=== PATIENT | female | born 1980 | race Caucasian/White ===

== ENCOUNTER 2016-08-12 13:27 | Emergency (ER) | payer OTHER ==
[~2016-08-12] VITALS: Ht 172.7 cm; Wt 72.7 kg
[~2016-08-12 13:27] MED LIST: ALBU18HF INH; PRE20 PO; ZIT250 PO
[2016-08-12 13:35] VITALS: BP 126/84; PULSE 113; RESP 12; O2SAT 99
--- NOTE | 2016-08-12 14:28 | ED.REPORT ---
HPI-General Illness Date of Service Aug 12, 2016 ED Provider: Dr. Collazo Pt is a 36 year old female with a hx of IV heroin use and migraines presenting to the ED complaining of a headache onset 3 days ago. Associated symptoms include chills, sweats, malaise. Denies muscle aching, numbness, weakness, cough , sore throat, rash. She reports that her last heroin usage was 1 hour before arrival today. She reports that this headache feels the same as her previous migraines. Nursing Notes Stated Complaint: HEADACHE Chief Complaint: General Complaint Nursing Notes Reviewed: Yes Allergies: Coded Allergies: aloe vera (Verified Allergy, Unknown, 09/04/15) coconut oil (Verified Allergy, Unknown, 09/04/15) pregabalin (Verified Allergy, Unknown, hallucinations, 09/04/15) venlafaxine (Verified Allergy, Unknown, seratonin reax, 09/04/15) Scheduled Azithromycin (Zithromax) 250 Mg Tablet 250 MG PO DAILY Prednisone (PredniSONE) 20 Mg Tablet 40 MG PO DAILY Scheduled PRN Albuterol Sulfate (Ventolin HFA Inhaler) 200 Puff/18 Gm Inhaler 1 PUFF INH Q4 PRN PRN For Wheezing okay to sub for pro-air as covered by insurance General Time Seen by MD: 14:28 Chief Complaint Headache Hx Obtained From: Patient Arrived By: Walk-in Sudden in Onset?: No Onset Occurred: 3 days ago Symptom Duration: Since onset Severity: Current: Severe Severity: Maximum: Severe Recent Healthcare: No recent doctor visit, No recent hospitalization Similar Sx Previous: Yes Past Medical History Past Medical History H/o ulcers h/o left breast infection Migraines Reports: Asthma, GERD Reports: IV Drug use Past Surgical History Tubal ligation Smoking History Current Every Day Smoker Social History Previously homeless, now has home Alcohol Use: Denies alcohol use Drug Use: IV drugs Other Social History: Local resident Occupation lives with boyfriend, no work or school Ambulatory Status Independent Review of Systems Full Review of Systems Constitutional: Reports: Chills, Fever, Malaise Ears / Nose / Throat: Denies: Sore throat Respiratory: Denies: Non-productive cough GI: Denies: Nausea, Vomiting Musculoskeletal: Denies: Joint pain Skin: Reports Diaphoresis, Denies Rash Neurologic: Denies: Numbness, Weakness Physical Exam Vital Signs Vital Signs Date Time Temp Pulse Resp B/P Pulse Ox O2 Delivery O2 Flow Rate FiO2 08/12/16 17:11 38 102 16 117/70 97 Room Air 08/12/16 13:35 36.6 113 12 126/84 99 Room Air Initial VS: Reviewed, Vital signs abnormal ENT: Mucous membranes moist, Conjunctiva normal, No scleral icterus Neck: Supple, Non-tender, Full range of motion Respiratory: Breath sounds normal, Clear to auscultation, No respiratory distress Abdomen / GI: Soft, Non-tender, No guarding, No rebound, No distention Neurologic: Alert, Oriented, Nonfocal Psychiatric: Mood/affect normal, Behavior normal, Normal thought content General/Constitutional: Awake, Alert, No acute distress Head / Eyes: Atraumatic, No photophobia Cardiovascular: Regular rhythm, Heart sounds NL Heart Rate / Rhythm: Positive: Tachycardia Skin: Warm Multiple excoriations to the face and arms. Interpretation & Diagnostics Lab Results Interpretation Result Diagram: 08/12/16 1510 08/12/16 1510 Test 08/12/16 15:10 08/12/16 15:44 White Blood Count 11.8th/mm3 (3.8-10.1) Red Blood Count 3.94mil/mm3 (3.90-5.20) Hemoglobin 11.0g/dL (12.0-15.6) Hematocrit 33.8% (35.0-46.0) Mean Corpuscular Volume 85.8fL (81-100) Mean Corpuscular Hemoglobin 27.9pg (27.0-35.0) Mean Corpuscular Hemoglobin Concent 32.5% (32.0-37.0) Red Cell Distribution Width 14.6% (12.3-15.4) Platelet Count 273bil/L (150-400) Neutrophils (%) (Auto) 84.1% (40-74) Lymphocytes (%) (Auto) 9.4% (14-46) Monocytes (%) (Auto) 5.9% (4-12) Eosinophils (%) (Auto) 0.2% (0-5) Basophils (%) (Auto) 0.1% (0-3) Sodium Level 131mEq/L (134-144) Potassium Level 3.5mEq/L (3.5-5.2) Chloride Level 95mEq/L (97-108) Carbon Dioxide Level 22mmol/L (18-29) Blood Urea Nitrogen 11mg/dL (6-20) Creatinine 0.57mg/dL (0.57-1.00) Estimat Glomerular Filtration Rate 174mL/min (>59) Glucose Level 120mg/dL (60-99) Calcium Level 8.1mg/dL (8.5-10.1) Lipase 15U/L (13-60) Hold Negro Top Tube Received (Received) Urine Color Yellow (YELLOW) Urine Appearance Hazy (CLEAR,HAZY) Urine pH 5.5 (5.0-8.0) Urine Specific [place] 1.005 (1.003-1.035) Urine Protein Negativemg/dL (NEG,TRACE) Urine Glucose (UA) Negativemg/dL (NEGATIVE) Urine Ketones Negativemg/dL (NEGATIVE) Urine Occult Blood Large (NEGATIVE) Urine Nitrite Positive (NEGATIVE) Urine Bilirubin Negative (NEGATIVE) Urine Urobilinogen Normalmg/dL (NORMAL) Urine Leukocyte Esterase Negative (NEGATIVE) Urine RBC 0-2/hpf (0-2) Urine WBC 0-5/hpf (0-5) Urine Epithelial Cells Moderate/hpf (NONE-MOD) Urine Crystals None seen (NONE SEEN) Urine Bacteria Many/hpf (NONE-FEW) Urine Hyaline Casts None/lpf (NONE) Urine Granular Casts None seen (NONE SEEN) Urine Waxy Casts None seen (NONE SEEN) Urine Red Blood Cell Casts None seen (NONE SEEN) Urine White Blood Cell Casts None seen (NONE SEEN) Urine Mucus None seen (None Seen) Urine Trichomonas None seen (NONE SEEN) Urine Yeast None (NONE SEEN) Urinalysis Comment None Urine Culture Reflexed Indicated Hold Urine Received (Received) Re-Eval/Medical Decision Med Decision/Clinical Course The patient presents with predominantly to her malaise and headache. Her exam is pretty unremarkable other than tachycardia. Given she is an IV drug user she could be at risk for bacteremia and so cultures were drawn. The patient did end up developing a fever. She does not have any symptoms or signs concerning for endocarditis. There are no hemorrhages and no murmur. A partial a similar differential diagnoses considered were meningitis, subarachnoid hemorrhage, and viral syndrome. The patient was discharged home and told to call for culture results. Time of Eval: 16:51 Patient Status: Condition improved Re-Evaluation/Progress Note: Discussed plan for discharge. Pt understands and agrees. Counseled Regarding: Diagnosis, Lab results, Need for follow-up, When/why to return to ED Discharge & Departure Primary Impression: Malaise Additional Impressions: Headache Headache type: unspecified Headache chronicity pattern: unspecified pattern Intractability: not intractable Qualified Code: R51 - Headache Fever Fever type: unspecified Qualified Code: R50.9 - Fever, unspecified Disposition: Home Discharge Condition All VS Reviewed: Yes Condition: Improved Additional Instructions: Go home and rest. Drink plenty of fluids. Return to the ER with any new or worsening symptoms. Referrals: NOPCP (PCP) [facility] [place] Attestation Portions of this note were transcribed by Cynthia Velásquez. I, Dr. Collazo personally performed the history, physical exam and medical decision-making; I reviewed and confirmed the accuracy of the information in the transcribed note. Signed by : Paramjit Ruiz, 08/12/2016 and [id number]. copies to: [facility] Osiris Collazo MD Aug 12, 2016 14:28 CYNTHIA VELÁSQUEZ Aug 12, 2016 14:37
[2016-08-12] MEDS ORDERED: 0.9% Sodium Chloride 1,000 ML IV ONE (14:40)
[2016-08-12] MEDS ORDERED: ProchlorPERazine 5 mg/mL 2 mL Inj IVPUSH ONE (14:40)
[2016-08-12] MEDS ORDERED: 0.9% Sodium Chloride 50 ML ONE (14:51)
[2016-08-12 15:24] LABS: BASOPHILS % (AUTO) 0.1 % (0-3); EOSINOPHILS % (AUTO) 0.2 % (0-5); MONOCYTES % (AUTO) 5.9 % (4-12); Mean Corpuscular Hemoglobin 27.9 pg (27.0-35.0); Mean Corpuscular Volume 85.8 fL (81-100); NEUTROPHILS % (AUTO) 84.1 % (40-74); Platelet Count 273 bil/L (150-400)
[2016-08-12 16:45] LABS: APPEARANCE,URINE HAZY (CLEAR,HAZY); COLOR,URINE YELLOW (YELLOW); OCCULT BLOOD,URINE LARGE (NEGATIVE); PH,URINE 5.5 (5.0-8.0); UROBILINOGEN,URINE NORMAL (NORMAL)
[2016-08-12 17:11] VITALS: BP 117/70; PULSE 102; RESP 16; O2SAT 97
== END 2016-08-12 17:59 | disposition home or self-care (01) ==
LOC: SED 13:27
DX: R53.81 Other malaise (principal); R51 Headache; R50.9 Fever, unspecified; J45.909 Unspecified asthma, uncomplicated; K21.9 Gastro-esophageal reflux disease without esophagitis; F17.200 Nicotine dependence, unspecified, uncomplicated; Z88.8 Allergy status to other drugs, medicaments and biological substances
CPT/HCPCS: 36415; 80048; 81000; 83690; 85025; 87040; 87077; 87086; 87088; 87186; 96361; 96374; 96375; 99285; J0780; J1200; J7030

== ENCOUNTER 2016-08-17 13:46 | Emergency (ER) | payer OTHER ==
[~2016-08-17] VITALS: Ht 172.7 cm; Wt 90.3 kg
[2016-08-17 14:04] VITALS: BP 128/74; PULSE 109; RESP 16; O2SAT 96
[2016-08-17] MEDS ORDERED: cefTRIAXone Inj 2,000 MG in Dextrose 5% Minibag Plus 50 ML IV ONE (15:35)
[2016-08-17] MEDS ORDERED: Vancomycin Dose per Pharmacist XX ONE (15:35)
[2016-08-17] MEDS ORDERED: Promethazine Inj 25 MG in Dextrose 5%-Pha MIX 50 ML IV ONE (15:55)
[2016-08-17] MEDS ORDERED: Vancomycin Inj 2,000 MG in 0.9% Sodium Chloride 500 ML IV ONE (16:00)
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
[2016-08-17 16:14] LABS: INR 0.99 ratio
== END 2016-08-17 16:43 | disposition home or self-care (01) ==
LOC: SED 13:46
DX: B95.62 Methicillin resistant Staphylococcus aureus infection as the cause of diseases classified elsewhere (principal); B96.20 Unspecified Escherichia coli [E. coli] as the cause of diseases classified elsewhere; R51 Headache; M25.562 Pain in left knee; R01.1 Cardiac murmur, unspecified; I33.0 Acute and subacute infective endocarditis; F17.200 Nicotine dependence, unspecified, uncomplicated; F11.10 Opioid abuse, uncomplicated; F15.10 Other stimulant abuse, uncomplicated; J45.909 Unspecified asthma, uncomplicated; K21.9 Gastro-esophageal reflux disease without esophagitis; Z79.51 Long term (current) use of inhaled steroids; Z59.0 Homelessness; Z88.0 Allergy status to penicillin; Z88.8 Allergy status to other drugs, medicaments and biological substances

== ENCOUNTER 2016-08-18 00:12 | Inpatient (IN) | payer OTHER ==
[2016-08-18] VITALS (9 sets, daily range): BP systolic 107–121; BP diastolic 55–77; PULSE 69–106; RESP 18–26; O2SAT 92–100
[~2016-08-18] VITALS: Ht 172.7 cm; Wt 91.8 kg
[2016-08-18] MEDS ORDERED: 0.9% Sodium Chloride 1,000 ML IV ONE ×2 (02:01→03:30)
--- NOTE | 2016-08-18 02:01 | ED.REPORT ---
HPI-General Illness Date of Service Aug 18, 2016 ED Provider: Jj Smith MD A 36 year old female with a history of breast abscess, tubal ligation, MRSA, ulcers, migraines, and ongoing IV heroin use presents to the ED complaining of a headache. The pt has been experiencing a headache for five days, which is worsened by fluctuations in blood pressure. She is also complaining of left knee pain and swelling. She had blood cultures drawn in four out of four positive for methicillin-resistant staph aureus. The pt was seen yesterday for these symptoms and admission advised, but she eloped. Her headache worsened after this point and she developed a fever, prompting the pt to return. The pt denies cough or vomiting. She has been treating her pain with Aleve until recently, but denies Tylenol or aspirin use. No neck stiffness. Left knee is tender and swollen. She is unable bear weight on that. Nursing Notes Stated Complaint: HEADACHE Chief Complaint: Headache Nursing Notes Reviewed: Yes Allergies: Coded Allergies: Penicillins (Verified Allergy, Unknown, hives, thrush, 08/18/16) aloe vera (Verified Allergy, Unknown, 08/17/16) coconut oil (Verified Allergy, Unknown, 08/17/16) pregabalin (Verified Allergy, Unknown, hallucinations, 08/17/16) venlafaxine (Verified Allergy, Unknown, seratonin reax, 08/17/16) Scheduled Azithromycin (Zithromax) 250 Mg Tablet 250 MG PO DAILY Prednisone (PredniSONE) 20 Mg Tablet 40 MG PO DAILY Scheduled PRN Albuterol Sulfate (Ventolin HFA Inhaler) 200 Puff/18 Gm Inhaler 1 PUFF INH Q4 PRN PRN For Wheezing okay to sub for pro-air as covered by insurance General Time Seen by MD: 02:01 Chief Complaint Headache Hx Obtained From: Patient Arrived By: Walk-in Sudden in Onset?: No Onset Occurred: 5 days ago Symptom Duration: Since onset Recent Healthcare: No recent hospitalization, Recent doctor visit Similar Sx Previous: No Past Medical History Past Medical History H/o ulcers h/o left breast infection Migraines ho MRSA heart murmur Reports: Asthma, GERD Reports: Heroin use, IV Drug use Past Surgical History Tubal ligation Smoking History Current Every Day Smoker Social History Homeless Alcohol Use: Denies alcohol use Drug Use: IV drugs Other Social History: Local resident Occupation lives with boyfriend, no work or school Ambulatory Status Independent Review of Systems Full Review of Systems Constitutional: Reports: Fever Respiratory: Denies: Non-productive cough GI: Denies: Vomiting Musculoskeletal: Reports: Extremity pain, Extremity swelling Neurologic: Reports: Headache Complete sys rev & neg: except as marked. Physical Exam Vital Signs Vital Signs Date Time Temp Pulse Resp B/P Pulse Ox O2 Delivery O2 Flow Rate FiO2 08/18/16 00:26 38.8 106 18 121/71 100 Room Air Initial VS: Reviewed General/Constitutional: Awake, Alert, No acute distress Head / Eyes: Atraumatic, Normocephalic, PERRL, EOMI ENT: Atraumatic, Airway patent, Mucous membranes moist Neck: Atraumatic, Supple, Full range of motion Respiratory / Chest: Atraumatic, Breath sounds NL, Breath sounds = bilat, No respiratory distress Cardiovascular: Heart rate NL, Regular rhythm 3/6 holosystolic murmur Abdomen: Atraumatic, Soft, Non-tender Back: Atraumatic, Full range of motion Upper Extremities Upper Extremity / MS: Atraumatic, Full range of motion Lower Extremity / Pelvis / MS: No deformity left knee swollen and tender with obvious effusion Skin: Color NL, Warm, Dry multiple scabs and excoriations on face Neurologic: Oriented X3, Speech NL, No motor deficits, No sensory deficits Psychiatric: Affect NL, Mood NL Interpretation & Diagnostics Lab Results Interpretation Result Diagram: 08/18/16 0255 08/18/16 0255 Test 08/18/16 02:55 White Blood Count 13.9th/mm3 (3.8-10.1) Red Blood Count 3.59mil/mm3 (3.90-5.20) Hemoglobin 10.0g/dL (12.0-15.6) Hematocrit 30.2% (35.0-46.0) Mean Corpuscular Volume 84.1fL (81-100) Mean Corpuscular Hemoglobin 27.9pg (27.0-35.0) Mean Corpuscular Hemoglobin Concent 33.1% (32.0-37.0) Red Cell Distribution Width 14.3% (12.3-15.4) Platelet Count 376bil/L (150-400) Neutrophils (%) (Auto) 71.4% (40-74) Lymphocytes (%) (Auto) 21.3% (14-46) Monocytes (%) (Auto) 5.6% (4-12) Eosinophils (%) (Auto) 0.9% (0-5) Basophils (%) (Auto) 0.1% (0-3) Erythrocyte Sedimentation Rate 76mm/hr (0-32) Prothrombin Time 11.0sec (8.1-12.5) Prothromb Time International Ratio 1.03ratio Activated Partial Thromboplast Time 28.9sec (22.8-33.0) Sodium Level 129mEq/L (134-144) Potassium Level 3.6mEq/L (3.5-5.2) Chloride Level 92mEq/L (97-108) Carbon Dioxide Level 23mmol/L (18-29) Blood Urea Nitrogen 11mg/dL (6-20) Creatinine 0.64mg/dL (0.57-1.00) Estimat Glomerular Filtration Rate 152mL/min (>59) Glucose Level 152mg/dL (60-99) Lactic Acid Level 1.9mmol/L (0.4-2.0) Calcium Level 8.5mg/dL (8.5-10.1) Phosphorus Level 2.0mg/dL (2.5-4.9) Magnesium Level 1.8mg/dL (1.6-2.6) Total Bilirubin 0.3mg/dL (0.0-1.2) Aspartate Amino Transf (AST/SGOT) 27U/L (0-50) Alanine Aminotransferase (ALT/SGPT) 38U/L (0-32) Alkaline Phosphatase 95U/L (25-150) Troponin T 0.010ug/L (0.0-0.011) Pro-B-Type Natriuretic Peptide 8.10pg/mL (0-130) Total Protein 7.4g/dL (6.4-8.4) Albumin 3.2g/dL (3.4-5.0) Lipase 16U/L (13-60) Procalcitonin 0.09ng/mL (0.00-0.08) ECG Interpretation ECG Interpretation: sinus tachycardia with a rate of [address] T wave changes lateral leads Time: 04:32 Interpreted by: ED physician X-Ray Chest Interpretation Chest Xray Interpretation: no acute findings Interpretation / Wet Read by: Wet read ED physician X-Ray Interpretation Xray Interpretation: no acute findings X-Ray Ordered: Knee left Interpretation / Wet Read by: Wet read ED physician CT Head Interpretation CONCLUSION: Normal. Interpretation / Wet Read by: Interpret - Radiologist Procedures Arthrocentesis aspirated 21 mL of turbid fluid Time: 05:08 Aspiration Performed by: ED physician, ED resident Consent / Setup / Site Prep: Informed consent provided, Consent from patient, Time-out performed, Hand hygiene observed, Stand sterile technique, Standard surgical scrub, Sterile drapes applied Skin Preparation Agent: Hibiclens - Chlorhexidine Joint Aspirated: Knee left Aspiration Needle: Other (21g) Amount Aspirated: 8 ml Post-Procedure / Complications: Antibiotic oint applied, Dressing placed, No complications, Condition improved, Tolerated procedure well, Patient stable Re-Eval/Medical Decision Med Decision/Clinical Course 36-year-old with IV drug abuse, and four out of four blood cultures positive for methicillin-resistant staph aureus in the past week, presents with fever, headache, and a knee effusion. Knee was tapped and appears moderately purulent. Neck is supple. Doubt meningitis. CT of the cranium with and without contrast does not reveal evidence of abscess. Chest x-ray does not have any focal infiltrates. Synovial fluid has only 25,000 white cells, below criteria for acutely septic knee. Cultures pending. Begun with vancomycin and clindamycin for her septicemia. Admitted now to the medicine service. Consultation to infectious disease. Source of Hx: Old records Time of Eval: 02:01 Re-Evaluation/Progress Note: Pt informed of the need for admission during the initial interview. The plan for discharge is discussed. The pt understands and agrees with the plan. All questions are addressed at this time. Time of Eval: 05:02 Patient Status: Condition improved Re-Evaluation/Progress Note: Pt rechecked, who is resting. She is informed of her radiology results. Arthrocentesis is performed without complication. Consultation : Referral / Consult Name: Isis Mckeon DO Consulted With: Hospitalist Call Returned at: 04:38 Diazo Technician: Agrees with eval, Agrees with plan, Accepts admit Note: Spoke with Dr. Mckeon, hospitalist, regarding pt's case. Dr. Mckeon agrees with the evaluation and agrees to admit the pt. Counseled Regarding: Diagnosis, Lab results, Need for admission Discharge & Departure Primary Impression: Bacteremia Additional Impressions: Endocarditis, subacute Headache Disposition: ADMITTED TO HOSPITAL Discharge Condition All VS Reviewed: Yes Condition: Stable Referrals: NOPCP (PCP) Scribe Attestation Portions of this note were transcribed by Lelia Ly. I, Dr. Smith personally performed the history, physical exam and medical decision-making; I reviewed and confirmed the accuracy of the information in the transcribed note. Signed by: Paramjit Serra, 08/18/2016 and 0529. Jj Smith MD Aug 18, 2016 02:01 LELIA LY Aug 18, 2016 02:45
[2016-08-18 03:07] LABS: BASOPHILS % (AUTO) 0.1 % (0-3); EOSINOPHILS % (AUTO) 0.9 % (0-5); MONOCYTES % (AUTO) 5.6 % (4-12); Mean Corpuscular Hemoglobin 27.9 pg (27.0-35.0); Mean Corpuscular Volume 84.1 fL (81-100); NEUTROPHILS % (AUTO) 71.4 % (40-74); Platelet Count 376 bil/L (150-400)
[2016-08-18 03:24] LABS: ERYTHROCYTE SEDIMENTATION RATE 76 mm/hr (0-32)
[2016-08-18 03:25] LABS: INR 1.03 ratio
[2016-08-18] MEDS ORDERED: Haloperidol 5 mg/mL Inj IVPUSH ONE (03:30)
[2016-08-18 03:40] LABS: TROPONIN T 0.01 ug/L (0.0-0.011)
[2016-08-18 03:51] LABS: Magnesium 1.8 mg/dL (1.6-2.6)
[2016-08-18] MEDS ORDERED: Alum-Mag Hydrox-Simeth 30 mL Suspension PO PRN (04:45)
[2016-08-18] MEDS ORDERED: Polyethylene Glycol (PEG) 17 Gm Powder PO PRN (04:45)
[2016-08-18] MEDS ORDERED: Clindamycin Inj 900 MG in IV Premix 1 EACH IV ONE (05:35)
[2016-08-18] MEDS ORDERED: Vancomycin Inj 1,750 MG in 0.9% Sodium Chloride 500 ML IV ONE (05:45)
--- NOTE | 2016-08-18 06:05 | PCM.HPMED ---
Subjective Date of Service Aug 18, 2016 Primary Provider: Admitting Physician: Isis Mckeon DO Primary Care Physician: Nikki Attending Physician: Isis Mckeon DO Chief Complaint: Head Ache Bacteremia Knee pain History of Present Illness: 36-year-old woman with history of breast sepsis, MRSA, ulcers, migraines, and current IV heroin use, was found to have MRSA bacteremia after ER visits earlier this week. Today she states her reason for returning is the continued headaches which she has had for 5 days. She describes it as frontal, no preferred laterality, coming and going, each times a comes on its worse in the previous time in the last longer. She does denies any changes in vision. She describes it as constant, non-throbbing. No prodrome, no lights, spots, or curtains. She denies any weakness in her arms hands feet or legs. However she does say she has knee pain which has been present for 2 days. The knee has been swelling and increasing in pain she describes it as "locked" she has not injured the knee only says that she occasionally squats on her knees outside as she is homeless. She endorses fever, chills, but denies any cough, vomiting, nausea or diarrhea. Claims to have a history of asthma and as such occasionally feels short of breath but not currently. No abdominal pain, She has tried treating her pain with Aleve but says that it does not help. She denies any Tylenol or aspirin use. She claims to have left knee emergency department 1-2 days ago when she was told she needed to be admitted because she "needed support and was not ready for it" she additionally mentions that she use the time and between her elopement to now to use more heroin. Vital signs in the emergency department show temperature of 38.8, heart rate of 106, respirations 18, blood pressure 121/71, satting 100% on room air White blood cells 13.9, hemoglobin 10.0, platelets 379. ESR 76. Sodium 129, chloride 92, glucose 153, phosphorus 2.0 ALT mildly elevated at 38. Troponin was negative, pro BNP is negative, pro calcitonin 0.09. Lactic acid 1.9. Head CT- preliminary report showed no acute intracranial process. Chest x-ray read by emergency room physician showed no significant change from previous signs of pneumonia, abscess. X-ray of her knee showed no acute findings. EKG sinus tachycardia, heart rate 100, minor nonspecific ST and T-wave changes in the lateral leads, axis is normal. Patient states she last used IV heroin before she returned to the emergency department, she said she has withdrawn in the past and has had difficulty doing so while hospitalized. She has tried Suboxone and says that it does not work. Review of Systems: Comprehensive ROS performed, negative unless stated in history of present illness Allergies Coded Allergies: Penicillins (Verified Allergy, Unknown, hives, thrush, 08/18/16) aloe vera (Verified Allergy, Unknown, 08/17/16) coconut oil (Verified Allergy, Unknown, 08/17/16) pregabalin (Verified Allergy, Unknown, hallucinations, 08/17/16) venlafaxine (Verified Allergy, Unknown, seratonin reax, 08/17/16) Home Medications Scheduled Azithromycin (Zithromax) 250 Mg Tablet 250 MG PO DAILY Prednisone (PredniSONE) 20 Mg Tablet 40 MG PO DAILY Scheduled PRN Albuterol Sulfate (Ventolin HFA Inhaler) 200 Puff/18 Gm Inhaler 1 PUFF INH Q4 PRN PRN For Wheezing okay to sub for pro-air as covered by insurance PMH H/o ulcers h/o left breast infection Migraines ho MRSA heart murmur Reports: Asthma, GERD Reports: Heroin use, IV Drug use Surgical History Tubal Ligation Family History Mother and grandmother - Uterine and cervical cancer, [place] and CVAs. PGF - [place] Social History Occupation: Homeless Hx Alcohol Use: No Hx Substance Use: Yes (heroin daily) Hx Tobacco Use: Yes Smoking Status: Current Every Day Smoker Living Arrangement: Homeless Exam Vital Signs Vital Sign - Last Date Time Temp Pulse Resp B/P Pulse Ox O2 Delivery O2 Flow Rate FiO2 08/18/16 00:26 38.8 106 18 121/71 100 Room Air Intake and Output 08/17/16 08/17/16 08/18/16 Cumulative From/Thru 14:59 22:59 06:59 08/18/16 00:26 - 08/18/16 03:56 Intake Total 1000 ml 1000 ml Balance 1000 ml 1000 ml Intake IV Total 1000 ml 1000 ml Exam General: Laying in bed, no apparent distress. Disheveled, poor hygiene, obvious lesions to face and extremities foul smell feels the room HEENT: Normocephalic, hair is matted, multiple lesions of varying size and states of healing on her face. Extraocular muscles intact, pupils round and reactive to light, mucous membranes moist, oropharynx is without erythema or edema. Cardiovascular: Regular rate and rhythm, 2/6 systolic murmur heard best at tricuspid post. Pulses 2/4 equal upper and lower extremities Pulmonary: Clear to auscultation bilaterally, no W/R/R. Abdominal: Soft to palpation, bowel sounds present 4, no hepatosplenomegaly. Negative rebound. Extremities: There is no edema to lower extremities, there are multiple pin- sized lesions on upper and lower extremities. No splinter hemorrhages, Oslters nodes, or janeway lesions appreciated. Neuro: Neurologically grossly intact, strength is equal bilaterally upper and lower extremities. MSK: Left knee swollen compared to right, tender, obvious effusion. Strength 5 out of 5 upper and lower extremities. Exam limited with left lower extremity due to pain in knee. Lab and Diagnostics Result Diagram: 08/18/16 0255 08/18/16 0255 Microbiology 09/05 previous blood cultures positive for MRSA. X-Rays, CTs and MRIs mentioned in history of present illness. Official read is not yet available. Head CT Chest x-ray Knee x-ray 12-lead ECG Please see history of present illness Assessment & Plan 36-year-old woman currently IV drug abuser, presents with 5 days of headache, new onset knee pain and swelling, positive blood cultures 2 for MRSA. #1 acute sepsis, present on admission, treatment initiated Blood cells 13.9, vital signs: Temperature 38.8 Celsius, heart rate 106, maintaining blood pressure notified source has blood, right knee, and urinary tract. ESR 76, lactic acid 1.9, pro calcitonin 0.09 Repeat blood cultures with elevated fever CBC every morning Trend pro calcitonin every 24 hours Recheck lactic acid if change in status #2 Acute MRSA Bacteremia, present on admission, treatment initiated 2 out of 2 bottles from 08/12/16 positive for MRSA, sensitive to clindamycin and vancomycin. Attributed to IV drug use. Antibiotics to treat include vancomycin dosed by pharmacy, Clindamycin was given in the emergency department, however given the positive MRSA culture and no other organisms do not feel coverage of anaerobes is necessary. #3 Acute Urinary tract infection, present on admission, treatment initiated Urine culture from 08/12/2016 grew Escherichia coli, Multiple resistance, susceptible to ceftriaxone Start ceftriaxone 2 mg IV every 24 hours #4 Heart murmur, chronicity unknown, present on admission, evaluation ongoing Was heard on previous ER visits, previously evaluated in September 2015 without any valvular abnormalities apparent. She has since continued to use IV drug use. Echocardiogram. Cardiology consult with abnormality on echocardiogram. #5 Acute left knee Septic joint, present on admission, evaluation ongoing Joint aspirate has been collected waiting culture and sensitivity. IV antibiotics to be started for above-mentioned reasons, #6 Chronic IV drug abuse, present on admission, active Last use before returning to the emergency department, reports heroin Serum drug panel Cows protocol Patient said Suboxone did not work for her in the past, maybe candidate for clonidine. High risk for elopement, leaving AGAINST MEDICAL ADVICE, recommend against PICC line placement. #7 Elevated blood glucose Blood sugar in the emergency department was 152, review of previous admission shows it to be elevated greater than 113. Hemoglobin A1c #8 Acute Electrolyte dyscrasia, present on admission, evaluation and treatment ongoing. Most likely due infection Sodium 129, chloride 92. Treat with IV saline We will continue to monitor on BMP/CMP #9 Chronic Anemia, present on admission, stable, evaluation ongoing Review of airplane engineer from previous visits show her to be chronically anemic, previous visit she has been microcytic, currently normocytic. Iron deficiency versus anemia of chronic disease Iron panel #10 Persistent tobacco use Discussed benefits of quitting smoking, risks of continuing to smoke, and how smoking cessation could better improve health in the future #11 High risk for leaving AGAINST MEDICAL ADVICE Left emergency department previously without notifying. Previous admission did not leave AMA. VTE Prophylaxis with subcutaneous heparin GI prophylaxis: Not indicated Pain management: Avoid opioid analgesics secondary to COWs protocol. Pain Evaluation: Adequate Pain Control GI Prophylaxis: Not indicated VTE Prophylaxis: Sub-Q Heparin (Unfractionated) Resuscitation Status: CPR: Attempt Resuscitation Attending Statement The patient was seen and examined together with house staff on 08/18/2016 and I agree with the history, exam and plan as outlined in the note above. Percy Moreira DO Aug 18, 2016 05:36 Isis Mckeon DO Aug 18, 2016 07:05
[2016-08-18 06:27] LABS: APPEARANCE,URINE SLIGHTLY CLOUDY (CLEAR,HAZY); COLOR,URINE YELLOW (YELLOW); OCCULT BLOOD,URINE SMALL (NEGATIVE)
[2016-08-18 07:18] LABS: BFWBC 25400 /mm3; MONOCYTES,BODY FLUID 20 %; OTHER CELLS,BODY FLUID 0
--- NOTE | 2016-08-18 07:24 | NUR ---
Arrival to Rm 3004 Pt arrived alert and oriented x3, conversing in full sentences, and able to make needs known. On arrival this Rn noted Pt ot be covered from head to toe in scabbed open scratch/track ha. Pt was accompanied by a friend who immediately requested food and drink for him self. Upon arrival pt had to use BR and insisted on wearing her large jacket into the BR. Pt spent 15-20 minutes in BR and after returning to bed all Pts belongings (including jacket) were locked in closet with Pts consent. Pt was briefed on policies and expectations. Pt was told to never touch her IV and to call for staff assistance if she though there was any thing wrong with her IV. Pt agreed. pt was told to not take any medications or recreational drugs while in the hospital. Pt agreed. Pt was placed on telemetry and IV antibiotics were started. Reported handed off to on coming RN who was introduced to Pt by my self. At that time Pts visitor was in the BR and after exiting with his back pack on said he was leaving and rushed out of room.
[2016-08-18] MEDS ORDERED: cloNIDine 0.1 mg Tablet PO PRN (08:20)
[2016-08-18 08:29] LABS: Unsaturated Iron Binding 297.1 ug/dL
[2016-08-18] MEDS ORDERED: Buprenorphine 2 mg SL Tablet SL SCH (08:30)
[2016-08-18] MEDS ORDERED: Vancomycin Dose per Pharmacist XX SCH (08:30)
--- NOTE | 2016-08-18 10:08 | DRSVH ---
PROCEDURE: X-RAY LEFT KNEE, THREE VIEWS ([id number]) INDICATIONS: pain, swelling, ivda TECHNIQUE: 3 views of the knee were acquired. COMPARISON: None. FINDINGS: Bones: No fractures or dislocations. No suspicious bony lesions. Soft tissues: Moderate joint effusion. No suspicious soft tissue calcifications. Soft tissue foreig n body. IMPRESSION: Although no bony erosions are identified, plain film radiography is relatively insensitive in the acu te phases of osteomyelitis and may not demonstrate radiographic changes for 15 days. If acute osteom yelitis is of clinical concern, nuclear medicine regional bone scan or MRI is recommended. Joint effusion. 2 cm soft tissue foreign body within the upper lower leg medially at the level of the proximal tibia shaft. Dictated by: Daniel Peace [facility] Interpreted: Saadia Burton MD on 08/18/2016 at 10:07 Transcribed by: HANNAH on 08/18/2016 at 10:08 Approved by: Saadia Burton MD, PhD on 08/18/2016 at 16:57
--- NOTE | 2016-08-18 10:09 | DRSVH ---
PROCEDURE: X-RAY CHEST, TWO VIEWS ([id number]) INDICATIONS: subacute bacterial endocarditis TECHNIQUE: 2 views of the chest were acquired. COMPARISON: None. FINDINGS: Surgical changes and devices: None. Lungs and pleura: No pleural effusions or pneumothorax. Lungs are clear. Mediastinum: Mediastinal contours are normal. Heart size is normal. Bones and chest wall: No suspicious bony abnormalities. Soft tissues appear unremarkable. Residual contrast media is noted within the renal collecting system. IMPRESSION: No acute cardiopulmonary disease. Dictated by: Daniel Peace [facility] Interpreted: Saadia Burton MD on 08/18/2016 at 10:09 Transcribed by: HANNAH on 08/18/2016 at 10:09 Approved by: Saadia Burton MD, PhD on 08/18/2016 at 16:57
--- NOTE | 2016-08-18 10:45 | DRSVH ---
PROCEDURE: CT BRAIN WITH AND WITHOUT CONTRAST ([id number]) INDICATIONS: ivda, fever, headache TECHNIQUE: 4.5 mm thick angled axial sections acquired from the foramen magnum to the vertex before and after th e administration of intravenous contrast, with coronal reformats. COMPARISON: [facility], CT, CT BRAIN WO CON, 09/04/2015, 21:16. FINDINGS: Image quality: Excellent. CSF Spaces: Basal cisterns are patent. No extra-axial fluid collections. Ventricles are normal in size and shape. Brain: No midline shift. No intracranial bleeds or masses. No abnormal intracranial enhancement. Galvan-white interface appears normal. Skull and face: Calvarium and visualized facial bones appear intact, without suspicious lesions. Sinuses: Visualized sinuses and mastoids are clear. IMPRESSION: 1. No acute intracranial process. Dictated by: Victoria Galvan M.D. on 08/18/2016 at 10:43 Approved by: Victoria Galvan M.D. on 08/18/2016 at 10:44
--- NOTE | 2016-08-18 11:14 | PCM.CONPHA ---
Subjective Date of Service: Aug 18, 2016 Vancomycin dosing Reason for Pharmacy Consult: Vancomycin Dosing Assessment/Plan Assessment/Plan Patient is a 36 y.o. female receiving vancomycin for MRSA bacteremia. Concurrent abx include: ceftriaxone. WBC count is 13.9 and the patient is febrile. Patient is 91.8 kg, 68 inches tall with a SCr of 0.64 mg/dL-- estimated CrCl of >120 mL/min. Based on patient parameters vancomycin will be loaded with 1750mg and dosed at 1250mg q8h with a target trough of 15-20 mcg/mL. Trough will be drawn prior to the 4th dose on 08/19 @ 0700. Pharmacy will follow daily and adjust as appropriate. Thank you for the consult in the care of this patient. RWJanak Kennedy PharmD Aug 18, 2016 11:13
[2016-08-18] MEDS: cefTRIAXone Inj 2,000 MG in Dextrose 5% Minibag Plus 50 ML IV SCH (11:50)
--- NOTE | 2016-08-18 14:29 | NUR ---
Social Work: Screening Data: Pt is a 48 y/o female admitted for MRSA, bacteremia SBE. Pt's PCP is not listed. Pt's insurance is [employer]. EMR reviewed. Readmit score not listed. Pt is an IV heroin user. BOOM OPERATOR will meet with pt regarding chemical dependency and if she is agreeable to information or meeting with the CDP from [place]. BOOM OPERATOR will continue to follow. Assessment: IV heroin drug use, independent at baseline. Plan: BOOM OPERATOR will follow up with pt regarding CD. BOOM OPERATOR will continue to follow. STEPH Mcdaniel
[2016-08-18] MEDS: 0.9% Sodium Chloride 1,000 ML IV SCH ×2 (15:29→17:45)
[2016-08-18] MEDS: Vancomycin Inj 1,250 MG in 0.9% Sodium Chloride 250 ML IV SCH (15:56)
--- NOTE | 2016-08-18 18:03 | NUR ---
Behavior Pt stated that she uses up to a gram a day of heroin and did notD displayed any s/s of withdrawal during shift. No pain medications given by this RN during shift and pt has been on the floor since 0600. Pt appeared very tired and slept almost 6 hours. Pt also tired to hide a tourniquet from a laboratory equipment installer when he tried to draw blood.
--- NOTE | 2016-08-18 18:19 | PCM.PNMED ---
Subjective Date of Service Aug 18, 2016 Subjective Eduar Regan 36-year-old woman currently IV drug abuser, presents with 5 days of headache, new onset knee pain and swelling, positive blood cultures 2 for MRSA. Hospital day #1 Today: The patient complains of abdominal pain and fevers. Exam Vital Signs Vital Sign - Last Date Time Temp Pulse Resp B/P Pulse Ox O2 Delivery O2 Flow Rate FiO2 08/18/16 15:16 36.8 69 19 121/76 92 Room Air Intake and Output 08/17/16 08/17/16 08/18/16 Cumulative From/Thru 15:00 23:00 07:00 08/18/16 00:26 - 08/18/16 06:15 Intake Total 1000 ml 1000 ml Output Total 400 ml 400 ml Balance 600 ml 600 ml Intake Oral 0 ml 0 ml IV Total 1000 ml 1000 ml Output Urine Total 400 ml 400 ml # Bowel Movements 1 1 Exam General: Laying in bed, no apparent distress. Disheveled, poor hygiene, obvious lesions to face and extremities foul smell feels the room HEENT: Normocephalic, hair is matted, multiple lesions of varying size and states of healing on her face. Extraocular muscles intact, pupils round and reactive to light, mucous membranes moist, oropharynx is without erythema or edema. Cardiovascular: Regular rate and rhythm, 2/6 systolic murmur heard best at tricuspid post. Pulses 2/4 equal upper and lower extremities Pulmonary: Clear to auscultation bilaterally, no W/R/R. Abdominal: Soft to palpation, bowel sounds present 4, no hepatosplenomegaly. Negative rebound. Extremities: There is no edema to lower extremities, there are multiple pin- sized lesions on upper and lower extremities. No splinter hemorrhages, Oslters nodes, or janeway lesions appreciated. Neuro: Neurologically grossly intact, strength is equal bilaterally upper and lower extremities. MSK: Left knee swollen compared to right, tender, obvious effusion. Strength 5 out of 5 upper and lower extremities. Exam limited with left lower extremity due to pain in knee. IVs and Medications Medications Reviewed: Medications were reviewed in detail Lab and Diagnostics Result Diagram: 08/18/16 0255 08/18/16 0255 Microbiology 4/4 previous blood cultures positive for MRSA. X-Rays, CTs and MRIs X-RAY LEFT KNEE, THREE VIEWS IMPRESSION: Although no bony erosions are identified, plain film radiography is relatively insensitive in the acute phases of osteomyelitis and may not demonstrate radiographic changes for 15 days. If acute osteomyelitis is of clinical concern , nuclear medicine regional bone scan or MRI is recommended. Joint effusion. 2 cm soft tissue foreign body within the upper lower leg medially at the level of the proximal tibia shaft. Dictated by: Daniel OVALLES Interpreted: Saadia Burton MD on 08/18/2016 at 10:07 CT BRAIN WITH AND WITHOUT CONTRAST IMPRESSION: 1. No acute intracranial process. Dictated by: Victoria Galvan M.D. on 08/18/2016 at 10:43 X-RAY CHEST, TWO VIEWS IMPRESSION: No acute cardiopulmonary disease. Dictated by: Daniel OVALLES Interpreted: Saadia Burton MD on 08/18/2016 at 10:09 12-lead ECG Please see history of present illness Assessment & Plan Reviewed admission note, agree with assessment and plan: Eduar Regan 36-year-old woman currently IV drug abuser, presents with 5 days of headache, new onset knee pain and swelling, positive blood cultures 2 for MRSA. Hospital day #1 1. Sepsis, acute, present on admission -Blood cells 13.9, vital signs: Temperature 38.8 Celsius, heart rate 106, maintaining blood pressure notified source has blood, right knee, and urinary tract. -ESR 76, lactic acid 1.9, pro calcitonin 0.09 -Repeat blood cultures x 3 -Trend pro calcitonin every 24 hours -Antibiotics as below 2. MRSA Bacteremia, subacute, present on admission -2 out of 2 bottles from 08/12/16 positive for MRSA, sensitive to clindamycin and vancomycin. Secondary to IVDU. -Continue vancomycin dosed by pharmacy -Clindamycin was given in the emergency department, however given the positive MRSA culture and no other organisms do not feel coverage of anaerobes is necessary. -Infectious disease consultation placed, however Dr. Moore is out of town until Sunday. -Likely the patient has endocarditis as she has a notable murmur on exam 3. Urinary tract infection, acute, present on admission, treatment initiated -Urine culture from 08/12/2016 grew Escherichia coli, susceptible to ceftriaxone -Continue ceftriaxone 2 mg IV every 24 hours 4. Heart murmur, chronicity unknown, present on admission, evaluation ongoing -Was heard on previous ER visits, previously evaluated in September 2015 without any valvular abnormalities apparent, but likely represents endocarditis -Echocardiogram pending 5. Left knee septic joint, acute, present on admission, evaluation ongoing -Joint aspirate has been collected waiting culture and sensitivity. High amount of PMNs present in the aspirate. -IV antibiotics as above 6. Chronic IV drug abuse, present on admission, active -Last use before returning to the emergency department. The patient states she uses twice daily and up to 1 gm of heroin daily. -Methadone for withdrawal symptoms as patient stated Suboxone has not worked in the past. -High risk for elopement, leaving AGAINST MEDICAL ADVICE, recommend against PICC line placement. 7. Hyperglycemia, chronicity unknown, present on admission -Blood sugar in the emergency department was 152, review of previous admission shows it to be elevated greater than 113. -Hemoglobin A1c 8. Electrolyte dyscrasia, acute, present on admission, evaluation and treatment ongoing. -Most likely due infection -Sodium 129, chloride 92. Treat with IV saline -We will continue to monitor on BMP/CMP 9. Chronic normocytic normochromic anemia, present on admission, stable, evaluation ongoing -Iron deficiency versus anemia of chronic disease -Iron panel 10. Persistent tobacco use Discussed benefits of quitting smoking, risks of continuing to smoke, and how smoking cessation could better improve health in the future 11. High risk for leaving AGAINST MEDICAL ADVICE -Left emergency department previously without notifying anyone -Previous admission did not leave AMA. VTE Prophylaxis with subcutaneous heparin GI prophylaxis: Not indicated Pain management: Methadone Dispo: Anticipate patient will be here for an extended amount of time as she undergoes treatment for MRSA bacteremia. GI Prophylaxis: Not indicated VTE Prophylaxis: Sub-Q Heparin (Unfractionated) VTE Mechanical Devices: Intermittant Pneumatic CD Resuscitation Status: CPR: Attempt Resuscitation Attending Statement The patient was seen and examined together with Dr. Osorio on 08/18 and I agree with the history, exam and plan as outlined in the note above Aurelia Osorio DO Aug 18, 2016 18:19 Jose Rowe MD Aug 18, 2016 23:32
[2016-08-18] MEDS: Vancomycin Dose per Pharmacist XX SCH (19:41)
[2016-08-19] VITALS (7 sets, daily range): BP systolic 102–124; BP diastolic 60–76; PULSE 67–96; RESP 18–25; O2SAT 97–100
[2016-08-19] MEDS: Vancomycin Inj 1,250 MG in 0.9% Sodium Chloride 250 ML IV SCH ×2 (00:36→10:05)
[2016-08-19] MEDS: cloNIDine 0.1 mg Tablet PO PRN ×3 (01:23→14:25)
[2016-08-19] MEDS: 0.9% Sodium Chloride 1,000 ML IV SCH ×2 (05:47→13:45)
[2016-08-19] MEDS: cefTRIAXone Inj 2,000 MG in Dextrose 5% Minibag Plus 50 ML IV SCH (05:48)
--- NOTE | 2016-08-19 06:21 | NUR ---
Pain/withdrawal c/o 10/10 generalized pain on initial assessment. Prn methadone and APAP administered. Initially effective as patient noted to be sleeping but later states pain still 10/10. MD notified with orders for kpad which patient states is helpful but still reports pain 10/10. MD notified again with new orders for one time dose of Toradol. Dose administered and patient reports pain significantly improved. Noted to be sleeping most of shift between complaints of pain. Reports feelings of Heroin withdrawal throughout shift. Prn Methadone and Clonidine administered. Initially reports no relieve of symptoms but after second dose of medications administered patient states she feels more relaxed.
[2016-08-19] MEDS ORDERED: Vancomycin Serum Trough XX ONE (07:00)
[2016-08-19] MEDS: Vancomycin Dose per Pharmacist XX SCH (07:14)
[2016-08-19 08:13] LABS: BASOPHILS % (AUTO) 0.5 % (0-3); EOSINOPHILS % (AUTO) 1.3 % (0-5); MONOCYTES % (AUTO) 7.7 % (4-12); Mean Corpuscular Hemoglobin 27.8 pg (27.0-35.0); Mean Corpuscular Volume 87.9 fL (81-100); NEUTROPHILS % (AUTO) 64.6 % (40-74); Platelet Count 297 bil/L (150-400)
--- NOTE | 2016-08-19 12:48 | PCM.PNMED ---
Subjective Date of Service Aug 19, 2016 Subjective Eduar Regan 36-year-old woman currently IV drug abuser, presents with 5 days of headache, new onset knee pain and swelling, positive blood cultures 2 for MRSA. Hospital day #2 Overnight: Patient complained of 10/10 and she was given a K pad for her left knee and a Ketorolac injection. The Ketorolac provided her relief. Today: She continues to have a headache, abdominal pain, and left knee pain. She does not have fever or chills. Exam Vital Signs Vital Sign - Last Date Time Temp Pulse Resp B/P Pulse Ox O2 Delivery O2 Flow Rate FiO2 08/19/16 10:23 70 08/19/16 09:45 36.4 18 102/60 98 Room Air Intake and Output 08/18/16 08/18/16 08/19/16 Cumulative From/Thru 15:00 23:00 07:00 08/18/16 00:26 - 08/19/16 05:00 Intake Total 2312 ml 1916 ml 5228 ml Output Total 2700 ml 3100 ml 6200 ml Balance -388 ml -1184 ml -972 ml Intake Oral 728 ml 1916 ml 2644 ml IV Total 1584 ml 2584 ml Output Urine Total 2700 ml 3100 ml 6200 ml # Bowel Movements 1 2 Exam General: Laying in bed, no apparent distress. Disheveled, poor hygiene, obvious lesions to face and extremities foul smell fills the room HEENT: Normocephalic, hair is matted, multiple lesions of varying size and states of healing on her face. Extraocular muscles intact, pupils round and reactive to light, mucous membranes moist Cardiovascular: Regular rate and rhythm, 2/6 systolic murmur heard best at tricuspid post. Pulmonary: Clear to auscultation bilaterally, no W/R/R. Abdominal: Soft to palpation, bowel sounds present 4, no hepatosplenomegaly. Negative rebound. Extremities: There is no edema to lower extremities, there are multiple pin- sized lesions on upper and lower extremities. No splinter hemorrhages, Ostlers nodes, or Janeway lesions appreciated. Neuro: Neurologically grossly intact, strength is equal bilaterally upper and lower extremities. MSK: Left knee mildly swollen compared to right, tender, obvious effusion. Strength 5 out of 5 upper and lower extremities. IVs and Medications Medications Reviewed: Medications were reviewed in detail Lab and Diagnostics Result Diagram: 08/19/16 0755 08/19/16 0755 Microbiology 09/05 previous blood cultures positive for MRSA. X-Rays, CTs and MRIs X-RAY LEFT KNEE, THREE VIEWS IMPRESSION: Although no bony erosions are identified, plain film radiography is relatively insensitive in the acute phases of osteomyelitis and may not demonstrate radiographic changes for 15 days. If acute osteomyelitis is of clinical concern , nuclear medicine regional bone scan or MRI is recommended. Joint effusion. 2 cm soft tissue foreign body within the upper lower leg medially at the level of the proximal tibia shaft. Dictated by: Daniel OVALLES Interpreted: Saadia Burton MD on 08/18/2016 at 10:07 CT BRAIN WITH AND WITHOUT CONTRAST IMPRESSION: 1. No acute intracranial process. Dictated by: Victoria Galvan M.D. on 08/18/2016 at 10:43 X-RAY CHEST, TWO VIEWS IMPRESSION: No acute cardiopulmonary disease. Dictated by: Daniel OVALLES Interpreted: Saadia Burton MD on 08/18/2016 at 10:09 Assessment & Plan Shereen Witt is a 36-year-old woman currently IV drug abuser, presents with 5 days of headache, new onset knee pain and swelling, positive blood cultures 2 for MRSA. Hospital day #2 1. Sepsis, acute, present on admission -Blood cells 13.9, vital signs: Temperature 38.8 Celsius, heart rate 106, maintaining blood pressure, sources are blood, left knee, and urinary tract. -ESR 76, lactic acid 1.9, pro calcitonin 0.09 initially -Repeated blood cultures x 3, preliminary growth shows Staph. aureus with sensitivities pending -Trend pro calcitonin every 24 hours -Antibiotics as below 2. MRSA Bacteremia, subacute, present on admission -2 out of 2 bottles from 08/12/16 positive for MRSA, sensitive to clindamycin and vancomycin. Secondary to IVDU. -Continue vancomycin dosed by pharmacy -Clindamycin was given in the emergency department, however given the positive MRSA culture and no other organisms do not feel coverage of anaerobes is necessary. -Infectious disease consultation placed, however Dr. Moore is out of town until Sunday. -Likely the patient has endocarditis as she has a notable murmur on exam 3. Urinary tract infection, acute, present on admission, treatment initiated -Urine culture from 08/12/2016 grew Escherichia coli, susceptible to ceftriaxone -Continue ceftriaxone 2 mg IV every 24 hours 4. Heart murmur, chronicity unknown, present on admission, evaluation ongoing -Was heard on previous ER visits, previously evaluated in September 2015 without any valvular abnormalities apparent, but likely represents endocarditis -Echocardiogram pending. TTE today, and based on results of the TTE, if she needs HERMES, then NPO after midnight. 5. Left knee septic joint, acute, present on admission, evaluation ongoing -Joint aspirate has been collected waiting culture and sensitivity. High amount of PMNs present in the aspirate. -IV antibiotics as above -Ketorolac IM every 8 hours as needed for pain 6. Chronic IV drug abuse, present on admission, active -Last use before returning to the emergency department. The patient states she uses twice daily and up to 1 gm of heroin daily. -Methadone for withdrawal symptoms as patient stated Suboxone has not worked in the past. -High risk for elopement, leaving AGAINST MEDICAL ADVICE, recommend against PICC line placement. 7. Hyperglycemia, pre-diabetic, chronicity unknown, present on admission -Blood sugar in the emergency department was 152, review of previous admission shows it to be elevated greater than 113. -Hemoglobin A1c 5.8%, pre-diabetic -Consider nutrition consultation. 8. Electrolyte dyscrasia, acute, present on admission, improving. -Most likely due to infection -Sodium 129, chloride 92, initially. Treated with IV saline -Calcium 6.5 today. As there is an interaction with IV calcium and IV ceftriaxone, will replenished with PO calcium supplements -We will continue to monitor on BMP/CMP 9. Chronic normocytic normochromic anemia consistent with iron deficiency anemia , present on admission, stable, evaluation ongoing -Iron deficiency versus anemia of chronic disease -Iron panel consistent with iron deficiency anemia, low iron and low iron % saturation -Consider adding a multi-vitamin with iron once patient's abdominal pain has improved 10. Persistent tobacco use Discussed benefits of quitting smoking, risks of continuing to smoke, and how smoking cessation could better improve health in the future 11. High risk for leaving AGAINST MEDICAL ADVICE -Left emergency department previously without notifying anyone -Previous admission did not leave AMA. VTE Prophylaxis with subcutaneous heparin GI prophylaxis: Not indicated Pain management: Methadone Dispo: Anticipate patient will be here for an extended amount of time as she undergoes treatment for MRSA bacteremia and possible endocarditis. GI Prophylaxis: Not indicated VTE Prophylaxis: Sub-Q Heparin (Unfractionated) VTE Mechanical Devices: Intermittant Pneumatic CD Resuscitation Status: CPR: Attempt Resuscitation Time spent 25 minutes Attending Statement I have seen and evaluated patient at bedside in addition to directly supervising care provided by resident physician. I agree with above documentation. Ericka Shaikh DO Aug 19, 2016 12:48 Kristian Solorzano DO Aug 20, 2016 07:20
--- NOTE | 2016-08-19 14:19 | DRSVH ---
[facility] [address] [place] [address] Echocardiogram Report Name: LISA SOSA RStudy Date: 08/19/2016 Height: 68 in Hospital Exam Location: [facility] Weight: 202 lb Gender: Female BSA: 2.1 m2 : 1980 Age: 36 yrs BP: 105/76 m mHg Reason For Study: ENDOCARDITIS Performed By: Nils Monson Referring Physician: JOSE MARTINEZ Interpretation Summary The left ventricle is mildly dilated. The ejection fraction is estimated to be 60-65%. There has been no significant change in LV EF since the previous study. The right ventricle is normal in size and function. There is trace tricuspid regurgitation. The right ventricular systolic pressure is estimated at 37 mmHg assuming a right atrial pressure of 15 mm Hg. The IVC is dilated (diameter is greater than 2.1 cm) and it collapses less than 50% with a sniff. This suggests a high right atrial pressure of 15 mm Hg (New). No obvious valvular vegetation seen. If clinical suspicion for endocarditis is high, consider HERMES. Procedure: A two-dimensional transthoracic echocardiogram with color flow and Doppler was performed in limited views only. The study quality was technically good. Comparison is made with the echocardiogram of 09/05/15. The patient was in normal sinus rhythm during the exam. Left Ventricle: The left ventricle is mildly dilated. There is normal left ventricular wall thickness. There is no thrombus. A false chord is noted (normal variant). The ejection fraction is estimated to be 60-65%. There has been no significant change since the previous study. There are no focal wall motion abnormalities. Spectral Doppler of the mitral valve shows a normal E/A wave ratio. The E/E'is normal. Right Ventricle: The right ventricle is normal in size and function. Atria: There is mild biatrial enlargement. Both atria have mildly increased in size since the prior echo exam. The interatrial septum is intact with no evidence for an atrial septal defect. Mitral Valve: The mitral valve is normal. Redundant elongated chordae are noted. There is trace mitral regurgitation. Aortic Valve: The aortic valve is normal in structure and function. There is trace aortic regurgitation. Tricuspid Valve: The tricuspid valve is normal. The right ventricular systolic pressure is estimated at 37 mmHg assuming a right atrial pressure of 15 mm Hg. There is trace tricuspid regurgitation. Pulmonic Valve: The pulmonic valve leaflets are thin and pliable; valve motion is normal. There is trace pulmonic regurgitation. Great Vessels: The aortic root is normal size. The ascending aorta is at the upper limits of normal in size. The pulmonary artery is normal size. The IVC is dilated (diameter is greater than 2.1 cm) and it collapses less than 50% with a sniff. This suggests a high right atrial pressure of 15 mm Hg. Pericardium/ Pleura There is no pericardial effusion. There is no pleural effusion. MMode/2D Measurements & Calculations LVIDd: 5.4 cm RA long axis LVOT diam: 2.2 cm LVIDs: 4.0 cm LA A2 area: 21.4 cm Ao root diam FS: 26.8 % LA A4 area: 21.5 cm RA area IVSd: 0.73 cm LA length (vol) asc Aorta Diam LVPWd: 0.67 cm : 19.8 cm LA vol: 73.7 ml RA vol Ao Arch Diam (Prox LA vol index : 68.0 ml Trans): 2.8 cm RA : 33.1 mm2 IVC diam: 2.9 cm LV luz. diameter/BSA LV sys. diameter/BSA RVD1 (basal) RVD2 (mid): 3.3 cm (cm/m^2): 2.7 (cm/m^2): 1.9 TAPSE: 2.1 cm Doppler Measurements & Calculations Ao V2 max MV E max jean MV E/A: 1.7 TR max jean : 145.0 cm/sec : 107.7 cm/sec : 236.0 cm/sec Ao max P.4 mmHgMV A max jean TR max P.3 mmHg Ao mean PG : 61.8 cm/sec LVOT Max Jean : 118.0 cm/sec JING(I,D): 2.7 cm sev ratio: 0.73 MV dec time Ao V2 mean LV V1 max PG JING indexed to BSA : 0.14 sec : 108.0 cm/sec (cm^2/m^2): 1.3 Ao V2 VTI: 34.8 cm LV V1 VTI JING(V,D): 3.0 cm2 : 25.2 cm Reading Physician:SEBASTIAN
--- NOTE | 2016-08-19 17:26 | NUR ---
Activity Pt up to shower using SBA-1PA and shower seat. Scabs dried and covered with bandaids. Otherwise using BSC independently and making needs known using call light.
[2016-08-19] MEDS: Vancomycin Inj 1,500 MG in 0.9% Sodium Chloride 500 ML IV SCH (18:08)
[2016-08-20] VITALS (8 sets, daily range): BP systolic 101–119; BP diastolic 65–75; PULSE 61–88; RESP 18–20; O2SAT 96–99
[2016-08-20] MEDS: 0.9% Sodium Chloride 1,000 ML IV SCH ×3 (00:23→16:55)
[2016-08-20] MEDS: Vancomycin Inj 1,500 MG in 0.9% Sodium Chloride 500 ML IV SCH ×2 (02:02→13:08)
--- NOTE | 2016-08-20 05:31 | NUR ---
Pain Pt stating pain 10/10 to left knee at beginning of shift, medicated pt with methadone and IV toradol. K-pad in place. Pt reporting decrease in pain level after medication admin. Pt then awoke and c/o Left knee pain 10/10, charge nurse medicated pt with PO tylenol and methadone. Pt resting in bed with eyes closed upon reassessment. Call light within reach, frequent rounding. Pt NPO after midnight.
[2016-08-20 05:38] LABS: BASOPHILS % (AUTO) 0.2 % (0-3); EOSINOPHILS % (AUTO) 1.5 % (0-5); Mean Corpuscular Volume 88.1 fL (81-100); NEUTROPHILS % (AUTO) 70.3 % (40-74); Platelet Count 363 bil/L (150-400)
[2016-08-20] MEDS: cefTRIAXone Inj 2,000 MG in Dextrose 5% Minibag Plus 50 ML IV SCH (06:21)
[2016-08-20] MEDS: Vancomycin Dose per Pharmacist XX SCH (08:30)
[2016-08-20] MEDS: cloNIDine 0.1 mg Tablet PO PRN ×2 (09:25→16:55)
--- NOTE | 2016-08-20 11:19 | PCM.PNMED ---
Subjective Date of Service Aug 20, 2016 Subjective Shereen Witt is a 36-year-old woman currently IV drug abuser, presents with 5 days of headache, new onset knee pain and swelling, positive blood cultures 2 for MRSA. Hospital day #3 Overnight: Patient compl Exam Vital Signs Vital Sign - Last Date Time Temp Pulse Resp B/P Pulse Ox O2 Delivery O2 Flow Rate FiO2 08/20/16 10:24 36.8 61 18 101/65 97 Room Air Intake and Output 08/19/16 08/19/16 08/20/16 Cumulative From/Thru 15:00 23:00 07:00 08/18/16 00:26 - 08/20/16 06:38 Intake Total 1526 ml 2349 ml 1927 ml 74427 ml Output Total 1975 ml 8175 ml Balance 1526 ml 374 ml 1927 ml 2855 ml Intake Oral 1872 ml 4516 ml IV Total 1526 ml 477 ml 1927 ml 6514 ml Output Urine Total 1975 ml 8175 ml # Bowel Movements 1 3 Exam General: Laying in bed, no apparent distress. Disheveled, poor hygiene, obvious lesions to face and extremities foul smell fills the room HEENT: Normocephalic, hair is matted, multiple lesions of varying size and states of healing on her face. Extraocular muscles intact, pupils round and reactive to light, mucous membranes moist Cardiovascular: Regular rate and rhythm, 2/6 systolic murmur heard best at tricuspid post. Pulmonary: Clear to auscultation bilaterally, no W/R/R. Abdominal: Soft to palpation, bowel sounds present 4, no hepatosplenomegaly. Negative rebound. Extremities: There is no edema to lower extremities, there are multiple pin- sized lesions on upper and lower extremities. No splinter hemorrhages, Ostlers nodes, or Janeway lesions appreciated. Neuro: Neurologically grossly intact, strength is equal bilaterally upper and lower extremities. MSK: Left knee mildly swollen compared to right, tender, obvious effusion. Strength 5 out of 5 upper and lower extremities. IVs and Medications Medications Reviewed: Medications were reviewed in detail Lab and Diagnostics Result Diagram: 08/20/16 0450 08/20/16 0450 Microbiology Multiple blood cultures positive for MRSA including ones drawn yesterday. X-Rays, CTs and MRIs X-RAY LEFT KNEE, THREE VIEWS IMPRESSION: Although no bony erosions are identified, plain film radiography is relatively insensitive in the acute phases of osteomyelitis and may not demonstrate radiographic changes for 15 days. If acute osteomyelitis is of clinical concern , nuclear medicine regional bone scan or MRI is recommended. Joint effusion. 2 cm soft tissue foreign body within the upper lower leg medially at the level of the proximal tibia shaft. Dictated by: Daniel OVALLES Interpreted: Saadia Burton MD on 08/18/2016 at 10:07 CT BRAIN WITH AND WITHOUT CONTRAST IMPRESSION: 1. No acute intracranial process. Dictated by: Victoria Galvan M.D. on 08/18/2016 at 10:43 X-RAY CHEST, TWO VIEWS IMPRESSION: No acute cardiopulmonary disease. Dictated by: Daniel OVALLES Interpreted: Saadia Burton MD on 08/18/2016 at 10:09 Cardiac Echo Impressions Interpretation Summary The left ventricle is mildly dilated. The ejection fraction is estimated to be 60-65%. There has been no significant change in LV EF since the previous study. The right ventricle is normal in size and function.There is trace tricuspid regurgitation. The right ventricular systolic pressure is estimated at 37 mmHg assuming a right atrial pressure of 15 mm Hg. The IVC is dilated (diameter is greater than 2.1 cm) and it collapses less than 50% with a sniff. This suggests a high right atrial pressure of 15 mm Hg (New). No obvious valvular vegetation seen. If clinical suspicion for endocarditis is high, consider HERMES. Assessment & Plan Shereen iWtt is a 36-year-old woman currently IV drug abuser, presents with 5 days of headache, new onset knee pain and swelling, positive blood cultures 2 for MRSA. Hospital day #3 1. Sepsis, acute, present on admission -Blood cells 13.9, vital signs: Temperature 38.8 Celsius, heart rate 106, maintaining blood pressure, sources are blood, left knee, and urinary tract. -ESR 76, lactic acid 1.9, pro calcitonin 0.09 initially -Repeated blood cultures x 3, preliminary growth shows Staph. aureus with sensitivities pending -Trend pro calcitonin every 24 hours -Antibiotics as below 2. MRSA Bacteremia, subacute, present on admission -2 out of 2 bottles from 08/12/16 positive for MRSA, sensitive to clindamycin and vancomycin. Secondary to IVDU. -Continue vancomycin dosed by pharmacy -Clindamycin was given in the emergency department, however given the positive MRSA culture and no other organisms do not feel coverage of anaerobes is necessary. -Infectious disease consultation placed, however Dr. Moore is out of town until Sunday. -Likely the patient has endocarditis as she has a notable murmur on exam however TTE is negative for vegetation. Will consult cardiology for a HERMES. 3. Urinary tract infection, acute, present on admission, treatment initiated -Urine culture from 08/12/2016 grew Escherichia coli, susceptible to ceftriaxone -Continue ceftriaxone 2 mg IV every 24 hours 4. Heart murmur, chronicity unknown, present on admission, evaluation ongoing -Was heard on previous ER visits, previously evaluated in September 2015 without any valvular abnormalities apparent, but likely represents endocarditis -Echocardiogram negative for vegetations. 5. Left knee septic joint, acute, present on admission, evaluation ongoing -Joint aspirate has been collected. High amount of PMNs present in the aspirate. Cultures pending. No bacteria on gram stain. -IV antibiotics as above -Ketorolac IM every 8 hours as needed for pain -Patient continues to have pain and notes that it is harder for her stand on the left leg now. Will order a follow up Xray of the knee. 6. Chronic IV drug abuse, present on admission, active -Last use before returning to the emergency department. The patient states she uses twice daily and up to 1 gm of heroin daily. -Methadone and clonodine for withdrawal symptoms as patient stated Suboxone has not worked in the past. -High risk for elopement, leaving AGAINST MEDICAL ADVICE, recommend against PICC line placement. 7. Hyperglycemia, pre-diabetic, chronicity unknown, present on admission -Blood sugar in the emergency department was 152, review of previous admission shows it to be elevated greater than 113. -Hemoglobin A1c 5.8%, pre-diabetic -Consider nutrition consultation once patient improves. 8. Electrolyte dyscrasia, acute, present on admission, improving. -Most likely due to infection -Sodium 129, chloride 92, initially. Treated with IV saline -Calcium 6.5 today. As there is an interaction with IV calcium and IV ceftriaxone, will replenished with PO calcium supplements -We will continue to monitor on BMP/CMP 9. Chronic normocytic normochromic anemia consistent with iron deficiency anemia , present on admission, stable, evaluation ongoing -Iron deficiency versus anemia of chronic disease -Iron panel consistent with iron deficiency anemia, low iron and low iron % saturation -Consider adding a multi-vitamin with iron once patient's abdominal pain has improved 10. Persistent tobacco use -Discussed benefits of quitting smoking, risks of continuing to smoke, and how smoking cessation could better improve health in the future 11. High risk for leaving AGAINST MEDICAL ADVICE -Left emergency department previously without notifying anyone -Previous admission did not leave AMA. VTE Prophylaxis with subcutaneous heparin GI prophylaxis: Not indicated Pain management: Methadone Dispo: Anticipate patient will be here for an extended amount of time as she undergoes treatment for MRSA bacteremia and possible endocarditis. GI Prophylaxis: Not indicated VTE Prophylaxis: Sub-Q Heparin (Unfractionated) VTE Mechanical Devices: Intermittant Pneumatic CD Resuscitation Status: CPR: Attempt Resuscitation Time spent 30 minutes Attending Statement I have seen and evaluated patient at bedside in addition to directly supervising care provided by resident physician. I agree with above documentation. Aurelia Osorio DO Aug 20, 2016 11:19 Kristian Solorzano DO Aug 20, 2016 13:27
--- NOTE | 2016-08-20 13:34 | DRSVH ---
PROCEDURE: X-RAY LEFT KNEE, THREE VIEWS ([id number]) INDICATIONS: septic arthritis TECHNIQUE: 3 views of the knee were acquired. COMPARISON: [facility], CR, XR KNEE 3VW LT, 08/18/2016, 2:48. FINDINGS: Bones: No fractures or dislocations. No suspicious bony lesions. Soft tissues: Small joint effusion. No suspicious soft tissue calcifications. IMPRESSION: Small joint effusion. Dictated by: Abimael Tejada M.D. on 08/20/2016 at 13:31 Approved by: Abimael Tejada M.D. on 08/20/2016 at 13:31
--- NOTE | 2016-08-20 14:54 | NUR ---
Activity and saline flushes Pt using BSC independently. Slept most of shift but awakens easily. Found partially used saline flush in bedding this AM, fluid inside clear. This RN not leaving any sharps or syringes in room. Has not had any visitors since last night.
--- NOTE | 2016-08-20 15:07 | NUR ---
Social Work: Brief Note Data: FOUNDATION ASSISTANT met with pt regarding CD use. Pt reports that she wants to stop using IV heroin and that she is interested in [facility]. Pt agreeable to meet with [facility] regarding CD use and treatment options. FOUNDATION ASSISTANT referred pt to CDP from [facility], JALEN in front of pt's chart. FOUNDATION ASSISTANT will continue to follow. Assessment: Pt who is independent at baseline, homeless, IV heroin use. Plan: Pt will meet with CDP from [facility] regarding CD use and treatment options. FOUNDATION ASSISTANT will continue to follow. STEPH Mcdaniel
--- NOTE | 2016-08-20 15:59 | PCM.PHAPRO ---
Progress Vancomycin dosing VANCOMYCIN DOSING PER PHARMACY Nursing had extended vancomycin infusion past scheduled time to not overload IV access with excess volume due to recent dose increase (1500mg/500ml) . We will change volume from 500ml to 250ml (6mg/ml conc) for a 2 hr infusion and reschedule trough for 08/21@1230. Unclear how many of the 1500mg/500ml doses were infused at extended rate but will continue to monitor. Jose Garner, PharmD Jose Garner Aug 20, 2016 15:59
[2016-08-20] MEDS ORDERED: Vancomycin Serum Trough XX ONE (17:30)
[2016-08-20] MEDS: VANCOMYCIN IV SCH (21:25)
[2016-08-20] MEDS: SODIUM CHLORIDE 0.9% IV SCH (21:25)
[2016-08-21] VITALS (8 sets, daily range): BP systolic 99–115; BP diastolic 63–74; PULSE 62–87; RESP 18–20; O2SAT 93–100
[2016-08-21] MEDS: cloNIDine 0.1 mg Tablet PO PRN ×3 (00:13→18:43)
--- NOTE | 2016-08-21 03:41 | NUR ---
pain/behavior Pt requesting Toradol almost q8hrs for left knee pain. Pt reported relief; able to get up to BSC with less left knee pain. K pad on. Pt compliant with care; able to make need known. NPO since midnight for HERMES; pt compliant
[2016-08-21] MEDS: Ondansetron 2 mg/mL 2 mL Inj IVPUSH PRN ×2 (04:36→18:46)
[2016-08-21] MEDS: SODIUM CHLORIDE 0.9% IV SCH ×2 (04:43→13:28)
[2016-08-21] MEDS: VANCOMYCIN IV SCH ×2 (04:43→13:28)
[2016-08-21] MEDS: 0.9% Sodium Chloride 1,000 ML IV SCH ×2 (05:45→19:44)
[2016-08-21] MEDS: cefTRIAXone Inj 2,000 MG in Dextrose 5% Minibag Plus 50 ML IV SCH (07:21)
[2016-08-21 07:34] LABS: BASOPHILS % (AUTO) 0.2 % (0-3); EOSINOPHILS % (AUTO) 1.1 % (0-5); Mean Corpuscular Hemoglobin 27.9 pg (27.0-35.0); Mean Corpuscular Volume 87.3 fL (81-100); Platelet Count 423 bil/L (150-400)
[2016-08-21] MEDS: Vancomycin Dose per Pharmacist XX SCH (08:30)
--- NOTE | 2016-08-21 09:30 | NUR ---
Off unit Patient to [facility] for HERMES. Addendum: 08/21/16 at 1403 by CHASE CRUZ RN 10:50 Patient back to unit-HERMES canceled per Dr Garcia. Addendum: 08/21/16 at 1952 by CHASE CRUZ RN Patient laying with eyes closed most of day. Reporting she is having headache pain. Ice applied to neck. Pain medications administered. Only minimally effective.
[2016-08-21] MEDS ORDERED: 0.9% Sodium Chloride 500 ML ONE (09:31)
[2016-08-21] MEDS ORDERED: Lactated Ringer's 1,000 ML IV ONE (09:58)
--- NOTE | 2016-08-21 10:40 | NUR ---
HERMES cancelled per Dr Garcia - Dr Aldrich contacting hospitalist to discuss plan of care. Addendum: 08/21/16 at 1117 by GEREMIAS WALTON RN Pt taken up to her room via wheelchair - pt understands the procedure is cancelled and the hospitalists will talk to her regarding plan of care. Pt remains NPO.
[2016-08-21] MEDS ORDERED: Vancomycin Serum Trough XX ONE (12:30)
[2016-08-21 14:28] LABS: APPEARANCE,URINE HAZY (CLEAR,HAZY); COLOR,URINE STRAW (YELLOW); OCCULT BLOOD,URINE NEGATIVE (NEGATIVE); UROBILINOGEN,URINE NORMAL (NORMAL)
--- NOTE | 2016-08-21 14:50 | PCM.CHPMED ---
Subjective Date of Service: Aug 21, 2016 Provider requesting consult: Alis Rebolledo DO Primary Physician: Admitting Physician: Isis Mckeon DO Primary Care Physician: Maria Ecp Attending Physician: Isis Mckeon DO Chief Complaint: Chief Complaint: REASON FOR GI CONSULT: Evaluation for gastric ulcerations prior to HERMES study History of Present Illness: GASTROENTEROLOGY CONSULTATION NOTE Miss Witt is a pleasant 36 year old woman with history of IV heroin use, with most recent use day of admission, that presented to [facility] with complaints of persistent headache and left knee pain. She was seen throughout the week prior to current admission for similar symptoms, and blood cultures later yielded MRSA bacteremia. She is currently admitted for evaluation and treatment of MRSA bacteremia, and GI has been consulted to evaluate for presence of PUD prior to HERMES. She states that she has a history of acid reflux, and states history of upper endoscopy, which revealed possible PUD. Admits to previous fever and chills, that are now subsiding. Denies any current nausea, vomiting, hematemesis, hematochezia, melena, dysphagia. Denies any family history of inflammatory bowel disease, Celiac disease, or colon cancer. Recent developments in her history include MRSA bacteremia likely secondary to history of IVDU, and HERMES is necessary to evaluate for endocarditis, as that will play a pivotal role in course of treatment. Most recent heroin use day of admission, and use is reported as daily, with history of methamphetamine use in the past. With her reported history of gastric ulcerations, endoscopy is recommended for evaluation of PUD prior to completion of HERMES. Review of Systems: Complete ROS obtained; pertinent positives and negatives as noted in HPI PMH Past Medical History H/o ulcers h/o left breast infection Migraines h/o MRSA heart murmur Reports: Asthma, GERD Reports: Heroin use, IV Drug use Surgical History Tubal ligation Home Medications From admission: Azithromycin (Zithromax) 250 Mg Tablet 250 MG PO DAILY Prednisone (PredniSONE) 20 Mg Tablet 40 MG PO DAILY Scheduled PRN Albuterol Sulfate (Ventolin HFA Inhaler) 200 Puff/18 Gm Inhaler 1 PUFF INH Q4 PRN PRN For Wheezing okay to sub for pro-air as covered by insurance Allergies: Coded Allergies: Penicillins (Verified Allergy, Unknown, hives, thrush, 08/18/16) aloe vera (Verified Allergy, Unknown, 08/17/16) coconut oil (Verified Allergy, Unknown, 08/17/16) pregabalin (Verified Allergy, Unknown, hallucinations, 08/17/16) venlafaxine (Verified Allergy, Unknown, seratonin reax, 08/17/16) Family History Family History Mother and grandmother - Uterine and cervical cancer, [place] and CVAs. PGF - [place] Denies personal or family history of inflammatory bowel disease, celiac, colon cancer Social History Occupation: Homeless Hx Alcohol Use: NoHx Substance Use: Yes (heroin daily, Meth occasionally)Hx Tobacco Use: Yes Smoking Status: Current Every Day Smoker Living Arrangement: Homeless Exam Vital Signs Vital Sign - Last Date Time Temp Pulse Resp B/P Pulse Ox O2 Delivery O2 Flow Rate FiO2 08/21/16 13:39 36.9 62 20 115/72 93 Room Air Intake and Output 08/20/16 08/20/16 08/21/16 Cumulative From/Thru 15:00 23:00 07:00 08/18/16 00:26 - 08/21/16 06:05 Intake Total 1022 ml 1953 ml 660 ml 45176 ml Output Total 1450 ml 3800 ml 96441 ml Balance -428 ml -1847 ml 660 ml 1240 ml Intake Oral 1022 ml 1086 ml 6624 ml IV Total 867 ml 660 ml 8041 ml Output Urine Total 1450 ml 3800 ml 72152 ml # Bowel Movements 0 0 3 General: Alert, Oriented X3, Cooperative, No Acute Distress Eyes: Scleral Anicteric Nose: Mucous Membr Moist/Blanco Mouth: Mucous Membr Moist/Blanco Chest & Lungs: Auscultation (clear bilaterally), No adventitious breath sounds Abdomen: Non-tender, Non-distended, Soft Extremities: Warm, No Edema Skin: Significant Lesions (multiple sites of scabbing/excoriations; no obvious areas active bleeding) Neurological: Grossly Neurologically Intact, Normal Speech (without slur) Lab and Diagnostics Result Diagram: 08/21/1671908/21/16719 Assessment & Plan Assessment GASTROENTEROLOGY CONSULTATION NOTE Miss Witt is a pleasant 36 year old woman with history of IV heroin use x 3 years- last use 3 days ago, with most recent use day of admission, that presented to [facility] with complaints of persistent headache and left knee pain. She was seen throughout the week prior to current admission for similar symptoms , and blood cultures later yielded MRSA bacteremia. She is currently admitted for evaluation and treatment of MRSA bacteremia, and GI has been consulted to evaluate for presence of PUD prior to HERMES. Assessments - History of PUD Plan - EGD MAC 08/22 at 3 pm - NPO midnight Thank you for this consult, we will happily follow along at this time. Plan for upper EGD 08/22. Total time: 45 minutes Problems: Pain Evaluation: Adequate Pain Control GI Prophylaxis: Not indicated VTE Prophylaxis: Sub-Q Heparin (Unfractionated) VTE Mechanical Devices: Intermittant Pneumatic CD Resuscitation Status: CPR: Attempt Resuscitation Kayla Pena DO Aug 21, 2016 14:50 Andrea Euceda MD Aug 21, 2016 15:47
--- NOTE | 2016-08-21 15:23 | PCM.PNMED ---
Subjective Date of Service Aug 21, 2016 Subjective Shereen Witt is a 36-year-old woman currently IV drug abuser, presents with 5 days of headache, new onset knee pain and swelling, positive blood cultures 2 for MRSA. Hospital day #4 Yesterday: Patient met with social work and afternoon, she reports that she wants to stop using IV heroine and that she is interested in methadone clinic. mend worker referred patient to [place]. Overnight: Patient continues to complain of knee pain. Nothing by mouth after midnight for transesophageal echocardiogram This morning: Patient is tired, she is continuing to have knee pain and a headache. She took a stool softener and is having some abdominal cramping but does not feel tender to the touch. She is engaging in her care and curious about the time of her transesophageal echo. Exam Vital Signs Vital Sign - Last Date Time Temp Pulse Resp B/P Pulse Ox O2 Delivery O2 Flow Rate FiO2 08/21/16 04:35 36.9 79 20 113/71 98 Room Air Intake and Output 08/20/16 08/20/16 08/21/16 Cumulative From/Thru 15:00 23:00 07:00 08/18/16 00:26 - 08/21/16 06:05 Intake Total 1022 ml 1953 ml 660 ml 60573 ml Output Total 1450 ml 3800 ml 35652 ml Balance -428 ml -1847 ml 660 ml 1240 ml Intake Oral 1022 ml 1086 ml 6624 ml IV Total 867 ml 660 ml 8041 ml Output Urine Total 1450 ml 3800 ml 67429 ml # Bowel Movements 0 0 3 Exam General: Laying in bed with eyes closed, no apparent distress. Disheveled, poor hygiene, obvious lesions to face and extremities. HEENT: Normocephalic, hair is matted, multiple lesions of varying size and states of healing on her face. Extraocular muscles intact, pupils round and reactive to light, mucous membranes moist Cardiovascular: Regular rate and rhythm, 2/6 systolic murmur heard best in the tricuspid area Pulmonary: Clear to auscultation bilaterally, no crackles, wheezes, or ronchi. Abdominal: Soft to palpation, bowel sounds present, no hepatosplenomegaly. No rebound. Extremities: There is no edema to lower extremities, there are multiple pin- sized lesions on upper and lower extremities covered with multiple adhesive bandage strips. No splinter hemorrhages, Ostlers nodes, or Janeway lesions appreciated. Neuro: Neurologically grossly intact, strength is equal bilaterally upper and lower extremities. MSK: Left knee mildly swollen compared to right, tender, likely effusion. Lab and Diagnostics Result Diagram: 08/20/1644908/20/16449 Microbiology Multiple blood cultures positive for MRSA including ones drawn yesterday. X-Rays, CTs and MRIs X-RAY LEFT KNEE, THREE VIEWS IMPRESSION: Although no bony erosions are identified, plain film radiography is relatively insensitive in the acute phases of osteomyelitis and may not demonstrate radiographic changes for 15 days. If acute osteomyelitis is of clinical concern , nuclear medicine regional bone scan or MRI is recommended. Joint effusion. 2 cm soft tissue foreign body within the upper lower leg medially at the level of the proximal tibia shaft. Dictated by: Daniel OVALLES Interpreted: Saadia Burton MD on 08/18/2016 at 10:07 CT BRAIN WITH AND WITHOUT CONTRAST IMPRESSION: 1. No acute intracranial process. Dictated by: Victoria Galvan M.D. on 08/18/2016 at 10:43 X-RAY CHEST, TWO VIEWS IMPRESSION: No acute cardiopulmonary disease. Dictated by: Daniel OVALLES Interpreted: Saadia Burton MD on 08/18/2016 at 10:09 Cardiac Echo Impressions Interpretation Summary The left ventricle is mildly dilated. The ejection fraction is estimated to be 60-65%. There has been no significant change in LV EF since the previous study. The right ventricle is normal in size and function.There is trace tricuspid regurgitation. The right ventricular systolic pressure is estimated at 37 mmHg assuming a right atrial pressure of 15 mm Hg. The IVC is dilated (diameter is greater than 2.1 cm) and it collapses less than 50% with a sniff. This suggests a high right atrial pressure of 15 mm Hg (New). No obvious valvular vegetation seen. If clinical suspicion for endocarditis is high, consider HERMES. Assessment & Plan Shereen Witt is a 36-year-old woman currently IV drug abuser, presents with 5 days of headache, new onset knee pain and swelling, positive blood cultures 2 for MRSA. Hospital day #4 1. Sepsis, acute, present on admission -Blood cells 13.9, vital signs: Temperature 38.8 Celsius, heart rate 106, maintaining blood pressure, sources are blood, left knee, and urinary tract. -ESR 76, lactic acid 1.9, pro calcitonin 0.09 initially -Repeated blood cultures x 3, preliminary growth shows methicillin resistant Staph. aureus -Pro calcitonin 0.053 days -Antibiotics as below 2. MRSA Bacteremia, subacute, present on admission -2 out of 2 bottles from 08/12/16 positive for MRSA, sensitive to clindamycin and vancomycin. Secondary to IVDU. -Continue vancomycin dosed by pharmacy -Clindamycin was given in the emergency department, however given the positive MRSA culture and no other organisms do not feel coverage of anaerobes is necessary. -Infectious disease consultation placed, we appreciate their time and recommendations -Likely the patient has endocarditis as she has a notable murmur on exam however TTE is negative for vegetation. Will consult cardiology for a HERMES. 3. Urinary tract infection, acute, present on admission, treatment initiated -Urine culture from 08/12/2016 grew Escherichia coli, susceptible to ceftriaxone -Continue ceftriaxone 2 mg IV every 24 hours -Urinalysis performed 08/21/16 is unremarkable showing only a few bacteria 4. Heart murmur, chronicity unknown, present on admission, evaluation ongoing -Was heard on previous ER visits, previously evaluated in September 2015 without any valvular abnormalities apparent, but likely represents endocarditis -Echocardiogram negative for vegetations. -HERMES will be performed after endoscopy to assure patient does not have any active ulcers 5. History of GERD, present on admission, not currently active -Patient with history of GERD and possible ulcers -Increased risk of performing HERMES if ulcers are present -GI consult team today to perform EGD to rule out active peptic ulcer disease. 6. Left knee septic joint, acute, present on admission, evaluation ongoing -Joint aspirate has been collected. High amount of PMNs present in the aspirate. Cultures pending. No bacteria on gram stain. -IV antibiotics as above -Ketorolac IM every 8 hours as needed for pain -Patient continues to have pain and notes that it is harder for her stand on the left leg now. follow up Xray of the knee shows small joint effusion. 7. Chronic IV drug abuse, present on admission, active -Last use before returning to the emergency department. The patient states she uses twice daily and up to 1 gm of heroin daily. -Methadone and clonodine for withdrawal symptoms as patient stated Suboxone has not worked in the past. -High risk for elopement, leaving AGAINST MEDICAL ADVICE, recommend against PICC line placement. 8. Hyperglycemia, pre-diabetic, chronicity unknown, present on admission -Blood sugar in the emergency department was 152, review of previous admission shows it to be elevated greater than 113. -Hemoglobin A1c 5.8%, pre-diabetic -Consider nutrition consultation once patient improves. 9. Electrolyte dyscrasia, acute, present on admission, improving. -Most likely due to infection -Sodium 129, chloride 92, initially. Treated with IV saline -Calcium normal at 8.6 today after replenishment with PO calcium supplements -We will continue to monitor on BMP/CMP 10. Chronic normocytic normochromic anemia consistent with iron deficiency anemia, present on admission, stable, evaluation ongoing -Iron deficiency versus anemia of chronic disease -Iron panel consistent with iron deficiency anemia, low iron and low iron % saturation -Consider adding a multi-vitamin with iron once patient's abdominal pain has improved 11. Persistent tobacco use -Discussed benefits of quitting smoking, risks of continuing to smoke, and how smoking cessation could better improve health in the future 12. High risk for leaving AGAINST MEDICAL ADVICE -Left emergency department previously without notifying anyone -Previous admission did not leave AMA. VTE Prophylaxis with subcutaneous heparin GI prophylaxis: Not indicated Pain management: Methadone Dispo: Anticipate patient will be here for an extended amount of time as she undergoes treatment for MRSA bacteremia and possible endocarditis. Pain Evaluation: Adequate Pain Control GI Prophylaxis: Not indicated VTE Prophylaxis: Sub-Q Heparin (Unfractionated) VTE Mechanical Devices: Intermittant Pneumatic CD Resuscitation Status: CPR: Attempt Resuscitation Time spent 30 minutes Attending Statement I have seen and evaluated patient in addition to directly supervising care provided by resident physician. I agree with above documentation. Alis Rebolledo DO Aug 21, 2016 06:48 Kristian Solorzano DO Aug 22, 2016 05:58
--- NOTE | 2016-08-21 16:33 | PCM.PHAPRO ---
Progress Vancomycin Management by Pharmacy: -pt is currently receiving Vancomycin 1.5gm iv q8hrs for mrsa bacteremia -has hx of ivdu -being ruled out for endocarditis -trough level returned as 12.7, serum creatinine 0.58, wbc 14.1, procalcitonin 0.05 -Plan: will give one time dose of Vancomycin 1.75gm at 2100 this evening and continue to follow pt. therapy is aggressive and concerned about increasing dose any further Dianelys Corral [facility] Aug 21, 2016 16:33
[2016-08-21] MEDS: Pantoprazole 4 mg/mL 10 mL Inj IVPUSH SCH (17:30)
[2016-08-21] MEDS ORDERED: Vancomycin Inj 1,750 MG in 0.9% Sodium Chloride 500 ML IV ONE (21:00)
[2016-08-22] VITALS (12 sets, daily range): BP systolic 93–114; BP diastolic 60–73; PULSE 61–90; RESP 14–20; O2SAT 94–100
[2016-08-22] MEDS: 0.9% Sodium Chloride 1,000 ML IV SCH ×3 (01:45→21:45)
--- NOTE | 2016-08-22 02:15 | CONS ---
[address] [address] CONSULTATION REPORT PATIENT: LISA SOSA : 1980 MR#: [id number] ADMIT: 08/18/2016 JOB ID: [id number] DATE OF SERVICE: 08/21/2016 INFECTIOUS DISEASE CONSULTATION: I thank Dr. Alis Rebolledo for this consult. REASON FOR CONSULTATION: High-grade MRSA bacteremia. HISTORY OF PRESENT ILLNESS: The patient is an unfortunate 36-year-old homeless woman who [place] on the streets and [place] with her boyfriend. They are both frequent IV heroin users, though they do use clean needles by report. The patient presented to the emergency department for severe headaches back on August 12. At that time, she was also noted to have a bit of a fever as well, and consequently blood cultures were drawn. Those blood cultures subsequently yielded MRSA. The patient returned to the emergency department on August 17, at that point complaining of a continued terrible headache. The patient could not be contacted after blood cultures turned positive following her first emergency department visit on August 12 because she is homeless and has apparently no phone or other service available. In any event, the patient reported back on August 17 complaining not only had her terrible headaches and fevers continued, but then she developed some cough, shortness of breath and severe left knee pain in the intervening days. These problems all seemed to be progressing and it was strongly recommended to the patient that she consent to admission, IV antibiotics, tap of the left knee, imaging of the brain, and other indicated studies. While the patient was being evaluated in the emergency department though she has slipped out the back door and basically disappeared. This was of great concern and the emergency department staff looked for her, but could not find her. She subsequently came back the next day, which was now August 18, complaining of severe headache, severe left knee pain, fevers, chills, some cough and generalized weakness. At that point, the patient had multiple positive blood cultures and she was of course admitted on August 18. Following her admission on August 18, additional blood cultures were done and she was started on IV vancomycin for the MRSA that had been found in her previous blood cultures, as well as some ceftriaxone because of a positive urine culture. She notes that with appropriate pain management her headache has now come under better control and she denies any specific neurologic symptoms such as focal weakness, seizures or diminishing of consciousness. She notes she does have a distant history of migraines, but these headaches now are far, far worse. She also notes that her left knee has improved perhaps a little bit since admission, but she still cannot move it without great pain. Imaging of the left knee has been done and it has been aspirated since admission, but as of yet there is no proof that this is a septic joint, though it is certainly suspicious that this developed while she was having MRSA bacteremia. She states she had a little cough earlier in the week, but that has basically resolved, and she at this point has no chest pain or shortness of breath. She has some nausea, but no vomiting, diarrhea or dysuria. She cannot ambulate at this point because of her left knee pain. PAST MEDICAL HISTORY: 1. IV drug use. 2. Chronic homeless status. 3. History of left breast MRSA infection. 4. Migraine headache history. 5. History of pre-existing, but now louder heart murmur, of unknown etiology. ALLERGIES: PENICILLIN allergy which is said to produce hives. SOCIAL HISTORY: The patient is homeless and lives under a bridge with her boyfriend. She injects heroin daily, using clean needles, and smokes cigarettes. She does not drink alcohol. FAMILY HISTORY: Notable for gynecologic malignancy in her mother and grandmother, as well as history of coronary artery disease. The patient has no family history, including first-degree relatives, of tuberculosis. REVIEW OF SYSTEMS: Was done. The patient reports she has a headache, but it is much diminished over prior. She is having no visual change. No pain with lateral motion of the eyes. She has not had any focal neurologic complaint, such as weakness or numbness in extremities. She denies stiff neck. She has no sores in the mouth. She does note that for years now she has had some trouble swallowing and that things seem to catch or get stuck in her throat. She has been told she has severe reflux and perhaps ulcers in her esophagus, but it sounds as if she has not had endoscopy. She has nausea, but no vomiting or diarrhea. No urgency, frequency or dysuria. She has severe swelling and pain in her left knee which began four or five days ago and is not significantly improved, though perhaps just a little bit better. There is no pain or swelling in any other joint and no preceding history of septic joint. She states she has good strength in her extremities, and until her knee started to swell she was having no trouble with ambulation. Remainder of the review of systems is negative. PHYSICAL EXAMINATION: Reveals an afebrile woman. Temperature was as high as 39 degrees during her first day in the hospital. Those fevers have completely resolved and she is 37.0 now. Pulse is 87, respiratory rate 20, blood pressure 99/63. She is saturating well on room air and not requiring any vasopressor agents. The patient is alert, oriented, and composed. Examination of the head reveals no trauma. The sinuses are nontender. Eyes without conjunctival hemorrhages or scleral icterus. Oral cavity without thrush or hairy leukoplakia. The teeth are in good repair without gingivitis. Patient's neck is supple and without significant adenopathy. There are numerous shallow abrasions and scabs on the face which are in various stages of healing, none of which appear overtly infected at this time. Lungs are clear posteriorly. Cardiac tones with a soft systolic murmur heard best along the lower left sternal border. This is said to be louder than prior murmur she has had in the past, but I do not have any comparison. The abdomen is soft and nontender without organomegaly. There is no ascites, no suprapubic fullness, and no Lebron catheter. The upper extremities are free of any obvious soft tissue infection, though there are needle tracks. The right lower extremity is basically normal. There is no evidence for effusion or restriction of motion at the hip, knee or ankle, and she has excellent strength and sensation in that right lower extremity. The left lower extremity is notable for a warm and swollen, but not erythematous knee. There is a dramatically decreased range of motion with significant pain with any palpation. She can move her hip, as well as her ankle, without any trouble on that side though, and she has good sensation and strength. Her neurologic exam is basically normal throughout. LABORATORIES: Include white count which was 12,000 in the emergency department on August 12, and is 14,000 today. The diff is essentially normal. Platelet count a little bit elevated at 423,000. Creatinine 0.58. LFTs are normal. Albumin 2.8. Procalcitonin 0 x3. Urine white cells 0-5. The aspirate of the knee done on August 18 showed 25,000 cells, 80% polys, protein was 2.8. Serologies include a positive hep C. There is no hep C viral load ordered at this time. Micro studies include four of four blood cultures positive for MRSA from August 12, and when she came back on August 18 she had five of six repeat bottles positive, and from yesterday we have three of four positive, all for MRSA. This MRSA is quite susceptible to vanco, KADEN 0.5, it is also susceptible to the Bactrim, but resistant to erythromycin. It is sensitive to clinda. IMAGING: Includes knee x-ray done on August 18 when she was admitted, that shows a soft tissue foreign body within the knee at the level of the proximal tibial shaft. No bony erosions are noted. Brain CT shows no acute intracranial process. Chest x-ray is clear. Repeat knee x-ray shows a small joint effusion. IMPRESSION: There are many worrisome features of this case. The patient has an extraordinarily high-grade Staph bacteremia with basically 14 out of 16 blood cultures positive over the course of an entire week. This in and of itself strongly argues for an intravascular focus of infection such as endocarditis. In association with this, we have the worst headache of her life, which raises the possibility of a mycotic aneurysm or developing brain abscess. A CT scan is negative, but we will need a better imaging study to rule out these more worrisome possibilities. The patient also has a swollen tender left knee which I must assume is a septic knee, even though the cell count is not extraordinarily high and the Gram stain and culture are negative so far. I doubt that there is any ongoing urinary tract infection as the patient really has no symptoms compatible with that and her urinalysis was in fact almost negative with 6-10 white cells, which is probably within her normal, so it seems more likely this represents asymptomatic bacteriuria in a patient with overwhelming methicillin-resistant Staphylococcus aureus bacteremia. I discussed this case earlier this morning with the health analytics consultant and recommended we get a transesophageal echocardiogram as soon as possible. This was before I had interviewed the patient though and found out about her history of esophageal problems going back several years. The health analytics consultant has wisely recommended that GI see the patient before he does the HERMES to make sure that things are safe in terms of esophageal structures in preparation for the HERMES. RECOMMENDATIONS: 1. I agree with ongoing vancomycin. 2. We can continue the ceftriaxone for another day or two, but I think it is reasonable to truncate that therapy fairly quickly as I do not think urinary tract infection is a significant part of what is going on here. 3. The patient will need hep C viral load, as well as hep C genotype. 4. I would consult with Radiology tomorrow morning and see what is their preferred study to rule out mycotic aneurysm in a patient with endocarditis. Some places prefer CT angiograms and others MR angiograms, but in any event, I think we do need a better imaging study to look specifically at the vessels and make sure there is no evidence for mycotic aneurysm. 5. I have discussed frankly with the patient her probable diagnosis of endocarditis. I have told her that even if she does not have endocarditis in view of her extraordinary and prolonged MRSA bacteremia she will need four weeks of inpatient therapy, and if she does have endocarditis, mycotic aneurysm, septic knee, we may even need to extend this on toward six weeks. The patient agrees with that at this time as she definitely wants to get better and to go on and get drug rehab. 6. For the time being, will continue with vanco as our primary drug for the MRSA with close followup on levels. Thank you very much for this consult.
[2016-08-22] MEDS: cloNIDine 0.1 mg Tablet PO PRN (04:49)
[2016-08-22] MEDS: Ondansetron 2 mg/mL 2 mL Inj IVPUSH PRN ×2 (04:51→22:47)
[2016-08-22] MEDS ORDERED: Vancomycin Inj 1,500 MG in 0.9% Sodium Chloride 500 ML IV SCH ×2 (05:00→16:00)
--- NOTE | 2016-08-22 06:20 | NUR ---
Pain: Earlier in shift, pt reported breathing was easier. States having had a productive cough earlier, and has since been able to take deep breaths with more ease. Tolerable pain level at that time. 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 Medicated with Methadone, Clonidine and Zofran. Has been able to sleep/rest quietly in bed most of the night. This morning, ABX will not infuse into IV site. Pt reported IV was "burning" for about a minute with medication administration, then stated no discomfort. NS has been infusing at a TKO rate without issues. This morning though, antibiotics will not infuse without occluding and IV flush is slow and difficult. Message has been left with IV therapy and IV ABX will be late this morning due to above issue.
[2016-08-22 07:14] LABS: BASOPHILS % (AUTO) 0.3 % (0-3); EOSINOPHILS % (AUTO) 4.1 % (0-5); MONOCYTES % (AUTO) 4.8 % (4-12); Mean Corpuscular Hemoglobin 27.5 pg (27.0-35.0); Mean Corpuscular Volume 86.1 fL (81-100); Platelet Count 427 bil/L (150-400)
--- NOTE | 2016-08-22 08:15 | PCM.PNMED ---
Subjective Date of Service Aug 22, 2016 Subjective Shereen Witt is a 36-year-old woman currently IV drug abuser, presents with 5 days of headache, new onset knee pain and swelling, positive blood cultures 2 for MRSA. Hospital day #5 Overnight patient reported pain in her knee, she was medicated with methadone and clonidine, she was then able to rest well. This morning IV antibiotics were not infusing well. Nurse was able to improve flow. Patient reports continuing to feel tired and pain in her knee that is much improved with the Toradol. Exam Vital Signs Vital Sign - Last Date Time Temp Pulse Resp B/P Pulse Ox O2 Delivery O2 Flow Rate FiO2 08/22/16 04:36 37.6 83 20 114/73 98 Room Air Intake and Output 08/21/16 08/21/16 08/22/16 Cumulative From/Thru 15:00 23:00 07:00 08/18/16 00:26 - 08/22/16 06:38 Intake Total 300 ml 1200 ml 2503 ml 59913 ml Output Total 1600 ml 2750 ml 1500 ml 76668 ml Balance -1300 ml -1550 ml 1003 ml -607 ml Intake Oral 300 ml 1200 ml 1800 ml 9924 ml IV Total 703 ml 8744 ml Output Urine Total 1600 ml 2750 ml 1500 ml 69375 ml # Bowel Movements 0 3 Exam General: Laying in bed with eyes closed, no apparent distress. Disheveled, poor hygiene, obvious lesions to face and extremities. HEENT: Normocephalic, hair is matted, multiple lesions of varying size and states of healing on her face- improving. Extraocular muscles intact, pupils round and reactive to light, mucous membranes moist Cardiovascular: Regular rate and rhythm, 2/6 systolic murmur heard best in the tricuspid area Pulmonary: Clear to auscultation bilaterally, no crackles, wheezes, or ronchi. Abdominal: Soft to palpation, bowel sounds present, no hepatosplenomegaly. No rebound. Extremities: There is no edema to lower extremities, there are multiple pin- sized lesions on upper and lower extremities covered with multiple adhesive bandage strips. No splinter hemorrhages, Ostlers nodes, or Janeway lesions appreciated. Neuro: Neurologically grossly intact, strength is equal bilaterally upper and lower extremities. MSK: Left knee mildly swollen compared to right, tender, warm to the touch. Lab and Diagnostics Result Diagram: 08/22/16 0550 08/22/16 0550 Microbiology Multiple blood cultures positive for MRSA including ones drawn yesterday. X-Rays, CTs and MRIs X-RAY LEFT KNEE, THREE VIEWS IMPRESSION: Although no bony erosions are identified, plain film radiography is relatively insensitive in the acute phases of osteomyelitis and may not demonstrate radiographic changes for 15 days. If acute osteomyelitis is of clinical concern , nuclear medicine regional bone scan or MRI is recommended. Joint effusion. 2 cm soft tissue foreign body within the upper lower leg medially at the level of the proximal tibia shaft. Dictated by: Daniel OVALLES Interpreted: Saadia Burton MD on 08/18/2016 at 10:07 CT BRAIN WITH AND WITHOUT CONTRAST IMPRESSION: 1. No acute intracranial process. Dictated by: Victoria Galvan M.D. on 08/18/2016 at 10:43 X-RAY CHEST, TWO VIEWS IMPRESSION: No acute cardiopulmonary disease. Dictated by: Daniel OVALLES Interpreted: Saadia Burton MD on 08/18/2016 at 10:09 Cardiac Echo Impressions Interpretation Summary The left ventricle is mildly dilated. The ejection fraction is estimated to be 60-65%. There has been no significant change in LV EF since the previous study. The right ventricle is normal in size and function.There is trace tricuspid regurgitation. The right ventricular systolic pressure is estimated at 37 mmHg assuming a right atrial pressure of 15 mm Hg. The IVC is dilated (diameter is greater than 2.1 cm) and it collapses less than 50% with a sniff. This suggests a high right atrial pressure of 15 mm Hg (New). No obvious valvular vegetation seen. If clinical suspicion for endocarditis is high, consider HERMES. Assessment & Plan Shereen Witt is a 36-year-old woman currently IV drug abuser, presents with 5 days of headache, new onset knee pain and swelling, positive blood cultures 2 for MRSA. Hospital day #5 1. Sepsis, acute, present on admission, improving -On admission white blood cells 13.9, vital signs: Temperature 38.8 Celsius, heart rate 106, maintaining blood pressure, sources are blood, left knee, and urinary tract. -ESR 76, lactic acid 1.9, pro calcitonin 0.09 initially -Repeated blood cultures x 3, growth shows methicillin resistant Staph. aureus -Pro calcitonin 0.053 days -Antibiotics as below 2. MRSA Bacteremia, subacute, present on admission -2 out of 2 bottles from 08/12/16 positive for MRSA, multiple blood cultures from this admission confirm MRSA bacteremia, sensitive to clindamycin and vancomycin. Secondary to IVDU. -Continue vancomycin dosed by pharmacy -Clindamycin was given in the emergency department, however given the positive MRSA culture and no other organisms do not feel coverage of anaerobes is necessary. -Infectious disease consultation placed, we appreciate their time and recommendations -Likely the patient has endocarditis as she has a notable murmur on exam however TTE is negative for vegetation. Will consult cardiology for a HERMES. 3. Urinary tract infection, acute, present on admission, treatment initiated -Urine culture from 08/12/2016 grew Escherichia coli, susceptible to ceftriaxone -Discontinued ceftriaxone 2 mg IV every 24 hours today, after her 5th dose -Urinalysis performed 08/21/16 is unremarkable showing only a few bacteria 4. Heart murmur, chronicity unknown, present on admission, evaluation ongoing -Was heard on previous ER visits, previously evaluated in September 2015 without any valvular abnormalities apparent, but likely represents endocarditis -Echocardiogram negative for vegetations. -HERMES will be performed after endoscopy to assure patient does not have any active ulcers or strictures. 5. History of GERD, present on admission, not currently active -Patient with history of GERD and possible ulcers -Increased risk of performing HERMES if ulcers are present -GI consult team today to perform EGD to rule out active peptic ulcer disease or other esophageal problems. 6. Left knee septic joint, acute, present on admission, evaluation ongoing -Joint aspirate has been collected. High amount of PMNs present in the aspirate. Cultures pending. No bacteria on gram stain. -IV antibiotics as above -Ketorolac IM every 8 hours as needed for pain -Patient continues to have pain and notes that it is harder for her stand on the left leg now. follow up Xray of the knee shows small joint effusion. -Consider withdrawing more fluid from joint effusion if pain continues or worsens 7. Chronic IV drug abuse, present on admission, active -Last use before returning to the emergency department. The patient states she uses twice daily and up to 1 gm of heroin daily. -Methadone and clonodine for withdrawal symptoms as patient stated Suboxone has not worked in the past. -High risk for elopement, leaving AGAINST MEDICAL ADVICE, recommend against PICC line placement. 8. Hyperglycemia, pre-diabetic, chronicity unknown, present on admission -Blood sugar in the emergency department was 152, review of previous admission shows it to be elevated greater than 113. -Hemoglobin A1c 5.8%, pre-diabetic -Consider nutrition consultation once patient improves. 9. Electrolyte dyscrasia, acute, present on admission, improving. -Most likely due to infection -Sodium 129, chloride 92, initially. Treated with IV saline -Calcium normal at 8.6 today after replenishment with PO calcium supplements -We will continue to monitor on BMP/CMP 10. Chronic normocytic normochromic anemia consistent with iron deficiency anemia, present on admission, stable, evaluation ongoing -Iron deficiency versus anemia of chronic disease -Iron panel consistent with iron deficiency anemia, low iron and low iron % saturation -Consider adding a multi-vitamin with iron once patient's abdominal pain has improved 11. Persistent tobacco use -Discussed benefits of quitting smoking, risks of continuing to smoke, and how smoking cessation could better improve health in the future 12. High risk for leaving AGAINST MEDICAL ADVICE -Left emergency department previously without notifying anyone -Previous admission did not leave AMA. VTE Prophylaxis with subcutaneous heparin GI prophylaxis: Not indicated Pain management: Methadone Dispo: Anticipate patient will be here for an extended amount of time as she undergoes treatment for MRSA bacteremia and possible endocarditis. Pain Evaluation: Adequate Pain Control GI Prophylaxis: Not indicated VTE Prophylaxis: Sub-Q Heparin (Unfractionated) VTE Mechanical Devices: Intermittant Pneumatic CD Resuscitation Status: CPR: Attempt Resuscitation Attending Statement The patient was seen and examined together with Dr. Rebolledo on 08/22/2016 and I agree with the history, exam and plan as outlined in the note above. Alis Rebolledo DO Aug 22, 2016 08:15 Parmjit Peterson MD Aug 23, 2016 09:00
[2016-08-22] MEDS: Pantoprazole 4 mg/mL 10 mL Inj IVPUSH SCH ×2 (08:16→16:49)
[2016-08-22] MEDS: Vancomycin Dose per Pharmacist XX SCH (08:30)
--- NOTE | 2016-08-22 08:43 | PCM.HPANE ---
Patient Data Surgeon Admitting Provider:Isis Mckeon DO Attending Provider:Isis Mckeon DO Primary Care Physician:Nopcp Other Provider: Reason for Visit Mrsa, Bacteremia Sbe MRSA, BACTEREMIA SBE Ht/WT & BMI Height (Feet): 5 Height (Inches): 8.00 Weight (Kilograms): 91.800 Body Mass Index 30.67 Allergies Coded Allergies: Penicillins (Verified Allergy, Unknown, hives, thrush, 08/18/16) aloe vera (Verified Allergy, Unknown, 08/17/16) coconut oil (Verified Allergy, Unknown, 08/17/16) pregabalin (Verified Allergy, Unknown, hallucinations, 08/17/16) venlafaxine (Verified Allergy, Unknown, seratonin reax, 08/17/16) Past Anesthesia History Anesthesia History: Positive for:: Anesthesia Reactions (problem waking up ) Diabetes History Hx Diabetes?: No MRSA MRSA: Yes Medications Active Scripts Albuterol Sulfate (Ventolin HFA Inhaler)200 Puff/18 Gm Inhaler1 Puff INH Q4 PRN For Wheezing #1 INHALER Ref 0 okay to sub for pro-air as covered by insurance Prov:Michele Morales DO 05/07/16 Discontinued Scripts Azithromycin (Zithromax)250 Mg [id number] Mg PO DAILY #4 TABLET Ref 0 Prov:Michele Morales DO 05/07/16 Prednisone (PredniSONE)20 Mg Zndeoo01 Mg PO DAILY #10 TABLET Ref 0 Prov:Michele Morales DO 05/07/16 History History of ENT Problems?: Yes HEENT History: Positive for:: Sinus Problem (Right nare half occluded per patient) Hx of Heart Problems?: Yes Cardiovascular History: Positive for:: Heart Murmur Denies:: Congestive Heart Failure Hypertension Hx of Respiratory Problem?: Yes Respiratory History: Positive for:: Asthma Dyspnea Pneumonia Denies:: Tuberculosis Hx Neurologic Problems?: Yes Neurological History: Positive for:: CVA (10 years ago had CVA ) Headaches Seizures (about 5 months ago) Hx of GI Problems?: Yes Gastrointestinal History: Positive for:: Hepatitis (dx 09/05/15) Hx of Problems?: No Female Hx: Positive for:: Endometriosis Problems with Breasts? (recurrent infection) Denies:: Currently Other Skin Pertinent History: Pt has open sores of all stages of healing on her hands, face and trunk. Hx Musculoskeletal Problems?: No Hx of Psycho/Social Problems?: Yes Psycho Social History: Positive for:: Anxiety (states boyfriend took her 2 yr old child a year ago.) Bipolar Disorder Hx Depression Suicide Attempt (4 years ago ) Hx Surgeries?: Yes (TUBAL LIGATION) Hx Any Other Health Problems?: No Other History: Positive for:: Hospitalization (surgery left breast abscess may 2015) History Blood Transfusions: Positive for:: Accept Blood Products? Denies:: Blood Transfuse Reaction Blood Transfusions Hx Diabetes: No Occupation: Homeless Hx Alcohol Use: NoHx Substance Use: Yes (heroin daily, Meth occasionally) Smoking Status: Current Every Day Smoker Have You Smoked inLast 12 mo: YesApprox How Many Cigarettes/day: 06/07 PPD Stop/Bang Treated for Sleep Apnea?: No Do You Have a CPAP Machine?: No S-Snoring: Do You Snore Loudly: No T-Tired: feel tired, fatigued: No O-Obsered: Observed not breath: No P-Blood Pressure: treated: No B- Body Mass Index > 35 kg/m2: No A- Age over 50: No N- Neck Large Circumference: No G- Gender Male: No DANIELLE Total Score: 0 DANIELLE Risk Assessment: Low Risk, <3 Yes Risk Assessment Category Category 1A: Patient has history of documented sleep apnea, and HAS NOT received any narcotic, sedative or anesthesia administration during this stay. Category 1B: Patient has history of documented sleep apnea, and HAS received any narcotic , sedative or anesthesia administration during this stay Category 2: Patient has SUSPECTED Obstructive Sleep Apnea, and HAS received any narcotic , sedative or anesthesia administration during this stay. Category 3: Patient has SUSPECTED Obstructive Sleep Apnea and HAS NOT received narcotic, sedative or anesthesia administration during this stay. Category 4: Outpatient in Procedural Areas with known sleep apnea or who screen positive for High Risk via the STOP/BANG questionnaire. Exam Exam Vital Signs Vital Signs Date Time Temp Pulse Resp B/P Pulse Ox O2 Delivery O2 Flow Rate FiO2 08/22/16 04:36 37.6 83 20 114/73 98 Room Air 08/22/16 01:10 37.3 69 20 93/60 96 Room Air General Appearance: Alert, Oriented X3, Cooperative, Mild Distress HEENT/AIRWAY: MP 2 Lungs: Clear to Auscultation, Normal Air Movement Heart: Exam Unremarkable, Regular Rate/Rhythm, No Murmurs/Rubs/Gallops Meds/Labs/Diagnostics Admission Meds Current Medications Sodium Chloride (Normal Saline) 500 ml @ ud STK-MED ONCE .ROUTE Last administered on 08/21/16 10:10; Start 08/21/16 at 09:31; Stop 08/21/16 at 09:32 ; Status DC Pantoprazole 40 mg 40 mg BIDAC IVPUSH Last administered on 08/22/16 08:16; Start 08/21/16 at 16:30 Vancomycin HCl 1500 mg/Sodium Chloride 500 ml @ 250 mls/hr Q8H IV Last administered on 08/22/16 05:55; Start 08/22/16 at 05:00 Vancomycin HCl/ Sodium Chloride (Vancocin Inj/ Normal Saline) 500 ml @ 250 mls/ hr OT ONCE IV Last administered on 08/21/16 23:21; Start 08/21/16 at 21:00; Stop 08/21/16 at 22:59; Status DC Labs Test 08/18/16 02:55 08/18/16 05:15 08/18/16 06:00 08/18/16 18:50 Erythrocyte Sedimentation Rate 76mm/hr (0-32) Prothrombin Time 11.0sec (8.1-12.5) Prothromb Time International Ratio 1.03ratio Activated Partial Thromboplast Time 28.9sec (22.8-33.0) Hemoglobin A1c 5.8% (4.8-5.6) Lactic Acid Level 1.9mmol/L (0.4-2.0) Phosphorus Level 2.0mg/dL (2.5-4.9) Magnesium Level 1.8mg/dL (1.6-2.6) Iron Level 24ug/dL (35-150) Total Iron Binding Capacity 321ug/dL (250-450) Percent Iron Saturation 7%sat (15-50) Unsaturated Iron Binding 297.1ug/dL Troponin T 0.010ug/L (0.0-0.011) Pro-B-Type Natriuretic Peptide 8.10pg/mL (0-130) Lipase 16U/L (13-60) Body Fluid Source Synovial fluid Body Fluid Color Yellow (Clear) Body Fluid Appearance Cloudy Body Fluid WBC 57074/mm3 Body Fluid RBC 0/mm3 Body Fluid Polynuclear WBCs 80% Body Fluid Lymphocytes 0% Body Fluid Monocytes 20% Body Fluid Eosinophils 0% Body Fluid Basophils 0% Body Fluid Total Protein 2.8g/dL Urine Opiates Screen Positive Urine Methadone Screen Negative Urine Barbiturates Screen Negative Urine Amphetamines Screen Positive Urine Benzodiazepines Screen Negative Urine Cocaine Metabolite Screen Negative Urine Cannabinoids Screen Negative Hold Purple Top Tube Received (Received) Hold [place] Top Tube Received (Received) Hold Negro Top Tube Received (Received) Test 08/20/16 04:50 08/21/16 07:20 08/21/16 13:00 08/21/16 13:42 HCG Beta Subunit < 0.500mIU/mL Procalcitonin 0.05ng/mL (0.00-0.08) Vancomycin Level Trough 12.7mcg/mL Urine Color Straw (YELLOW) Urine Appearance Hazy (CLEAR,HAZY) Urine pH 7.0 (5.0-8.0) Urine Specific [place] 1.020 (1.003-1.035) Urine Protein Negativemg/dL (NEG,TRACE) Urine Glucose (UA) Negativemg/dL (NEGATIVE) Urine Ketones Negativemg/dL (NEGATIVE) Urine Occult Blood Negative (NEGATIVE) Urine Nitrite Negative (NEGATIVE) Urine Bilirubin Negative (NEGATIVE) Urine Urobilinogen Normalmg/dL (NORMAL) Urine Leukocyte Esterase Negative (NEGATIVE) Urine RBC 0-2/hpf (0-2) Urine WBC 0-5/hpf (0-5) Urine Epithelial Cells Occasional/hpf (NONE-MOD) Urine Crystals None seen (NONE SEEN) Urine Bacteria Few/hpf (NONE-FEW) Urine Hyaline Casts None/lpf (NONE) Urine Granular Casts None seen (NONE SEEN) Urine Waxy Casts None seen (NONE SEEN) Urine Red Blood Cell Casts None seen (NONE SEEN) Urine White Blood Cell Casts None seen (NONE SEEN) Urine Mucus Present (None Seen) Urine Trichomonas None seen (NONE SEEN) Urine Yeast None (NONE SEEN) Urinalysis Comment None Urine Culture Reflexed Not indicated Test 08/22/16 05:50 White Blood Count 13.8th/mm3 (3.8-10.1) Red Blood Count 3.67mil/mm3 (3.90-5.20) Hemoglobin 10.1g/dL (12.0-15.6) Hematocrit 31.6% (35.0-46.0) Mean Corpuscular Volume 86.1fL (81-100) Mean Corpuscular Hemoglobin 27.5pg (27.0-35.0) Mean Corpuscular Hemoglobin Concent 32.0% (32.0-37.0) Red Cell Distribution Width 14.3% (12.3-15.4) Platelet Count 427bil/L (150-400) Neutrophils (%) (Auto) 74.0% (40-74) Lymphocytes (%) (Auto) 15.6% (14-46) Monocytes (%) (Auto) 4.8% (4-12) Eosinophils (%) (Auto) 4.1% (0-5) Basophils (%) (Auto) 0.3% (0-3) Sodium Level 137mEq/L (134-144) Potassium Level 5.2mEq/L (3.5-5.2) Chloride Level 99mEq/L (97-108) Carbon Dioxide Level 23mmol/L (18-29) Blood Urea Nitrogen 13mg/dL (6-20) Creatinine 0.77mg/dL (0.57-1.00) Estimat Glomerular Filtration Rate 123mL/min (>59) Glucose Level 140mg/dL (60-99) Calcium Level 8.4mg/dL (8.5-10.1) Total Bilirubin 0.2mg/dL (0.0-1.2) Aspartate Amino Transf (AST/SGOT) 17U/L (0-50) Alanine Aminotransferase (ALT/SGPT) 21U/L (0-32) Alkaline Phosphatase 109U/L (25-150) Total Protein 6.9g/dL (6.4-8.4) Albumin 2.5g/dL (3.4-5.0) Plan Impression Patient chart reviewed, patient interviewed and anesthestic plan with risks, benefits, and alternatives discussed, and informed consent obtained. NPO Status: 05/26/15 [place] ASA Physical Status: ASA3 Severe Disease (IVDA, MRSA) Anesthetic Plan: MAC Bene/Risks/Altern/Consents: Yes HP Complete Prior to Induction: Yes Travis Hooker MD Aug 22, 2016 08:43
[2016-08-22] MEDS: cefTRIAXone Inj 2,000 MG in Dextrose 5% Minibag Plus 50 ML IV SCH (11:54)
[2016-08-22] MEDS ORDERED: Vancomycin Serum Trough XX ONE (12:30)
[2016-08-22] MEDS ORDERED: Ketamine 10 mg/mL 20 mL Inj ONE (13:39)
[2016-08-22] MEDS ORDERED: Propofol 10,000 mCg/mL 20 mL Inj ONE (13:39)
--- NOTE | 2016-08-22 14:07 | PCM.PHAPRO ---
Progress Vancomycin Management by Pharmacy: -pt has been receiving high doses of Vancomycin 1.5gm iv q8hrs -risk of accumulation since regimen exceeds 4gm daily (despite subtherapeutic level of 12.7) -changing dose and frequency today to Vancomycin 1gm iv [id number] -trough level will be checked prior to 4th dose tomorrow at 0930 Dianelys Corral [facility] Aug 22, 2016 14:07
[2016-08-22] MEDS ORDERED: Lactated Ringer's 1,000 ML IV ONE (15:19)
[2016-08-22] MEDS: Lactated Ringer's 1,000 ML IV SCH ×2 (15:23→15:39)
[2016-08-22] MEDS ORDERED: MetoCLOpramide 5 mg/mL 2 mL Inj IVPUSH PRN (15:25)
[2016-08-22] MEDS ORDERED: Ondansetron 2 mg/mL 2 mL Inj IVPUSH PRN (15:25)
--- NOTE | 2016-08-22 15:52 | PROG NOTE ---
[address] [address] PROGRESS NOTE PATIENT: LISA SOSA : 1980 MR#: [id number] ADMIT: 08/18/2016 JOB ID: [id number] DATE: 08/22/2016 REASON FOR FOLLOWUP: High-grade MRSA bacteremia in a patient with IV drug use. INTERVAL HISTORY: The patient reports that she continues to have some sweats but no chills or fever. She notes that she continues to have a headache, though it is not severe. No trouble swallowing. No changes in vision. She has bilateral pleuritic chest pain. She does have nausea but no vomiting or diarrhea and no weakness in the extremities. PHYSICAL EXAMINATION: Reveals an afebrile woman. Temp 36.8, pulse 66, respiratory rate 20, blood pressure 112/70. She is saturating well on room air. Examination of the patient's mental status reveals that it is clear. She has no oral lesions. Cardiac tone still with 2/6 murmur heard best along the right upper sternal chest. Regular rate and rhythm. Lungs with crackles at the bases. Abdomen benign. No peripheral stigmata of endocarditis. White count stable at 13,800, relatively normal diff. Creatinine 0.77. LFTs normal. Albumin 2.5. Urinalysis without white cells. Vancomycin trough is only 12.7, despite heroic doses of 1.5 g q.8 h. in this 36-year-old woman. Her knee culture remains negative. Her blood cultures are basically all positive and this includes cultures from August 12, August 18 in August 19. Repeats were just ordered. Note that this MRSA in the blood is an KADEN of vancomycin of less than 0.5, which would suggest good activity, yet her blood cultures remain consistently positive. No new imaging is available today. IMPRESSION: This is a very worrisome case of a woman with ultra high-grade methicillin-resistant Staphylococcus aureus bacteremia in the setting of intravenous drug use and a left knee which appears to be septic, even though cultures are negative. I am still concerned about her severe headache as well, though it does seem to be moderating as time goes on. The plan today is for the patient to have an esophagogastroduodenoscopy so that she can be cleared for a HERMES, as she has a history of longstanding esophageal problems. RECOMMENDATIONS: 1. Continue with vancomycin and I discussed additional dose increases with Pharmacy. If we are unable to clear her cultures with vancomycin, will of course have to switch to another agent and will probably use high-dose daptomycin, with or without a beta-lactam for synergy. 2. The ceftriaxone is continuing because of the positive urine culture, but I do not think it is significant here and will likely stop it in the next day or two. Hep C viral load and genotype are needed. 3. As her headache continues, it may be reasonable to look for a mycotic aneurysm with a CT angiogram or MRI angiogram of the brain. 4. I again discussed the issues with MRSA endocarditis with the patient, as I suspect that will prove to be the diagnosis and she will likely need to be confined here for six weeks or so to eradicate this infection.
--- NOTE | 2016-08-22 16:05 | NUR ---
Social Work-continued d/c planning: Data:EMR Reviewed. Pt is on day 4 of hospitalization for MRA per H&P. Per MD in morning rounds, anticipate pt will be in the hospital for at least 4-6 weeks of IV abx. Referral has been made to Carolee FORD from [facility] to see pt. BRANDEE left message for Carolee today. BRANDEE will continue to follow. Assessment:Pt who will need IV abx 4-6 weeks. Plan:Pt to remain at [facility] for 4-6 weeks of IV abx. Referral has been made to Carolee FORD from [facility] to see pt. BRANDEE left message for Carolee today. BRANDEE will continue to follow. STEPH Hernandez
[2016-08-22] MEDS: Vancomycin 1 Gm/200 mL NS Premix IV SCH ×2 (16:54→22:35)
--- NOTE | 2016-08-22 18:34 | NUR ---
Pain Patient reporting decreased, but continued head ache pain this shift and increased Lt knee pain. Requesting assistance with reposition Lt leg and with lifting leg into bed after getting up to BSC.
--- NOTE | 2016-08-22 18:49 | ENDO ---
[address] [address] ENDOSCOPY PROCEDURE PATIENT: LISA SOSA : 1980 MR#: [id number] ADMIT: 08/18/2016 JOB ID: [id number] DATE OF PROCEDURE: 08/22/2016 OPERATION: Esophagogastroduodenoscopy and biopsy. PREOPERATIVE DIAGNOSIS (ES): Rule out peptic ulcer disease. POSTOPERATIVE DIAGNOSIS(ES): Mild nonerosive gastritis. ANESTHESIA: Monitored anesthesia care. COMPLICATIONS: None. BLOOD LOSS: Minimal. DESCRIPTION OF PROCEDURE: After the risks and benefits were explained to the patient, informed consent was obtained. After anesthesia was administered, the upper endoscope was inserted in the mouth and intubated into the esophagus, stomach, and second portion of duodenum, and the mucosa carefully examined. After the procedure was done, the scope was withdrawn and the procedure terminated. FINDINGS: Upon inspection of the esophagus, the esophagus was normal, without masses, ulcers, or lesions. Z-line located 40 cm from incisors. Upon entry into the stomach there was mild nonerosive gastritis seen in the antrum. No masses, ulcers, or lesions were seen. Retroflexion was normal. Duodenal bulb, first, and second portion were normal. Biopsies taken in the antrum and body of the stomach. IMPRESSION: Mild nonerosive gastritis. RECOMMENDATIONS: Await pathology results. Okay to start clear liquid diet. Advance as tolerated. We will sign off at this time.
[2016-08-23] VITALS (7 sets, daily range): BP systolic 92–106; BP diastolic 50–69; PULSE 63–87; RESP 18–20; O2SAT 95–100
[2016-08-23] MEDS: Vancomycin 1 Gm/200 mL NS Premix IV SCH ×4 (04:46→23:24)
--- NOTE | 2016-08-23 05:27 | NUR ---
Pain: Medicated with Toradol and Methadone for pain. States her headache is finally decreased to a 4/10, but left knee pain is increased. Requested assistance x1 to help get legs up to bed after using BSC. Able to sleep much of the night.
[2016-08-23] MEDS ORDERED: Vancomycin Serum Trough XX ONE ×3 (07:30→21:30)
[2016-08-23] MEDS: 0.9% Sodium Chloride 1,000 ML IV SCH (07:45)
--- NOTE | 2016-08-23 08:26 | PCM.PNMED ---
Subjective Date of Service Aug 23, 2016 Subjective Shereen Witt is a 36-year-old woman currently IV drug abuser, presents with 5 days of headache, new onset knee pain and swelling, positive blood cultures 2 for MRSA. Hospital day #6 Overnight patient complained of continued knee pain, treated with methadone and Toradol, she slept well after treatment. This morning she feels more awake. Continued pain but adequate control with medications. Exam Vital Signs Vital Sign - Last Date Time Temp Pulse Resp B/P Pulse Ox O2 Delivery O2 Flow Rate FiO2 08/23/16 05:47 37.1 79 18 106/69 95 Room Air 08/22/16 15:47 2 Intake and Output 08/22/16 08/22/16 08/23/16 Cumulative From/Thru 15:00 23:00 07:00 08/18/16 00:26 - 08/23/16 06:21 Intake Total 820 ml 2205 ml 78125 ml Output Total 2750 ml 06065 ml Balance -1930 ml 2205 ml -332 ml Intake Oral 720 ml 1840 ml 71873 ml IV Total 100 ml 365 ml 9209 ml Output Urine Total 2750 ml 27664 ml # Voids 5 5 # Bowel Movements 0 1 4 Exam General: Laying in bed with eyes closed, no apparent distress. Disheveled, poor hygiene, obvious lesions to face and extremities. HEENT: Normocephalic, hair is matted, multiple lesions of varying size and states of healing on her face- improving. Extraocular muscles intact, pupils round and reactive to light, mucous membranes moist Cardiovascular: Regular rate and rhythm, 2/6 systolic murmur heard best in the tricuspid area Pulmonary: Clear to auscultation bilaterally, no crackles, wheezes, or ronchi. Abdominal: Soft to palpation, bowel sounds present, no hepatosplenomegaly. No rebound. Extremities: There is no edema to lower extremities, there are multiple pin- sized lesions on upper and lower extremities covered with multiple adhesive bandage strips. No splinter hemorrhages, Ostlers nodes, or Janeway lesions appreciated. Neuro: Neurologically grossly intact, strength is equal bilaterally upper and lower extremities. MSK: Left knee mildly swollen compared to right, tender, warm to the touch, K- pad heating pad in place. Lab and Diagnostics Result Diagram: 08/22/16 0550 08/22/16 0550 Microbiology Multiple blood cultures positive for MRSA including ones drawn yesterday. X-Rays, CTs and MRIs X-RAY LEFT KNEE, THREE VIEWS IMPRESSION: Although no bony erosions are identified, plain film radiography is relatively insensitive in the acute phases of osteomyelitis and may not demonstrate radiographic changes for 15 days. If acute osteomyelitis is of clinical concern , nuclear medicine regional bone scan or MRI is recommended. Joint effusion. 2 cm soft tissue foreign body within the upper lower leg medially at the level of the proximal tibia shaft. Dictated by: Daniel OVALLES Interpreted: Saadia Burton MD on 08/18/2016 at 10:07 CT BRAIN WITH AND WITHOUT CONTRAST IMPRESSION: 1. No acute intracranial process. Dictated by: Victoria Galvan M.D. on 08/18/2016 at 10:43 X-RAY CHEST, TWO VIEWS IMPRESSION: No acute cardiopulmonary disease. Dictated by: Daniel OVALLES Interpreted: Saadia Burton MD on 08/18/2016 at 10:09 Cardiac Echo Impressions Interpretation Summary The left ventricle is mildly dilated. The ejection fraction is estimated to be 60-65%. There has been no significant change in LV EF since the previous study. The right ventricle is normal in size and function.There is trace tricuspid regurgitation. The right ventricular systolic pressure is estimated at 37 mmHg assuming a right atrial pressure of 15 mm Hg. The IVC is dilated (diameter is greater than 2.1 cm) and it collapses less than 50% with a sniff. This suggests a high right atrial pressure of 15 mm Hg (New). No obvious valvular vegetation seen. If clinical suspicion for endocarditis is high, consider HERMES. Assessment & Plan Shereen Witt is a 36-year-old woman currently IV drug abuser, presents with 5 days of headache, new onset knee pain and swelling, positive blood cultures 2 for MRSA. Hospital day #5 1. Sepsis, acute, present on admission, improving -On admission white blood cells 13.9, vital signs: Temperature 38.8 Celsius, heart rate 106, maintaining blood pressure, sources are blood, left knee, and urinary tract. -ESR 76, lactic acid 1.9, pro calcitonin 0.09 initially -Repeated blood cultures, growth shows methicillin resistant Staph. aureus -Pro calcitonin 0.053 days, no need to repeat. -Antibiotics as below 2. MRSA Bacteremia, subacute, present on admission -multiple blood cultures from this admission confirm MRSA bacteremia, sensitive to clindamycin and vancomycin. Secondary to IVDU. -Continue daily blood cultures until we have multiple negative bottles. This will count as day 1 for 6 week abx treatment. -Continue vancomycin dosed by pharmacy -Clindamycin was given in the emergency department, however given the positive MRSA culture and no other organisms do not feel coverage of anaerobes is necessary. -Infectious disease on board -Likely the patient has endocarditis as she has a notable murmur on exam however TTE is negative for vegetation. Pt to have a HERMES in AM. 3. Urinary tract infection, acute, present on admission, treatment initiated -Urine culture from 08/12/2016 grew Escherichia coli, susceptible to ceftriaxone -Discontinued ceftriaxone 2 mg IV every 24 hours today, after her 5th dose -Urinalysis performed 08/21/16 is unremarkable showing only a few bacteria 4. Heart murmur, chronicity unknown, present on admission, evaluation ongoing -Was heard on previous ER visits, previously evaluated in September 2015 without any valvular abnormalities apparent, but likely represents endocarditis -Echocardiogram negative for vegetations. -HERMES will be performed tomorrow 5. History of GERD, present on admission, not currently active -Patient with history of GERD and possible ulcers -Increased risk of performing HERMES if ulcers are present -GI consult team today to perform EGD which showed non erosive gastritis, okay to proceed with HERMES 6. Left knee septic joint, acute, present on admission, evaluation ongoing -Joint aspirate has been collected. High amount of PMNs present in the aspirate. Cultures pending. No bacteria on gram stain. -IV antibiotics as above -Ketorolac IM every 8 hours as needed for pain -Patient continues to have pain and notes that it is harder for her stand on the left leg now. follow up Xray of the knee shows small joint effusion. -Consider withdrawing more fluid from joint effusion if pain continues or worsens 7. Headache, present on admission, subacute - Patient is at risk for mycotic aneurysm, ID recommends imaging - Dr. Burton of Radiology recommends starting with CT angiogram of the brain which is more sensitive for aneurysm. Follow-up MRA may be needed based on findings. 8. Hyperglycemia, pre-diabetic, chronicity unknown, present on admission -Blood sugar in the emergency department was 152, review of previous admission shows it to be elevated greater than 113. -Hemoglobin A1c 5.8%, pre-diabetic -Consider nutrition consultation once patient improves. 9. Electrolyte dyscrasia, acute, present on admission, improving. -Most likely due to infection -Sodium 129, chloride 92, initially. Treated with IV saline -Calcium normal at 8.6 today after replenishment with PO calcium supplements -We will continue to monitor on BMP/CMP 10. Chronic normocytic normochromic anemia consistent with iron deficiency anemia, present on admission, stable, evaluation ongoing -Iron deficiency versus anemia of chronic disease -Iron panel consistent with iron deficiency anemia, low iron and low iron % saturation -Consider adding a multi-vitamin with iron once patient's abdominal pain has improved 11. Persistent tobacco use -Discussed benefits of quitting smoking, risks of continuing to smoke, and how smoking cessation could better improve health in the future 12. High risk for leaving AGAINST MEDICAL ADVICE -Left emergency department previously without notifying anyone -Previous admission did not leave AMA. 13. Chronic IV drug abuse, present on admission, active -Last use before returning to the emergency department. The patient states she uses twice daily and up to 1 gm of heroin daily. -Methadone and clonodine for withdrawal symptoms as patient stated Suboxone has not worked in the past. -High risk for elopement, leaving AGAINST MEDICAL ADVICE, recommend against PICC line placement. VTE Prophylaxis with subcutaneous heparin GI prophylaxis: Not indicated Pain management: Methadone, toradol Dispo: Anticipate patient will be here for an extended amount of time as she undergoes treatment for MRSA bacteremia and possible endocarditis. Pain Evaluation: Adequate Pain Control (with medication) GI Prophylaxis: Not indicated VTE Prophylaxis: Sub-Q Heparin (Unfractionated) VTE Mechanical Devices: Intermittant Pneumatic CD Resuscitation Status: CPR: Attempt Resuscitation Attending Statement The patient was seen and examined together with Dr. Rebolledo on 08/23/2016 and I agree with the history, exam and plan as outlined in the note above. Alis Rebolledo DO Aug 23, 2016 08:26 Parmjit Peterson MD Aug 24, 2016 09:13
[2016-08-23] MEDS: Vancomycin Dose per Pharmacist XX SCH (08:30)
--- NOTE | 2016-08-23 08:53 | PCM.ANEP1 ---
Post Anesthesia Phase 1 PACU Phase 1 Assessment Date of Service: Aug 21, 2016 Vital Signs Vital Signs Date Time Temp Pulse Resp B/P Pulse Ox O2 Delivery O2 Flow Rate FiO2 08/23/16 05:47 37.1 79 18 106/69 95 Room Air 08/23/16 01:21 37.2 76 18 92/50 98 Room Air Anesthetic Administered: MAC Level of Alertness: Awake, talking Pain: Yes (9 in leg) Pain Scale Score: 8 Nausea or Vomiting: No Oxygen Delivery: Nasal Cannula Lungs: Clear to Auscultation, Normal Air Movement Dermatome Level: Full Sensation Travis Hooker MD Aug 23, 2016 08:53
--- NOTE | 2016-08-23 08:53 | PCM.ANEP2 ---
Post Anesthesia Evaluation ASA/CMS Post Anesthesia VS in Patient's Normal Range?: Yes Resp Stable; Airway Patent?: Yes CV Function & Hydration Stable: Yes Mental Status Recovered?: Yes Pain control Satisfactory?: Yes N/V Control Satisfactory?: Yes Travis Hooker MD Aug 23, 2016 08:53
[2016-08-23] MEDS: Pantoprazole 4 mg/mL 10 mL Inj IVPUSH SCH ×2 (10:01→16:58)
[2016-08-23] MEDS: cloNIDine 0.1 mg Tablet PO PRN ×2 (10:06→19:37)
--- NOTE | 2016-08-23 11:03 | NUR ---
Critical Lab Value Vanco tough 20.8. Hospitalist notified.
--- NOTE | 2016-08-23 16:26 | DRSVH ---
PROCEDURE: CT ANGIOGRAPHY OF THE BRAIN WITH AND WITHOUT CONTRAST ([id number]) INDICATIONS: possible mycotic aneurysms, MRSA bacteremia TECHNIQUE: Precontrast 4.5 mm thick angled axial sections acquired from the foramen magnum to the vertex. Afte r the administration of intravenous contrast, 1 mm thick sections acquired through the [place] of [place] is. Postcontrast 4.5 mm thick sections then re-acquired from the foramen magnum to the vertex. 3-di mensional qmbhldl-uymdwhgjg-hmafnuzebu (MIP) and/or volume rendering reformats were acquired of the c entral intracranial vasculature. For radiation dose reduction, the following was used: automated ex posure control, adjustment of mA and/or kV according to patient size. COMPARISON: [facility], CT, CT BRAIN W&WO CON, 08/18/2016, 4:35. FINDINGS: Image quality: Excellent. Anterior circulation: Intracranial internal carotid arteries are normal in size and flow. The flow within the paired anterior cerebral arteries is normal and symmetric. The flow within the middle cer ebral arteries is normal and symmetric. The anterior communicating artery is seen. No aneurysms are seen. Posterior circulation: Visualized portions of the vertebral arteries demonstrate normal caliber, and join to form a normal appearing basilar artery. Flow within the posterior cerebral arteries is norm al and symmetric. No aneurysms are seen. CSF spaces: Ventricles are normal in size and shape. Basal cisterns are patent. No extra-axial flu id collections. Brain: No midline shift. No intracranial bleeds or masses. Galvan-white matter interface appears int act. Skull and face: Calvarium and facial bones appear intact, without suspicious lesions. Sinuses: Visualized sinuses and mastoids are clear. IMPRESSION: Negative CT angiography of the head. No evidence of aneurysm. Dictated by: Linda Haider M.D. on 08/23/2016 at 16:12 Approved by: Linda Haider M.D. on 08/23/2016 at 16:25
[2016-08-23 16:47] LABS: BASOPHILS % (AUTO) 0.1 % (0-3); EOSINOPHILS % (AUTO) 1.9 % (0-5); MONOCYTES % (AUTO) 3.6 % (4-12); Mean Corpuscular Hemoglobin 27.2 pg (27.0-35.0); Mean Corpuscular Volume 88.3 fL (81-100); NEUTROPHILS % (AUTO) 79.1 % (40-74); Platelet Count 395 bil/L (150-400)
--- NOTE | 2016-08-23 18:42 | NUR ---
Pain/Wakefulness Patient continues to report pain. Knee pain 6/10, head pain 5/10. Pain minimally relieved with pain medications. Patient more awake this shift. Increased interaction with staff. Cooperative with care.
[2016-08-24] VITALS (11 sets, daily range): BP systolic 91–119; BP diastolic 59–72; PULSE 60–86; RESP 14–20; O2SAT 97–100
[2016-08-24] MEDS: 0.9% Sodium Chloride 1,000 ML IV SCH ×4 (00:34→23:45)
--- NOTE | 2016-08-24 00:58 | PROG NOTE ---
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 INTERVAL HISTORY: The patient reports her headache is diminished but still present. She denies any visual change. She has no stiff neck. She denies any significant cough or shortness of breath. Her left knee remains swollen and tender. She denies any weakness or numbness in her lower extremities. PHYSICAL EXAMINATION: Reveals an afebrile woman, temp 37, pulse 63, respiratory rate 18, blood pressure 101/65, saturating 99% on room air. She is awake, alert, and responsive. Her conjunctivae normal. Neck is supple. Lungs: Fairly clear. Cardiac tones 2/6 murmur right upper sternal area. Abdomen: Soft and nontender. Left knee is swollen, though not especially warm. It is tender to palpation. It has a clear effusion and reduced range of motion. Good lower extremity strength is noted. LABORATORIES: Include white count 13,800 without left shift. Creatinine is pending from today. Toxicology, including vanc trough, pending from today. The culture of the knee fluid is negative, but many blood cultures, now 14 or more blood cultures drawn over the last week, areor positive for MRSA, and we await the set that was drawn yesterday, which is negative at 18 hours basically. IMPRESSION: This is a young woman with super high-grade methicillin-resistant Staphylococcus aureus bacteremia who almost certainly has endocarditis or some other intravascular focus of infection. In terms of metastatic infection, we are left with what appears to be a septic left knee, though the culture was negative. She is improving slowly and we have been continually upping her vancomycin dose to attain good trough levels. We await yesterday's blood cultures, as well as tomorrow's planned transesophageal echo. RECOMMENDATIONS: 1. Will continue with vanco. 2. I have discussed with the pharmacy the need to get a trough between 15 and 20, and I think that will be achieved today. 3. Serial blood cultures will be needed until they are consistently negative. 4. We await the HERMES. 5. I understand that Ortho is involved still with the knee and there may be an attempt to re-tap it, which I think would be a reasonable plan, and a washout may even be indicated as it is likely she has a septic joint.
[2016-08-24] MEDS: Vancomycin Inj 1,000 MG in IV Premix 1 EACH IV SCH ×4 (05:11→22:18)
[2016-08-24] MEDS: Ondansetron 2 mg/mL 2 mL Inj IVPUSH PRN (05:12)
[2016-08-24] MEDS: cloNIDine 0.1 mg Tablet PO PRN ×3 (05:12→21:04)
--- NOTE | 2016-08-24 05:21 | NUR ---
Pain Pt stating left knee pain 11/11, medicated pt with IV toradol for pain control this shift. Pt requesting to be woken during the night if sleeping to keep pain controlled. Call light within reach, frequent rounding.
[2016-08-24 07:31] LABS: BASOPHILS % (AUTO) 0.2 % (0-3); EOSINOPHILS % (AUTO) 3.1 % (0-5); Mean Corpuscular Hemoglobin 27.6 pg (27.0-35.0); Mean Corpuscular Volume 87.7 fL (81-100); NEUTROPHILS % (AUTO) 75.8 % (40-74); Platelet Count 498 bil/L (150-400)
[2016-08-24] MEDS: Vancomycin Dose per Pharmacist XX SCH (08:30)
[2016-08-24] MEDS: Pantoprazole 4 mg/mL 10 mL Inj IVPUSH SCH ×2 (08:53→17:04)
[2016-08-24] MEDS ORDERED: Ketamine 10 mg/mL 20 mL Inj ONE (09:26)
[2016-08-24] MEDS ORDERED: Propofol 10,000 mCg/mL 20 mL Inj ONE (09:26)
--- NOTE | 2016-08-24 10:25 | PCM.ANEP2 ---
Post Anesthesia Evaluation ASA/CMS Post Anesthesia VS in Patient's Normal Range?: Yes Resp Stable; Airway Patent?: Yes CV Function & Hydration Stable: Yes Mental Status Recovered?: Yes Pain control Satisfactory?: Yes N/V Control Satisfactory?: Yes Travis Hooker MD Aug 24, 2016 10:25
--- NOTE | 2016-08-24 10:25 | PCM.ANEP1 ---
Post Anesthesia Phase 1 PACU Phase 1 Assessment Date of Service: Aug 21, 2016 Vital Signs Vital Signs Date Time Temp Pulse Resp B/P Pulse Ox O2 Delivery O2 Flow Rate FiO2 08/24/16 10:14 36.9 63 18 109/72 97 Room Air 08/24/16 08:00 74 08/24/16 06:07 86 08/24/16 05:00 36.9 72 20 107/65 100 Room Air Anesthetic Administered: MAC Level of Alertness: Awake, talking Pain: Yes (9 in leg) Pain Scale Score: 5 Nausea or Vomiting: No Oxygen Delivery: Nasal Cannula Lungs: Clear to Auscultation, Normal Air Movement Dermatome Level: Full Sensation Travis Hooker MD Aug 24, 2016 10:25
[2016-08-24] MEDS ORDERED: Lactated Ringer's 1,000 ML IV SCH (13:57)
[2016-08-24] MEDS ORDERED: Lactated Ringer's 500 ML IV PRN (13:57)
--- NOTE | 2016-08-24 13:57 | PCM.HPANE ---
Patient Data Surgeon Admitting Provider:Isis Mckeon DO Attending Provider:Isis Mckeon DO Primary Care Physician:Nopcp Other Provider: Reason for Visit Mrsa, Bacteremia Sbe MRSA, BACTEREMIA SBE Ht/WT & BMI Height (Feet): 5 Height (Inches): 8.00 Weight (Kilograms): 91.800 Body Mass Index 30.67 Allergies Coded Allergies: Penicillins (Verified Allergy, Unknown, hives, thrush, 08/18/16) aloe vera (Verified Allergy, Unknown, 08/17/16) coconut oil (Verified Allergy, Unknown, 08/17/16) pregabalin (Verified Allergy, Unknown, hallucinations, 08/17/16) venlafaxine (Verified Allergy, Unknown, seratonin reax, 08/17/16) Past Anesthesia History Anesthesia History: Positive for:: Anesthesia Reactions (problem waking up ), Denies:: Abnormal Airway, Difficult Intubation Diabetes History Hx Diabetes?: No MRSA MRSA: Yes Medications Active Scripts Albuterol Sulfate (Ventolin HFA Inhaler)200 Puff/18 Gm Inhaler1 Puff INH Q4 PRN For Wheezing #1 INHALER Ref 0 okay to sub for pro-air as covered by insurance Prov:Michele Morales DO 05/07/16 Discontinued Scripts Azithromycin (Zithromax)250 Mg [id number] Mg PO DAILY #4 TABLET Ref 0 Prov:Michele Morales DO 05/07/16 Prednisone (PredniSONE)20 Mg [id number] Mg PO DAILY #10 TABLET Ref 0 Prov:Michele Morales DO 05/07/16 History History of ENT Problems?: Yes HEENT History: Positive for:: Sinus Problem (Right nare half occluded per patient) Hx of Heart Problems?: Yes Cardiovascular History: Positive for:: Heart Murmur Denies:: Congestive Heart Failure Hypertension Hx of Respiratory Problem?: Yes Respiratory History: Positive for:: Asthma Dyspnea Pneumonia Denies:: Tuberculosis Hx Neurologic Problems?: Yes Neurological History: Positive for:: CVA (10 years ago had CVA ) Headaches Seizures (about 5 months ago) Hx of GI Problems?: Yes Gastrointestinal History: Positive for:: Hepatitis (dx 09/05/15) Hx of Problems?: No Female Hx: Positive for:: Endometriosis Problems with Breasts? (recurrent infection) Denies:: Currently Other Skin Pertinent History: Pt has open sores of all stages of healing on her hands, face and trunk. Hx Musculoskeletal Problems?: No Hx of Psycho/Social Problems?: Yes Psycho Social History: Positive for:: Anxiety (states boyfriend took her 2 yr old child a year ago.) Bipolar Disorder Hx Depression Suicide Attempt (4 years ago ) Hx Surgeries?: Yes (TUBAL LIGATION) Hx Any Other Health Problems?: No Other History: Positive for:: Hospitalization (surgery left breast abscess may 2015) History Blood Transfusions: Positive for:: Accept Blood Products? Denies:: Blood Transfuse Reaction Blood Transfusions Hx Diabetes: No Occupation: Homeless Hx Alcohol Use: NoHx Substance Use: Yes (heroin daily, Meth occasionally) Smoking Status: Current Every Day Smoker Have You Smoked inLast 12 mo: YesApprox How Many Cigarettes/day: 06/07 PPD Stop/Bang Treated for Sleep Apnea?: No Do You Have a CPAP Machine?: No S-Snoring: Do You Snore Loudly: No T-Tired: feel tired, fatigued: No O-Obsered: Observed not breath: No P-Blood Pressure: treated: No B- Body Mass Index > 35 kg/m2: No A- Age over 50: No N- Neck Large Circumference: No G- Gender Male: No DANIELLE Total Score: 0 DANIELLE Risk Assessment: Low Risk, <3 Yes Risk Assessment Category Category 1A: Patient has history of documented sleep apnea, and HAS NOT received any narcotic, sedative or anesthesia administration during this stay. Category 1B: Patient has history of documented sleep apnea, and HAS received any narcotic , sedative or anesthesia administration during this stay Category 2: Patient has SUSPECTED Obstructive Sleep Apnea, and HAS received any narcotic , sedative or anesthesia administration during this stay. Category 3: Patient has SUSPECTED Obstructive Sleep Apnea and HAS NOT received narcotic, sedative or anesthesia administration during this stay. Category 4: Outpatient in Procedural Areas with known sleep apnea or who screen positive for High Risk via the STOP/BANG questionnaire. Low Risk, <3 Yes Exam Exam Vital Signs Vital Signs Date Time Temp Pulse Resp B/P Pulse Ox O2 Delivery O2 Flow Rate FiO2 08/24/16 13:13 37.1 72 20 113/72 99 Room Air 08/24/16 10:14 36.9 63 18 109/72 97 Room Air 08/24/16 08:00 74 08/24/16 06:07 86 General Appearance: Alert, Oriented X3, Cooperative, No Acute Distress HEENT/AIRWAY: MP 2 Lungs: Clear to Auscultation, Normal Air Movement Heart: Exam Unremarkable, Regular Rate/Rhythm, No Murmurs/Rubs/Gallops Meds/Labs/Diagnostics Admission Meds Current Medications Miscellaneous VANCOMYCIN TROUGH PER PHARMACY ONCE ONCE XX Last administered on 08/23/16 21:30; Start 08/23/16 at 21:30; Stop 08/23/16 at 21:31; Status DC Vancomycin/0.9 % Sod Chloride/ Premix (Vancomycin Inj/ IV Premix) 200 ml @ 133.333 mls/hr Q6H IV Last administered on 08/24/16 10:13; Start 08/24/16 at 04:00 Labs Test 08/18/16 02:55 08/18/16 05:15 08/18/16 06:00 08/18/16 18:50 Erythrocyte Sedimentation Rate 76mm/hr (0-32) Prothrombin Time 11.0sec (8.1-12.5) Prothromb Time International Ratio 1.03ratio Activated Partial Thromboplast Time 28.9sec (22.8-33.0) Hemoglobin A1c 5.8% (4.8-5.6) Lactic Acid Level 1.9mmol/L (0.4-2.0) Phosphorus Level 2.0mg/dL (2.5-4.9) Magnesium Level 1.8mg/dL (1.6-2.6) Iron Level 24ug/dL (35-150) Total Iron Binding Capacity 321ug/dL (250-450) Percent Iron Saturation 7%sat (15-50) Unsaturated Iron Binding 297.1ug/dL Troponin T 0.010ug/L (0.0-0.011) Pro-B-Type Natriuretic Peptide 8.10pg/mL (0-130) Lipase 16U/L (13-60) Body Fluid Source Synovial fluid Body Fluid Color Yellow (Clear) Body Fluid Appearance Cloudy Body Fluid WBC 27156/mm3 Body Fluid RBC 0/mm3 Body Fluid Polynuclear WBCs 80% Body Fluid Lymphocytes 0% Body Fluid Monocytes 20% Body Fluid Eosinophils 0% Body Fluid Basophils 0% Body Fluid Total Protein 2.8g/dL Urine Opiates Screen Positive Urine Methadone Screen Negative Urine Barbiturates Screen Negative Urine Amphetamines Screen Positive Urine Benzodiazepines Screen Negative Urine Cocaine Metabolite Screen Negative Urine Cannabinoids Screen Negative Hold Purple Top Tube Received (Received) Hold Oakes Top Tube Received (Received) Hold Negro Top Tube Received (Received) Test 08/20/16 04:50 08/21/16 07:20 08/21/16 13:42 08/23/16 16:20 HCG Beta Subunit < 0.500mIU/mL Procalcitonin 0.05ng/mL (0.00-0.08) Urine Color Straw (YELLOW) Urine Appearance Hazy (CLEAR,HAZY) Urine pH 7.0 (5.0-8.0) Urine Specific [place] 1.020 (1.003-1.035) Urine Protein Negativemg/dL (NEG,TRACE) Urine Glucose (UA) Negativemg/dL (NEGATIVE) Urine Ketones Negativemg/dL (NEGATIVE) Urine Occult Blood Negative (NEGATIVE) Urine Nitrite Negative (NEGATIVE) Urine Bilirubin Negative (NEGATIVE) Urine Urobilinogen Normalmg/dL (NORMAL) Urine Leukocyte Esterase Negative (NEGATIVE) Urine RBC 0-2/hpf (0-2) Urine WBC 0-5/hpf (0-5) Urine Epithelial Cells Occasional/hpf (NONE-MOD) Urine Crystals None seen (NONE SEEN) Urine Bacteria Few/hpf (NONE-FEW) Urine Hyaline Casts None/lpf (NONE) Urine Granular Casts None seen (NONE SEEN) Urine Waxy Casts None seen (NONE SEEN) Urine Red Blood Cell Casts None seen (NONE SEEN) Urine White Blood Cell Casts None seen (NONE SEEN) Urine Mucus Present (None Seen) Urine Trichomonas None seen (NONE SEEN) Urine Yeast None (NONE SEEN) Urinalysis Comment None Urine Culture Reflexed Not indicated Test 08/23/16 22:32 08/24/16 07:20 Vancomycin Level Trough 17.9mcg/mL White Blood Count 19.0th/mm3 (3.8-10.1) Red Blood Count 3.81mil/mm3 (3.90-5.20) Hemoglobin 10.5g/dL (12.0-15.6) Hematocrit 33.4% (35.0-46.0) Mean Corpuscular Volume 87.7fL (81-100) Mean Corpuscular Hemoglobin 27.6pg (27.0-35.0) Mean Corpuscular Hemoglobin Concent 31.4% (32.0-37.0) Red Cell Distribution Width 14.3% (12.3-15.4) Platelet Count 498bil/L (150-400) Neutrophils (%) (Auto) 75.8% (40-74) Lymphocytes (%) (Auto) 14.0% (14-46) Monocytes (%) (Auto) 6.0% (4-12) Eosinophils (%) (Auto) 3.1% (0-5) Basophils (%) (Auto) 0.2% (0-3) Sodium Level 136mEq/L (134-144) Potassium Level 5.0mEq/L (3.5-5.2) Chloride Level 99mEq/L (97-108) Carbon Dioxide Level 25mmol/L (18-29) Blood Urea Nitrogen 16mg/dL (6-20) Creatinine 0.57mg/dL (0.57-1.00) Estimat Glomerular Filtration Rate 174mL/min (>59) Glucose Level 129mg/dL (60-99) Calcium Level 8.3mg/dL (8.5-10.1) Total Bilirubin 0.2mg/dL (0.0-1.2) Aspartate Amino Transf (AST/SGOT) 10U/L (0-50) Alanine Aminotransferase (ALT/SGPT) 11U/L (0-32) Alkaline Phosphatase 79U/L (25-150) Total Protein 6.7g/dL (6.4-8.4) Albumin 2.5g/dL (3.4-5.0) Plan Impression Patient chart reviewed, patient interviewed and anesthestic plan with risks, benefits, and alternatives discussed, and informed consent obtained. NPO Status: 05/26/15 MN ASA Physical Status: ASA3 Severe Disease (IVDA) Anesthetic Plan: GA, MAC Bene/Risks/Altern/Consents: Yes HP Complete Prior to Induction: Yes Travis Hooker MD Aug 24, 2016 13:57
[2016-08-24] MEDS ORDERED: Phenylephrine 10,000 mCg/mL Inj IVPUSH PRN (14:00)
[2016-08-24] MEDS ORDERED: EPHEDrine Sulfate 50 mg/mL Inj IVPUSH PRN (14:00)
[2016-08-24] MEDS ORDERED: Dexamethasone 4 mg/mL Inj IVPUSH PRN (14:00)
[2016-08-24] MEDS ORDERED: fentaNYL-PF 50 mCg/mL 2 mL Inj IVPUSH PRN (14:00)
[2016-08-24] MEDS ORDERED: HYDROmorphone 1 mg/mL Inj IVPUSH PRN (14:00)
[2016-08-24] MEDS ORDERED: MetoCLOpramide 5 mg/mL 2 mL Inj IVPUSH PRN (14:00)
[2016-08-24 15:02] LABS: BFWBC 23000 /mm3
[2016-08-24 15:03] LABS: MONOCYTES,BODY FLUID 3 %; OTHER CELLS,BODY FLUID 0
--- NOTE | 2016-08-24 15:36 | PROG NOTE ---
[address] [address] PROGRESS NOTE PATIENT: LISA SOSA : 1980 MR#: [id number] ADMIT: 08/18/2016 JOB ID: [id number] DATE: 08/24/2016 INFECTIOUS DISEASE FOLLOW UP NOTE: REASON FOR FOLLOWUP: High-grade MRSA bacteremia and concern about endocarditis. INTERVAL HISTORY: Earlier today, the patient had her tender swollen left knee reaspirated and Dr. Odonnell and I discussed this. Dr. Odonnell reports he found 45 cc of purulent fluid and he believes that this establishes the diagnosis of septic knee which would certainly make sense in this woman who presented with high-grade MRSA bacteremia and a swollen, tender left knee. This afternoon when I see the patient, she is obviously complaining of some left knee pain and is trying to get some rest prior to a planned transesophageal echocardiogram later today. She notes her fevers and chills are subsiding. She does not have significant cough, headache or shortness of breath. No chest pain at this time. No nausea or vomiting and she is tolerating her antibiotics well. PHYSICAL EXAMINATION: Reveals an afebrile woman in no acute distress. Temperature 37.1, pulse 72, respiratory rate 20, blood pressure 113/72. She is saturating well on room air. Examination of the head unremarkable. The eyes are normal with normal conjunctivae and sclerae. Oral cavity without thrush or pharyngitis. Lungs relatively clear bilaterally today. Cardiac tones with 2/6 murmur which I really hear across the precordium today. Abdomen soft and nontender. Left knee is swollen though less so and less painful than it was before it was just aspirated. She does not have peripheral stigmata of endocarditis. LABORATORIES: Include a white count stable but still very elevated at 19,000 with a minimal left shift. Creatinine 0.57. LFTs are normal. Albumin 2.5. Urinalysis without white cells. Vanco trough is now 18 which is perfect in terms of where we are trying to get it. Synovial fluid from the knee aspirate which was just done has come back. There are 23,000 white cells, exactly as there was on the first tap done in the ED six days ago. Hep C is pending. Micro studies include negative follow up blood cultures from the . We have additional cultures pending from the , which remain negative and some just run today. The fluid from the knee shows no polys and no organisms. Recall that before the negative blood cultures started on the , we had basically a week of positive blood cultures both as an inpatient and outpatient. CT angiogram of the brain was done yesterday and shows no evidence of mycotic aneurysm. Recall that we had been concerned about this in this patient with chronic headache and high-grade Staph bacteremia. 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 She had basically seven or eight days of consistently positive blood cultures both as an inpatient and an outpatient and now has what sounds to be a new heart murmur. She does not have any peripheral stigmata of endocarditis, however. In terms of distant sites of infection, one has to believe that her left swollen chronically painful knee is a septic joint though we do not have any positive cultures yet either from the ED visit or obviously from the tap done today. RECOMMENDATIONS: 1. Will continue with vancomycin at the very large doses we are currently using. 2. No additional blood cultures are needed assuming the follow up blood cultures we have now stay negative. 3. We await the HERMES later today. 4. We await the cultures from the joint. 5. I discussed this case with Dr. Odonnell and he plans to go back and do a washout of the left knee probably tomorrow which I think is a great idea.
--- NOTE | 2016-08-24 16:54 | NUR ---
[facility] PT WAS RECEIVED TO [facility] AT 1530 FOR [facility] WITH ANESTHESIA TODAY. SEE ANESTHESIA PAPER FLOW FOR DETAILS OF PROCEDURE. PT TOLERATED WELL. REPORT TO MAGGY Falcon RN. PT AND HER NURSING CARE TRANSFERR[place] [id number].
--- NOTE | 2016-08-24 17:44 | PCM.ANEP1 ---
Post Anesthesia Phase 1 PACU Phase 1 Assessment Date of Service: Aug 21, 2016 Vital Signs Vital Signs Date Time Temp Pulse Resp B/P Pulse Ox O2 Delivery O2 Flow Rate FiO2 08/24/16 17:06 36.4 82 20 91/59 97 08/24/16 16:45 67 17 119/70 99 Room Air 08/24/16 15:41 36.8 60 14 106/59 97 Room Air 08/24/16 13:13 37.1 72 20 113/72 99 Room Air 08/24/16 10:14 36.9 63 18 109/72 97 Room Air Anesthetic Administered: MAC Level of Alertness: Awake, talking Pain: No Pain Scale Score: 8 Nausea or Vomiting: No Oxygen Delivery: Nasal Cannula Lungs: Clear to Auscultation, Normal Air Movement Dermatome Level: Full Sensation Travis Hooker MD Aug 24, 2016 17:44
--- NOTE | 2016-08-24 18:19 | DRSVH ---
[facility] [address] [place] [address] Echocardiogram Report Name: LISA SOSA RStudy Date: 08/24/2016 Height: 68 in Hospital Exam Location: [facility] Weight: 202 lb Gender: Female BSA: 2.1 m2 : 1980 Age: 36 yrs Reason For Study: BACTEREMIA Ordering Physician: HOSPITALIST SVHPerformed By: Suly Santos Referring Physician: MD Andrei Brannon Interpretation Summary 1. Grossly normal left ventricular size and systolic function. 2. Normal right ventricular size and systolic function. 3. With the views obtained, no valvular vegetations were appreciated Procedure: Informed consent for Transesophageal Echocardiogram, and use of a contrast agent as needed, was obtained prior to the procedure. The patient was brought to the [facility] in a fasting state. Sedation was managed by anesthesiologist; see anesthesiology notes for details. The transesophageal probe was passed without difficulty. The patient's vital signs, including blood pressure, heart rate, pulse oximetry and cardiac rhythm were monitored throughout the procedure and remained stable. A 2D transesophageal echocardiogram with spectral and color flow Doppler was performed. The usual views were obtained; basal, mid-esophageal, transgastric and aortic views. The patient tolerated the procedure well without evidence of orophangeal or esophageal trauma. Bubble study was performed. The patient was in normal sinus rhythm during the exam. There were no complications. Left Ventricle: The left ventricle is grossly normal size. Left ventricular systolic function is normal. Right Ventricle: The right ventricle is normal in size and function. Atria: There is no Doppler evidence for an atrial septal defect. Mitral Valve: The mitral valve leaflets appear normal. There is no evidence of stenosis, fluttering, or prolapse. No vegetation appreciated. There is trace mitral regurgitation. Aortic Valve: The aortic valve is trileaflet. The aortic valve opens well. No vegetation appreciated. No aortic regurgitation is present. Tricuspid Valve: The tricuspid valve leaflets are thin and pliable. There is no tricuspid valve vegetation. There is mild tricuspid regurgitation. Pulmonic Valve: The pulmonic valve is not well seen, but is grossly normal. In the views obtained, no vegetations appreciated. Reading Physician:06:18 PM
--- NOTE | 2016-08-24 19:15 | PCM.PNMED ---
Subjective Date of Service Aug 24, 2016 Subjective Shereen Witt is a 36-year-old woman currently IV drug abuser, presents with 5 days of headache, new onset knee pain and swelling, positive blood cultures 2 for MRSA. Hospital day #7 Overnight patient had good response to pain medication and requests being woken up for treatment with Toradol. This morning patient mentions that she is beginning to have some restless leg symptoms, her headache is improving, and knee pain is mildly worse. She denies chest pain, fevers or chills. Exam Vital Signs Vital Sign - Last Date Time Temp Pulse Resp B/P Pulse Ox O2 Delivery O2 Flow Rate FiO2 08/24/16 15:41 36.8 60 14 106/59 97 Room Air 08/22/16 15:47 2 Intake and Output 08/23/16 08/23/16 08/24/16 Cumulative From/Thru 15:00 23:00 07:00 08/18/16 00:26 - 08/23/16 19:30 Intake Total 1273 ml 44653 ml Output Total 1200 ml 28989 ml Balance 73 ml -259 ml Intake Oral 1273 ml 34075 ml IV Total 9209 ml Output Urine Total 1200 ml 11485 ml # Voids 5 # Bowel Movements 4 Exam General: Resting comfortably, no apparent distress. Disheveled, poor hygiene. HEENT: Normocephalic, hair is matted, multiple lesions of varying size and states of healing on her face- improving. Extraocular muscles intact, pupils round and reactive to light, mucous membranes moist Cardiovascular: Regular rate and rhythm, 2/6 systolic murmur heard best in the tricuspid area Pulmonary: Clear to auscultation bilaterally, no crackles, wheezes, or ronchi. Abdominal: Soft to palpation, bowel sounds present, no hepatosplenomegaly. No rebound. Extremities: There is no edema to lower extremities, there are multiple pin- sized lesions on upper and lower extremities covered with multiple adhesive bandage strips. No splinter hemorrhages, Ostlers nodes, or Janeway lesions appreciated. Neuro: Neurologically grossly intact. MSK: Left knee swollen compared to right, tender, warm to the touch. Lab and Diagnostics Result Diagram: 08/24/16 0720 08/24/16 0720 Microbiology Multiple blood cultures positive for MRSA including ones drawn yesterday. X-Rays, CTs and MRIs X-RAY LEFT KNEE, THREE VIEWS IMPRESSION: Although no bony erosions are identified, plain film radiography is relatively insensitive in the acute phases of osteomyelitis and may not demonstrate radiographic changes for 15 days. If acute osteomyelitis is of clinical concern , nuclear medicine regional bone scan or MRI is recommended. Joint effusion. 2 cm soft tissue foreign body within the upper lower leg medially at the level of the proximal tibia shaft. Dictated by: Daniel OVALLES Interpreted: Saadia Burton MD on 08/18/2016 at 10:07 CT BRAIN WITH AND WITHOUT CONTRAST IMPRESSION: 1. No acute intracranial process. Dictated by: Victoria Galvan M.D. on 08/18/2016 at 10:43 X-RAY CHEST, TWO VIEWS IMPRESSION: No acute cardiopulmonary disease. Dictated by: Daniel OVALLES Interpreted: Saadia Burton MD on 08/18/2016 at 10:09 Cardiac Echo Impressions Interpretation Summary The left ventricle is mildly dilated. The ejection fraction is estimated to be 60-65%. There has been no significant change in LV EF since the previous study. The right ventricle is normal in size and function.There is trace tricuspid regurgitation. The right ventricular systolic pressure is estimated at 37 mmHg assuming a right atrial pressure of 15 mm Hg. The IVC is dilated (diameter is greater than 2.1 cm) and it collapses less than 50% with a sniff. This suggests a high right atrial pressure of 15 mm Hg (New). No obvious valvular vegetation seen. If clinical suspicion for endocarditis is high, consider HERMES. Assessment & Plan Shereen Witt is a 36-year-old woman currently IV drug abuser, presents with 5 days of headache, new onset knee pain and swelling, positive blood cultures 2 for MRSA. Hospital day #7 1. Sepsis, acute, present on admission, improving -On admission white blood cells 13.9, vital signs: Temperature 38.8 Celsius, heart rate 106, maintaining blood pressure, sources are blood, left knee, and urinary tract. -ESR 76, lactic acid 1.9, pro calcitonin 0.09 initially -Multiple blood cultures, growth shows methicillin resistant Staph. aureus -Blood cultures redrawn 08/22/2016 show no growth at 2 days, 08/23/2016 blood cultures show no growth after 24 hours -Pro calcitonin 0.053 days, no need to repeat. -Antibiotics as below 2. MRSA Bacteremia, subacute, present on admission -multiple blood cultures from this admission confirm MRSA bacteremia, sensitive to clindamycin and vancomycin. Secondary to IVDU. -Continue daily blood cultures until we have multiple negative bottles. This will count as day 1 for 6 week abx treatment. -Continue vancomycin dosed by pharmacy -Clindamycin was given in the emergency department, however given the positive MRSA culture and no other organisms do not feel coverage of anaerobes is necessary. -Infectious disease on board -Pt to have HERMES today to rule out endocarditis as a source 3. Heart murmur, chronicity unknown, present on admission, evaluation ongoing -Was heard on previous ER visits, previously evaluated in September 2015 without any valvular abnormalities apparent, but likely represents endocarditis -Echocardiogram negative for vegetations. -HERMES was performed today without evidence of vegetations on valves. 4. Left knee septic joint, acute, present on admission, evaluation ongoing -Joint aspirate has been collected. High amount of PMNs present in the aspirate. Cultures pending. No bacteria on gram stain. -IV antibiotics as above -Ketorolac IM every 8 hours as needed for pain -Patient continues to have pain and notes that it is harder for her stand on the left leg now. follow up Xray of the knee shows small joint effusion. -Orthopedic surgery consulted, arthrocentesis performed today. Patient will go to the OR for washout of the knee tomorrow. 5. History of GERD, present on admission, not currently active -Patient with history of GERD and possible ulcers -Increased risk of performing HERMES if ulcers are present -GI consult team performed EGD which showed non erosive gastritis, okay to proceed with HERMES 6. Urinary tract infection, acute, present on admission, treatment initiated -Urine culture from 08/12/2016 grew Escherichia coli, susceptible to ceftriaxone -Discontinued ceftriaxone 2 mg IV every 24 hours today, after her 5th dose -Urinalysis performed 08/21/16 is unremarkable showing only a few bacteria 7. Headache, present on admission, subacute - Patient is at risk for mycotic aneurysm, ID recommends imaging - Dr. Burton of Radiology recommends starting with CT angiogram of the brain which is more sensitive for aneurysm. Follow-up MRA may be needed based on findings. - CT angiogram of brain shows no evidence of aneurysm. 8. Hyperglycemia, pre-diabetic, chronicity unknown, present on admission -Blood sugar in the emergency department was 152, review of previous admission shows it to be elevated greater than 113. -Hemoglobin A1c 5.8%, pre-diabetic -Consider nutrition consultation once patient improves. 9. Electrolyte dyscrasia, acute, present on admission, improving. -Most likely due to infection -Sodium 129, chloride 92, initially. Treated with IV saline -Calcium normal at 8.6 today after replenishment with PO calcium supplements -We will continue to monitor on BMP/CMP 10. Chronic normocytic normochromic anemia consistent with iron deficiency anemia, present on admission, stable, evaluation ongoing -Iron deficiency versus anemia of chronic disease -Iron panel consistent with iron deficiency anemia, low iron and low iron % saturation - multi-vitamin and iron ordered. 11. Persistent tobacco use -Discussed benefits of quitting smoking, risks of continuing to smoke, and how smoking cessation could better improve health in the future 12. High risk for leaving AGAINST MEDICAL ADVICE -Left emergency department previously without notifying anyone -Previous admission did not leave AMA. 13. Chronic IV drug abuse, present on admission, active -Last use before returning to the emergency department. The patient states she uses twice daily and up to 1 gm of heroin daily. -Methadone and clonodine for withdrawal symptoms as patient stated Suboxone has not worked in the past. -High risk for elopement, leaving AGAINST MEDICAL ADVICE, recommend against PICC line placement. VTE Prophylaxis with subcutaneous heparin GI prophylaxis: Not indicated Pain management: Methadone, Toradol Dispo: Anticipate patient will be here for an extended amount of time as she undergoes treatment for MRSA bacteremia and possible endocarditis. First negative blood culture thus start date for antibiotic treatment 08/22/2016 Pain Evaluation: Adequate Pain Control GI Prophylaxis: Not indicated VTE Prophylaxis: Sub-Q Heparin (Unfractionated) VTE Mechanical Devices: Intermittant Pneumatic CD Resuscitation Status: CPR: Attempt Resuscitation Attending Statement The patient was seen and examined together with Dr. Rebolledo on 08/24/2016 and I agree with the history, exam and plan as outlined in the note above. Alis Rebolledo DO Aug 24, 2016 16:33 Parmjit Peterson MD Aug 25, 2016 11:23
--- NOTE | 2016-08-24 23:39 | CONS ---
[address] [address] CONSULTATION REPORT PATIENT: LISA SOSA : 1980 MR#: [id number] ADMIT: 08/18/2016 JOB ID: [id number] DATE OF SERVICE: 08/24/2016 CHIEF COMPLAINT: Left knee pain. HISTORY OF PRESENT ILLNESS: The patient is a 36-year-old female, IV drug abuser, who was having malaise and left knee pain and was admitted to the hospital, August 18, 2016. She had a knee aspiration performed which was felt to represent inflammation, but not acute septic process, and she did not have any culture growth from this, but did have bacteremia with fevers, chills, etc. Her knee pain then improved initially, but has then become worse over the last couple of days with pain on range of motion and she has been unable to bear weight on the knee and feels that the swelling has worsened in the knee as well. PAST MEDICAL HISTORY: Significant for IV drug use, chronic homeless status, history of left breast MRSA infection, migraine headaches. ALLERGIES: PENICILLIN, which produces hives. PHYSICAL EXAMINATION: VITAL SIGNS: Blood pressure 109/72, pulse rate 63, respirations 18, temperature 36.9. GENERAL: She is alert and cooperative in no acute distress. EXTREMITIES: Her left knee is warm and swollen with a large effusion present. She is able to straight leg raise. Her extensor mechanism is intact. Her range of motion is 20-60 degrees with pain at the extremes of motion. She is able to move her toes. Sensation of the foot is intact. She has multiple scars from previous abscesses over her skin. LABS: Her laboratory evaluation is significant for a white blood cell count of 19,000. Her fluid aspiration from August 18, 2016 had a white blood cell count in the fluid of 25,400, with 80% poly's. ASSESSMENT AND PLAN: Possible left knee septic arthritis. We discussed treatment options for this and I recommended a knee aspiration which will hopefully be diagnostic and therapeutic. Informed consent was obtained and the left knee was aspirated using 3 cc of 1% lidocaine as a local anesthetic at the superolateral knee. The superolateral knee was then entered with an 18-gauge needle and I withdrew 45 cc of turbid cloudy fluid which was sent for evaluation including Gram stain, cell count with differential, culture, and she was found to have a white blood cell count of 23,000 with 91% PMNs. Assessment is left knee septic arthritis. Plan: I believe the patient has septic arthritis given the 91% PMNs and the fact that her knee continues to have elevated white blood cell count over the past despite having had previous aspiration and several days of IV antibiotics and I recommend a knee arthroscopic lavage washout in the operating room. Discussed this with the patient. She is having a HERMES currently and we will plan for the knee arthroscopy washout tomorrow morning. Would like the patient to remain n.p.o. after midnight and avoid blood thinners overnight.
[2016-08-25] VITALS (11 sets, daily range): BP systolic 88–113; BP diastolic 48–65; PULSE 61–81; RESP 10–20; O2SAT 98–100
[2016-08-25] MEDS: cloNIDine 0.1 mg Tablet PO PRN ×4 (03:04→22:13)
[2016-08-25] MEDS: Vancomycin Inj 1,000 MG in IV Premix 1 EACH IV SCH (04:51)
--- NOTE | 2016-08-25 05:14 | NUR ---
Pain Patient knee pain range 5-9/10, methadone dose effective for about four years then pain increased. Tylenol given but not effective. Ice pack provided until next dose of methadone available.
[2016-08-25 06:18] LABS: BASOPHILS % (AUTO) 0.2 % (0-3); EOSINOPHILS % (AUTO) 1.2 % (0-5); MONOCYTES % (AUTO) 5.6 % (4-12); Mean Corpuscular Hemoglobin 27.5 pg (27.0-35.0); Mean Corpuscular Volume 88.9 fL (81-100); NEUTROPHILS % (AUTO) 64.9 % (40-74); Platelet Count 503 bil/L (150-400)
[2016-08-25] MEDS ORDERED: Ascorbic Acid 500 mg Tablet PO SCH (08:00)
[2016-08-25] MEDS: Pantoprazole 4 mg/mL 10 mL Inj IVPUSH SCH (08:02)
[2016-08-25] MEDS: Vancomycin Dose per Pharmacist XX SCH (08:30)
--- NOTE | 2016-08-25 08:43 | PCM.HPANE ---
Patient Data Surgeon Admitting Provider:Isis Mckeon DO Attending Provider:Isis Mckeon DO Primary Care Physician:Nopcp Other Provider: Reason for Visit Mrsa, Bacteremia Sbe,L Knee Septic Arthritis MRSA, BACTEREMIA SBE Ht/WT & BMI Height (Feet): 5 Height (Inches): 8.00 Weight (Kilograms): 91.800 Body Mass Index 30.67 Allergies Coded Allergies: Penicillins (Verified Allergy, Unknown, hives, thrush, 08/18/16) aloe vera (Verified Allergy, Unknown, 08/17/16) coconut oil (Verified Allergy, Unknown, 08/17/16) pregabalin (Verified Allergy, Unknown, hallucinations, 08/17/16) venlafaxine (Verified Allergy, Unknown, seratonin reax, 08/17/16) Past Anesthesia History Anesthesia History: Positive for:: Anesthesia Reactions (problem waking up ), Denies:: Abnormal Airway, Difficult Intubation Diabetes History Hx Diabetes?: No MRSA MRSA: Yes Medications Active Scripts Albuterol Sulfate (Ventolin HFA Inhaler)200 Puff/18 Gm Inhaler1 Puff INH Q4 PRN For Wheezing #1 INHALER Ref 0 okay to sub for pro-air as covered by insurance Prov:Michele Morales DO 05/07/16 Discontinued Scripts Azithromycin (Zithromax)250 Mg [id number] Mg PO DAILY #4 TABLET Ref 0 Prov:Michele Morales DO 05/07/16 Prednisone (PredniSONE)20 Mg [id number] Mg PO DAILY #10 TABLET Ref 0 Prov:Michele Morales DO 05/07/16 History History of ENT Problems?: Yes HEENT History: Positive for:: Sinus Problem (Right nare half occluded per patient) Denies:: Abnormal Airway Difficult Intubation Hx of Heart Problems?: Yes Cardiovascular History: Positive for:: Heart Murmur Denies:: Congestive Heart Failure Hypertension Hx of Respiratory Problem?: Yes Respiratory History: Positive for:: Asthma Dyspnea Pneumonia Denies:: Tuberculosis Hx Neurologic Problems?: Yes Neurological History: Positive for:: CVA (10 years ago had CVA ) Headaches Seizures (about 5 months ago) Hx of GI Problems?: Yes Gastrointestinal History: Positive for:: Hepatitis (dx 09/05/15) Hx of Problems?: No Female Hx: Positive for:: Endometriosis Problems with Breasts? (recurrent infection) Denies:: Currently Other Skin Pertinent History: Pt has open sores of all stages of healing on her hands, face and trunk. Hx Musculoskeletal Problems?: No Hx of Psycho/Social Problems?: Yes Psycho Social History: Positive for:: Anxiety (states boyfriend took her 2 yr old child a year ago.) Bipolar Disorder Hx Depression Suicide Attempt (4 years ago ) Hx Surgeries?: Yes (TUBAL LIGATION) Hx Any Other Health Problems?: No Other History: Positive for:: Hospitalization (surgery left breast abscess may 2015) History Blood Transfusions: Positive for:: Accept Blood Products? Denies:: Blood Transfuse Reaction Blood Transfusions Hx Diabetes: No Occupation: Homeless Hx Alcohol Use: NoHx Substance Use: Yes (heroin daily, Meth occasionally) Smoking Status: Current Every Day Smoker Have You Smoked inLast 12 mo: YesApprox How Many Cigarettes/day: 06/07 PPD Stop/Bang Treated for Sleep Apnea?: No Do You Have a CPAP Machine?: No S-Snoring: Do You Snore Loudly: No T-Tired: feel tired, fatigued: No O-Obsered: Observed not breath: No P-Blood Pressure: treated: No B- Body Mass Index > 35 kg/m2: No A- Age over 50: No N- Neck Large Circumference: No G- Gender Male: No DANIELLE Total Score: 0 DANIELLE Risk Assessment: Low Risk, <3 Yes Risk Assessment Category Category 1A: Patient has history of documented sleep apnea, and HAS NOT received any narcotic, sedative or anesthesia administration during this stay. Category 1B: Patient has history of documented sleep apnea, and HAS received any narcotic , sedative or anesthesia administration during this stay Category 2: Patient has SUSPECTED Obstructive Sleep Apnea, and HAS received any narcotic , sedative or anesthesia administration during this stay. Category 3: Patient has SUSPECTED Obstructive Sleep Apnea and HAS NOT received narcotic, sedative or anesthesia administration during this stay. Category 4: Outpatient in Procedural Areas with known sleep apnea or who screen positive for High Risk via the STOP/BANG questionnaire. Low Risk, <3 Yes Exam Exam Vital Signs Vital Signs Date Time Temp Pulse Resp B/P Pulse Ox O2 Delivery O2 Flow Rate FiO2 08/25/16 06:37 36.9 62 18 99/64 98 Room Air 08/25/16 01:52 37.1 72 18 99/63 98 Room Air General Appearance: Alert, Oriented X3 HEENT/AIRWAY: MP 2, Neck Movement (from), Mouth Opening (wnl) Lungs: Clear to Auscultation Heart: Exam Unremarkable Meds/Labs/Diagnostics Admission Meds Current Medications Lactated Ringer's (Lr) 1,000 ml @ 120 mls/hr Q8H20M IV Last administered on t 20:45; Start 08/24/16 at 13:57; Stop 08/24/16 at 21:56; Status DC Labs Test 08/18/16 02:55 08/18/16 05:15 08/18/16 06:00 08/18/16 18:50 Erythrocyte Sedimentation Rate 76mm/hr (0-32) Prothrombin Time 11.0sec (8.1-12.5) Prothromb Time International Ratio 1.03ratio Activated Partial Thromboplast Time 28.9sec (22.8-33.0) Hemoglobin A1c 5.8% (4.8-5.6) Lactic Acid Level 1.9mmol/L (0.4-2.0) Phosphorus Level 2.0mg/dL (2.5-4.9) Magnesium Level 1.8mg/dL (1.6-2.6) Iron Level 24ug/dL (35-150) Total Iron Binding Capacity 321ug/dL (250-450) Percent Iron Saturation 7%sat (15-50) Unsaturated Iron Binding 297.1ug/dL Troponin T 0.010ug/L (0.0-0.011) Pro-B-Type Natriuretic Peptide 8.10pg/mL (0-130) Lipase 16U/L (13-60) Body Fluid Total Protein 2.8g/dL Urine Opiates Screen Positive Urine Methadone Screen Negative Urine Barbiturates Screen Negative Urine Amphetamines Screen Positive Urine Benzodiazepines Screen Negative Urine Cocaine Metabolite Screen Negative Urine Cannabinoids Screen Negative Hold Purple Top Tube Received (Received) Hold [place] Top Tube Received (Received) Hold Negro Top Tube Received (Received) Test 08/20/16 04:50 08/21/16 07:20 08/21/16 13:42 08/23/16 16:20 HCG Beta Subunit < 0.500mIU/mL Procalcitonin 0.05ng/mL (0.00-0.08) Urine Color Straw (YELLOW) Urine Appearance Hazy (CLEAR,HAZY) Urine pH 7.0 (5.0-8.0) Urine Specific [place] 1.020 (1.003-1.035) Urine Protein Negativemg/dL (NEG,TRACE) Urine Glucose (UA) Negativemg/dL (NEGATIVE) Urine Ketones Negativemg/dL (NEGATIVE) Urine Occult Blood Negative (NEGATIVE) Urine Nitrite Negative (NEGATIVE) Urine Bilirubin Negative (NEGATIVE) Urine Urobilinogen Normalmg/dL (NORMAL) Urine Leukocyte Esterase Negative (NEGATIVE) Urine RBC 0-2/hpf (0-2) Urine WBC 0-5/hpf (0-5) Urine Epithelial Cells Occasional/hpf (NONE-MOD) Urine Crystals None seen (NONE SEEN) Urine Bacteria Few/hpf (NONE-FEW) Urine Hyaline Casts None/lpf (NONE) Urine Granular Casts None seen (NONE SEEN) Urine Waxy Casts None seen (NONE SEEN) Urine Red Blood Cell Casts None seen (NONE SEEN) Urine White Blood Cell Casts None seen (NONE SEEN) Urine Mucus Present (None Seen) Urine Trichomonas None seen (NONE SEEN) Urine Yeast None (NONE SEEN) Urinalysis Comment None Urine Culture Reflexed Not indicated Test 08/23/16 22:32 08/24/16 13:30 08/25/16 05:35 Vancomycin Level Trough 17.9mcg/mL Body Fluid Source Synovial fluid Body Fluid Color Straw (Clear) Body Fluid Appearance Turbid Body Fluid WBC 69767/mm3 Body Fluid RBC 1850/mm3 Body Fluid Polynuclear WBCs 91% Body Fluid Lymphocytes 6% Body Fluid Monocytes 3% Body Fluid Eosinophils 0% Body Fluid Basophils 0% White Blood Count 11.2th/mm3 (3.8-10.1) Red Blood Count 3.42mil/mm3 (3.90-5.20) Hemoglobin 9.4g/dL (12.0-15.6) Hematocrit 30.4% (35.0-46.0) Mean Corpuscular Volume 88.9fL (81-100) Mean Corpuscular Hemoglobin 27.5pg (27.0-35.0) Mean Corpuscular Hemoglobin Concent 30.9% (32.0-37.0) Red Cell Distribution Width 14.1% (12.3-15.4) Platelet Count 503bil/L (150-400) Neutrophils (%) (Auto) 64.9% (40-74) Lymphocytes (%) (Auto) 27.6% (14-46) Monocytes (%) (Auto) 5.6% (4-12) Eosinophils (%) (Auto) 1.2% (0-5) Basophils (%) (Auto) 0.2% (0-3) Sodium Level 138mEq/L (134-144) Potassium Level 4.8mEq/L (3.5-5.2) Chloride Level 100mEq/L (97-108) Carbon Dioxide Level 26mmol/L (18-29) Blood Urea Nitrogen 13mg/dL (6-20) Creatinine 0.63mg/dL (0.57-1.00) Estimat Glomerular Filtration Rate 155mL/min (>59) Glucose Level 111mg/dL (60-99) Calcium Level 9.0mg/dL (8.5-10.1) Total Bilirubin 0.2mg/dL (0.0-1.2) Aspartate Amino Transf (AST/SGOT) 11U/L (0-50) Alanine Aminotransferase (ALT/SGPT) 12U/L (0-32) Alkaline Phosphatase 82U/L (25-150) Total Protein 6.9g/dL (6.4-8.4) Albumin 2.6g/dL (3.4-5.0) Plan Impression Patient chart reviewed, patient interviewed and anesthestic plan with risks, benefits, and alternatives discussed, and informed consent obtained. NPO Status: 05/26/15 MN ASA Physical Status: ASA2 Mod Systemic Disease Anesthetic Plan: GA Bene/Risks/Altern/Consents: Yes HP Complete Prior to Induction: Yes Waylon Felix MD Aug 25, 2016 08:43
[2016-08-25] MEDS ORDERED: Lactated Ringer's 1,000 ML IV ONE ×2 (08:46→12:54)
[2016-08-25] MEDS ORDERED: fentaNYL-PF 50 mCg/mL 2 mL Inj ONE (09:00)
[2016-08-25] MEDS ORDERED: Propofol 10,000 mCg/mL 20 mL Inj ONE (09:00)
[2016-08-25] MEDS ORDERED: Ondansetron 2 mg/mL 2 mL Inj ONE (09:00)
[2016-08-25] MEDS ORDERED: Vancomycin Serum Trough XX ONE (09:30)
[2016-08-25] MEDS: 0.9% Sodium Chloride 1,000 ML IV SCH ×3 (10:12→21:19)
--- NOTE | 2016-08-25 11:01 | PCM.PHAPRO ---
Progress Date of Service: Aug 25, 2016 Scr = 0.62, WBC 11.2, vanco tr = 23 Pt continues to receive IV vancomycin for MRSA bacteremia, septic arthritis ( knee) and possible endocarditis. Vanco trough was supratherapeutic this morning, goal trough 15-20. Doses given on time per nursing documentation. Will decrease dose slightly to 1250mg IV q8h and recheck a trough tomorrow prior to the noon dose. Pharmacy will continue to follow this pt's IV vanco therapy. Val Grewal S PharmD Aug 25, 2016 11:01
[2016-08-25] MEDS: Vancomycin Inj 1,250 MG in 0.9% Sodium Chloride 250 ML IV SCH ×3 (12:00→21:21)
[2016-08-25] MEDS ORDERED: Lidocaine 2%-Epi 1:100,000 20 mL Inj NERVEBLOCK ONE (13:17)
[2016-08-25] MEDS ORDERED: Ropivacaine-PF 0.5% 30 mL Inj EPIDURAL ONE (13:17)
[2016-08-25] MEDS ORDERED: fentaNYL-PF 50 mCg/mL 2 mL Inj IVPUSH PRN (13:20)
[2016-08-25] MEDS ORDERED: Ondansetron 2 mg/mL 2 mL Inj IVPUSH PRN ×2 (13:20→14:00)
[2016-08-25] MEDS ORDERED: Lactated Ringer's 1,000 ML IV SCH (13:20)
[2016-08-25] MEDS ORDERED: Labetalol 5 mg/mL 4 mL Inj IV PRN (13:20)
[2016-08-25] MEDS ORDERED: EPHEDrine Sulfate 50 mg/mL Inj IVPUSH PRN (13:20)
[2016-08-25] MEDS ORDERED: Atropine 0.4 mg/mL Inj IVPUSH PRN (13:20)
[2016-08-25] MEDS ORDERED: Dexamethasone 4 mg/mL Inj IVPUSH PRN (13:20)
[2016-08-25] MEDS ORDERED: Phenylephrine 10,000 mCg/mL Inj IVPUSH PRN (13:20)
[2016-08-25] MEDS ORDERED: Lactated Ringer's 500 ML IV PRN (13:20)
[2016-08-25] MEDS ORDERED: HYDROmorphone 1 mg/mL Inj IVPUSH PRN (13:20)
--- NOTE | 2016-08-25 13:43 | PROG NOTE ---
[address] [address] PROGRESS NOTE PATIENT: LISA SOSA : 1980 MR#: [id number] ADMIT: 08/18/2016 JOB ID: [id number] DATE: 08/25/2016 INFECTIOUS DISEASE FOLLOW UP NOTE: REASON FOR FOLLOWUP: High-grade MRSA bacteremia with septic left knee. INTERVAL HISTORY: The patient reports she is gradually feeling better though she continues to have some chills, occasional sweats, generalized malaise, a sharp pain along the right temporal region of the skull and severe and ongoing pain in her left septic knee. She denies any shortness of breath, cough or chest pain. She has had some nausea but no vomiting, diarrhea or dysuria. PHYSICAL EXAMINATION: Reveals an afebrile woman who has now been afebrile for six days. Temperature 36.4, pulse 72, respiratory rate 18, blood pressure 101/64. She is saturating well on room air. Examination of the head reveals no evidence of an abnormality of the skull. Her neck is supple. Her oropharynx completely benign. She has no peripheral stigmata of endocarditis. Her lungs reasonably clear today, still with a subtle cardiac systolic murmur about 1/6 heard along the left lower sternal border. Her abdomen is benign. Her left knee is swollen, tender and warm as before though perhaps slightly better. No other rashes noted. LABORATORIES: Include white count 11,000 down from 20,000. Platelet count 503. Creatinine 0.63. LFTs are normal. Albumin 2.6. Vanc trough 23. Hep C viral load pending. After basically 14 positive blood culture bottles compiled over a week, her blood cultures turned negative on the and they have remained negative since that time. The culture from the knee is still negative at this point. The CT angiogram of the brain done to rule out mycotic aneurysm on the was negative. The transesophageal echo done yesterday by Dr. Brannon was negative for endocarditis. IMPRESSION: This is an IV drug using woman with super high-grade MRSA bacteremia that was documented both as an outpatient and inpatient. Though we certainly were concerned about endocarditis, it appears she does not have endocarditis but rather just a high-grade MRSA bacteremia with septic knee. This will nonetheless require four weeks of aggressive IV therapy and this will need to be done as an inpatient given her proclivities towards intravenous opiate use. RECOMMENDATIONS: 1. Will continue with IV vanco through September 18. 2. The pharmacy will continue to closely monitor the levels and I will be following these along as well to keep the trough between 15 and 20. 3. Ortho plans to clean out the left knee and to do a washout later today. 4. We will have to continue to be vigilant about metastatic foci of infection in this patient as she was bacteremic for 10 days, but at this point, I think we are on the right track.
--- NOTE | 2016-08-25 13:56 | PCM.PNMED ---
Subjective Date of Service Aug 25, 2016 Subjective Shereen Witt is a 36-year-old woman currently IV drug abuser, presents with 5 days of headache, new onset knee pain and swelling, positive blood cultures 2 for MRSA. Hospital day #8 Overnight patient did okay, she continues to report knee pain. This morning she continues to be tired. She expresses the pain in her knee seems to be in the area of the patellar tendon, and behind the knee which is new. She also endorses a sore throat after her HERMES. Patient is concerned about pain control once Toradol is no longer an option as methadone is not sufficient at alleviating her knee pain. Plan of care was discussed with patient, questions were answered. Exam Vital Signs Vital Sign - Last Date Time Temp Pulse Resp B/P Pulse Ox O2 Delivery O2 Flow Rate FiO2 08/25/16 06:37 36.9 62 18 99/64 98 Room Air 08/22/16 15:47 2 Intake and Output 08/24/16 08/24/16 08/25/16 Cumulative From/Thru 15:00 23:00 07:00 08/18/16 00:26 - 08/25/16 00:30 Intake Total 830 ml 4129 ml 00248 ml Output Total 2200 ml 1950 ml 20122 ml Balance -1370 ml 2179 ml 550 ml Intake Oral 830 ml 1044 ml 34580 ml IV Total 3085 ml 56948 ml Output Urine Total 2200 ml 1950 ml 25060 ml # Voids 5 # Bowel Movements 2 1 7 Exam General: Resting comfortably, no apparent distress. Disheveled, poor hygiene. HEENT: Normocephalic, hair is matted, multiple lesions of varying size and states of healing on her face- improving, nearly healed. Extraocular muscles intact, pupils round and reactive to light, mucous membranes moist Cardiovascular: Regular rate and rhythm, 2/6 systolic murmur heard best in the tricuspid area Pulmonary: Clear to auscultation bilaterally, no crackles, wheezes, or ronchi. Abdominal: Soft to palpation, bowel sounds present, no hepatosplenomegaly. No rebound. Extremities: There is no edema to lower extremities, there are multiple pin- sized lesions on upper and lower extremities covered with multiple adhesive bandage strips. No splinter hemorrhages, Ostlers nodes, or Janeway lesions appreciated. Neuro: Neurologically grossly intact. MSK: Left knee swollen compared to right, tender, warm to the touch. Faint yellowed bruising over anterior left knee. No pain to palpation of posterior knee, tenderness to touch in the area above the knee joint anteriorly. Passive range of motion 12-15 of flexion in the left knee. Lab and Diagnostics Result Diagram: 08/25/1653408/25/16534 Microbiology Multiple blood cultures positive for MRSA including ones drawn yesterday. X-Rays, CTs and MRIs X-RAY LEFT KNEE, THREE VIEWS IMPRESSION: Although no bony erosions are identified, plain film radiography is relatively insensitive in the acute phases of osteomyelitis and may not demonstrate radiographic changes for 15 days. If acute osteomyelitis is of clinical concern , nuclear medicine regional bone scan or MRI is recommended. Joint effusion. 2 cm soft tissue foreign body within the upper lower leg medially at the level of the proximal tibia shaft. Dictated by: Daniel OVALLES Interpreted: Saadia Burton MD on 08/18/2016 at 10:07 CT BRAIN WITH AND WITHOUT CONTRAST IMPRESSION: 1. No acute intracranial process. Dictated by: Victoria Galvan M.D. on 08/18/2016 at 10:43 X-RAY CHEST, TWO VIEWS IMPRESSION: No acute cardiopulmonary disease. Dictated by: Daniel OVALLES Interpreted: Saadia Burton MD on 08/18/2016 at 10:09 Cardiac Echo Impressions Interpretation Summary The left ventricle is mildly dilated. The ejection fraction is estimated to be 60-65%. There has been no significant change in LV EF since the previous study. The right ventricle is normal in size and function.There is trace tricuspid regurgitation. The right ventricular systolic pressure is estimated at 37 mmHg assuming a right atrial pressure of 15 mm Hg. The IVC is dilated (diameter is greater than 2.1 cm) and it collapses less than 50% with a sniff. This suggests a high right atrial pressure of 15 mm Hg (New). No obvious valvular vegetation seen. If clinical suspicion for endocarditis is high, consider HERMES. Assessment & Plan Shereen Witt is a 36-year-old woman currently IV drug abuser, presents with 5 days of headache, new onset knee pain and swelling, positive blood cultures 2 for MRSA. Hospital day #8 1. MRSA Bacteremia, subacute, present on admission -multiple blood cultures from this admission confirm MRSA bacteremia, sensitive to clindamycin and vancomycin. Secondary to IVDU. -Continue daily blood cultures until we have multiple negative bottles. This will count as day 1 for 6 week abx treatment. 08/22/2016 -Continue vancomycin dosed by pharmacy -Clindamycin was given in the emergency department, however given the positive MRSA culture and no other organisms do not feel coverage of anaerobes is necessary. -Infectious disease on board, we appreciate their time and recommendations 2. Sepsis, acute, present on admission, improving -On admission white blood cells 13.9, vital signs: Temperature 38.8 Celsius, heart rate 106, maintaining blood pressure, sources are blood, left knee, and urinary tract. -ESR 76, lactic acid 1.9, pro calcitonin 0.09 initially -Multiple blood cultures, growth shows methicillin resistant Staph. aureus -Blood cultures redrawn 08/22/2016 show no growth at 2 days, 08/23/2016 blood cultures show no growth after 24 hours -Pro calcitonin 0.053 days, no need to repeat. -Antibiotics as below 3. Heart murmur, chronicity unknown, present on admission, evaluation ongoing -Was heard on previous ER visits, previously evaluated in September 2015 without any valvular abnormalities apparent, but likely represents endocarditis -Echocardiogram negative for vegetations. -HERMES was performed today without evidence of vegetations on valves. 4. Left knee septic joint, acute, present on admission, evaluation ongoing -Joint aspirate has been collected. High amount of PMNs present in the aspirate. Cultures pending. No bacteria on gram stain. -IV antibiotics as above -Ketorolac IM every 8 hours as needed for pain -Patient continues to have pain and notes that it is harder for her stand on the left leg now. follow up Xray of the knee shows small joint effusion. -Orthopedic surgery consulted, arthrocentesis performed today. Patient will go to the OR for arthroscopy and washout of the knee today. 5. History of GERD, present on admission, not currently active -Patient with history of GERD and possible ulcers -Increased risk of performing HERMES if ulcers are present -GI consult team performed EGD which showed non erosive gastritis, okay to proceed with HERMES 6. Urinary tract infection, acute, present on admission, treatment initiated -Urine culture from 08/12/2016 grew Escherichia coli, susceptible to ceftriaxone -Discontinued ceftriaxone 2 mg IV every 24 hours today, after her 5th dose -Urinalysis performed 08/21/16 is unremarkable showing only a few bacteria 7. Headache, present on admission, subacute - Patient is at risk for mycotic aneurysm, ID recommends imaging - Dr. Burton of Radiology recommends starting with CT angiogram of the brain which is more sensitive for aneurysm. Follow-up MRA may be needed based on findings. - CT angiogram of brain shows no evidence of aneurysm. 8. Hyperglycemia, pre-diabetic, chronicity unknown, present on admission -Blood sugar in the emergency department was 152, review of previous admission shows it to be elevated greater than 113. -Hemoglobin A1c 5.8%, pre-diabetic -Consider nutrition consultation once patient improves. 9. Electrolyte dyscrasia, acute, present on admission, improving. -Most likely due to infection -Sodium 129, chloride 92, initially. Treated with IV saline -Calcium normal at 8.6 today after replenishment with PO calcium supplements -We will continue to monitor on BMP/CMP 10. Chronic normocytic normochromic anemia consistent with iron deficiency anemia, present on admission, stable, evaluation ongoing -Iron deficiency versus anemia of chronic disease -Iron panel consistent with iron deficiency anemia, low iron and low iron % saturation - multi-vitamin, vitamin C, and iron ordered. 11. Persistent tobacco use -Discussed benefits of quitting smoking, risks of continuing to smoke, and how smoking cessation could better improve health in the future 12. High risk for leaving AGAINST MEDICAL ADVICE -Left emergency department previously without notifying anyone -Previous admission did not leave AMA. 13. Chronic IV drug abuse, present on admission, active -Last use before returning to the emergency department. The patient states she uses twice daily and up to 1 gm of heroin daily. -Methadone and clonodine for withdrawal symptoms as patient stated Suboxone has not worked in the past. -High risk for elopement, leaving AGAINST MEDICAL ADVICE, recommend against PICC line placement. VTE Prophylaxis with subcutaneous heparin GI prophylaxis: Not indicated Pain management: Methadone, Toradol Dispo: Anticipate patient will be here for an extended amount of time as she undergoes treatment for MRSA bacteremia and possible endocarditis. First negative blood culture thus start date for antibiotic treatment 08/22/2016 Pain Evaluation: Adequate Pain Control GI Prophylaxis: Not indicated VTE Prophylaxis: Sub-Q Heparin (Unfractionated) VTE Mechanical Devices: Intermittant Pneumatic CD Resuscitation Status: CPR: Attempt Resuscitation Attending Statement The patient was seen and examined together with Dr. Rebolledo on 08/25/2016 and I agree with the history, exam and plan as outlined in the note above. Alis Rebolledo DO Aug 25, 2016 06:52 Parmjit Peterson MD Aug 26, 2016 11:19
[2016-08-25] MEDS ORDERED: diphenhydrAMINE 25 mg Capsule PO PRN (14:00)
[2016-08-25] MEDS ORDERED: Magnesium Hydroxide 10 mL Oral Concentration PO PRN (14:00)
[2016-08-25] MEDS ORDERED: Acetaminophen IV 1,000 MG in IV Premix 1 EACH IV PRN (14:00)
[2016-08-25] MEDS: Albuterol 2.5 mg/3 mL Inhalation Solution NEB ONE ×2 (14:08→14:14)
[2016-08-25] MEDS ORDERED: HYDROmorphone 0.5 mg/0.5 mL iSecure Syringe IVPUSH PRN (15:25)
--- NOTE | 2016-08-25 16:21 | PATH ---
SURGICAL PATHOLOGY Attending Physician:Andrea Euceda MD CASE STATUS: Signed Out PATIENT NAME: LISA SOSA PID: [id number] : 1980 DATE COLLECTED:08/22/2016 00:00 SPECIMEN: 1: Stomach, Antrum, Biopsy 2: Gastric, Biopsy CLINICAL HISTORY: 1. ANTRUM BX 2. GASTRIC BODY BX FINAL DIAGNOSIS: 1.STOMACH, ANTRUM, BIOPSY: CHRONIC GASTRITIS WITHOUT ACTIVE INFLAMMATION. Negative for Helicobacter organisms by immunohistochemistry. Negative for intestinal metaplasia. Negative for dysplasia and malignancy. 2.STOMACH, BODY, BIOPSY: CHRONIC GASTRITIS WITHOUT ACTIVE INFLAMMATION. Negative for Helicobacter organisms by immunohistochemistry. Negative for intestinal metaplasia. Negative for dysplasia and malignancy. ICD10 code R10.9 GROSS DESCRIPTION: The specimen is received in two formalin filled containers labeled with the patient's name. 1). The specimen is sublabeled "antrum" and consists of a 0.6 x 0.3 x 0.2 CM portion of tissue which is entirely submitted in cassette 1A. 2). The specimen is sublabeled "gastric body" and consists of 2 portions of tissue which aggregate to 0.3 x 0.3 x 0.2 CM. The specimen is entirely submitted in cassette 2A. 08/23/2016 DAC MICRO DESCRIPTION: Immunohistochemical stains were performed to evaluate for Helicobacter organisms and are negative in both parts 1 and 2. A control stain showed appropriate reactivity.. This test was developed and its performance characteristics determined by [facility]. It has not been cleared or approved by the U. S. Food and Drug Administration. The FDA has determined that such clearance or approval is not necessary. This test is used for clinical purposes. It should not be regarded as investigational or for research. ICD-9 CODES: CPT CODES: 1: 08667, 84975 2: 30393, 29874 Electronically Signed Out Sonia Camargo MD [facility], [place] [address] Technical component performed at [facility], [facility] [address], [place], [address]
--- NOTE | 2016-08-25 16:23 | NUR ---
Social Work: Continued d/c planning Data: Pt is on day 7 of hospitalization. EMR reviewed. Pt discussed in rounds, MD states pt will remain in hospital for 4-6 weeks of IVABX from 08/22/16. ASSOCIATE CHIEF NURSE will follow up with pt regarding her not having identification of any type, which is needed for suboxone/methodone clinic. ASSOCIATE CHIEF NURSE will ask if pt is connected with any sort of [place], which may be able to assist her. ASSOCIATE CHIEF NURSE will continue to follow. Assessment: Pt who is independent at baseline, IV drug user. Plan: states pt will remain in hospital for 4-6 weeks of IVABX from 08/22/16. ASSOCIATE CHIEF NURSE will follow up with pt regarding her not having identification of any type. STEPH Mcdaniel
[2016-08-25] MEDS: Pantoprazole 40 mg ER24 Tablet PO SCH (16:30)
[2016-08-25] MEDS: Multivit-Miner-Folic Acid-Iron Tablet PO SCH (17:31)
[2016-08-25] MEDS: Ascorbic Acid 500 mg Tablet PO SCH (17:33)
--- NOTE | 2016-08-25 17:48 | PCM.ANEP1 ---
Post Anesthesia Phase 1 PACU Phase 1 Assessment Date of Service: Aug 25, 2016 Vital Signs Vital Signs Date Time Temp Pulse Resp B/P Pulse Ox O2 Delivery O2 Flow Rate FiO2 08/25/16 14:37 77 14 103/55 99 Nasal Cannula 3 08/25/16 14:33 81 20 96/49 99 Nasal Cannula 3 08/25/16 14:10 67 10 95/48 100 Nasal Cannula 3 08/25/16 14:05 75 13 95/50 100 Nasal Cannula 3 08/25/16 14:00 36.9 65 10 113/64 100 Nasal Cannula 3 08/25/16 09:51 36.4 72 18 101/64 98 Room Air Anesthetic Administered: GA, MAC Level of Alertness: Awake, talking FRANCO's with Equal Strength: Yes Pain: No Nausea or Vomiting: No Oxygen Delivery: Nasal Cannula Lungs: Wheezes Dermatome Level: Full Sensation Summary Pt requests and was given O2 and albuterol neb. slight wheezing Waylon Felix MD Aug 25, 2016 17:48
--- NOTE | 2016-08-25 17:49 | PCM.ANEP2 ---
Post Anesthesia Evaluation ASA/CMS Post Anesthesia VS in Patient's Normal Range?: Yes Resp Stable; Airway Patent?: Yes CV Function & Hydration Stable: Yes Mental Status Recovered?: Yes Pain control Satisfactory?: Yes N/V Control Satisfactory?: Yes Waylon Felix MD Aug 25, 2016 17:49
--- NOTE | 2016-08-25 18:02 | NUR ---
Post op note- Received patient from PACU. Awake and oriented. Left knee with CARRILLO wrap and is dry and intact. Patient denies nausea and requesting water. Up to bedside commode to void. Has not requested any thing for pain thus far. Tele- sinus rhythm.
[2016-08-25] MEDS: HYDROcodone-APAP 5-325 mg Tablet PO PRN ×2 (18:09→23:58)
[2016-08-26] VITALS (8 sets, daily range): BP systolic 90–114; BP diastolic 50–76; PULSE 65–75; RESP 16–18; O2SAT 95–99
--- NOTE | 2016-08-26 03:37 | OP ---
[address] [address] OPERATIVE REPORT PATIENT: LISA SOSA : 1980 MR#: [id number] ADMIT: 08/18/2016 JOB ID: [id number] DATE OF SURGERY: 08/25/2016 PREOPERATIVE DIAGNOSIS(ES): Left knee septic arthritis. POSTOPERATIVE DIAGNOSIS(ES): Left knee septic arthritis. PROCEDURE: Left knee video arthroscopy with intra-articular debridement and lavage. SURGEON: Gabino Odonnell DO. ANESTHESIA: General. INDICATIONS: The patient is a 36-year-old female, who was admitted for bacteremia and had left knee pain, had an effusion which was drained in the emergency department, and her knee pain improved to some degree with antibiotics. However, pain started worsening and I was consulted. She was found to have elevated white blood cell count and elevated PMN percentage in the fluid aspirate and I felt she had a septic arthritis. We discussed treatment options for this and she wished to proceed with a knee wash out with arthroscopic debridement. We discussed the risks, benefits and possible complications of surgery. All questions were answered. She wished to proceed. PROCEDURE IN DETAIL: The patient was brought to the operating room. She was given a LMA general anesthetic. The left lower extremity was sterilely prepped and draped. An incision was made over the anterolateral knee at the level of joint line. The blunt trocar was introduced into the knee and there was a large effusion under pressure of purulent appearing fluid, which was drained from the knee and the inflow was established. Inspection was undertaken. Her articular cartilage was actually in good condition, but she did have some synovitis and some loose areolar type tissue likely secondary to the infection throughout the knee. A medial portal was established under needle localization. Then, I used a shaver to debride some of the synovitis and this areolar tissue. The knee was copiously irrigated with 9 L of irrigation and then the menisci were both inspected, found to be intact. Her ACL had some hemorrhage and inflammation, but appeared to be intact. Again the cartilaginous surfaces were in fairly good condition with only minimal degenerative changes. The scope was then removed and Naropin was added as an adjunct local anesthetic. Sterile dressings were applied. Patient tolerated the procedure well. BLOOD LOSS: 25 cc. POSTOPERATIVE PROTOCOL: Have the patient remain partial weightbearing on the left lower extremity for a week or so. I would like her to begin working on range of motion immediately, working with physical therapy and we will have to monitor the patient and hopefully, she will not need a repeat washout, but if her knee becomes again painful and again fills with fluid, she might require repeat washout debridement.
[2016-08-26] MEDS: Vancomycin Inj 1,250 MG in 0.9% Sodium Chloride 250 ML IV SCH ×3 (04:00→20:29)
[2016-08-26] MEDS: cloNIDine 0.1 mg Tablet PO PRN ×4 (04:06→23:25)
[2016-08-26] MEDS: 0.9% Sodium Chloride 1,000 ML IV SCH ×5 (04:17→20:29)
--- NOTE | 2016-08-26 05:35 | NUR ---
Leg Patient hemal wrap c/d/i. CMS intact. slight swelling noted to left leg. reports pain tolerable 11/11. Medicated Q6 hours with methadone and clonidine. patient reported pain was out of control and was given 30mg Toradol. Patient reports minimal pain after the Toradol. Sensation and movement checked throughout the night. Patient ambulated to the bathroom. SBA with FWW. tolerated activity fair. will continue to monitor.
[2016-08-26 06:04] LABS: BASOPHILS % (AUTO) 0.2 % (0-3); EOSINOPHILS % (AUTO) 1.4 % (0-5); MONOCYTES % (AUTO) 5.3 % (4-12); Mean Corpuscular Hemoglobin 27.8 pg (27.0-35.0); Mean Corpuscular Volume 88.8 fL (81-100); NEUTROPHILS % (AUTO) 66.5 % (40-74); Platelet Count 471 bil/L (150-400)
[2016-08-26] MEDS: Vancomycin Dose per Pharmacist XX SCH (08:30)
[2016-08-26] MEDS: Ascorbic Acid 500 mg Tablet PO SCH ×2 (09:22→17:25)
[2016-08-26] MEDS: Multivit-Miner-Folic Acid-Iron Tablet PO SCH (09:23)
[2016-08-26] MEDS: HYDROcodone-APAP 5-325 mg Tablet PO PRN ×2 (09:24→20:30)
[2016-08-26] MEDS: Pantoprazole 40 mg ER24 Tablet PO SCH ×2 (09:24→17:27)
--- NOTE | 2016-08-26 10:00 | NUR ---
IVT called to place IV. Three attempts with and without US assistance. All unsuccessful. RN made aware, and she will contact . Dr. Hernandez notified by me. Awaiting further instructions/information.
[2016-08-26] MEDS ORDERED: Vancomycin Serum Trough XX ONE (11:30)
--- NOTE | 2016-08-26 13:50 | PCM.PNORTH ---
Subjective Date of Service: Aug 26, 2016 Visit Information: Reason for Visit Mrsa, Bacteremia Sbe,L Knee Septic Arthritis Surgery/Surgery Date left knee arthroscopy washout 08/25/2016 Post-Op Day # 1 Date of Admission: Aug 18, 2016 at 04:44 Hospital Day # Subjective Patient the knee feels better after the washout but is still painful. The thigh muscles are a little tight. She has been up to the bathroom, using a walker. Postop General: No Shortness of Breath, No Chest Pain, Good Appetite Pain Management: PO Objective Exam Objective Patient is seen sitting up in bed. Vital Signs and I/O Vital Sign - Last Date Time Temp Pulse Resp B/P Pulse Ox O2 Delivery O2 Flow Rate FiO2 08/26/16 09:24 75 08/26/16 09:21 37.4 16 114/76 99 Room Air 08/25/16 14:37 3 Intake and Output 08/25/16 08/25/16 08/26/16 Cumulative From/Thru 15:00 23:00 07:00 08/18/16 00:26 - 08/26/16 06:51 Intake Total 3045 ml 2312 ml 2266 ml 78663 ml Output Total 3100 ml 2200 ml 650 ml 98946 ml Balance -55 ml 112 ml 1616 ml 2223 ml Intake Oral 1236 ml 1500 ml 1350 ml 07872 ml IV Total 1809 ml 812 ml 916 ml 47495 ml Output Urine Total 3100 ml 2200 ml 650 ml 29334 ml # Voids 5 # Bowel Movements 1 8 Lab & Micro Results Laboratory Tests Test 08/26/16 05:27 White Blood Count 9.9th/mm3 (3.8-10.1) Red Blood Count 3.20mil/mm3 (3.90-5.20) Hemoglobin 8.9g/dL (12.0-15.6) Hematocrit 28.4% (35.0-46.0) Mean Corpuscular Volume 88.8fL (81-100) Mean Corpuscular Hemoglobin 27.8pg (27.0-35.0) Mean Corpuscular Hemoglobin Concent 31.3% (32.0-37.0) Red Cell Distribution Width 14.0% (12.3-15.4) Platelet Count 471bil/L (150-400) Neutrophils (%) (Auto) 66.5% (40-74) Lymphocytes (%) (Auto) 26.3% (14-46) Monocytes (%) (Auto) 5.3% (4-12) Eosinophils (%) (Auto) 1.4% (0-5) Basophils (%) (Auto) 0.2% (0-3) Sodium Level 137mEq/L (134-144) Potassium Level 4.7mEq/L (3.5-5.2) Chloride Level 99mEq/L (97-108) Carbon Dioxide Level 26mmol/L (18-29) Blood Urea Nitrogen 14mg/dL (6-20) Creatinine 0.77mg/dL (0.57-1.00) Estimat Glomerular Filtration Rate 123mL/min (>59) Glucose Level 134mg/dL (60-99) Calcium Level 8.6mg/dL (8.5-10.1) Microbiology 08/24/16 Blood Culture - Preliminary, Resulted No growth at 2 days; culture examined... 08/24/16 Gram Stain - Final, Resulted 08/24/16 Culture & Sensitivity - Preliminary, Resulted 08/18/16 Urine Culture - Final, Complete Escherichia Coli Result Diagram: 08/26/1652608/26/16526 General Appearance: Alert, Oriented X3, Cooperative, No Acute Distress Extremities: Distal Pulses Palpable, No Compartment Syndrom Noted, Thigh & Calf Soft/Nontender Postop Sensory Motor: Distal Motor Intact, NVI Distally SURGICAL WOUND : Wound Location/Description Left knee: surgical dressing is taken down. The knee is swollen but not tender. No erythema present. There is mild serous drainage on the bandage. No purulence seen. Surgical wounds are open. Knee is re-dressed with 4x4's, ABD and wrapped in elastic bandage Activity: Activity per PT Catheters: None Assessment & Plan Impression POD #1 left knee arthroscopy washout Problems: Plan Weightbearing: Partial weightbearing left lower extremity with crutches/walker for 1-2 weeks Physical therapy for transfers, progressive ambulation, therapeutic exercise, range of motion Wound care: PA changed dressing today. Will recheck tomorrow. Continue IV abx per medical team Patient advised that she may a repeat washout in the future if the knee becomes red and tender again. Dr. Nieto is covering for Dr. Odonnell this weekend Follow-up plan: In 2 weeks at [facility] with Dr. Odonnell Pain Management: Methadone, [place], Toradol VTE Prophylaxis: Sub-Q Heparin (Unfractionated) Resuscitation Status: CPR: Attempt Resuscitation Nidia Mota PA-C Aug 26, 2016 13:50
[2016-08-26] MEDS: Sodium Chloride LOK Flush 10 mL Syringe IVFLUSH SCH ×2 (16:30→21:42)
--- NOTE | 2016-08-26 17:10 | NUR ---
Evaluation completed. Please go to "Notes" then click on "Assessments and Notes" (bottom left corner of screen). Then select appropriate discipline tab on top of screen.
[2016-08-26] MEDS: Lactobacillus Rhamnosus 10 Bil Unit Capsule PO SCH ×2 (17:29→20:29)
--- NOTE | 2016-08-26 18:12 | PCM.PNMED ---
Subjective Date of Service Aug 26, 2016 Subjective Shereen Witt is a 36-year-old woman currently IV drug abuser, presents with 5 days of headache, new onset knee pain and swelling, positive blood cultures 2 for MRSA. Hospital day #9 The patient continues to feel tired this morning, and continues to have knee pain. She has been feeling mildly diaphoretic with an intensified headache mainly frontally. She describes a patch posterior to her right orthodox where the pain is most intense. Patient denies taking anything not administered by the nurses since being in the hospital. She denies abdominal pain, but endorses cramping she has had 2 urgent bowel movements that were normal to soft in consistency. Exam Vital Signs Vital Sign - Last Date Time Temp Pulse Resp B/P Pulse Ox O2 Delivery O2 Flow Rate FiO2 08/26/16 06:15 65 08/26/16 05:30 37.3 18 90/55 96 Room Air 08/25/16 14:37 3 Intake and Output 08/25/16 08/25/16 08/26/16 Cumulative From/Thru 15:00 23:00 07:00 08/18/16 00:26 - 08/26/16 06:51 Intake Total 3045 ml 2312 ml 2266 ml 80573 ml Output Total 3100 ml 2200 ml 650 ml 89393 ml Balance -55 ml 112 ml 1616 ml 2223 ml Intake Oral 1236 ml 1500 ml 1350 ml 22951 ml IV Total 1809 ml 812 ml 916 ml 55524 ml Output Urine Total 3100 ml 2200 ml 650 ml 20905 ml # Voids 5 # Bowel Movements 1 8 Exam General: Resting comfortably, no apparent distress. Disheveled, poor hygiene. HEENT: Normocephalic, hair is matted, multiple lesions of varying size and states of healing on her face- improving, nearly healed. Extraocular muscles intact, pupils round and reactive to light, mucous membranes moist Cardiovascular: Regular rate and rhythm, 2/6 systolic murmur heard best in the tricuspid area Pulmonary: Clear to auscultation bilaterally, no crackles, wheezes, or ronchi. Abdominal: Soft to palpation, bowel sounds present, no hepatosplenomegaly. No rebound. Extremities: There is no edema to lower extremities, there are multiple pin- sized lesions on upper and lower extremities covered with multiple adhesive bandage strips. No splinter hemorrhages, Ostlers nodes, or Janeway lesions appreciated. Neuro: Neurologically grossly intact. MSK: Left knee wrapped with an Jose D wrap. Faint yellowed bruising over anterior left knee. No pain to palpation of posterior knee, tenderness to touch in the area above the knee joint anteriorly. Passive range of motion 12-15 of flexion in the left knee. Lab and Diagnostics Result Diagram: 08/26/1652608/26/16526 Microbiology Multiple blood cultures positive for MRSA including ones drawn yesterday. X-Rays, CTs and MRIs X-RAY LEFT KNEE, THREE VIEWS IMPRESSION: Although no bony erosions are identified, plain film radiography is relatively insensitive in the acute phases of osteomyelitis and may not demonstrate radiographic changes for 15 days. If acute osteomyelitis is of clinical concern , nuclear medicine regional bone scan or MRI is recommended. Joint effusion. 2 cm soft tissue foreign body within the upper lower leg medially at the level of the proximal tibia shaft. Dictated by: Daniel OVALLES Interpreted: Saadia Burton MD on 08/18/2016 at 10:07 CT BRAIN WITH AND WITHOUT CONTRAST IMPRESSION: 1. No acute intracranial process. Dictated by: Victoria Galvan M.D. on 08/18/2016 at 10:43 X-RAY CHEST, TWO VIEWS IMPRESSION: No acute cardiopulmonary disease. Dictated by: Daniel OVALLES Interpreted: Saadia Burton MD on 08/18/2016 at 10:09 Cardiac Echo Impressions Interpretation Summary The left ventricle is mildly dilated. The ejection fraction is estimated to be 60-65%. There has been no significant change in LV EF since the previous study. The right ventricle is normal in size and function.There is trace tricuspid regurgitation. The right ventricular systolic pressure is estimated at 37 mmHg assuming a right atrial pressure of 15 mm Hg. The IVC is dilated (diameter is greater than 2.1 cm) and it collapses less than 50% with a sniff. This suggests a high right atrial pressure of 15 mm Hg (New). No obvious valvular vegetation seen. If clinical suspicion for endocarditis is high, consider HERMES. Assessment & Plan Shereen Witt is a 36-year-old female IV drug abuser, presents with 5 days of headache, new onset knee pain and swelling, positive blood cultures for MRSA. Hospital day #9 1. MRSA Bacteremia, subacute, present on admission -multiple blood cultures from this admission confirm MRSA bacteremia, sensitive to clindamycin and vancomycin. Secondary to IVDU. -Continue daily blood cultures until we have multiple negative bottles. This will count as day 1 for 6 week abx treatment. 08/22/2016 -Continue vancomycin dosed by pharmacy -Infectious disease on board, we appreciate their time and recommendations 2. Sepsis, acute, present on admission, improving -On admission white blood cells 13.9, vital signs: Temperature 38.8 Celsius, heart rate 106, maintaining blood pressure, sources are blood, left knee, and urinary tract. -ESR 76, lactic acid 1.9, pro calcitonin 0.09 initially -Multiple blood cultures, growth shows methicillin resistant Staph. aureus -Blood cultures redrawn starting 08/22/2016 for 3 consecutive days show no growth at 2 days -Pro calcitonin 0.053 days, no need to repeat. -Antibiotics as below 3. Heart murmur, chronicity unknown, present on admission, evaluation ongoing -Was heard on previous ER visits, previously evaluated in September 2015 without any valvular abnormalities apparent, but likely represents endocarditis -Echocardiogram negative for vegetations. -HERMES was performed today without evidence of vegetations on valves. 4. Left knee septic joint, acute, present on admission, evaluation ongoing -Joint aspirate has been collected. High amount of PMNs present in the aspirate. Cultures pending. No bacteria on gram stain. -IV antibiotics as above -Ketorolac IM every 8 hours as needed for pain -Patient continues to have pain and notes that it is harder for her stand on the left leg now. follow up Xray of the knee shows small joint effusion. -Orthopedic surgery consulted, arthroscopy and washout of the knee performed, orthopedics following. -Monitor for signs of effusion and pain. 5. Possible diarrhea, not present on admission, acute -Patient with change in bowel habits -Stool PCR ordered -Probiotics initiated 6. Urinary tract infection, acute, present on admission, treatment initiated -Urine culture from 08/12/2016 grew Escherichia coli, susceptible to ceftriaxone -Discontinued ceftriaxone 2 mg IV every 24 hours today, after her 5th dose -Urinalysis performed 08/21/16 is unremarkable showing only a few bacteria 7. Headache, present on admission, subacute - Patient is at risk for mycotic aneurysm, ID recommends imaging - Dr. Micheal of Radiology recommends starting with CT angiogram of the brain which is more sensitive for aneurysm. Follow-up MRA may be needed based on findings. - CT angiogram of brain shows no evidence of aneurysm. 8. Hyperglycemia, pre-diabetic, chronicity unknown, present on admission -Blood sugar in the emergency department was 152, review of previous admission shows it to be elevated greater than 113. -Hemoglobin A1c 5.8%, pre-diabetic -Consider nutrition consultation once patient improves. 9. Electrolyte dyscrasia, acute, present on admission, improving. -Most likely due to infection -Sodium 129, chloride 92, initially. Treated with IV saline -Calcium normal at 8.6 today after replenishment with PO calcium supplements -We will continue to monitor on BMP/CMP 10. Chronic normocytic normochromic anemia consistent with iron deficiency anemia, present on admission, stable, evaluation ongoing -Iron deficiency versus anemia of chronic disease -Iron panel consistent with iron deficiency anemia, low iron and low iron % saturation - multi-vitamin, vitamin C, and iron ordered. 11. Persistent tobacco use -Discussed benefits of quitting smoking, risks of continuing to smoke, and how smoking cessation could better improve health in the future 12. High risk for leaving AGAINST MEDICAL ADVICE -Left emergency department previously without notifying anyone -Previous admission did not leave AMA. 13. Chronic IV drug abuse, present on admission, active -Last use before returning to the emergency department. The patient states she uses twice daily and up to 1 gm of heroin daily. -Methadone and clonodine for withdrawal symptoms as patient stated Suboxone has not worked in the past. -High risk for elopement, leaving AGAINST MEDICAL ADVICE, recommend against PICC line placement. 14. History of GERD, present on admission, not currently active -Patient with history of GERD and possible ulcers -Increased risk of performing HERMES if ulcers are present -GI consult team performed EGD which showed non erosive gastritis, okay to proceed with HERMES VTE Prophylaxis with subcutaneous Lovenox GI prophylaxis: Not indicated Pain management: Methadone, Toradol Dispo: Anticipate patient will be here for an extended amount of time as she undergoes treatment for MRSA bacteremia and possible endocarditis. First negative blood culture thus start date for antibiotic treatment 08/22/2016 Pain Evaluation: Adequate Pain Control GI Prophylaxis: Not indicated VTE Prophylaxis: Sub-Q Enoxaparin VTE Mechanical Devices: Intermittant Pneumatic CD Resuscitation Status: CPR: Attempt Resuscitation Attending Statement The patient was seen and examined together with Dr. Rebolledo on 08/26/2016 and I agree with the history, exam and plan as outlined in the note above. Alis Rebolledo DO Aug 26, 2016 08:23 Parmjit Peterson MD Aug 27, 2016 10:57
[2016-08-27] VITALS (9 sets, daily range): BP systolic 88–105; BP diastolic 57–67; PULSE 59–74; RESP 18; O2SAT 98–100
[2016-08-27] MEDS: 0.9% Sodium Chloride 1,000 ML IV SCH ×3 (01:45→16:00)
[2016-08-27] MEDS: Vancomycin Inj 1,250 MG in 0.9% Sodium Chloride 250 ML IV SCH ×3 (04:32→19:25)
[2016-08-27] MEDS: HYDROcodone-APAP 5-325 mg Tablet PO PRN ×4 (04:39→21:59)
[2016-08-27] MEDS: cloNIDine 0.1 mg Tablet PO PRN ×3 (06:11→19:24)
[2016-08-27 07:03] LABS: BASOPHILS % (AUTO) 0.5 % (0-3); EOSINOPHILS % (AUTO) 2.9 % (0-5); MONOCYTES % (AUTO) 7.2 % (4-12); Mean Corpuscular Hemoglobin 27.5 pg (27.0-35.0); Mean Corpuscular Volume 86.1 fL (81-100); Platelet Count 438 bil/L (150-400)
[2016-08-27] MEDS: Ascorbic Acid 500 mg Tablet PO SCH ×2 (08:15→17:35)
[2016-08-27] MEDS: Pantoprazole 40 mg ER24 Tablet PO SCH ×2 (08:15→17:35)
[2016-08-27] MEDS: Lactobacillus Rhamnosus 10 Bil Unit Capsule PO SCH ×4 (08:16→22:45)
[2016-08-27] MEDS: Sodium Chloride LOK Flush 10 mL Syringe IVFLUSH SCH ×2 (08:16→16:30)
[2016-08-27] MEDS: Multivit-Miner-Folic Acid-Iron Tablet PO SCH (08:25)
[2016-08-27] MEDS: Vancomycin Dose per Pharmacist XX SCH (08:30)
[2016-08-27] MEDS ORDERED: Insulin Human REGular 300 Unit/3 mL Inj IV SCH (09:10)
--- NOTE | 2016-08-27 11:04 | PCM.PNMED ---
Subjective Date of Service Aug 27, 2016 Subjective Pt complains of 5 episodes of diarrhea this morning. She denies abdominal cramping, nausea, vomiting, and fever. She also continues to complain of left knee pain, but notes this is improving also. No other complaints or concerns at this time. Exam Vital Signs Vital Sign - Last Date Time Temp Pulse Resp B/P Pulse Ox O2 Delivery O2 Flow Rate FiO2 08/27/16 10:12 36.9 64 18 88/59 98 Room Air 08/25/16 14:37 3 Intake and Output 08/26/16 08/26/16 08/27/16 Cumulative From/Thru 15:00 23:00 07:00 08/18/16 00:26 - 08/27/16 05:13 Intake Total 2545 ml 1200 ml 22665 ml Output Total 1500 ml 2250 ml 10791 ml Balance 1045 ml -1050 ml 2218 ml Intake Oral 1979 ml 1200 ml 40568 ml IV Total 566 ml 25188 ml Output Urine Total 1500 ml 2250 ml 98435 ml # Voids 5 # Bowel Movements 4 12 Exam GENERAL: NAD, Pt laying in bed comfortably HEENT: AT/NC, PERRLA, EOMI, Mucus Membranes are moist CARDIAC: RRR; No M/R/G PULM: CTAB; No wheezes or rhonchi bilaterally ABD: Soft, Nontender, Nondistended, Positive bowel sounds in all quadrants, No Hepatosplenomegaly appreciated EXT: No C/C/E; No calf tenderness bilaterally SKIN: Warm, Dry, [place], and Intact NEURO: Alert and oriented x3; Following all commands PSYCH: Normal mood and affect IVs and Medications Medications Reviewed: Medications were reviewed in detail Lab and Diagnostics Result Diagram: 08/27/16 0608 08/27/16 0608 Microbiology Multiple blood cultures positive for MRSA including ones drawn yesterday. X-Rays, CTs and MRIs X-RAY LEFT KNEE, THREE VIEWS IMPRESSION: Although no bony erosions are identified, plain film radiography is relatively insensitive in the acute phases of osteomyelitis and may not demonstrate radiographic changes for 15 days. If acute osteomyelitis is of clinical concern , nuclear medicine regional bone scan or MRI is recommended. Joint effusion. 2 cm soft tissue foreign body within the upper lower leg medially at the level of the proximal tibia shaft. Dictated by: Daniel OVALLES Interpreted: Saadia Burton MD on 08/18/2016 at 10:07 CT BRAIN WITH AND WITHOUT CONTRAST IMPRESSION: 1. No acute intracranial process. Dictated by: Victoria Galvan M.D. on 08/18/2016 at 10:43 X-RAY CHEST, TWO VIEWS IMPRESSION: No acute cardiopulmonary disease. Dictated by: Daniel Peace [facility] Interpreted: Saadia Burton MD on 08/18/2016 at 10:09 Cardiac Echo Impressions Interpretation Summary The left ventricle is mildly dilated. The ejection fraction is estimated to be 60-65%. There has been no significant change in LV EF since the previous study. The right ventricle is normal in size and function.There is trace tricuspid regurgitation. The right ventricular systolic pressure is estimated at 37 mmHg assuming a right atrial pressure of 15 mm Hg. The IVC is dilated (diameter is greater than 2.1 cm) and it collapses less than 50% with a sniff. This suggests a high right atrial pressure of 15 mm Hg (New). No obvious valvular vegetation seen. If clinical suspicion for endocarditis is high, consider HERMES. Assessment & Plan Shereen Witt is a 36-year-old female IV drug abuser, presents with 5 days of headache, new onset knee pain and swelling, positive blood cultures for MRSA. Hospital day #9 1. MRSA Bacteremia, subacute, present on admission -multiple blood cultures from this admission confirm MRSA bacteremia, sensitive to clindamycin and vancomycin. Secondary to IVDU. -Repeat blood cultures are now negative, pt will need a total of 4 weeks of IV ABX from first negative blood culture -Continue IV Vancomycin dosed by pharmacy -Infectious disease on board, we appreciate their time and recommendations 2. Clostridium Difficile Colitis -Stool PCR positive for C Diff -Start PO Vancomycin 125 mg q 6 hours now -Pt advised to keep hydrated -Monitor fluid status, and start IV Normal Saline if signs of dehydration present -Check BMP in AM 3. Hyperkalemia -Will give an AMP of D50 and 10 units regular insulin -Continue telemetry monitoring for now -Recheck K level in the evening, and BMP in AM 4. Heart murmur, chronicity unknown, present on admission, evaluation ongoing -Was heard on previous ER visits, previously evaluated in September 2015 without any valvular abnormalities apparent, but likely represents endocarditis -Echocardiogram negative for vegetations. -HERMES was was done and was negative 5. Left knee septic joint, acute, present on admission, evaluation ongoing -Joint aspirate has been collected. High amount of PMNs present in the aspirate. Cultures pending. No bacteria on gram stain. -IV antibiotics as above -Ketorolac IM every 8 hours as needed for pain -Patient continues to have pain and notes that it is harder for her stand on the left leg now. follow up Xray of the knee shows small joint effusion. -Orthopedic surgery consulted, arthroscopy and washout of the knee performed, orthopedics following. -Monitor for signs of effusion and pain. 6. Urinary tract infection, acute, present on admission, treatment initiated -Urine culture from 08/12/2016 grew Escherichia coli, susceptible to ceftriaxone -Pt completed treatment with IV Rocephin 7. Headache, present on admission, subacute - Patient is at risk for mycotic aneurysm, ID recommended imaging - Dr. Burton of Radiology recommends starting with CT angiogram of the brain which is more sensitive for aneurysm. Follow-up MRA may be needed based on findings. - CT angiogram of brain shows no evidence of mycotic aneurysm. GI Prophylaxis: Not indicated VTE Prophylaxis: Sub-Q Enoxaparin VTE Mechanical Devices: Intermittant Pneumatic CD Resuscitation Status: CPR: Attempt Resuscitation Parmjit Peterson MD Aug 27, 2016 11:04
--- NOTE | 2016-08-27 11:19 | PCM.PNORTH ---
Subjective Date of Service: Aug 27, 2016 Visit Information: Reason for Visit Mrsa, Bacteremia Sbe,L Knee Septic Arthritis Surgery/Surgery Date left knee arthroscopic washout 08/25/2016 Post-Op Day # 2 Date of Admission: Aug 18, 2016 at 04:44 Hospital Day # Subjective Patient reports the knee is still painful but it is moving better. Intra-op cultures are no growth, no organisms seen. Serum WBC count is up a little from yesterday. Afebrile. Patient is positive for C-diff. Postop General: No Shortness of Breath, No Chest Pain, Good Appetite Pain Management: PO Objective Exam Objective Patient is seen sitting up in bed Vital Signs and I/O Vital Sign - Last Date Time Temp Pulse Resp B/P Pulse Ox O2 Delivery O2 Flow Rate FiO2 08/27/16 10:12 36.9 64 18 88/59 98 Room Air 08/25/16 14:37 3 Intake and Output 08/26/16 08/26/16 08/27/16 Cumulative From/Thru 15:00 23:00 07:00 08/18/16 00:26 - 08/27/16 05:13 Intake Total 2545 ml 1200 ml 62429 ml Output Total 1500 ml 2250 ml 00026 ml Balance 1045 ml -1050 ml 2218 ml Intake Oral 1979 ml 1200 ml 05951 ml IV Total 566 ml 73934 ml Output Urine Total 1500 ml 2250 ml 81769 ml # Voids 5 # Bowel Movements 4 12 Lab & Micro Results Laboratory Tests Test 08/27/16 06:08 White Blood Count 10.8th/mm3 (3.8-10.1) Red Blood Count 3.46mil/mm3 (3.90-5.20) Hemoglobin 9.5g/dL (12.0-15.6) Hematocrit 29.8% (35.0-46.0) Mean Corpuscular Volume 86.1fL (81-100) Mean Corpuscular Hemoglobin 27.5pg (27.0-35.0) Mean Corpuscular Hemoglobin Concent 31.9% (32.0-37.0) Red Cell Distribution Width 14.1% (12.3-15.4) Platelet Count 438bil/L (150-400) Neutrophils (%) (Auto) 59.0% (40-74) Lymphocytes (%) (Auto) 29.0% (14-46) Monocytes (%) (Auto) 7.2% (4-12) Eosinophils (%) (Auto) 2.9% (0-5) Basophils (%) (Auto) 0.5% (0-3) Sodium Level 139mEq/L (134-144) Potassium Level 5.6mEq/L (3.5-5.2) Chloride Level 103mEq/L (97-108) Carbon Dioxide Level 23mmol/L (18-29) Blood Urea Nitrogen 12mg/dL (6-20) Creatinine 0.65mg/dL (0.57-1.00) Estimat Glomerular Filtration Rate 149mL/min (>59) Glucose Level 112mg/dL (60-99) Calcium Level 9.1mg/dL (8.5-10.1) Total Bilirubin 0.2mg/dL (0.0-1.2) Aspartate Amino Transf (AST/SGOT) 21U/L (0-50) Alanine Aminotransferase (ALT/SGPT) 11U/L (0-32) Alkaline Phosphatase 74U/L (25-150) Total Protein 7.3g/dL (6.4-8.4) Albumin 2.5g/dL (3.4-5.0) Microbiology 08/24/16 Blood Culture - Preliminary, Resulted No growth at 2 days; culture examined... 08/24/16 Gram Stain - Final, Resulted 08/24/16 Culture & Sensitivity - Preliminary, Resulted 08/26/16 Campylobacter (PCR) - Final, Complete Not Detected 08/26/16 Clostridium difficile Toxin A&B (M) - Final, Complete Pos For Cdif Toxin 08/26/16 Plesiomonas shigelloides (PCR) - Final, Complete Not Detected 08/26/16 Salmonella (PCR)(KADEN) - Final, Complete Not Detected 08/26/16 Yersinia enterocolitica (PCR) - Final, Complete Not Detected 08/26/16 Vibrio Species (PCR) - Final, Complete Not Detected 08/26/16 Vibrio Cholerae (PCR) - Final, Complete Not Detected 08/26/16 Enteroaggregative E. coli (PCR) - Final, Complete Not Detected 08/26/16 Enteropathogenic E. coli (PCR) - Final, Complete Not Detected 08/26/16 Enterotoxigenic E. coli (PCR) - Final, Complete Not Detected 08/26/16 E. coli Shiga-like Toxin (PCR) - Final, Complete Not Detected 08/26/16 Escherichia coli 0157 (PCR) - Final, Complete Not Detected 08/26/16 Enteroinvasive E. coli/Shigella PCR - Final, Complete Not Detected 08/26/16 Cryptosporidium (PCR) - Final, Complete Not Detected 08/26/16 Cyclospora cayetanensis (PCR) - Final, Complete Not Detected 08/26/16 Entamoeba histolytica (PCR) - Final, Complete Not Detected 08/26/16 Giardia lamblia (PCR) - Final, Complete Not Detected 08/26/16 Adenovirus Type F 40/41 (PCR) - Final, Complete Not Detected 08/26/16 Astrovirus (PCR) - Final, Complete Not Detected 08/26/16 Norovirus (PCR) - Final, Complete Not Detected 08/26/16 Rotavirus A (PCR) - Final, Complete Not Detected 08/26/16 Sapovirus I/II/IV/V (PCR) - Final, Complete 08/18/16 Urine Culture - Final, Complete Escherichia Coli Result Diagram: 08/27/1660708/27/16 06 General Appearance: Alert, Oriented X3, Cooperative, No Acute Distress Extremities: Distal Pulses Palpable, No Compartment Syndrom Noted, Thigh & Calf Soft/Nontender Postop Sensory Motor: Distal Motor Intact, NVI Distally SURGICAL WOUND : Wound Location/Description Left knee dressing is taken down. No drainage present. Effusion is decreased compared to yesterday. No erythema present. Dressing is reapplied. Activity: Activity per PT Catheters: None Assessment & Plan Impression POD #2 left knee arthroscopic washout Problems: Plan Knee is slowly improving. Effusion is decreasing but still present. No erythema or drainage present. Weightbearing: Partial weightbearing left lower extremity with crutches/walker for 1-2 weeks Physical therapy for transfers, progressive ambulation, therapeutic exercise, range of motion Wound care: leave current dressing in place. Nursing may change if soiled or saturated Continue IV abx per medical team Patient advised that she may a repeat washout in the future if the knee becomes red and tender again. Dr. Nieto is covering for Dr. Odonnell this weekend Follow-up plan: In 2 weeks at [facility] with Dr. Odonnell Pain Management: Ama VTE Prophylaxis: Sub-Q Enoxaparin Resuscitation Status: CPR: Attempt Resuscitation Nidia Mota PA-C Aug 27, 2016 11:19
[2016-08-27] MEDS ORDERED: Vancomycin Serum Trough XX ONE (11:30)
[2016-08-27] MEDS: Vancomycin 125 mg Oral Capsule PO SCH ×3 (12:42→22:45)
--- NOTE | 2016-08-27 15:09 | PCM.PHAPRO ---
Progress VANCOMYCIN DOSING PER PHARMACY Vancomycin trough today was 15.3 which is within target trough SCr: 0.65 P: Will continue with Vancomycin 1.25g IV Q8H Will draw another draw on 08/29/16 @ [id number] to make sure it's stable Amanda Tillman PharmD Aug 27, 2016 15:08
[2016-08-27] MEDS: Insulin Human REGular-Omnicell 100 Unit/mL IV ONE (22:45)
[2016-08-28] VITALS (8 sets, daily range): BP systolic 95–115; BP diastolic 55–74; PULSE 62–78; RESP 15–18; O2SAT 98–100
[2016-08-28] MEDS: Sodium Chloride LOK Flush 10 mL Syringe IVFLUSH SCH ×3 (00:05→16:30)
[2016-08-28] MEDS: Insulin Human REGular-Omnicell 100 Unit/mL IV ONE (00:05)
[2016-08-28] MEDS: 0.9% Sodium Chloride 1,000 ML IV SCH ×3 (00:05→17:47)
[2016-08-28] MEDS: cloNIDine 0.1 mg Tablet PO PRN ×3 (01:55→20:23)
[2016-08-28] MEDS: Vancomycin Inj 1,250 MG in 0.9% Sodium Chloride 250 ML IV SCH ×4 (03:49→20:13)
[2016-08-28] MEDS: Vancomycin 125 mg Oral Capsule PO SCH ×4 (03:49→23:41)
--- NOTE | 2016-08-28 06:09 | NUR ---
Potassium/Blood sugar Patients potassium 5.4 at 1900. order for 10 units of IV regular insulin and D50 IV. Patient blood sugar 125 before administration. 45 minutes later patients blood sugar 42. Patient symptomatic reporting visual changes, visible sweat on forehead, hands cool to touch. Patient was given glass of [place] juice and the other half of the D50,and peanut butter crackers. 15 minutes later blood sugar improved to 88. Patient was given Ice cream and pudding per request 15 minutes later blood sugar 117. Patient rechecked 1 hour later 97. 1 hour after that patient was 118. potassium level decreased to 4.5 this AM. will continue to monitor.
--- NOTE | 2016-08-28 06:14 | NUR ---
IV Patients IV in foot infiltrated and removed. IV start attemptedx2 by charge nurse. CCU RN up to start IV. IV placed in shoulder. Patient reported pressure with D50. IV flushed and blood return noted. patient denied any pain/discomfort after D50. IVF infusing. IV checked at 0400 prior to vanco administration. IV site appears red swollen and raised. patient reported pain with flushing. IV d/c'd intact. Unable to infuse 0400 vancomycin. Message left with IV therapy. MD aware of no IV access at this time. Patient has Ice pack on site.
--- NOTE | 2016-08-28 07:48 | PCM.PNORTH ---
Subjective Date of Service: Aug 28, 2016 Visit Information: Reason for Visit Mrsa, Bacteremia Sbe,L Knee Septic Arthritis Surgery/Surgery Date R/O PEPTIC ULCER DISEASE Post-Op Day # Date of Admission: Aug 18, 2016 at 04:44 Hospital Day # Subjective Foundation awake alert this morning and sitting up in bed. States she has some discomfort in the left knee but has only been up to the bathroom and walking in the velez as morning. Patient states that her knee is somewhat stiff when kept flexed for a long time and she is actively working on foot pumps and knee positioning to maintain her knee in an extended position and very her position during the day. Patient has no significant complaints at this time and is pleasant and cooperative. Postop General: No Shortness of Breath, No Chest Pain, Good Appetite Pain Management: PO Objective Exam Objective Alert and oriented 3 and pleasant. Postoperative dressing is clean dry and intact. Knee is mildly swollen. Dressing is removed and scope ports appear to be intact with no drainage. Calf and thigh exhibit some mild swelling but are not tender. Toe wiggle and sensation are intact and left lower extremity distally Lebron is absent. Patient is well-positioned. Vital Signs and I/O Vital Sign - Last Date Time Temp Pulse Resp B/P Pulse Ox O2 Delivery O2 Flow Rate FiO2 08/28/16 03:51 37.0 78 18 103/66 99 Room Air 08/25/16 14:37 3 Intake and Output 08/27/16 08/27/16 08/28/16 Cumulative From/Thru 15:00 23:00 07:00 08/18/16 00:26 - 08/28/16 05:17 Intake Total 2694 ml 1223 ml 21603 ml Output Total 1600 ml 1300 ml 85385 ml Balance 1094 ml -77 ml 3235 ml Intake Oral 1500 ml 1223 ml 53598 ml IV Total 1194 ml 07104 ml Output Urine Total 1600 ml 1300 ml 02700 ml # Voids 5 # Bowel Movements 3 15 Lab & Micro Results Laboratory Tests Test 08/27/16 12:04 08/27/16 19:00 08/28/16 01:24 08/28/16 03:45 Vancomycin Level Trough 15.3mcg/mL Potassium Level 5.4mEq/L (3.5-5.2) 5.0mEq/L (3.5-5.2) 5.1mEq/L (3.5-5.2) Test 08/28/16 05:20 Sodium Level 137mEq/L (134-144) Potassium Level 4.5mEq/L (3.5-5.2) Chloride Level 99mEq/L (97-108) Carbon Dioxide Level 26mmol/L (18-29) Blood Urea Nitrogen 15mg/dL (6-20) Creatinine 0.63mg/dL (0.57-1.00) Estimat Glomerular Filtration Rate 155mL/min (>59) Glucose Level 126mg/dL (60-99) Calcium Level 9.0mg/dL (8.5-10.1) Microbiology 08/24/16 Blood Culture - Preliminary, Resulted No growth at 2 days; culture examined... 08/24/16 Gram Stain - Final, Resulted 08/24/16 Culture & Sensitivity - Preliminary, Resulted 08/26/16 Campylobacter (PCR) - Final, Complete Not Detected 08/26/16 Clostridium difficile Toxin A&B (M) - Final, Complete Pos For Cdif Toxin 08/26/16 Plesiomonas shigelloides (PCR) - Final, Complete Not Detected 08/26/16 Salmonella (PCR)(KADEN) - Final, Complete Not Detected 08/26/16 Yersinia enterocolitica (PCR) - Final, Complete Not Detected 08/26/16 Vibrio Species (PCR) - Final, Complete Not Detected 08/26/16 Vibrio Cholerae (PCR) - Final, Complete Not Detected 08/26/16 Enteroaggregative E. coli (PCR) - Final, Complete Not Detected 08/26/16 Enteropathogenic E. coli (PCR) - Final, Complete Not Detected 08/26/16 Enterotoxigenic E. coli (PCR) - Final, Complete Not Detected 08/26/16 E. coli Shiga-like Toxin (PCR) - Final, Complete Not Detected 08/26/16 Escherichia coli 0157 (PCR) - Final, Complete Not Detected 08/26/16 Enteroinvasive E. coli/Shigella PCR - Final, Complete Not Detected 08/26/16 Cryptosporidium (PCR) - Final, Complete Not Detected 08/26/16 Cyclospora cayetanensis (PCR) - Final, Complete Not Detected 08/26/16 Entamoeba histolytica (PCR) - Final, Complete Not Detected 08/26/16 Giardia lamblia (PCR) - Final, Complete Not Detected 08/26/16 Adenovirus Type F 40/41 (PCR) - Final, Complete Not Detected 08/26/16 Astrovirus (PCR) - Final, Complete Not Detected 08/26/16 Norovirus (PCR) - Final, Complete Not Detected 08/26/16 Rotavirus A (PCR) - Final, Complete Not Detected 08/26/16 Sapovirus I/II/IV/V (PCR) - Final, Complete 08/18/16 Urine Culture - Final, Complete Escherichia Coli Result Diagram: 08/27/16 0608 08/28/16 0520 General Appearance: Oriented X3, Cooperative, No Acute Distress Extremities: No Compartment Syndrom Noted, Thigh & Calf Soft/Nontender Postop Sensory Motor: Distal Motor Intact, Movement in Toes, Distal Sensation Intact Activity: Activity per PT, Ambulate with PT (physical therapy for mobility, gait safety with emphasis on range of motion of the left knee.) Catheters: None Assessment & Plan Impression Patient is a 36-year-old female IV drug abuser who has suffered a septic knee with lavage and debridement on 08/25/[address] Gabino Odonnell. She is currently under treatment with IV antibiotics and will be a resident at the hospital through September 18 to complete her IV antibiotics secondary to inability to discharge her with a PICC line. Problems: Plan Postop day #3 from left knee arthroscopic debridement and lavage performed on by Dr. Gabino dOonnell. Continue partial weightbearing only at the left lower extremity 1 week postop using front wheeled walker. Continue formal physical therapy for mobility, gait and safety with emphasis on left knee range of motion. Continue by mouth pain medications with methadone and Bruno 5. Continue Lovenox 40 mg subcutaneous daily for DVT prophylaxis. Continue IV antibiotic medication per Dr. Moore and hospitalist service for treatment of left knee septic arthritis. Postoperative dressing is removed today and wounds are examined and found to be in good condition. There are no sutures in the scope ports to allow for drainage at the ports are not wet and not draining at this time and appears to be in good condition. Patient has moderately good mobility at her knee with some discomfort. She is in reasonably good spirits and is mobile on her own to bathroom and hallway. Orthopedics thanks hospitalist service for their help in the medical management of this patient. Orthopedics thanks Dr. Moore for his help in medical management of this patient. Follow-up in 2 weeks status post RC repair and orthopedic clinic with Dr. shetty for wound check and reevaluation. Orthopedics will sign off at this time but as always we will remain available for consultation or treatment as needed throughout her stay. Anticipate discharge by hospitalist service in mid September after full course of IV antibiotics has been completed. VTE Prophylaxis: Sub-Q Enoxaparin Resuscitation Status: CPR: Attempt Resuscitation Michi Ayala PA-C Aug 28, 2016 07:48
[2016-08-28] MEDS: Pantoprazole 40 mg ER24 Tablet PO SCH ×2 (07:56→17:46)
[2016-08-28] MEDS: Multivit-Miner-Folic Acid-Iron Tablet PO SCH (07:56)
[2016-08-28] MEDS: Ascorbic Acid 500 mg Tablet PO SCH ×2 (07:57→17:54)
[2016-08-28] MEDS: Lactobacillus Rhamnosus 10 Bil Unit Capsule PO SCH ×4 (07:57→21:43)
[2016-08-28] MEDS: HYDROcodone-APAP 5-325 mg Tablet PO PRN ×3 (09:00→20:24)
--- NOTE | 2016-08-28 14:18 | NUR ---
Pain IV therapy at bed side this morning and started IV to right forearm. Vancomycin IV infusing as ordered with out difficulty. c/o pain to left knee. PRN pain medication given as ordered with effective results. PRN clonidine and Methadone given as ordered for withdraw. Dr. Borden at bed side this morning and dressing changed this morning. per Tele SR 75. patient is alert and oriented X3 and drawing colors. Stable vital signs and no fever. Will continue to monitor vitals signs, pain to left knee, and safety. uses call light appropriately. stable mood.
--- NOTE | 2016-08-28 16:10 | NUR ---
Social Work: Continued d/c planning Data: Pt is on day 7 of hospitalization. EMR reviewed. Pt discussed in rounds, states pt will remain in hospital for 4-6 weeks of IVABX. SW will follow up with pt regarding her not having identification of any type, which is needed for suboxone/methodone clinic. SW will ask if pt is connected with any sort of [facility] [place], which may be able to assist her. SW will continue to follow. Assessment: Pt who is independent at baseline, IV drug user. Plan: Pt will remain in hospital for 4-6 weeks of IVABX from 08/22/16. SW will follow up with pt regarding her not having identification of any type. Val Stone MSW
--- NOTE | 2016-08-28 16:12 | PCM.PNMED ---
Subjective Date of Service Aug 28, 2016 Subjective Shereen Witt is a 36-year-old woman currently IV drug abuser, presents with 5 days of headache, new onset knee pain and swelling, positive blood cultures 2 for MRSA. Hospital day #11 Patient reports doing okay this morning, she is still having knee pain especially with movement, improved with pain medications. Headache is not as big of a concern at this time as it has been. Patient reports no diarrhea for the last 16 hours, minor abdominal cramping but no pain. No nausea or vomiting. Exam Vital Signs Vital Sign - Last Date Time Temp Pulse Resp B/P Pulse Ox O2 Delivery O2 Flow Rate FiO2 08/28/16 03:51 37.0 78 18 103/66 99 Room Air 08/25/16 14:37 3 Intake and Output 08/27/16 08/27/16 08/28/16 Cumulative From/Thru 15:00 23:00 07:00 08/18/16 00:26 - 08/28/16 05:17 Intake Total 2694 ml 1223 ml 69132 ml Output Total 1600 ml 1300 ml 40174 ml Balance 1094 ml -77 ml 3235 ml Intake Oral 1500 ml 1223 ml 91990 ml IV Total 1194 ml 73351 ml Output Urine Total 1600 ml 1300 ml 51585 ml # Voids 5 # Bowel Movements 3 15 Exam General: Resting comfortably, no apparent distress. Disheveled, poor hygiene. HEENT: Normocephalic, hair is matted, multiple lesions of varying size and states of healing on her face-almost healed. Extraocular muscles intact, pupils round and reactive to light, mucous membranes moist Cardiovascular: Regular rate and rhythm, 2/6 systolic murmur heard best in the tricuspid area Pulmonary: Clear to auscultation bilaterally, no crackles, wheezes, or ronchi. Abdominal: Soft to palpation, bowel sounds present, no hepatosplenomegaly. No rebound. Extremities: There is trace edema to lower extremities, No splinter hemorrhages , Ostlers nodes, or Janeway lesions appreciated. Neuro: Neurologically grossly intact. MSK: Left knee wrapped with an Jose D wrap. Lab and Diagnostics Result Diagram: 08/27/16 0608 08/28/16 0345 Microbiology Multiple blood cultures positive for MRSA including ones drawn yesterday. X-Rays, CTs and MRIs X-RAY LEFT KNEE, THREE VIEWS IMPRESSION: Although no bony erosions are identified, plain film radiography is relatively insensitive in the acute phases of osteomyelitis and may not demonstrate radiographic changes for 15 days. If acute osteomyelitis is of clinical concern , nuclear medicine regional bone scan or MRI is recommended. Joint effusion. 2 cm soft tissue foreign body within the upper lower leg medially at the level of the proximal tibia shaft. Dictated by: Daniel OVALLES Interpreted: Saadia Burton MD on 08/18/2016 at 10:07 CT BRAIN WITH AND WITHOUT CONTRAST IMPRESSION: 1. No acute intracranial process. Dictated by: Victoria Galvan M.D. on 08/18/2016 at 10:43 X-RAY CHEST, TWO VIEWS IMPRESSION: No acute cardiopulmonary disease. Dictated by: Daniel OVALLES Interpreted: Saadia Burton MD on 08/18/2016 at 10:09 Cardiac Echo Impressions Interpretation Summary The left ventricle is mildly dilated. The ejection fraction is estimated to be 60-65%. There has been no significant change in LV EF since the previous study. The right ventricle is normal in size and function.There is trace tricuspid regurgitation. The right ventricular systolic pressure is estimated at 37 mmHg assuming a right atrial pressure of 15 mm Hg. The IVC is dilated (diameter is greater than 2.1 cm) and it collapses less than 50% with a sniff. This suggests a high right atrial pressure of 15 mm Hg (New). No obvious valvular vegetation seen. If clinical suspicion for endocarditis is high, consider HERMES. Assessment & Plan Shereen Witt is a 36-year-old female IV drug abuser, presents with 5 days of headache, new onset knee pain and swelling, positive blood cultures for MRSA. Hospital day #9 1. MRSA Bacteremia, subacute, present on admission -multiple blood cultures from this admission confirm MRSA bacteremia, sensitive to clindamycin and vancomycin. Secondary to IVDU. -Repeat blood cultures are now negative, pt will need a total of 4 weeks of IV ABX from first negative blood culture.i.e thru September 18 -Continue IV Vancomycin dosed by pharmacy -Infectious disease on board, we appreciate their time and recommendations 2. Clostridium Difficile Colitis, not present on admission, improving -Stool PCR positive for C Diff -Start PO Vancomycin 125 mg q 6 hours now -Pt advised to keep hydrated -Monitor fluid status, and start IV Normal Saline if signs of dehydration present -Check BMP in AM 3. Hyperkalemia, not present on admission, resolved -Will give an AMP of D50 and 10 units regular insulin -Continue telemetry monitoring for now - Stable today, recheck BMP in AM 4. Heart murmur, chronicity unknown, present on admission, -Was heard on previous ER visits, previously evaluated in September 2015 without any valvular abnormalities apparent, but likely represents endocarditis -Echocardiogram negative for vegetations. -HERMES was was done and was negative 5. Left knee septic joint, acute, present on admission, evaluation ongoing -Joint aspirate has been collected. High amount of PMNs present in the aspirate. No polys or organisms on Gram stain, and no growth after 48 hours. -IV antibiotics as above -discontinued Ketorolac IM every 8 hours as needed for pain -Patient continues to have some continued pain without Toradol. Consider up titrating oxycodone to 15mg Q 4 hours as needed for severe pain. -Orthopedic surgery consulted, arthroscopy and washout of the knee performed, orthopedics has signed off at this time. Thank you for their assistance. -Monitor for signs of effusion and pain. 6. Urinary tract infection, acute, present on admission, treatment initiated -Urine culture from 08/12/2016 grew Escherichia coli, susceptible to ceftriaxone -Pt completed treatment with IV Rocephin 7. Headache, present on admission, subacute - Patient is at risk for mycotic aneurysm, ID recommended imaging - Dr. Burton of Radiology recommends starting with CT angiogram of the brain which is more sensitive for aneurysm. Follow-up MRA may be needed based on findings. - CT angiogram of brain shows no evidence of mycotic aneurysm. 8. history of IV drug abuse -will avoid placing PICC -outpatient follow yup for her substance issues -SW to give outpatient resource information VTE Prophylaxis with subcutaneous Lovenox GI prophylaxis: Not indicated Pain management: Methadone Dispo: Anticipate patient will be here for an extended amount of time as she undergoes treatment for MRSA bacteremia and possible endocarditis. First negative blood culture thus start date for antibiotic treatment 08/22/2016. Earliest possible date of discharge will be September 18. Patient will need to remain on by mouth vancomycin until September 10, 2016. Pain Evaluation: Adequate Pain Control GI Prophylaxis: Not indicated VTE Prophylaxis: Sub-Q Enoxaparin VTE Mechanical Devices: Intermittant Pneumatic CD Resuscitation Status: CPR: Attempt Resuscitation Attending Statement The patient was seen and examined independently on 08/28/2016and case discussed with Dr. Rebolledo , I agree with the history, exam and plan as outlined in the note above. Alis Rebolledo DO Aug 28, 2016 06:03 Gabe Mancuso MD Aug 28, 2016 16:20
--- NOTE | 2016-08-28 16:46 | NUR ---
NUTRITION ASSESSMENT: ASSESS:36 YO female admitted with MRSA bacteremia related to IV drug use. Pt will be in hospital for 4-6 week for IV antibiotics. Pt with septic L knee s/p lavage and debridement on 08/25/16. PMHx: Ulcers, Left breast infection, migraines, MRSA, heart murmur, asthma, GERD, heroin, IV drug abuse. LABS: Reviewed. Glu 126, Alb 2.6, A1C 5.8. MEDS: Reviewed. GI: BM x 3 (08/27), Pt with c-diff per notes. SKIN: Left knee incision. CURRENT WT: 91.8 kg (08/18). No new wt since admit. IBW: 63.64 kg. DIET: General. PO intake 25-100% of meals. EST. NEEDS: 6663-5413 kcals (20-22 kcals/kg BW), 75-95 g protein (1.2-1.5 g/kg IBW) NUTRITION DIAGNOSIS: 1.) No nutritional diagnosis at this time. NUTRITION INTERVENTION: 1.) No nutritional intervention at this time. MONITOR / EVAL: PO intake, labs nutritional status. Follow per low nutritional risk guidelines.
--- NOTE | 2016-08-28 19:00 | PROG NOTE ---
[address] [address] PROGRESS NOTE PATIENT: LISA SOSA : 1980 MR#: [id number] ADMIT: 08/18/2016 JOB ID: [id number] DATE: 08/28/2016 REASON FOR FOLLOWUP: High-grade MRSA bacteremia with septic left knee, now complicated by C. difficile colitis. INTERVAL HISTORY: Over the weekend, the patient has done relatively well on vancomycin. She had a knee washout performed by Dr. Odonnell which she tolerated fairly well and she is now able to walk, albeit with a lot of pain, on her left leg. She did develop some diarrhea and a C. diff was done which was surprisingly positive. This was surprising because the patient has only been on IV Vanco which one would think would not select for C. diff under any circumstances. She was started appropriately on oral vancomycin in addition to her IV Vanco and her diarrhea has basically resolved already. PHYSICAL EXAMINATION: Reveals an afebrile woman, temperature 36.6, blood pressure 99/61, pulse 60, respiratory rate 18, saturating well. Examination of the mental status is normal. Oral cavity negative. Lungs clear. Cardiac tones without murmur. Abdomen benign. Left knee is still swollen. It is wrapped in a tight dressing at this moment. There is no erythema above or below it. No skin rash. LABORATORIES: Include white count 11,000, platelet count 438, creatinine 0.63. LFTs are normal. Urinalysis without pyuria. Vancomycin trough 15 this morning. Hep C studies are pending. Stool was positive for C. diff on the . Our blood cultures were positive up through the and negative starting the . No new imaging has been done in the past 48 hours. IMPRESSION: This is an unfortunate woman with recent intravenous drug use who presents with high-grade methicillin-resistant Staphylococcus aureus bacteremia and septic left knee. She has developed diarrhea over the weekend and, surprisingly, this was positive for Clostridium difficile. Whether or not she actually has C. diff colitis or just C. diff colonization with a string capable of producing toxin in an unrelated cause of diarrhea such as drug withdrawal cannot be established. RECOMMENDATIONS: 1. Will continue with IV vancomycin through September 18. 2. Will continue with oral vancomycin for two weeks. 3. Will try and keep Vanco trough between 15-20. 4. Will have to closely watch her knee going forward.
[2016-08-28] MEDS: Vancomycin Dose per Pharmacist XX SCH (20:06)
[2016-08-28] MEDS: hydrOXYzine Pamoate 25 mg Capsule PO PRN (21:48)
[2016-08-29] VITALS (8 sets, daily range): BP systolic 101–120; BP diastolic 61–76; PULSE 64–84; RESP 15–18; O2SAT 98–100
[2016-08-29] MEDS: Sodium Chloride LOK Flush 10 mL Syringe IVFLUSH SCH ×3 (00:30→16:30)
[2016-08-29] MEDS: 0.9% Sodium Chloride 1,000 ML IV SCH ×2 (01:46→09:10)
[2016-08-29] MEDS: Vancomycin Inj 1,250 MG in 0.9% Sodium Chloride 250 ML IV SCH ×3 (03:40→20:49)
[2016-08-29] MEDS: Vancomycin 125 mg Oral Capsule PO SCH ×4 (05:03→22:42)
[2016-08-29 05:52] LABS: BASOPHILS % (AUTO) 0.4 % (0-3); MONOCYTES % (AUTO) 5.9 % (4-12); Mean Corpuscular Hemoglobin 27.3 pg (27.0-35.0); Mean Corpuscular Volume 88.6 fL (81-100); NEUTROPHILS % (AUTO) 55.5 % (40-74); Platelet Count 465 bil/L (150-400)
--- NOTE | 2016-08-29 05:59 | PCM.PNMED ---
Subjective Date of Service Aug 29, 2016 Subjective Shereen Witt is a 36-year-old woman currently IV drug abuser, presents with 5 days of headache, new onset knee pain and swelling, positive blood cultures 2 for MRSA. Hospital day #12 Patient continues to report left knee pain worse with activity. Her headache has been much better, lingering at a 3-4/10. In the morning she had not had a bowel movement since her most recent diarrhea and starting oral vancomycin. In the afternoon she did have a formed bowel movement. Patient continues to be concerned about her restless legs, she has been hopeful that iron supplementation would help however now feels like the moving of her legs is contributing to her knee pain. No abdominal pain, fever, or chills. Exam Vital Signs Vital Sign - Last Date Time Temp Pulse Resp B/P Pulse Ox O2 Delivery O2 Flow Rate FiO2 08/29/16 05:20 36.8 70 15 105/61 100 Room Air 08/25/16 14:37 3 Intake and Output 08/28/16 08/28/16 08/29/16 Cumulative From/Thru 15:00 23:00 07:00 08/18/16 00:26 - 08/29/16 05:05 Intake Total 2186 ml 1383 ml 93213 ml Output Total 1750 ml 59681 ml Balance 436 ml 1383 ml 5054 ml Intake Oral 1436 ml 16641 ml IV Total 750 ml 1383 ml 64641 ml Output Urine Total 1750 ml 34368 ml # Voids 5 # Bowel Movements 1 16 Exam General: Resting comfortably, no apparent distress. Disheveled, poor hygiene, matted hair. HEENT: Normocephalic, hair is matted, multiple lesions of varying size and states of healing on her face-almost healed. Extraocular muscles intact, pupils round and reactive to light, mucous membranes moist Cardiovascular: Regular rate and rhythm, 2/6 systolic murmur heard best in the tricuspid area Pulmonary: Clear to auscultation bilaterally, no crackles, wheezes, or ronchi. Abdominal: Soft to palpation, bowel sounds present, no hepatosplenomegaly. No rebound. Extremities: There is trace nonpitting edema to lower extremities, No splinter hemorrhages, Ostlers nodes, or Janeway lesions appreciated. Neuro: Neurologically grossly intact. MSK: Left knee wrapped with an Jose D wrap. Wrap removed, Kerlix underneath, ABD pad dry with very small amount of serosanguineous discharge. Knee joint mildly swollen with some fullness superior to the patella. IVs and Medications IV Fluids Change to TKO Medications Reviewed: Medications were reviewed in detail Lab and Diagnostics Result Diagram: 08/27/16 0608 08/28/16 0520 Microbiology Multiple blood cultures positive for MRSA including ones drawn yesterday. X-Rays, CTs and MRIs X-RAY LEFT KNEE, THREE VIEWS IMPRESSION: Although no bony erosions are identified, plain film radiography is relatively insensitive in the acute phases of osteomyelitis and may not demonstrate radiographic changes for 15 days. If acute osteomyelitis is of clinical concern , nuclear medicine regional bone scan or MRI is recommended. Joint effusion. 2 cm soft tissue foreign body within the upper lower leg medially at the level of the proximal tibia shaft. Dictated by: Daniel OVALLES Interpreted: Saadia Burton MD on 08/18/2016 at 10:07 CT BRAIN WITH AND WITHOUT CONTRAST IMPRESSION: 1. No acute intracranial process. Dictated by: Victoria Galvan M.D. on 08/18/2016 at 10:43 X-RAY CHEST, TWO VIEWS IMPRESSION: No acute cardiopulmonary disease. Dictated by: Daniel OVALLES Interpreted: Saadia Burton MD on 08/18/2016 at 10:09 Cardiac Echo Impressions Interpretation Summary The left ventricle is mildly dilated. The ejection fraction is estimated to be 60-65%. There has been no significant change in LV EF since the previous study. The right ventricle is normal in size and function.There is trace tricuspid regurgitation. The right ventricular systolic pressure is estimated at 37 mmHg assuming a right atrial pressure of 15 mm Hg. The IVC is dilated (diameter is greater than 2.1 cm) and it collapses less than 50% with a sniff. This suggests a high right atrial pressure of 15 mm Hg (New). No obvious valvular vegetation seen. If clinical suspicion for endocarditis is high, consider HERMES. Assessment & Plan Shereen Witt is a 36-year-old female IV drug abuser, presents with 5 days of headache, new onset knee pain and swelling, positive blood cultures for MRSA. Hospital day #12 1. MRSA Bacteremia, subacute, present on admission -multiple blood cultures from this admission confirm MRSA bacteremia, sensitive to clindamycin and vancomycin. Secondary to IVDU. -Repeat blood cultures are now negative, pt will need a total of 4 weeks of IV ABX from first negative blood culture.i.e thru September 18 -Continue IV Vancomycin dosed by pharmacy -Infectious disease on board, we appreciate their time and recommendations 2. Clostridium Difficile Colitis, not present on admission, improving -Stool PCR positive for C Diff -Start PO Vancomycin 125 mg q 6 hours now -Patient will need to remain on by mouth vancomycin until September 10, 2016. -Pt advised to keep hydrated -Monitor fluid status, and start IV Normal Saline if signs of dehydration present -Check BMP in AM 3. Left knee septic joint, acute, present on admission, evaluation ongoing -Joint aspirate has been collected. High amount of PMNs present in the aspirate. No polys or organisms on Gram stain, and no growth after 48 hours. -IV antibiotics as above -discontinued Ketorolac IM every 8 hours as needed for pain, changed to once daily in the evening -Patient continues to have some continued pain without Toradol. -Methadone 10 mg twice a day, oxycodone and Tylenol for breakthrough. -Orthopedic surgery consulted, arthroscopy and washout of the knee performed, orthopedics has signed off at this time. Thank you for their assistance. -Monitor for signs of effusion and pain. 4. Heart murmur, chronicity unknown, present on admission, -Was heard on previous ER visits, previously evaluated in September 2015 without any valvular abnormalities apparent, but likely represents endocarditis -Echocardiogram negative for vegetations. -HERMES was was done and was negative 5. Hyperkalemia, not present on admission, resolved -Continue telemetry monitoring for now - Stable today, recheck BMP in AM 6. Urinary tract infection, acute, present on admission, treatment completed -Urine culture from 08/12/2016 grew Escherichia coli, susceptible to ceftriaxone -Pt completed treatment with IV Rocephin 7. Headache, present on admission, subacute - Patient is at risk for mycotic aneurysm, ID recommended imaging - Dr. Burton of Radiology recommends starting with CT angiogram of the brain which is more sensitive for aneurysm. - CT angiogram of brain shows no evidence of mycotic aneurysm. 8. History of IV drug abuse -will avoid placing PICC -outpatient follow up for her substance issues -SW to give outpatient resource information 9. Restless legs - Patient is iron deficient, repletion in process - Mirapex nightly 0.25 mg VTE Prophylaxis with subcutaneous Lovenox GI prophylaxis: Not indicated Pain management: Methadone Dispo: Anticipate patient will be here for an extended amount of time as she undergoes treatment for MRSA bacteremia and possible endocarditis. First negative blood culture thus start date for antibiotic treatment 08/22/2016. Earliest possible date of discharge will be September 18. Patient will need to remain on by mouth vancomycin until September 10, 2016. GI Prophylaxis: Not indicated VTE Prophylaxis: Sub-Q Enoxaparin VTE Mechanical Devices: Intermittant Pneumatic CD Resuscitation Status: CPR: Attempt Resuscitation Attending Statement The patient was seen and examined independently on 08/29/2016and case discussed with Dr. Rebolledo , I agree with the history, exam and plan as outlined in the note above. Alis Rebolledo DO Aug 29, 2016 05:58 Gabe Mancuso MD Aug 29, 2016 18:38
--- NOTE | 2016-08-29 06:07 | NUR ---
Pain/Ortho Pt c/o pain 6-7/10 at left surgical knee, [place] given at evening, pain only slightly improved, Vistaril given and ice bag or warm pad (pt prefers warm pad) provided for further pain control, also, suggested pt try Oxycodone rather than [place], pain improved better by Oxycodone, pt down to 4/10, tolerable. Ortho check at right knee: Able move leg despite increased pain with activities, sensation intact, skin warm to touch, and cap refill<3 s. Dressing CDI.
[2016-08-29] MEDS: Vancomycin Dose per Pharmacist XX SCH (08:30)
[2016-08-29] MEDS: Multivit-Miner-Folic Acid-Iron Tablet PO SCH (08:39)
[2016-08-29] MEDS: cloNIDine 0.1 mg Tablet PO PRN (08:41)
[2016-08-29] MEDS: Ascorbic Acid 500 mg Tablet PO SCH ×2 (08:41→17:23)
[2016-08-29] MEDS: Pantoprazole 40 mg ER24 Tablet PO SCH ×2 (08:41→17:23)
[2016-08-29] MEDS: Lactobacillus Rhamnosus 10 Bil Unit Capsule PO SCH ×4 (08:41→22:42)
--- NOTE | 2016-08-29 10:57 | NUR ---
Social Work- Continued Discharge Planning Data: EMR reviewed. Pt is on day 11 of hospitalization for MRSA, Bacteremia, SBE, L knee septic Arthr per H&P. Pt anticipated to discharge on 09/18 after IV ABX treatment is completed. SW met with pt at bedside to follow up regarding plan for CD treatment following discharge. Pt stated she is working to get a replacement ID by having her certificate mailed to the hospital. SW reiterated that ID is needed in order to receive methadone treatment services. She does not have any [facility] affiliation. Pt expressed concern that she was informed she will no longer be receiving methadone while in the hospital, as she might experience withdrawal symptoms without it. SW stated this concern would be included in discharge planning note. SW will continue to follow. Assessment: Pt who is independent at baseline. Plan: Pt to discharge to homelessness when medically stable. Pt is working to obtain necessary paperwork to get replacement ID needed for methadone treatment. SW will continue to follow. STEPH Russell
[2016-08-29] MEDS ORDERED: Vancomycin Serum Trough XX ONE (11:30)
--- NOTE | 2016-08-29 19:24 | PROG NOTE ---
[address] [address] PROGRESS NOTE PATIENT: LISA SOSA : 1980 MR#: [id number] ADMIT: 08/18/2016 JOB ID: [id number] DATE: 08/29/2016 REASON FOR FOLLOWUP: High-grade MRSA bacteremia with septic left knee in an IV drug user. INTERVAL HISTORY: The patient tells me she is gradually feeling better. No fevers. No chills. No sweats overnight, no significant headache and no major back pain. She is not having cough or shortness of breath. No GI symptoms. Left knee continues to be swollen, though it is a little bit better than it was and quite tender, though she is now starting to work on some range of motion exercises. PHYSICAL EXAMINATION: Reveals an afebrile woman, temp 36.7, pulse 70, blood pressure 101/64, saturating well on room air. Examination of the head is unremarkable. Oral cavity negative. Lungs clear. Cardiac tones still without murmur. Abdomen benign. Left lower extremity wrapped in a large dressing without significant change. LABORATORIES: Include a white count of 5500, which is her best during this hospital stay. Platelets 465, creatinine 0.72. Vanco trough 13.2, which is a bit low. Hep C has come back positive, 39,000 copies. We are waiting on the genotype. Stool was positive for C. diff, but interestingly, the patient really only had a couple loose stools and they immediately resolved, making that diagnosis somewhat speculative. All blood cultures since the have been negative, after a series of positive blood cultures which stretched over a week. No new imaging. IMPRESSION: The patient continues to do fairly well with her ongoing methicillin-resistant Staphylococcus aureus bacteremia treatment and treatment for the left septic knee. She has possibly developed Clostridium difficile, though the incredibly rapid response to therapy makes me think she was colonized rather than infected with Clostridium difficile, but nonetheless, we will treat her for it. RECOMMENDATIONS: 1. Continue with IV vanc through September 18. 2. Will continue with oral vancomycin for two weeks. 3. Will continue to closely watch this patient with you.
[2016-08-30] VITALS (8 sets, daily range): BP systolic 100–114; BP diastolic 58–68; PULSE 61–70; RESP 16–18; O2SAT 97–99
[2016-08-30] MEDS: Sodium Chloride LOK Flush 10 mL Syringe IVFLUSH SCH ×3 (00:30→16:30)
[2016-08-30] MEDS: cloNIDine 0.1 mg Tablet PO PRN ×2 (00:33→23:14)
[2016-08-30] MEDS: 0.9% Sodium Chloride 1,000 ML IV SCH ×3 (03:19→20:16)
[2016-08-30] MEDS: Vancomycin Inj 1,250 MG in 0.9% Sodium Chloride 250 ML IV SCH ×3 (04:19→20:14)
[2016-08-30] MEDS: Vancomycin 125 mg Oral Capsule PO SCH ×4 (04:20→23:13)
[2016-08-30 07:14] LABS: BASOPHILS % (AUTO) 0.2 % (0-3); EOSINOPHILS % (AUTO) 2.3 % (0-5); Mean Corpuscular Hemoglobin 27.6 pg (27.0-35.0); Mean Corpuscular Volume 88.5 fL (81-100); NEUTROPHILS % (AUTO) 57.4 % (40-74); Platelet Count 484 bil/L (150-400)
--- NOTE | 2016-08-30 07:19 | NUR ---
Pain/Ortho Pt c/o pain 12/11 at left surgical knee, Oxycodonex2 given per pt requests, Toradol given at pm, ice bag offered, pt refuses it. Pain improved, tolerable, pt sleeping a few hours. Ortho check at right knee: Able move leg despite increased pain with activities, sensation intact, skin warm to touch, and cap refill<3 s. Dressing CDI.
[2016-08-30] MEDS: Ascorbic Acid 500 mg Tablet PO SCH ×3 (08:19→17:22)
[2016-08-30] MEDS: Pantoprazole 40 mg ER24 Tablet PO SCH ×2 (08:19→17:22)
[2016-08-30] MEDS: Multivit-Miner-Folic Acid-Iron Tablet PO SCH (08:19)
[2016-08-30] MEDS: Vancomycin Dose per Pharmacist XX SCH (08:30)
[2016-08-30] MEDS: Lactobacillus Rhamnosus 10 Bil Unit Capsule PO SCH ×4 (08:39→23:13)
[2016-08-30] MEDS ORDERED: Vancomycin Serum Trough XX ONE (11:30)
--- NOTE | 2016-08-30 11:40 | PCM.PNMED ---
Subjective Date of Service Aug 30, 2016 Subjective No acute events overnight Patient reports feeling tired this morning. She says that she did not sleep well. She reports no headache, continued but steady left knee pain. She also describes a similar sensation in her right knee like when her left knee started to become infected. She endorses pain with weightbearing on her right knee as well. No fever, chills, sore throat. Exam Vital Signs Vital Sign - Last Date Time Temp Pulse Resp B/P Pulse Ox O2 Delivery O2 Flow Rate FiO2 08/30/16 01:51 36.7 61 18 100/63 99 Room Air 08/25/16 14:37 3 Intake and Output 08/29/16 08/29/16 08/30/16 Cumulative From/Thru 15:00 23:00 07:00 08/18/16 00:26 - 08/30/16 04:25 Intake Total 2200 ml 3028 ml 886 ml 48734 ml Output Total 2800 ml 2625 ml 62845 ml Balance -600 ml 403 ml 886 ml 5743 ml Intake Oral 2200 ml 1925 ml 83595 ml IV Total 1103 ml 886 ml 51615 ml Output Urine Total 2800 ml 2625 ml 78596 ml # Voids 5 # Bowel Movements 1 17 Exam General: Resting comfortably, no apparent distress. Disheveled, poor hygiene, matted hair. HEENT: Normocephalic, hair is matted, multiple lesions of varying size and states of healing on her face-almost healed. Extraocular muscles intact, pupils round and reactive to light, mucous membranes moist Cardiovascular: Regular rate and rhythm, 2/6 systolic murmur heard best in the tricuspid area Pulmonary: Clear to auscultation bilaterally, no crackles, wheezes, or ronchi. Abdominal: Soft to palpation, bowel sounds present, no hepatosplenomegaly. No rebound. Extremities: There is trace nonpitting edema to lower extremities, No splinter hemorrhages, Ostlers nodes, or Janeway lesions appreciated. Neuro: Neurologically grossly intact. MSK: Left knee wrapped with an Jose D wrap. Wrap removed, Kerlix underneath, ABD pad dry with very small amount of serosanguineous discharge. Surgical incision sites did not appear to be draining. Wrap removed and replaced with a dressing that will allow patient to be more mobile. Knee joint mildly swollen with some mild fullness superior to the patella. Lab and Diagnostics Result Diagram: 08/29/16 0525 08/29/1625 Microbiology Multiple blood cultures positive for MRSA including ones drawn yesterday. X-Rays, CTs and MRIs X-RAY LEFT KNEE, THREE VIEWS IMPRESSION: Although no bony erosions are identified, plain film radiography is relatively insensitive in the acute phases of osteomyelitis and may not demonstrate radiographic changes for 15 days. If acute osteomyelitis is of clinical concern , nuclear medicine regional bone scan or MRI is recommended. Joint effusion. 2 cm soft tissue foreign body within the upper lower leg medially at the level of the proximal tibia shaft. Dictated by: Daniel OVALLES Interpreted: Saadia Burton MD on 08/18/2016 at 10:07 CT BRAIN WITH AND WITHOUT CONTRAST IMPRESSION: 1. No acute intracranial process. Dictated by: Victoria Galvan M.D. on 08/18/2016 at 10:43 X-RAY CHEST, TWO VIEWS IMPRESSION: No acute cardiopulmonary disease. Dictated by: Daniel OVALLES Interpreted: Saadia Burton MD on 08/18/2016 at 10:09 Cardiac Echo Impressions Interpretation Summary The left ventricle is mildly dilated. The ejection fraction is estimated to be 60-65%. There has been no significant change in LV EF since the previous study. The right ventricle is normal in size and function.There is trace tricuspid regurgitation. The right ventricular systolic pressure is estimated at 37 mmHg assuming a right atrial pressure of 15 mm Hg. The IVC is dilated (diameter is greater than 2.1 cm) and it collapses less than 50% with a sniff. This suggests a high right atrial pressure of 15 mm Hg (New). No obvious valvular vegetation seen. If clinical suspicion for endocarditis is high, consider HERMES. Assessment & Plan Shereen Witt is a 36-year-old female IV drug abuser, presents with 5 days of headache, new onset knee pain and swelling, positive blood cultures for MRSA. Hospital day #12 1. MRSA Bacteremia, subacute, present on admission -multiple blood cultures from this admission confirm MRSA bacteremia, sensitive to clindamycin and vancomycin. Secondary to IVDU. -Repeat blood cultures are now negative, pt will need a total of 4 weeks of IV ABX from first negative blood culture.i.e thru September 18 -Continue IV Vancomycin dosed by pharmacy -Infectious disease on board, we appreciate their time and recommendations -CBC with differential every 3 days 2. Clostridium Difficile Colitis, not present on admission, improving -Stool PCR positive for C Diff -Start PO Vancomycin 125 mg q 6 hours now -Patient will need to remain on by mouth vancomycin until September 10, 2016. -Pt advised to keep hydrated -Monitor fluid status, and start IV Normal Saline if signs of dehydration present -Check BMP every 2 days to monitor creatinine. 3. Left knee septic joint, acute, present on admission, evaluation ongoing -Joint aspirate has been collected. High amount of PMNs present in the aspirate. No polys or organisms on Gram stain, MRSA grew and the synovial fluid collected 08/24/2016 -IV antibiotics as above -discontinued Ketorolac IM every 8 hours as needed for pain, changed to once daily in the evening -Patient continues to have some continued pain without Toradol. -Methadone 10 mg twice a day, oxycodone and Tylenol for breakthrough. -Orthopedic surgery consulted, arthroscopy and washout of the knee performed, orthopedics has signed off at this time. Thank you for their assistance. -Dressing changed today, looks better than yesterday. -Monitor for signs of effusion and pain. 4. Heart murmur, chronicity unknown, present on admission, -Was heard on previous ER visits, previously evaluated in September 2015 without any valvular abnormalities apparent, but likely represents endocarditis -Echocardiogram negative for vegetations. -HERMES was was done and was negative 5. Hyperkalemia, not present on admission, resolved -Continue telemetry monitoring for now - Stable today, recheck BMP every 2 days 6. Urinary tract infection, acute, present on admission, treatment completed -Urine culture from 08/12/2016 grew Escherichia coli, susceptible to ceftriaxone -Pt completed treatment with IV Rocephin 7. Headache, present on admission, subacute - Patient is at risk for mycotic aneurysm, ID recommended imaging - Dr. Burton of Radiology recommends starting with CT angiogram of the brain which is more sensitive for aneurysm. - CT angiogram of brain shows no evidence of mycotic aneurysm. 8. History of IV drug abuse -will avoid placing PICC -outpatient follow up for her substance issues -SW to give outpatient resource information 9. Restless legs - Patient is iron deficient, repletion in process -Iron and vitamin C dose increased to 3 times daily with meals -Continue Mirapex nightly 0.25 mg VTE Prophylaxis with subcutaneous Lovenox GI prophylaxis: Not indicated Pain management: Methadone, Tylenol, oxycodone Dispo: Anticipate patient will be here for an extended amount of time as she undergoes treatment for MRSA bacteremia and possible endocarditis. First negative blood culture thus start date for antibiotic treatment 08/22/2016. Earliest possible date of discharge will be September 18. Patient will need to remain on by mouth vancomycin until September 10, 2016. GI Prophylaxis: Not indicated VTE Prophylaxis: Sub-Q Enoxaparin VTE Mechanical Devices: Intermittant Pneumatic CD Resuscitation Status: CPR: Attempt Resuscitation Attending Statement The patient was seen and examined independently on 08/30/2016 and case discussed with Dr. Rebolledo , I agree with the history, exam and plan as outlined in the note above. Alis Rebolledo DO Aug 30, 2016 06:09 Gabe Mancuso MD Aug 30, 2016 15:52
--- NOTE | 2016-08-30 14:08 | PCM.PHAPRO ---
Progress Vancomycin dosing per Pharmacy Current dose Vancomycin 1250mg IV Q8H Previous trough from 08/29 = 13.2 however pt did not receive 0400 dose due to loss of IV access. 08/30 tough = 16.6 will continue with current regiment and team will monitor renal function every other day with BMP/CBC Pharmacy will continue to monitor. No trough needed for a few days. Kevin Vasquez [facility] Aug 30, 2016 14:07
[2016-08-31] MEDS: Sodium Chloride LOK Flush 10 mL Syringe IVFLUSH SCH ×3 (00:30→16:11)
[2016-08-31 01:07] VITALS: BP 105/63; PULSE 71; RESP 16; O2SAT 100
[2016-08-31] MEDS: Vancomycin Inj 1,250 MG in 0.9% Sodium Chloride 250 ML IV SCH ×3 (04:41→21:31)
[2016-08-31] MEDS: Vancomycin 125 mg Oral Capsule PO SCH ×4 (04:41→22:34)
[2016-08-31 05:36] VITALS: PULSE 67
[2016-08-31 06:16] VITALS: BP 96/59; PULSE 63; RESP 16; O2SAT 99
--- NOTE | 2016-08-31 06:18 | NUR ---
Pain Pt stating pain 8/10 to left knee. Dressing clean, dry and intact. Pt moving extremity, pulse palpable, swelling noted around knee. Medicated pt with toradol and clonidine at HS per pt's request. Pt resting in bed this shift, no further c/o pain. Call light within reach, frequent rounding.
[2016-08-31 08:00] VITALS: PULSE 66
[2016-08-31] MEDS: Vancomycin Dose per Pharmacist XX SCH (08:30)
[2016-08-31] MEDS: Lactobacillus Rhamnosus 10 Bil Unit Capsule PO SCH ×4 (08:39→21:30)
[2016-08-31] MEDS: Ascorbic Acid 500 mg Tablet PO SCH ×3 (08:40→16:58)
[2016-08-31] MEDS: Pantoprazole 40 mg ER24 Tablet PO SCH ×2 (08:40→16:32)
[2016-08-31] MEDS: Multivit-Miner-Folic Acid-Iron Tablet PO SCH (08:42)
[2016-08-31 10:15] VITALS: BP 100/64; PULSE 67; RESP 16; O2SAT 100
--- NOTE | 2016-08-31 11:31 | PROG NOTE ---
[address] [address] PROGRESS NOTE PATIENT: LISA SOSA : 1980 MR#: [id number] ADMIT: 08/18/2016 JOB ID: [id number] DATE: 08/31/2016 REASON FOR FOLLOWUP: High-grade MRSA bacteremia with left septic knee in an IV drug user. INTERVAL HISTORY: Overnight, the patient reports she has been feeling reasonably well. No fevers, chills, sweats, cough, pleuritic chest pain, nausea, vomiting, or diarrhea. She still has quite a bit of pain in her left knee, and a bit of pain in her right knee is starting. She reports the right knee pain is somewhat similar to the pain she had in the left knee, but obviously not nearly as severe. She has participated with physical therapy. PHYSICAL EXAMINATION: Reveals an afebrile woman. Temp 36.9, pulse 67, respiratory 16, blood pressure 100/64. She is in no acute distress. Oral cavity unremarkable. Lungs clear. Cardiac tones without significant murmur. Abdomen is soft, nontender. Left knee is still somewhat warm and swollen but slowly better day by day. The patient does have increasing range of motion. Right knee appears completely benign. LABORATORIES: Include vancomycin level 16, white count 4700, platelets 484. Creatinine 0.75. Hep C positive. Viral load 40,000 with genotype pending. Stool positive for C. diff. Knee culture positive for MRSA. Blood cultures were positive for MRSA up until the and turned negative. IMPRESSION: The patient is doing reasonably well but obviously still having considerable pain and problems due to her septic left knee. In addition to her high-grade methicillin-resistant Staphylococcus aureus bacteremia and left septic knee, she also has active hepatitis C which obviously is of lesser priority in terms of treatment but will need to be addressed at some point. RECOMMENDATIONS: 1. Will continue with IV vancomycin through September 18. 2. Continue with oral vancomycin to complete two weeks of treatment for the positive C. diff. 3. The patient should be vaccinated for both hepatitis A and B if that has not already been done, as she remains at risk for catastrophic liver deterioration if she were develop a superimposed viral hepatitis.
[2016-08-31] MEDS: 0.9% Sodium Chloride 1,000 ML IV SCH ×2 (12:18→23:42)
--- NOTE | 2016-08-31 19:12 | PCM.PNMED ---
Subjective Date of Service Aug 31, 2016 Subjective Overnight patient had 8/10 knee pain prior to bedtime medications. Today patient continues to have stable knee pain that improves with medication. She has no headache today. She requests a decrease in her clonidine dosing that she feels like the 0.2 mg knocks her out but does not last. She notes that she started to feel depressed. She has felt this way in the past and had short-term treatment. She endorses apathy and wanting to sleep even though she has interesting things that she could be doing. Her right knee pain only occurs with pain and motion. Exam Vital Signs Vital Sign - Last Date Time Temp Pulse Resp B/P Pulse Ox O2 Delivery O2 Flow Rate FiO2 08/31/16 06:16 37.1 63 16 96/59 99 Room Air 08/25/16 14:37 3 Intake and Output 08/30/16 08/30/16 08/31/16 Cumulative From/Thru 15:00 23:00 07:00 08/18/16 00:26 - 08/31/16 06:44 Intake Total 1231 ml 600 ml 2749 ml 15017 ml Output Total 1400 ml 3100 ml 2800 ml 09323 ml Balance -169 ml -2500 ml -51 ml 3023 ml Intake Oral 1231 ml 600 ml 500 ml 52733 ml IV Total 2249 ml 96381 ml Output Urine Total 1400 ml 3100 ml 2800 ml 72857 ml # Voids 3 8 # Bowel Movements 0 0 17 Exam General: Resting comfortably, no apparent distress. Disheveled, poor hygiene, matted hair. HEENT: Normocephalic, hair is matted, multiple lesions of varying size and states of healing on her face-almost healed. Extraocular muscles intact, pupils round and reactive to light, mucous membranes moist Cardiovascular: Regular rate and rhythm, 2/6 systolic murmur heard best in the tricuspid area Pulmonary: Clear to auscultation bilaterally, no crackles, wheezes, or ronchi. Abdominal: Soft to palpation, bowel sounds present, no hepatosplenomegaly. No rebound. Extremities: There is trace nonpitting edema to lower extremities, No splinter hemorrhages, Ostlers nodes, or Janeway lesions appreciated. Neuro: Neurologically grossly intact. MSK: Left knee wrapped with stretchy cylindrical bandage. Wrap removed, ABD pad dry with very small amount of serosanguineous discharge. Surgical incision sites do not appear to be draining. Left Knee joint mildly swollen with some mild fullness superior to the patella. Right knee without evidence of effusion , no pain to palpation over the joint space Lab and Diagnostics Result Diagram: 08/30/1661408/30/16614 Microbiology Multiple blood cultures positive for MRSA including ones drawn yesterday. X-Rays, CTs and MRIs X-RAY LEFT KNEE, THREE VIEWS IMPRESSION: Although no bony erosions are identified, plain film radiography is relatively insensitive in the acute phases of osteomyelitis and may not demonstrate radiographic changes for 15 days. If acute osteomyelitis is of clinical concern , nuclear medicine regional bone scan or MRI is recommended. Joint effusion. 2 cm soft tissue foreign body within the upper lower leg medially at the level of the proximal tibia shaft. Dictated by: Daniel OVALLES Interpreted: Saadia Burton MD on 08/18/2016 at 10:07 CT BRAIN WITH AND WITHOUT CONTRAST IMPRESSION: 1. No acute intracranial process. Dictated by: Victoria Galvan M.D. on 08/18/2016 at 10:43 X-RAY CHEST, TWO VIEWS IMPRESSION: No acute cardiopulmonary disease. Dictated by: Daniel OVALLES Interpreted: Saadia Burton MD on 08/18/2016 at 10:09 Cardiac Echo Impressions Interpretation Summary The left ventricle is mildly dilated. The ejection fraction is estimated to be 60-65%. There has been no significant change in LV EF since the previous study. The right ventricle is normal in size and function.There is trace tricuspid regurgitation. The right ventricular systolic pressure is estimated at 37 mmHg assuming a right atrial pressure of 15 mm Hg. The IVC is dilated (diameter is greater than 2.1 cm) and it collapses less than 50% with a sniff. This suggests a high right atrial pressure of 15 mm Hg (New). No obvious valvular vegetation seen. If clinical suspicion for endocarditis is high, consider HERMES. Assessment & Plan Shereen Witt is a 36-year-old female IV drug abuser, presents with 5 days of headache, new onset knee pain and swelling, positive blood cultures for MRSA. Hospital day #12 1. MRSA Bacteremia, subacute, present on admission -multiple blood cultures from this admission confirm MRSA bacteremia, sensitive to clindamycin and vancomycin. Secondary to IVDU. -Repeat blood cultures are now negative, pt will need a total of 4 weeks of IV ABX from first negative blood culture.i.e thru September 18 -Continue IV Vancomycin dosed by pharmacy -Hepatitis A and B vaccines if not already vaccinated to prevent future liver injury per infectious disease -Infectious disease on board, we appreciate their time and recommendations -CBC with differential every 3 days 2. Clostridium Difficile Colitis, not present on admission, improving -Stool PCR positive for C Diff -Start PO Vancomycin 125 mg q 6 hours now -Patient will need to remain on by mouth vancomycin until September 10, 2016. -Pt advised to keep hydrated -Monitor fluid status, and start IV Normal Saline if signs of dehydration present -Check BMP every 2 days to monitor creatinine. 3. Left knee septic joint, acute, present on admission, evaluation ongoing -Joint aspirate has been collected. High amount of PMNs present in the aspirate. No polys or organisms on Gram stain, MRSA grew and the synovial fluid collected 08/24/2016 -IV antibiotics as above -discontinued Ketorolac IM every 8 hours as needed for pain, changed to once daily in the evening -Patient continues to have some continued pain without Toradol. -Methadone 10 mg twice a day, oxycodone and Tylenol for breakthrough. -Orthopedic surgery consulted, arthroscopy and washout of the knee performed, orthopedics has signed off at this time. Thank you for their assistance. -Dressing changed today, looks better than yesterday. -Monitor for signs of effusion and pain. 4. Heart murmur, chronicity unknown, present on admission, -Was heard on previous ER visits, previously evaluated in September 2015 without any valvular abnormalities apparent, but likely represents endocarditis -Echocardiogram negative for vegetations. -HERMES was was done and was negative 5. Hyperkalemia, not present on admission, resolved -Continue telemetry monitoring for now - Stable today, recheck BMP every 2 days 6. Urinary tract infection, acute, present on admission, treatment completed -Urine culture from 08/12/2016 grew Escherichia coli, susceptible to ceftriaxone -Pt completed treatment with IV Rocephin 7. Headache, present on admission, subacute - Patient is at risk for mycotic aneurysm, ID recommended imaging - Dr. Burton of Radiology recommends starting with CT angiogram of the brain which is more sensitive for aneurysm. - CT angiogram of brain shows no evidence of mycotic aneurysm. 8. History of IV drug abuse -will avoid placing PICC -outpatient follow up for her substance issues -SW to give outpatient resource information -Clonidine 0.1 mg every 6 hours when necessary for withdrawal 9. Restless legs - Patient is iron deficient, repletion in process -Iron and vitamin C dose increased to 3 times daily with meals -Continue Mirapex nightly 0.25 mg 10. Depression, not present on admission, recurrent -Initiate therapy with fluoxetine. VTE Prophylaxis with subcutaneous Lovenox GI prophylaxis: Not indicated Pain management: Methadone, Tylenol, oxycodone Dispo: Anticipate patient will be here for an extended amount of time as she undergoes treatment for MRSA bacteremia and possible endocarditis. First negative blood culture thus start date for antibiotic treatment 08/22/2016. Earliest possible date of discharge will be September 18 per ID. Patient will need to remain on by mouth vancomycin until September 10, 2016. Pain Evaluation: Adequate Pain Control GI Prophylaxis: Not indicated VTE Prophylaxis: Sub-Q Enoxaparin VTE Mechanical Devices: Intermittant Pneumatic CD Resuscitation Status: CPR: Attempt Resuscitation Attending Statement The patient was seen and examined independently on 08/31/2016 and case discussed with Dr. Rebolledo , I agree with the history, exam and plan as outlined in the note above. Alis Rebolledo DO Aug 31, 2016 08:45 Gabe Mancuso MD Aug 31, 2016 19:47
--- NOTE | 2016-08-31 19:12 | NUR ---
Tachycardia episode At 1800 telemetry monitor notified pt was in 140'-150's (SR), pt was assessed and she reported that she was in BR and got unsteady on feet and almost fell, which startled her, which may have increased her HR. Pt now resting in bed, and per telemetry monitor pt now SR 90. NOC nurse notified, continuing to monitor.
[2016-08-31 19:47] VITALS: BP 126/76; PULSE 100; RESP 18; O2SAT 100
[2016-08-31] MEDS: Ondansetron 2 mg/mL 2 mL Inj IVPUSH PRN (21:40)
[2016-09-01] MEDS: Sodium Chloride LOK Flush 10 mL Syringe IVFLUSH SCH ×4 (00:58→22:01)
[2016-09-01] MEDS: cloNIDine 0.1 mg Tablet PO PRN ×3 (03:38→22:34)
[2016-09-01] MEDS: Vancomycin Inj 1,250 MG in 0.9% Sodium Chloride 250 ML IV SCH ×3 (04:43→21:50)
[2016-09-01] MEDS: Vancomycin 125 mg Oral Capsule PO SCH ×4 (04:43→22:34)
[2016-09-01 04:46] VITALS: BP 112/68; PULSE 86; RESP 18; O2SAT 96
[2016-09-01 05:28] VITALS: PULSE 99
[2016-09-01 08:00] VITALS: PULSE 126; PULSE 67
[2016-09-01] MEDS: Pantoprazole 40 mg ER24 Tablet PO SCH ×2 (08:53→16:37)
[2016-09-01] MEDS: hydrOXYzine Pamoate 25 mg Capsule PO PRN (08:53)
[2016-09-01] MEDS: Lactobacillus Rhamnosus 10 Bil Unit Capsule PO SCH ×4 (08:54→22:34)
[2016-09-01] MEDS: Ascorbic Acid 500 mg Tablet PO SCH ×3 (08:54→19:29)
[2016-09-01] MEDS: Vancomycin Dose per Pharmacist XX SCH (08:56)
[2016-09-01] MEDS: Multivit-Miner-Folic Acid-Iron Tablet PO SCH (08:56)
[2016-09-01] MEDS ORDERED: Sodium Chloride NAS 45 mL Spray NASAL PRN (09:20)
[2016-09-01] MEDS: 0.9% Sodium Chloride 1,000 ML IV SCH (10:26)
[2016-09-01 10:36] VITALS: BP 124/79; PULSE 89; RESP 18; O2SAT 99
[2016-09-01] MEDS ORDERED: HEPATITIS A VACCINE 1440 UNIT/ML IM ONE (12:00)
[2016-09-01] MEDS ORDERED: Hepatitis-B (Adult) Vaccine 20 mCg/1 mL Inj IM ONE (12:00)
[2016-09-01] MEDS: Ondansetron 2 mg/mL 2 mL Inj IVPUSH PRN ×2 (14:34→19:54)
[2016-09-01 14:36] VITALS: BP 121/81; PULSE 92; RESP 18; O2SAT 100
--- NOTE | 2016-09-01 14:56 | NUR ---
Hepatitis Vaccines Hepatitis A and B vaccines ordered today. Pt. wanted more information on the vaccines and the preservatives used d/t her multiple environmental and food allergies. Does not want the vaccines until she looks over the information. I printed her the CDC info on both vaccines, and pt. was able to review this, but it does not have a list of compounds in the vaccine. I called pharmacy, and we will look for ingredients list. pt. would like to hold off on vaccination until she reviews the list. MDs aware.
--- NOTE | 2016-09-01 17:46 | PROG NOTE ---
[address] [address] PROGRESS NOTE PATIENT: LISA SOSA : 1980 MR#: [id number] ADMIT: 08/18/2016 JOB ID: [id number] DATE: 09/01/2016 REASON FOR FOLLOWUP: High-grade MRSA bacteremia in an IV drug user with septic left knee. INTERVAL HISTORY: Overnight, the patient reports no fevers or chills. She is generally starting to feel better. No significant cough, nausea, vomiting, diarrhea, and her left knee is gradually less painful. PHYSICAL EXAMINATION: Reveals an afebrile woman. Temp 36.8, blood pressure 112/81, pulse 90, respiratory rate 18, saturating well on room air. Mental status normal. Lungs quite clear. Cardiac tones without new or changing murmur. Abdomen with no change, soft and nontender. Left knee is gradually less tender, less swollen, and less erythematous. LABORATORIES: Include a white count of 4700 two days ago. It has not been repeated. Vancomycin level 16.6 two days ago. Hep C antibody is positive. Hepatitis C viral load positive. Hep C genotype pending. Recall that the patient has a positive stool for C. diff. IMPRESSION: This patient suffered high-grade methicillin-resistant Staphylococcus aureus bacteremia due to intravenous drug use with seeding of the left knee. At this point, she is steadily improving overall. She also has a positive stool for Clostridium difficile which I suspect represents colonization rather than infection. RECOMMENDATIONS: 1. Let us assess her hepatitis A and B status before vaccination with a hepatitis A total antibody, hepatitis B surface antibody, and hepatitis B core antibody. If there are any deficiencies in the hepatitis A or B vaccine, we can do it next week. 2. IV vancomycin through September 18. 3. Oral vancomycin for a total of two weeks for the C. diff. 4. We can start to check labs about twice a week, including CBC, CMP, CRP and vancomycin trough. 5. Will see this patient again on Sunday.
--- NOTE | 2016-09-01 20:25 | PCM.PNMED ---
Subjective Date of Service Sep 01, 2016 Subjective Patient reports doing well this morning, she appears to be in better spirits. She continues to have knee pain. Infectious disease recommends vaccination against hepatitis A and B as a viral hepatic infection could be catastrophic to her liver. This was discussed with patient, she wishes to have more information about both the diseases and vaccines. She does have exposure history to hepatitis C through her aunt and father. She also describes a prior incidence where she was told that she needed to be transferred for liver transplant and within 48 hours with discharging with improved hepatic status which seems to lead her to believe that even if she got a liver infection she would be able to recover from it quickly. Yesterday patient requested antidepressant, this morning she states that she would prefer to hold off on medically treating her depression and instead would like additional information about non medical ways to treat depression, information and handout were given. She also complains of new onset nasal congestion/ rhinorrhea without sore throat or cough. Exam Vital Signs Vital Sign - Last Date Time Temp Pulse Resp B/P Pulse Ox O2 Delivery O2 Flow Rate FiO2 09/01/16 05:28 99 09/01/16 04:46 36.8 18 112/68 96 Room Air Intake and Output 08/31/16 08/31/16 09/01/16 Cumulative From/Thru 15:00 23:00 07:00 08/18/16 00:26 - 09/01/16 06:27 Intake Total 1187 ml 600 ml 16772 ml Output Total 1100 ml 45834 ml Balance 1187 ml -500 ml 3710 ml Intake Oral 600 ml 02279 ml IV Total 1187 ml 17787 ml Output Urine Total 1100 ml 68441 ml # Voids 8 # Bowel Movements 0 17 Exam General: Resting comfortably, no apparent distress. Disheveled, poor hygiene, matted hair. HEENT: Normocephalic, hair is matted, multiple lesions of varying size and states of healing on her face-almost healed. Extraocular muscles intact, pupils round and reactive to light, mucous membranes moist Cardiovascular: Regular rate and rhythm, 2/6 systolic murmur heard best in the tricuspid area Pulmonary: Clear to auscultation bilaterally, no crackles, wheezes, or ronchi. Abdominal: Soft to palpation, bowel sounds present, no hepatosplenomegaly. No rebound. Extremities: There is trace nonpitting edema to lower extremities, No splinter hemorrhages, Ostlers nodes, or Janeway lesions appreciated. Neuro: Neurologically grossly intact. MSK: Left knee wrapped with stretchy cylindrical bandage. ABD pad dry with very small amount of serosanguineous discharge. Surgical incision sites appear intact without drainage. Left Knee joint mildly swollen with tenderness to palpation. Right knee without evidence of effusion, no pain to palpation over the joint space Lab and Diagnostics Result Diagram: 08/30/1661408/30/16614 Microbiology Multiple blood cultures positive for MRSA including ones drawn yesterday. X-Rays, CTs and MRIs X-RAY LEFT KNEE, THREE VIEWS IMPRESSION: Although no bony erosions are identified, plain film radiography is relatively insensitive in the acute phases of osteomyelitis and may not demonstrate radiographic changes for 15 days. If acute osteomyelitis is of clinical concern , nuclear medicine regional bone scan or MRI is recommended. Joint effusion. 2 cm soft tissue foreign body within the upper lower leg medially at the level of the proximal tibia shaft. Dictated by: Daniel OVALLES Interpreted: Saadia Burton MD on 08/18/2016 at 10:07 CT BRAIN WITH AND WITHOUT CONTRAST IMPRESSION: 1. No acute intracranial process. Dictated by: Victoria Galvan M.D. on 08/18/2016 at 10:43 X-RAY CHEST, TWO VIEWS IMPRESSION: No acute cardiopulmonary disease. Dictated by: Daniel OVALLES Interpreted: Saadia Burton MD on 08/18/2016 at 10:09 Cardiac Echo Impressions Interpretation Summary The left ventricle is mildly dilated. The ejection fraction is estimated to be 60-65%. There has been no significant change in LV EF since the previous study. The right ventricle is normal in size and function.There is trace tricuspid regurgitation. The right ventricular systolic pressure is estimated at 37 mmHg assuming a right atrial pressure of 15 mm Hg. The IVC is dilated (diameter is greater than 2.1 cm) and it collapses less than 50% with a sniff. This suggests a high right atrial pressure of 15 mm Hg (New). No obvious valvular vegetation seen. If clinical suspicion for endocarditis is high, consider HERMES. Assessment & Plan Shereen Witt is a 36-year-old female IV drug abuser, presents with 5 days of headache, new onset knee pain and swelling, positive blood cultures for MRSA. Hospital day #12 1. MRSA Bacteremia, subacute, present on admission -multiple blood cultures from this admission confirm MRSA bacteremia, sensitive to clindamycin and vancomycin. Secondary to IVDU. -Repeat blood cultures are now negative, pt will need a total of 4 weeks of IV ABX from first negative blood culture.i.e thru September 18 -Continue IV Vancomycin dosed by pharmacy -Hepatitis A and B vaccines if not already vaccinated to prevent future liver injury per infectious disease -Infectious disease on board, we appreciate their time and recommendations -CBC with differential every 3 days 2. Clostridium Difficile Colitis, not present on admission, improving -Stool PCR positive for C Diff -Start PO Vancomycin 125 mg q 6 hours now -Patient will need to remain on by mouth vancomycin until September 10, 2016. -Pt advised to keep hydrated -Monitor fluid status, and start IV Normal Saline if signs of dehydration present -Check BMP every 3 days to monitor creatinine. 3. Left knee septic joint, acute, present on admission, evaluation ongoing -Joint aspirate has been collected. High amount of PMNs present in the aspirate. No polys or organisms on Gram stain, MRSA grew and the synovial fluid collected 08/24/2016 -IV antibiotics as above -discontinued Ketorolac IM every 8 hours as needed for pain, changed to once daily in the evening -Patient continues to have some consistent but continued -Methadone 10 mg twice a day, oxycodone and Tylenol for breakthrough. -Orthopedic surgery consulted, arthroscopy and washout of the knee performed, orthopedics has signed off at this time. Thank you for their assistance. -Monitor for signs of effusion and pain. -Dressing change every 48-72 hours or as needed 4. Heart murmur, chronicity unknown, present on admission, -Was heard on previous ER visits, previously evaluated in September 2015 without any valvular abnormalities apparent, but likely represents endocarditis -Echocardiogram negative for vegetations. -HERMES was was done and was negative 5. Hyperkalemia, not present on admission, resolved -Continue telemetry monitoring for now - Stable today, recheck BMP every 2 days 6. Urinary tract infection, acute, present on admission, treatment completed -Urine culture from 08/12/2016 grew Escherichia coli, susceptible to ceftriaxone -Pt completed treatment with IV Rocephin 7. Headache, present on admission, subacute - Patient is at risk for mycotic aneurysm, ID recommended imaging - Dr. Burton of Radiology recommends starting with CT angiogram of the brain which is more sensitive for aneurysm. - CT angiogram of brain shows no evidence of mycotic aneurysm. 8. History of IV drug abuse -will avoid placing PICC -outpatient follow up for her substance issues -SW to give outpatient resource information -Clonidine 0.1 mg every 6 hours when necessary for withdrawal 9. Restless legs -Patient is iron deficient, repletion in process -Iron and vitamin C dose increased to 3 times daily with meals -Continue Mirapex nightly 0.25 mg 10. Depression, not present on admission, recurrent -Hold off on initiation of SSRI therapy, patient has had good response to Paxil in the past -Provided patient with information and techniques for treating depression without medication. 11. Hepatitis vaccination status unknown -Hepatitis A antibody, hepatitis B core antibody, hepatitis B surface antibody ordered -If patient does not have immunity we would recommend vaccination of both hepatitis A and B prior to discharge VTE Prophylaxis with subcutaneous Lovenox GI prophylaxis: Not indicated Pain management: Methadone, Tylenol, oxycodone Dispo: Anticipate patient will be here for an extended amount of time as she undergoes treatment for MRSA bacteremia and possible endocarditis. First negative blood culture thus start date for antibiotic treatment 08/22/2016. Earliest possible date of discharge will be September 18 per ID. Patient will need to remain on by mouth vancomycin until September 10, 2016. GI Prophylaxis: Not indicated VTE Prophylaxis: Sub-Q Enoxaparin VTE Mechanical Devices: Intermittant Pneumatic CD Resuscitation Status: CPR: Attempt Resuscitation Attending Statement The patient was seen and examined independently on 09/01/2016 and case discussed with Dr. Rebolledo , I agree with the history, exam and plan as outlined in the note above. Alis Rebolledo DO Sep 01, 2016 06:51 Gabe Mancuso MD Sep 01, 2016 23:28
[2016-09-01 20:45] VITALS: BP 119/76; PULSE 95; RESP 18; O2SAT 100
[2016-09-02] MEDS: Vancomycin Inj 1,250 MG in 0.9% Sodium Chloride 250 ML IV SCH ×3 (04:50→22:04)
[2016-09-02] MEDS: 0.9% Sodium Chloride 1,000 ML IV SCH ×2 (04:52→15:42)
[2016-09-02] MEDS: Vancomycin 125 mg Oral Capsule PO SCH ×4 (05:08→22:42)
[2016-09-02] MEDS: cloNIDine 0.1 mg Tablet PO PRN (05:28)
[2016-09-02 05:29] VITALS: BP 115/75; PULSE 82; RESP 18; O2SAT 99
--- NOTE | 2016-09-02 05:50 | NUR ---
Removed Items from Cupboard pt requested a few personal items from inside the locked cupboard. RN requested security to unlock pt's cupboard. this RN observed pt retrieve a few pieces of paper with phone numbers on them, colored ink pens, and a cell phone. Security locked cupboard after pt was done.
[2016-09-02] MEDS: Multivit-Miner-Folic Acid-Iron Tablet PO SCH (08:21)
[2016-09-02] MEDS: Ascorbic Acid 500 mg Tablet PO SCH ×3 (08:22→17:30)
[2016-09-02] MEDS: Pantoprazole 40 mg ER24 Tablet PO SCH ×2 (08:22→17:31)
[2016-09-02] MEDS: Lactobacillus Rhamnosus 10 Bil Unit Capsule PO SCH ×4 (08:22→22:03)
[2016-09-02] MEDS: Sodium Chloride LOK Flush 10 mL Syringe IVFLUSH SCH ×2 (08:23→16:30)
[2016-09-02] MEDS: Vancomycin Dose per Pharmacist XX SCH (08:26)
--- NOTE | 2016-09-02 10:04 | NUR ---
Social Work: Continued d/c planning Data: Pt is on day 15 of hospitalization. Pt anticipated to d/c on 09/18/16 after completing IVABX. CDP with [place] involved with case. DIRECTOR OF RECREATION THERAPY will continue to follow. Assessment: Pt who is independent at baseline. Plan: Pt will d/c on 09/18/16 after completing IVABX. CDP with [place] involved with case. DIRECTOR OF RECREATION THERAPY will continue to follow. STEPH Mcdaniel
[2016-09-02] MEDS ORDERED: Vancomycin Serum Trough XX ONE ×2 (11:30)
[2016-09-02 14:14] VITALS: BP 122/77; PULSE 95; RESP 18; O2SAT 100
--- NOTE | 2016-09-02 15:39 | PCM.PNMED ---
Subjective Date of Service Sep 02, 2016 Subjective Patient is very worked up during our visit today. She expresses feeling stuck, she is also having nausea, belly pain, feels like she might to chew her tongue off, and generally is very anxious. She feels like her withdrawal symptoms are getting worse after the decrease in methadone a few days ago. She states multiple times that she could just use heroine to get well. She states that she is glad to have a decreased tolerance because now she could get well for $5 in the morning and $5 at night instead of for $80.00 3 times a day. She mentions multiple external stressors in her life including her boyfriend being in long-term and needing to serve long term time. She has kids that she has missed visitations for, 1 daughter she has not seen for over 2 years. She feels frustrated that she does not get to spend more time with her kids and feels like their father is not much better off except he has a house for them to live in. She states that in order to achieve some of her goals such as getting into a treatment program she needs her certificate and ID. In order for her to get the money for this she would need to hustle. She mentions multiple times that she does not want to go through withdrawals. And continues to state that leaving and getting well so that she can get the things done that she needs to get done to help deal with her external stressors is an option. Upon questioning she continues to state that she has not used anything since being in the hospital. I explained to patient that increasing the methadone dose would not be doing her service. Exam Vital Signs Vital Sign - Last Date Time Temp Pulse Resp B/P Pulse Ox O2 Delivery O2 Flow Rate FiO2 09/02/16 05:29 36.8 82 18 115/75 99 Room Air Intake and Output 09/01/16 09/01/16 09/02/16 Cumulative From/Thru 15:00 23:00 07:00 08/18/16 00:26 - 09/02/16 06:00 Intake Total 5225 ml 1000 ml 52069 ml Output Total 6000 ml 1400 ml 94478 ml Balance -775 ml -400 ml 2535 ml Intake Oral 3300 ml 1000 ml 52319 ml IV Total 1925 ml 00946 ml Output Urine Total 6000 ml 1400 ml 37339 ml # Voids 8 # Bowel Movements 1 0 18 Exam General: Resting comfortably, no apparent distress. Disheveled, poor hygiene, matted hair. HEENT: Normocephalic, hair is matted, multiple lesions of varying size and states of healing on her face-almost healed. Extraocular muscles intact, pupils round and reactive to light, mucous membranes moist Cardiovascular: Regular rate and rhythm, 2/6 systolic murmur heard best in the tricuspid area Pulmonary: Clear to auscultation bilaterally, no crackles, wheezes, or ronchi. Abdominal: Soft to palpation, bowel sounds present, no hepatosplenomegaly. No rebound. Extremities: There is trace nonpitting edema to lower extremities, No splinter hemorrhages, Ostlers nodes, or Janeway lesions appreciated. Neuro: Neurologically grossly intact. MSK: Left knee with clean dry bandage covering surgical wounds anteriorly. Surgical incision sites appear intact without drainage. Left Knee joint mildly swollen with mild tenderness to palpation. Right knee without evidence of effusion, no pain to palpation over the joint space IVs and Medications Medications Reviewed: Medications were reviewed in detail Lab and Diagnostics Result Diagram: 08/30/16 0615 09/01/16 0625 Microbiology Multiple blood cultures positive for MRSA including ones drawn yesterday. X-Rays, CTs and MRIs X-RAY LEFT KNEE, THREE VIEWS IMPRESSION: Although no bony erosions are identified, plain film radiography is relatively insensitive in the acute phases of osteomyelitis and may not demonstrate radiographic changes for 15 days. If acute osteomyelitis is of clinical concern , nuclear medicine regional bone scan or MRI is recommended. Joint effusion. 2 cm soft tissue foreign body within the upper lower leg medially at the level of the proximal tibia shaft. Dictated by: Daniel OVALLES Interpreted: Saadia Burton MD on 08/18/2016 at 10:07 CT BRAIN WITH AND WITHOUT CONTRAST IMPRESSION: 1. No acute intracranial process. Dictated by: Victoria Galvan M.D. on 08/18/2016 at 10:43 X-RAY CHEST, TWO VIEWS IMPRESSION: No acute cardiopulmonary disease. Dictated by: Daniel OVALLES Interpreted: Saadia Burton MD on 08/18/2016 at 10:09 Cardiac Echo Impressions Interpretation Summary The left ventricle is mildly dilated. The ejection fraction is estimated to be 60-65%. There has been no significant change in LV EF since the previous study. The right ventricle is normal in size and function.There is trace tricuspid regurgitation. The right ventricular systolic pressure is estimated at 37 mmHg assuming a right atrial pressure of 15 mm Hg. The IVC is dilated (diameter is greater than 2.1 cm) and it collapses less than 50% with a sniff. This suggests a high right atrial pressure of 15 mm Hg (New). No obvious valvular vegetation seen. If clinical suspicion for endocarditis is high, consider HERMES. Assessment & Plan Shereen Witt is a 36-year-old female IV drug abuser, presents with 5 days of headache, new onset knee pain and swelling, positive blood cultures for MRSA. Hospital day #12 1. MRSA Bacteremia, subacute, present on admission -multiple blood cultures from this admission confirm MRSA bacteremia, sensitive to clindamycin and vancomycin. Secondary to IVDU. -Repeat blood cultures are now negative, pt will need a total of 4 weeks of IV ABX from first negative blood culture.i.e thru September 18 -Continue IV Vancomycin dosed by pharmacy -Hepatitis A and B vaccines if not already vaccinated to prevent future liver injury per infectious disease -Infectious disease on board, we appreciate their time and recommendations -CBC with differential every 3 days 2. Clostridium Difficile Colitis, not present on admission, improving -Stool PCR positive for C Diff -Start PO Vancomycin 125 mg q 6 hours now -Patient will need to remain on by mouth vancomycin until September 10, 2016. -Pt advised to keep hydrated -Monitor fluid status, and start IV Normal Saline if signs of dehydration present -Check BMP every 3 days to monitor creatinine. 3. Left knee septic joint, acute, present on admission, evaluation ongoing -Joint aspirate has been collected. High amount of PMNs present in the aspirate. No polys or organisms on Gram stain, MRSA grew and the synovial fluid collected 08/24/2016 -IV antibiotics as above -discontinued Ketorolac IM every 8 hours as needed for pain, changed to once daily in the evening -Patient continues to have some consistent but continued -Methadone 10 mg twice a day, oxycodone and Tylenol for breakthrough. -Orthopedic surgery consulted, arthroscopy and washout of the knee performed, orthopedics has signed off at this time. Thank you for their assistance. -Monitor for signs of effusion and pain. -Dressing change every 48-72 hours or as needed 4. Hepatitis C, present on admission, likely chronic -HCV quantitation [id number], HCV RNA PCR log 10 4.601 -Hepatitis C genotype 1A -Continue to recommend hepatitis A and B vaccinations, patient will make a decision before discharge. 5. Heart murmur, chronicity unknown, present on admission, -Was heard on previous ER visits, previously evaluated in September 2015 without any valvular abnormalities apparent, but likely represents endocarditis -Echocardiogram negative for vegetations. -HERMES was was done and was negative 6. Hyperkalemia, not present on admission, resolved -Continue telemetry monitoring for now - Stable today, recheck BMP every 2 days 7. Urinary tract infection, acute, present on admission, treatment completed -Urine culture from 08/12/2016 grew Escherichia coli, susceptible to ceftriaxone -Pt completed treatment with IV Rocephin 8. Headache, present on admission, subacute - Patient is at risk for mycotic aneurysm, ID recommended imaging - Dr. Burton of Radiology recommends starting with CT angiogram of the brain which is more sensitive for aneurysm. - CT angiogram of brain shows no evidence of mycotic aneurysm. 9. Restless legs -Patient is iron deficient, repletion in process -Iron and vitamin C dose increased to 3 times daily with meals -Continue Mirapex nightly 0.25 mg 10. Depression, not present on admission, recurrent -Hold off on initiation of SSRI therapy, patient has had good response to Paxil in the past -Provided patient with information and techniques for treating depression without medication. 11. Hepatitis vaccination status unknown -Hepatitis A antibody, hepatitis B core antibody, hepatitis B surface antibody ordered -If patient does not have immunity we would recommend vaccination of both hepatitis A and B prior to discharge 12. History of IV drug abuse -will avoid placing PICC -outpatient follow up for her substance issues -SW to give outpatient resource information -Clonidine 0.1 mg every 6 hours when necessary for withdrawal VTE Prophylaxis with subcutaneous Lovenox GI prophylaxis: Not indicated Pain management: Methadone, Tylenol, oxycodone Dispo: Anticipate patient will be here for an extended amount of time as she undergoes treatment for MRSA bacteremia and possible endocarditis. First negative blood culture thus start date for antibiotic treatment 08/22/2016. Earliest possible date of discharge will be September 18 per ID. Patient will need to remain on by mouth vancomycin until September 10, 2016. GI Prophylaxis: Not indicated VTE Prophylaxis: Sub-Q Enoxaparin VTE Mechanical Devices: Intermittant Pneumatic CD Resuscitation Status: CPR: Attempt Resuscitation Attending Statement The patient was seen and examined independently on 09/02/2016 and case discussed with Dr. Rebolledo , I agree with the history, exam and plan as outlined in the note above. Alis Rebolledo DO Sep 02, 2016 06:03 Gabe Mancuso MD Sep 02, 2016 16:56
--- NOTE | 2016-09-02 15:41 | PCM.PHAPRO ---
Progress Vancomycin Management by Pharmacy: -trough level reported as 16.3 on current regimen of Vancomycin 1.25gm iv [id number] -serum creatinine remains stable at 0.57 -level is within range for mrsa bacteremia -will continue with current dose and monitor Dianelys Corral [facility] Sep 02, 2016 15:41
--- NOTE | 2016-09-02 17:47 | NUR ---
IV site/pain Pt veins are very sensitive. Flush slowly as veins may blow. Pt tolerating IV Vanco through left forearm OK. Pt alert and oriented. Cooperative with care. Pain medication PRN Q4 hrs. No severe withdrawal sx reported or noticed. Pt has PRN's for withdrawal if needed.
[2016-09-02] MEDS: Ondansetron 2 mg/mL 2 mL Inj IVPUSH PRN (19:01)
[2016-09-02 22:29] VITALS: BP 124/83; PULSE 112; RESP 22; O2SAT 99
[2016-09-03] MEDS: Sodium Chloride LOK Flush 10 mL Syringe IVFLUSH SCH ×3 (01:11→16:02)
[2016-09-03] MEDS: hydrOXYzine Pamoate 25 mg Capsule PO PRN ×2 (04:53→23:53)
[2016-09-03] MEDS: Vancomycin 125 mg Oral Capsule PO SCH ×4 (04:53→23:14)
[2016-09-03 05:04] VITALS: BP 113/68; PULSE 85; RESP 22; O2SAT 98
[2016-09-03 05:08] LABS: BASOPHILS % (AUTO) 0.4 % (0-3); EOSINOPHILS % (AUTO) 1.7 % (0-5); MONOCYTES % (AUTO) 10.2 % (4-12); Mean Corpuscular Volume 85.1 fL (81-100); NEUTROPHILS % (AUTO) 45.2 % (40-74); Platelet Count 469 bil/L (150-400)
[2016-09-03] MEDS: Vancomycin Inj 1,250 MG in 0.9% Sodium Chloride 250 ML IV SCH ×3 (06:27→20:01)
[2016-09-03] MEDS: cloNIDine 0.1 mg Tablet PO PRN ×2 (08:07→23:53)
[2016-09-03] MEDS: Pantoprazole 40 mg ER24 Tablet PO SCH ×2 (08:07→16:50)
[2016-09-03] MEDS: Lactobacillus Rhamnosus 10 Bil Unit Capsule PO SCH ×4 (08:08→23:15)
[2016-09-03] MEDS: Ascorbic Acid 500 mg Tablet PO SCH ×3 (08:08→16:49)
[2016-09-03] MEDS: Multivit-Miner-Folic Acid-Iron Tablet PO SCH (08:08)
[2016-09-03] MEDS: Vancomycin Dose per Pharmacist XX SCH (08:09)
--- NOTE | 2016-09-03 10:07 | PCM.PNMED ---
Subjective Date of Service Sep 03, 2016 Subjective Shereen Witt is a 36-year-old female IV drug abuser, presented with 5 days of headache, new onset knee pain and swelling, positive blood cultures for MRSA. Now under treatment for MRSA bacteremia and septic arthritis. Hospital day #17 Overnight: Patient again had issues with her IV site and had knee pain but otherwise had no acute events. Today: The patient was very concerned about her methadone and stated that she was planning on leaving AMA if it was not increased to a more tolerable amount. She is agreeable to stay with an increase to every 8 hours as she does not want to withdraw as she states she has seizures with withdrawal. She is looking forward to meeting with the chemical dependancy professional tomorrow and is looking to stay off heroin but needs the aid of methadone to do so. She states he knee hurts but she completed all the exercises for her knee yesterday herself and may have over exerted herself. She would also like to communicate that she needs her IV tended to immediately when it beeps as she easily loses lines and wants to avoid doing so. The remainder of the review of systems is negative except as noted above. Exam Vital Signs Vital Sign - Last Date Time Temp Pulse Resp B/P Pulse Ox O2 Delivery O2 Flow Rate FiO2 09/03/16 05:04 36.6 85 22 113/68 98 Room Air Intake and Output 09/02/16 09/02/16 09/03/16 Cumulative From/Thru 15:00 23:00 07:00 08/18/16 00:26 - 09/03/16 04:28 Intake Total 799 ml 1104 ml 77418 ml Output Total 2700 ml 70682 ml Balance 799 ml -1596 ml 1738 ml Intake Oral 1000 ml 62747 ml IV Total 799 ml 104 ml 39343 ml Output Urine Total 2700 ml 21844 ml # Voids 8 # Bowel Movements 18 Exam General: Resting comfortably, no apparent distress. Disheveled, poor hygiene, matted hair. HEENT: Normocephalic, hair is matted, multiple lesions of varying size and states of healing on her face-almost healed. Extraocular muscles intact, pupils round and reactive to light, mucous membranes moist Cardiovascular: Regular rate and rhythm, 2/6 systolic murmur heard best in the tricuspid area Pulmonary: Clear to auscultation bilaterally, no crackles, wheezes, or ronchi. Abdominal: Soft to palpation, bowel sounds present, no hepatosplenomegaly. No rebound. Extremities: There is trace nonpitting edema to lower extremities, No splinter hemorrhages, Ostlers nodes, or Janeway lesions appreciated. Neuro: Neurologically grossly intact. MSK: Left knee with clean dry bandage covering surgical wounds anteriorly. Surgical incision sites appear intact without drainage. Left Knee joint mildly swollen with mild tenderness to palpation. Right knee without evidence of effusion, no pain to palpation over the joint space IVs and Medications Medications Reviewed: Medications were reviewed in detail Lab and Diagnostics Result Diagram: 09/03/16 0500 09/03/16 0500 Microbiology Multiple blood cultures positive for MRSA. Negative starting with 08/22/16 X-Rays, CTs and MRIs X-RAY LEFT KNEE, THREE VIEWS IMPRESSION: Although no bony erosions are identified, plain film radiography is relatively insensitive in the acute phases of osteomyelitis and may not demonstrate radiographic changes for 15 days. If acute osteomyelitis is of clinical concern , nuclear medicine regional bone scan or MRI is recommended. Joint effusion. 2 cm soft tissue foreign body within the upper lower leg medially at the level of the proximal tibia shaft. Dictated by: Daniel OVALLES Interpreted: Saadia Burton MD on 08/18/2016 at 10:07 CT BRAIN WITH AND WITHOUT CONTRAST IMPRESSION: 1. No acute intracranial process. Dictated by: Victoria Galvan M.D. on 08/18/2016 at 10:43 X-RAY CHEST, TWO VIEWS IMPRESSION: No acute cardiopulmonary disease. Dictated by: Daniel OVALLES Interpreted: Saadia Burton MD on 08/18/2016 at 10:09 Cardiac Echo Impressions Interpretation Summary The left ventricle is mildly dilated. The ejection fraction is estimated to be 60-65%. There has been no significant change in LV EF since the previous study. The right ventricle is normal in size and function.There is trace tricuspid regurgitation. The right ventricular systolic pressure is estimated at 37 mmHg assuming a right atrial pressure of 15 mm Hg. The IVC is dilated (diameter is greater than 2.1 cm) and it collapses less than 50% with a sniff. This suggests a high right atrial pressure of 15 mm Hg (New). No obvious valvular vegetation seen. If clinical suspicion for endocarditis is high, consider HERMES. Assessment & Plan Shereen Witt is a 36-year-old female IV drug abuser, presented with 5 days of headache, new onset knee pain and swelling, positive blood cultures for MRSA. Now under treatment for MRSA bacteremia and septic arthritis. Hospital day #17 1. MRSA Bacteremia, subacute, present on admission -multiple blood cultures from this admission confirm MRSA bacteremia, sensitive to clindamycin and vancomycin. Secondary to IVDU. -Repeat blood cultures are now negative, pt will need a total of 4 weeks of IV ABX from first negative blood culture.i.e thru September 18 -Continue IV Vancomycin dosed by pharmacy -Hepatitis A and B vaccines when available to prevent future liver injury per infectious disease -Infectious disease on board, we appreciate their time and recommendations -CBC with differential every 3 days 2. Clostridium Difficile Colitis, not present on admission, improving -Stool PCR positive for C Diff -Continue PO Vancomycin 125 mg q 6 hours -Patient will need to remain on by mouth vancomycin until September 10, 2016. -Pt advised to keep hydrated -Monitor fluid status, and start IV Normal Saline if signs of dehydration present -Check BMP every 3 days to monitor creatinine. 3. Left knee septic joint, acute, present on admission, evaluation ongoing -Joint aspirate has been collected. High amount of PMNs present in the aspirate. No polys or organisms on Gram stain, MRSA grew and the synovial fluid collected 08/24/2016 -IV antibiotics as above -discontinued Ketorolac IM every 8 hours as needed for pain, changed to once daily in the evening -Patient continues to have some consistent but continued -Methadone 10 mg Q8, oxycodone and Tylenol for breakthrough. -Orthopedic surgery consulted, arthroscopy and washout of the knee performed, orthopedics has signed off at this time. Thank you for their assistance. -Monitor for signs of effusion and pain. -Dressing change every 48-72 hours or as needed 4. Hepatitis C, present on admission, likely chronic -HCV quantitation [id number], HCV RNA PCR log 10 4.601 -Hepatitis C genotype 1A -Continue to recommend hepatitis A and B vaccinations, patient will need vaccination before discharge -Transaminitis noted today, recheck CMP tomorrow, if continues to increase consider abdominal U/S 5. Heart murmur, chronicity unknown, present on admission, -Was heard on previous ER visits, previously evaluated in September 2015 without any valvular abnormalities apparent, but likely represents endocarditis -HERMES negative 6. Hyperkalemia, not present on admission, resolved -Continue telemetry monitoring for now 7. Urinary tract infection, acute, present on admission, treatment completed -Urine culture from 08/12/2016 grew Escherichia coli, susceptible to ceftriaxone -Pt completed treatment with IV Rocephin 8. Headache, present on admission, subacute - Patient is at risk for mycotic aneurysm, ID recommended imaging - Dr. Burton of Radiology recommends starting with CT angiogram of the brain which is more sensitive for aneurysm. - CT angiogram of brain shows no evidence of mycotic aneurysm. 9. Restless legs -Patient is iron deficient, repletion in process -Iron and vitamin C dose increased to 3 times daily with meals -Continue Mirapex nightly 0.25 mg 10. Depression, not present on admission, recurrent -Hold off on initiation of SSRI therapy, patient has had good response to Paxil in the past -Provided patient with information and techniques for treating depression without medication. 11. History of IV drug abuse -will avoid placing PICC -outpatient follow up for her substance issues -SW to give outpatient resource information -Clonidine 0.1 mg every 6 hours when necessary for withdrawal -Methadone 10 mg Q8. Patient understands that she does will not be able to be prescribed methadone by the hospitalist team once she is discharged. She will need to establish with a methadone clinic on her own. VTE Prophylaxis with subcutaneous Lovenox GI prophylaxis: Not indicated Pain management: Methadone, Tylenol, oxycodone Dispo: Earliest possible date of discharge will be September 18 per ID. Patient will need to remain on by mouth vancomycin until September 10, 2016. GI Prophylaxis: Not indicated VTE Prophylaxis: Sub-Q Enoxaparin VTE Mechanical Devices: Intermittant Pneumatic CD Resuscitation Status: CPR: Attempt Resuscitation Attending Statement The patient was seen and examined independently on 09/03/2016 and case discussed with Dr. Osorio, I agree with the history, exam and plan as outlined in the note above. Aurelia Osorio DO Sep 03, 2016 08:16 Gabe Mancuso MD Sep 03, 2016 12:37
[2016-09-03] MEDS: 0.9% Sodium Chloride 1,000 ML IV SCH (11:49)
[2016-09-03 15:30] VITALS: BP 117/69; PULSE 64; RESP 18; O2SAT 100
[2016-09-03 22:46] VITALS: BP 122/61; PULSE 78; RESP 20; O2SAT 100
[2016-09-03] MEDS: Ondansetron 2 mg/mL 2 mL Inj IVPUSH PRN (23:14)
[2016-09-04] MEDS: Sodium Chloride LOK Flush 10 mL Syringe IVFLUSH SCH ×3 (00:30→16:30)
[2016-09-04] MEDS: 0.9% Sodium Chloride 1,000 ML IV SCH ×2 (01:03→16:31)
[2016-09-04] MEDS: Vancomycin Inj 1,250 MG in 0.9% Sodium Chloride 250 ML IV SCH ×3 (04:26→20:48)
[2016-09-04 04:58] VITALS: BP 107/67; PULSE 79; RESP 20; O2SAT 100
[2016-09-04] MEDS: Vancomycin 125 mg Oral Capsule PO SCH ×4 (05:43→22:34)
--- NOTE | 2016-09-04 07:51 | PCM.PNMED ---
Subjective Date of Service Sep 04, 2016 Subjective No problems overnight. Methadone increased yesterday, doinbg OK there. No significant pain. Diarrhea better, but not resolved. Exam Vital Signs Vital Sign - Last Date Time Temp Pulse Resp B/P Pulse Ox O2 Delivery O2 Flow Rate FiO2 09/04/16 04:58 36.8 79 20 107/67 100 Room Air Intake and Output 09/03/16 09/03/16 09/04/16 Cumulative From/Thru 15:00 23:00 07:00 08/18/16 00:26 - 09/04/16 06:56 Intake Total 1049 ml 2704 ml 3048 ml 30474 ml Output Total 2000 ml 800 ml 1400 ml 19645 ml Balance -951 ml 1904 ml 1648 ml 4339 ml Intake Oral 1049 ml 872 ml 1826 ml 37944 ml IV Total 1832 ml 1222 ml 96696 ml Output Urine Total 2000 ml 800 ml 1400 ml 14005 ml # Voids 8 # Bowel Movements 0 2 20 Exam Eyes; felicitas, eom intact ENMT; clear without lesions. CV; 2/6 systolic murmur Resp; clear anteriorly GI; soft, benign Skin; wound look ok, no evidence of wound infection, no rash Neuro; cm 2-12 intact, no gross motor or sensory defects Lab and Diagnostics Result Diagram: 09/03/16 0500 09/04/16 0510 Microbiology Multiple blood cultures positive for MRSA. Negative starting with 08/22/16 X-Rays, CTs and MRIs X-RAY LEFT KNEE, THREE VIEWS IMPRESSION: Although no bony erosions are identified, plain film radiography is relatively insensitive in the acute phases of osteomyelitis and may not demonstrate radiographic changes for 15 days. If acute osteomyelitis is of clinical concern , nuclear medicine regional bone scan or MRI is recommended. Joint effusion. 2 cm soft tissue foreign body within the upper lower leg medially at the level of the proximal tibia shaft. Dictated by: Daniel OVALLES Interpreted: Saadia Burton MD on 08/18/2016 at 10:07 CT BRAIN WITH AND WITHOUT CONTRAST IMPRESSION: 1. No acute intracranial process. Dictated by: Victoria Galvan M.D. on 08/18/2016 at 10:43 X-RAY CHEST, TWO VIEWS IMPRESSION: No acute cardiopulmonary disease. Dictated by: Daniel OVALLES Interpreted: Saadia Burton MD on 08/18/2016 at 10:09 Cardiac Echo Impressions Interpretation Summary The left ventricle is mildly dilated. The ejection fraction is estimated to be 60-65%. There has been no significant change in LV EF since the previous study. The right ventricle is normal in size and function.There is trace tricuspid regurgitation. The right ventricular systolic pressure is estimated at 37 mmHg assuming a right atrial pressure of 15 mm Hg. The IVC is dilated (diameter is greater than 2.1 cm) and it collapses less than 50% with a sniff. This suggests a high right atrial pressure of 15 mm Hg (New). No obvious valvular vegetation seen. If clinical suspicion for endocarditis is high, consider HERMES. Assessment & Plan Shereen Witt is a 36-year-old female IV drug abuser, presented with 5 days of headache, new onset knee pain and swelling, positive blood cultures for MRSA. Now under treatment for MRSA bacteremia and septic arthritis. Hospital day #17 1. MRSA Bacteremia, subacute, present on admission -multiple blood cultures from this admission confirm MRSA bacteremia, sensitive to clindamycin and vancomycin. Secondary to IVDU. -Repeat blood cultures are now negative on 08/22/16, 4 weeks treatment to September 18 -Hepatitis A and B vaccines when available to prevent future liver injury per infectious disease -CBC with differential every 3 days 2. Clostridium Difficile Colitis, not present on admission, improving -Stool PCR positive for C Diff -Continue PO Vancomycin 125 mg q 6 hours, -Patient will need to remain on by mouth vancomycin until September 10, 2016. 3. Left knee septic joint, acute, present on admission, evaluation ongoing -Joint aspirate has been collected. High amount of PMNs present in the aspirate. No polys or organisms on Gram stain, MRSA grew and the synovial fluid collected 08/24/2016 -IV antibiotics as above -discontinued Ketorolac IM every 8 hours as needed for pain, changed to once daily in the evening -Methadone 10 mg Q8, oxycodone and Tylenol for breakthrough. -Orthopedic surgery consulted, arthroscopy and washout of the knee performed, orthopedics has signed off at this time -Dressing change every 48-72 hours or as needed 4. Hepatitis C, present on admission, likely chronic -HCV quantitation [id number], HCV RNA PCR log 10 4.601 -Hepatitis C genotype 1A -Continue to recommend hepatitis A and B vaccinations, patient will need vaccination before discharge -Transaminitis noted today, recheck CMP tomorrow, if continues to increase consider abdominal U/S 5. Heart murmur, chronicity unknown, present on admission, -Was heard on previous ER visits, previously evaluated in September 2015 without any valvular abnormalities apparent, but likely represents endocarditis -HERMES negative 7. Urinary tract infection, acute, present on admission, treatment completed -Urine culture from 08/12/2016 grew Escherichia coli, susceptible to ceftriaxone -Pt completed treatment with IV Rocephin 8. Headache, present on admission, subacute - Patient is at risk for mycotic aneurysm, ID recommended imaging - Dr. Burton of Radiology recommends starting with CT angiogram of the brain which is more sensitive for aneurysm. - CT angiogram of brain shows no evidence of mycotic aneurysm. 9. Restless legs -Patient is iron deficient, repletion in process -Iron and vitamin C dose increased to 3 times daily with meals -Continue Mirapex nightly 0.25 mg 10. Depression, not present on admission, recurrent -Hold off on initiation of SSRI therapy, patient has had good response to Paxil in the past -Provided patient with information and techniques for treating depression without medication. 11. History of IV drug abuse -will avoid placing PICC -outpatient follow up for her substance issues -SW to give outpatient resource information -Clonidine 0.1 mg every 6 hours when necessary for withdrawal -Methadone 10 mg Q8. Patient understands that she does will not be able to be prescribed methadone by the hospitalist team once she is discharged. She will need to establish with a methadone clinic on her own. 12. Possible Foreign body left leg medially; -review with radiology, -patient has used needles in this area before VTE Prophylaxis with subcutaneous Lovenox GI prophylaxis: Not indicated Pain management: Methadone, Tylenol, oxycodone Dispo: Earliest possible date of discharge will be September 18 per ID. Patient will need to remain on by mouth vancomycin until September 10, 2016. GI Prophylaxis: Not indicated VTE Prophylaxis: Sub-Q Enoxaparin VTE Mechanical Devices: Intermittant Pneumatic CD Resuscitation Status: CPR: Attempt Resuscitation Maverick Burgos MD Sep 04, 2016 07:51
[2016-09-04] MEDS: Vancomycin Dose per Pharmacist XX SCH (08:30)
[2016-09-04] MEDS: Pantoprazole 40 mg ER24 Tablet PO SCH ×2 (08:53→16:34)
[2016-09-04] MEDS: Multivit-Miner-Folic Acid-Iron Tablet PO SCH (08:53)
[2016-09-04] MEDS: Ascorbic Acid 500 mg Tablet PO SCH ×3 (08:54→16:39)
[2016-09-04] MEDS: Ondansetron 2 mg/mL 2 mL Inj IVPUSH PRN (09:13)
[2016-09-04 09:51] VITALS: BP 117/70; PULSE 98; RESP 20; O2SAT 98
[2016-09-04] MEDS: Lactobacillus Rhamnosus 10 Bil Unit Capsule PO SCH ×4 (10:35→22:34)
--- NOTE | 2016-09-04 12:54 | NUR ---
Social Work-continued d/c planning: Data:EMR Reviewed. Pt is on day 17 of hospitalization for MRSA per H&P. Pt anticipated to say in the hospital until 09/18/16 after completing IV abx. CDP with [place] involved with case. SW will continue to follow. Assessment: Pt who is independent at baseline. Plan: Pt to remain in hospital until 09/18/16 to complete IV abx. CDP with [place] involved with case. SW will continue to follow. STEPH Hernandez
[2016-09-04 13:17] VITALS: BP 110/69; PULSE 70; RESP 18; O2SAT 98
--- NOTE | 2016-09-04 13:51 | NUR ---
NUTRITION FOLLOW-UP: ASSESS: 36 YO female admitted with MRSA bacteremia related to IV drug use. Pt will be in hospital for 4-6 week for IV antibiotics. Pt with septic L knee s/p lavage and debridement on 08/25/16. PMHx: Ulcers, Left breast infection, migraines, MRSA, heart murmur, asthma, GERD, heroin, IV drug abuse. LABS: Reviewed. Cr .55, Glu 104, Alb 3.2, AST 152, ALT 255. MEDS: Reviewed. GI: BM x 2 (09/04), C-diff positive, diarrhea improving per notes. SKIN: Left knee incision. CURRENT WT: 91.8 kg (08/18). No new wt since admit. IBW: 63.64 kg. DIET: General. Variable PO intake refusal-100% of meals. EST. NEEDS: 6557-1635 kcals (20-22 kcals/kg BW), 75-95 g protein (1.2-1.5 g/kg IBW) NUTRITION DIAGNOSIS: 1.) No nutritional diagnosis at this time. NUTRITION INTERVENTION: 1.) No nutritional intervention at this time. MONITOR / EVAL: PO intake, labs nutritional status. Follow per low nutritional risk guidelines.
--- NOTE | 2016-09-04 13:56 | PROG NOTE ---
[address] [address] PROGRESS NOTE PATIENT: LISA SOSA : 1980 MR#: [id number] ADMIT: 08/18/2016 JOB ID: [id number] CORRECTED REPORT: DATE: 09/04/2016 REASON FOR FOLLOWUP: MRSA bacteremia and septic left knee in an IV drug user. INTERVAL HISTORY: The patient reports today that she has been doing quite well. She states that her left knee is gradually better. She can almost fully extend and flex it and she is able to walk on it without too much pain. She is still concerned because it is somewhat warm and still somewhat tender, but as noted, day by day it is better. The patient declines to have a PICC line or midline. She said she prefers using peripheral IVs, even though they have to be changed frequently in view of her ongoing vancomycin therapy. She has no fevers, no chills. No sweats. No cough, nausea, vomiting, or diarrhea. PHYSICAL EXAMINATION: Reveals an afebrile woman, temp 36.4, pulse 98, respiratory rate 20, blood pressure 117/70. She is saturating well on room air. Examination of the mental status clear. Oral cavity negative. Lungs clear. Cardiac tones without murmur. Regular rate and rhythm. The right knee is still mildly swollen with some scattered erythema and tenderness with deep palpation but almost full range of motion and she can weightbear on it. Labs yesterday include a white count of 7100, creatinine 0.55. ALT is 255, AST 152. those are relatively stable. Her last vanc trough a couple days ago was 16 and we seem to have the dose right on, as they are all 16 now. Note that she does have hep C which explains her elevated LFTs; it is 40,000 white count, genotype 1. We have no recent positive cultures, though we did have the positive stool for C. diff, which may represent colonization. IMPRESSION: This patient is doing extremely well with respect to treatment of her high-grade methicillin-resistant Staphylococcus aureus bacteremia and septic left knee. She may also have Clostridium difficile colitis, though it is unclear if it is colonization or infection, and she definitely has hepatitis C with chronic hepatitis which will need to be addressed after she is out of the hospital. RECOMMENDATIONS: 1. Will continue with IV vancomycin through September 18. 2. The patient could have a PICC or a midline, but at this point, she wants to continue with the peripheral IVs and I have no objection with that, though it often is difficult to do with vancomycin. 3. Will continue to closely follow this patient with you. Corrected by LIZZY 09/25/16 at 2:13pm DOS.
--- NOTE | 2016-09-04 17:15 | NUR ---
Behavior/Pain Slept majority of shift. Somewhat diaphoretic. Refused breakfast and lunch. Educated patient purpose of nutrition r/t healing. Did order dinner. Stated pain was 8/10 entire shift in L knee. After dose of methadone in evening stated pain was 6/10. During description of pain patient was able to continue to watch tv without taking eyes off screen. Continue frequent rounding.
[2016-09-04 21:18] VITALS: BP 106/63; PULSE 78; RESP 18; O2SAT 97
[2016-09-04] MEDS: cloNIDine 0.1 mg Tablet PO PRN (22:34)
[2016-09-04] MEDS: hydrOXYzine Pamoate 25 mg Capsule PO PRN (22:34)
[2016-09-05] MEDS: Sodium Chloride LOK Flush 10 mL Syringe IVFLUSH SCH ×4 (00:30→23:39)
[2016-09-05 05:11] VITALS: BP 117/74; PULSE 68; RESP 18; O2SAT 98
[2016-09-05] MEDS: 0.9% Sodium Chloride 1,000 ML IV SCH ×3 (05:46→23:00)
[2016-09-05] MEDS: Vancomycin 125 mg Oral Capsule PO SCH ×4 (05:46→23:00)
[2016-09-05] MEDS: Vancomycin Inj 1,250 MG in 0.9% Sodium Chloride 250 ML IV SCH ×3 (05:46→20:48)
[2016-09-05] MEDS: Lactobacillus Rhamnosus 10 Bil Unit Capsule PO SCH ×4 (07:37→21:02)
[2016-09-05] MEDS: Pantoprazole 40 mg ER24 Tablet PO SCH ×2 (07:38→16:44)
[2016-09-05] MEDS: Ascorbic Acid 500 mg Tablet PO SCH ×3 (07:38→17:33)
[2016-09-05] MEDS: Multivit-Miner-Folic Acid-Iron Tablet PO SCH (07:38)
[2016-09-05] MEDS: Vancomycin Dose per Pharmacist XX SCH (07:44)
--- NOTE | 2016-09-05 10:31 | PROG NOTE ---
[address] [address] PROGRESS NOTE PATIENT: LISA SOSA : 1980 MR#: [id number] ADMIT: 08/18/2016 JOB ID: [id number] DATE: 09/05/2016 INFECTIOUS DISEASE FOLLOW UP NOTE: REASON FOR FOLLOWUP: High-grade MRSA bacteremia with left septic knee. INTERVAL HISTORY: Overnight, the patient has no new complaints. Still some moderate pain in the left knee but able to ambulate and certainly no worse pain than yesterday. She denies fevers, chills or sweats. No significant cough or shortness of breath. PHYSICAL EXAMINATION: Reveals an afebrile woman. Temperature 36.4, pulse 68, respiratory rate 18, blood pressure 117/74. She is in no acute distress. Her mental status clear. Oral cavity negative. Lungs clear. Cardiac tone regular rate and rhythm without any murmur today. Abdomen benign. Left knee still somewhat swollen but gradually improving. Mild tenderness about the knee. LABORATORIES: No new labs of significance. Yesterday's creatinine was 0.55. Recall she does have genotype IA hepatitis C. No new imaging is available. IMPRESSION: The patient continues to do quite well with respect to her high-grade methicillin-resistant Staphylococcus aureus bacteremia and septic left knee. She is also on treatment for C. difficile though it is unclear if it is colonization or infection and she has chronic hepatitis C, that we need to be treated in the future. RECOMMENDATIONS: 1. Continue with IV vanc through September 18. 2. ID will continue to see this patient 2-3 times per week as there is not a whole lot of active issues at this point, but we do need to closely monitor vanco levels, renal function and status of her left knee.
[2016-09-05] MEDS ORDERED: Vancomycin Serum Trough XX ONE (11:30)
[2016-09-05 12:59] VITALS: BP 100/59; PULSE 77; RESP 18; O2SAT 97
--- NOTE | 2016-09-05 14:04 | PCM.PHAPRO ---
Progress Date of Service: Sep 05, 2016 Patient has been stable though no labs for kidney function were ordered today. CMP is already ordered for tomorrow. Trough not drawn today at 11:30 as scheduled for unclear reasons. Called lab and cancelled - RN aware. Will retime for 09/06 at 11:30. Continue current maintenance dose. Pharmacy to continue to monitor and dose vancomycin. Thank you, Jhonny Grace Pharmacist Jhonny Grace Sep 05, 2016 14:04
--- NOTE | 2016-09-05 14:27 | PCM.PNMED ---
Subjective Date of Service Sep 05, 2016 Subjective Did well overnight, cooperating with nursing staff. No further fever, tolerating current antibiotics well. Diarrhea resolving. Exam Vital Signs Vital Sign - Last Date Time Temp Pulse Resp B/P Pulse Ox O2 Delivery O2 Flow Rate FiO2 09/05/16 12:59 36.5 77 18 100/59 97 Room Air Intake and Output 09/04/16 09/04/16 09/05/16 Cumulative From/Thru 15:00 23:00 07:00 08/18/16 00:26 - 09/05/16 06:25 Intake Total 1316 ml 480 ml 50837 ml Output Total 2000 ml 1200 ml 21099 ml Balance -684 ml -720 ml 2935 ml Intake Oral 400 ml 480 ml 85231 ml IV Total 916 ml 90444 ml Output Urine Total 2000 ml 1200 ml 42569 ml # Voids 8 # Bowel Movements 0 20 Exam Eyes; felicitas, eom intact ENMT; clear without lesions. CV; 2/6 systolic murmur, unchanged Resp; clear anteriorly GI; soft, benign, non tender Skin; wound look ok, no evidence of wound infection, no rash Neuro; cm 2-12 intact, no gross motor or sensory defects Lab and Diagnostics Result Diagram: 09/03/16 0500 09/04/16 0510 Microbiology Multiple blood cultures positive for MRSA. Negative starting with 08/22/16 X-Rays, CTs and MRIs X-RAY LEFT KNEE, THREE VIEWS IMPRESSION: Although no bony erosions are identified, plain film radiography is relatively insensitive in the acute phases of osteomyelitis and may not demonstrate radiographic changes for 15 days. If acute osteomyelitis is of clinical concern , nuclear medicine regional bone scan or MRI is recommended. Joint effusion. 2 cm soft tissue foreign body within the upper lower leg medially at the level of the proximal tibia shaft. Dictated by: Daniel OVALLES Interpreted: Saadia Burton MD on 08/18/2016 at 10:07 CT BRAIN WITH AND WITHOUT CONTRAST IMPRESSION: 1. No acute intracranial process. Dictated by: Victoria Galvan M.D. on 08/18/2016 at 10:43 X-RAY CHEST, TWO VIEWS IMPRESSION: No acute cardiopulmonary disease. Dictated by: Daniel OVALLES Interpreted: Saadia Burton MD on 08/18/2016 at 10:09 Cardiac Echo Impressions Interpretation Summary The left ventricle is mildly dilated. The ejection fraction is estimated to be 60-65%. There has been no significant change in LV EF since the previous study. The right ventricle is normal in size and function.There is trace tricuspid regurgitation. The right ventricular systolic pressure is estimated at 37 mmHg assuming a right atrial pressure of 15 mm Hg. The IVC is dilated (diameter is greater than 2.1 cm) and it collapses less than 50% with a sniff. This suggests a high right atrial pressure of 15 mm Hg (New). No obvious valvular vegetation seen. If clinical suspicion for endocarditis is high, consider HERMES. Assessment & Plan Shereen Witt is a 36-year-old female IV drug abuser, presented with 5 days of headache, new onset knee pain and swelling, positive blood cultures for MRSA. Now under treatment for MRSA bacteremia and septic arthritis. Hospital day #17 1. MRSA Bacteremia, subacute, present on admission -multiple blood cultures from this admission confirm MRSA bacteremia, sensitive to clindamycin and vancomycin. Secondary to IVDU. -Repeat blood cultures were negative on 08/22/16, 4 weeks treatment to September 18 tentative plan -Hepatitis A and B vaccines when available to prevent future liver injury per infectious disease -CBC with differential every 3 days 2. Clostridium Difficile Colitis, not present on admission, improving -Stool PCR positive for C Diff -Continue PO Vancomycin 125 mg q 6 hours, -Patient will need to remain on by mouth vancomycin until September 10, 2016. ( start 08-27-16 plus 14 days = 09-10-16) 3. Left knee septic joint, acute, present on admission, evaluation ongoing -Joint aspirate has been collected. High amount of PMNs present in the aspirate. No polys or organisms on Gram stain, MRSA grew and the synovial fluid collected 08/24/2016 -IV antibiotics as above -discontinued Ketorolac IM every 8 hours as needed for pain, changed to once daily in the evening -Methadone 10 mg Q8, oxycodone and Tylenol for breakthrough. -Orthopedic surgery consulted, arthroscopy and washout of the knee performed, orthopedics has signed off at this time -Dressing change every 48-72 hours or as needed 4. Hepatitis C, present on admission, likely chronic -HCV quantitation [id number], HCV RNA PCR log 10 4.601 -Hepatitis C genotype 1A -Continue to recommend hepatitis A and B vaccinations, patient will need vaccination before discharge -Transaminitis noted today, recheck CMP tomorrow, if continues to increase consider abdominal U/S 5. Heart murmur, chronicity unknown, present on admission, -Was heard on previous ER visits, previously evaluated in September 2015 without any valvular abnormalities apparent, but likely represents endocarditis -HERMES negative 7. Urinary tract infection, acute, present on admission, treatment completed -Urine culture from 08/12/2016 grew Escherichia coli, susceptible to ceftriaxone -Pt completed treatment with IV Rocephin 8. Headache, present on admission, subacute - Patient is at risk for mycotic aneurysm, ID recommended imaging - Dr. Burton of Radiology recommends starting with CT angiogram of the brain which is more sensitive for aneurysm. - CT angiogram of brain shows no evidence of mycotic aneurysm. 9. Restless legs -Patient is iron deficient, repletion in process -Iron and vitamin C dose increased to 3 times daily with meals -Continue Mirapex nightly 0.25 mg 10. Depression, not present on admission, recurrent -Hold off on initiation of SSRI therapy, patient has had good response to Paxil in the past -Provided patient with information and techniques for treating depression without medication. 11. History of IV drug abuse -will avoid placing PICC -outpatient follow up for her substance issues -SW to give outpatient resource information -Clonidine 0.1 mg every 6 hours when necessary for withdrawal -Methadone 10 mg Q8. Patient understands that she does will not be able to be prescribed methadone by the hospitalist team once she is discharged. She will need to establish with a methadone clinic on her own. 12. Possible Foreign body left leg medially; -review with radiology, -patient has used needles in this area before VTE Prophylaxis with subcutaneous Lovenox GI prophylaxis: Not indicated Pain management: Methadone, Tylenol, oxycodone Dispo: Earliest possible date of discharge will be September 18 per ID. Patient will need to remain on by mouth vancomycin until September 10, 2016. GI Prophylaxis: Not indicated VTE Prophylaxis: Sub-Q Enoxaparin VTE Mechanical Devices: Intermittant Pneumatic CD Resuscitation Status: CPR: Attempt Resuscitation Maverick Burgos MD Sep 05, 2016 14:27
--- NOTE | 2016-09-05 15:52 | NUR ---
pain pt reports pain being 7/10 or 6/10 but still able to go to sleep. this RN will continue to medicate as needed
--- NOTE | 2016-09-05 17:26 | NUR ---
spiritual care: pt request for bible bible delivered and pt grateful. no other spiritual care needs identified at moment
[2016-09-05 20:30] VITALS: BP 106/69; PULSE 79; RESP 18; O2SAT 98
[2016-09-05] MEDS: Ondansetron 2 mg/mL 2 mL Inj IVPUSH PRN (20:46)
[2016-09-05] MEDS: hydrOXYzine Pamoate 25 mg Capsule PO PRN (21:02)
[2016-09-06] MEDS: cloNIDine 0.1 mg Tablet PO PRN (00:44)
[2016-09-06] MEDS: Vancomycin Inj 1,250 MG in 0.9% Sodium Chloride 250 ML IV SCH ×2 (03:57→12:04)
[2016-09-06] MEDS: Vancomycin 125 mg Oral Capsule PO SCH ×4 (03:57→23:17)
[2016-09-06 05:31] VITALS: BP 116/74; PULSE 71; RESP 18; O2SAT 97
[2016-09-06 06:22] LABS: BASOPHILS % (AUTO) 0.2 % (0-3); EOSINOPHILS % (AUTO) 2.4 % (0-5); MONOCYTES % (AUTO) 6.5 % (4-12); Mean Corpuscular Hemoglobin 26.9 pg (27.0-35.0); Mean Corpuscular Volume 87.1 fL (81-100); NEUTROPHILS % (AUTO) 66.1 % (40-74); Platelet Count 364 bil/L (150-400)
[2016-09-06] MEDS: Lactobacillus Rhamnosus 10 Bil Unit Capsule PO SCH ×4 (07:37→22:18)
[2016-09-06] MEDS: Ascorbic Acid 500 mg Tablet PO SCH ×3 (07:37→17:40)
[2016-09-06] MEDS: Pantoprazole 40 mg ER24 Tablet PO SCH ×2 (07:37→16:50)
[2016-09-06] MEDS: Sodium Chloride LOK Flush 10 mL Syringe IVFLUSH SCH ×2 (07:41→16:17)
[2016-09-06] MEDS: Multivit-Miner-Folic Acid-Iron Tablet PO SCH (07:45)
[2016-09-06] MEDS: Vancomycin Dose per Pharmacist XX SCH (08:30)
--- NOTE | 2016-09-06 10:55 | NUR ---
nicotine patch pt states that her nicotine patch fell off last night. this RN will ask pharmacy if we can re-time the patch so the pt can have it now.
[2016-09-06] MEDS ORDERED: Vancomycin Serum Trough XX ONE (11:30)
--- NOTE | 2016-09-06 11:57 | NUR ---
Social Work: Brief Note BR[employer]HER TENDER requested [facility] Specialist set pt up with a PCP [facility] for after her d/c date anticipated of 09/18/16. STEPH Mcdaniel
[2016-09-06] MEDS: 0.9% Sodium Chloride 1,000 ML IV SCH (12:44)
--- NOTE | 2016-09-06 14:01 | PCM.PHAPRO ---
Progress Date of Service: Sep 06, 2016 Vancomycin dosing per pharmacy Indication: septic arthritis of knee, MRSA bacteremia Trough goal: 15-20 Nephrotic risks: IVDU Vancomycin maintenance dose prior to trough: 1250 mg IV Q8H Vancomycin trough today (11:30am): 10.3 SCr: 0.55 Vancomycin trough has trended down since last check. SCr is stable. Increase maintenance dose of vancomycin to 1000mg Q6H. First dose will be timed early to act as a bolus dose. Next vancomycin trough is scheduled for 09/07/16 @1530. Pharmacy to continue to monitor and dose vancomycin. Thank you, Jhonny Grace Pharmacist Jhonny Grace Sep 06, 2016 14:01
--- NOTE | 2016-09-06 14:12 | PCM.PNMED ---
Subjective Date of Service Sep 06, 2016 Subjective No problems per nursing staff, cooperative. Up and moving around more today. No complaints by patinet. Exam Vital Signs Vital Sign - Last Date Time Temp Pulse Resp B/P Pulse Ox O2 Delivery O2 Flow Rate FiO2 09/06/16 05:31 36.6 71 18 116/74 97 Room Air Intake and Output 09/05/16 09/05/16 09/06/16 Cumulative From/Thru 15:00 23:00 07:00 08/18/16 00:26 - 09/06/16 06:04 Intake Total 1200 ml 4596 ml 75552 ml Output Total 1500 ml 2200 ml 27511 ml Balance -300 ml 2396 ml 5031 ml Intake Oral 1200 ml 1200 ml 97745 ml IV Total 3396 ml 63042 ml Output Urine Total 1500 ml 2200 ml 81828 ml # Voids 8 # Bowel Movements 1 06 25 Exam Eyes; felicitas, eom intact ENMT; clear without lesions. CV; 2/6 systolic murmur, unchanged, regular Resp; clear anteriorly GI; soft, benign, non tender Skin; wound look ok, no evidence of wound infection, no rash Neuro; cm 2-12 intact, no gross motor or sensory defects Lab and Diagnostics Result Diagram: 09/06/16 0558 09/06/16 0558 Microbiology Multiple blood cultures positive for MRSA. Negative starting with 08/22/16 X-Rays, CTs and MRIs X-RAY LEFT KNEE, THREE VIEWS IMPRESSION: Although no bony erosions are identified, plain film radiography is relatively insensitive in the acute phases of osteomyelitis and may not demonstrate radiographic changes for 15 days. If acute osteomyelitis is of clinical concern , nuclear medicine regional bone scan or MRI is recommended. Joint effusion. 2 cm soft tissue foreign body within the upper lower leg medially at the level of the proximal tibia shaft. Dictated by: Daniel OVALLES Interpreted: Saadia Burton MD on 08/18/2016 at 10:07 CT BRAIN WITH AND WITHOUT CONTRAST IMPRESSION: 1. No acute intracranial process. Dictated by: Victoria Galvan M.D. on 08/18/2016 at 10:43 X-RAY CHEST, TWO VIEWS IMPRESSION: No acute cardiopulmonary disease. Dictated by: Daniel OVALLES Interpreted: Saadia Burton MD on 08/18/2016 at 10:09 Cardiac Echo Impressions Interpretation Summary The left ventricle is mildly dilated. The ejection fraction is estimated to be 60-65%. There has been no significant change in LV EF since the previous study. The right ventricle is normal in size and function.There is trace tricuspid regurgitation. The right ventricular systolic pressure is estimated at 37 mmHg assuming a right atrial pressure of 15 mm Hg. The IVC is dilated (diameter is greater than 2.1 cm) and it collapses less than 50% with a sniff. This suggests a high right atrial pressure of 15 mm Hg (New). No obvious valvular vegetation seen. If clinical suspicion for endocarditis is high, consider HERMES. Assessment & Plan Shereen Witt is a 36-year-old female IV drug abuser, presented with 5 days of headache, new onset knee pain and swelling, positive blood cultures for MRSA. Now under treatment for MRSA bacteremia and septic arthritis. Hospital day #17 1. MRSA Bacteremia, subacute, present on admission -multiple blood cultures from this admission confirm MRSA bacteremia, sensitive to clindamycin and vancomycin. Secondary to IVDU. -Repeat blood cultures were negative on 08/22/16, 4 weeks treatment to September 18 tentative plan -Hepatitis A and B vaccines when available to prevent future liver injury per infectious disease -CBC with differential every 3 days 2. Clostridium Difficile Colitis, not present on admission, improving -Stool PCR positive for C Diff -Continue PO Vancomycin 125 mg q 6 hours, -Patient will need to remain on by mouth vancomycin until September 10, 2016. ( start 08-27-16 plus 14 days = 09-10-16) 3. Left knee septic joint, acute, present on admission, evaluation ongoing -Joint aspirate has been collected. High amount of PMNs present in the aspirate. No polys or organisms on Gram stain, MRSA grew and the synovial fluid collected 08/24/2016 -IV antibiotics as above -discontinued Ketorolac IM every 8 hours as needed for pain, changed to once daily in the evening -Methadone 10 mg Q8, oxycodone and Tylenol for breakthrough. -Orthopedic surgery consulted, arthroscopy and washout of the knee performed, orthopedics has signed off at this time -Dressing change every 48-72 hours or as needed 4. Hepatitis C, present on admission, likely chronic -HCV quantitation [id number], HCV RNA PCR log 10 4.601 -Hepatitis C genotype 1A -Continue to recommend hepatitis A and B vaccinations, patient will need vaccination before discharge -Transaminitis noted today, recheck CMP tomorrow, if continues to increase consider abdominal U/S 5. Heart murmur, chronicity unknown, present on admission, -Was heard on previous ER visits, previously evaluated in September 2015 without any valvular abnormalities apparent, but likely represents endocarditis -HERMES negative 7. Urinary tract infection, acute, present on admission, treatment completed -Urine culture from 08/12/2016 grew Escherichia coli, susceptible to ceftriaxone -Pt completed treatment with IV Rocephin 8. Headache, present on admission, subacute - Patient is at risk for mycotic aneurysm, ID recommended imaging - Dr. Burton of Radiology recommends starting with CT angiogram of the brain which is more sensitive for aneurysm. - CT angiogram of brain shows no evidence of mycotic aneurysm. 9. Restless legs -Patient is iron deficient, repletion in process -Iron and vitamin C dose increased to 3 times daily with meals -Continue Mirapex nightly 0.25 mg 10. Depression, not present on admission, recurrent -Hold off on initiation of SSRI therapy, patient has had good response to Paxil in the past -Provided patient with information and techniques for treating depression without medication. 11. History of IV drug abuse -will avoid placing PICC -outpatient follow up for her substance issues -SW to give outpatient resource information -Clonidine 0.1 mg every 6 hours when necessary for withdrawal -Methadone 10 mg Q8. Patient understands that she does will not be able to be prescribed methadone by the hospitalist team once she is discharged. She will need to establish with a methadone clinic on her own. 12. Possible Foreign body left leg medially; -review with radiology, does appear to be an old broken needle -patient has used needles in this area before -consider removing -area not red or tender, not bothering the patient VTE Prophylaxis with subcutaneous Lovenox GI prophylaxis: Not indicated Pain management: Methadone, Tylenol, oxycodone Dispo: Earliest possible date of discharge will be September 18 per ID. Patient will need to remain on by mouth vancomycin until September 10, 2016. GI Prophylaxis: Not indicated VTE Prophylaxis: Sub-Q Enoxaparin VTE Mechanical Devices: Venous Foot Pump Resuscitation Status: CPR: Attempt Resuscitation Maverick Burgos MD Sep 06, 2016 14:12
[2016-09-06 14:45] VITALS: BP 124/87; PULSE 84; RESP 18; O2SAT 99
[2016-09-06] MEDS: Vancomycin Inj 1,000 MG in IV Premix 1 EACH IV SCH ×2 (16:16→23:18)
[2016-09-06 20:10] VITALS: BP 134/80; PULSE 85; RESP 18; O2SAT 98
[2016-09-07] MEDS: Sodium Chloride LOK Flush 10 mL Syringe IVFLUSH SCH ×4 (00:42→23:12)
[2016-09-07] MEDS: 0.9% Sodium Chloride 1,000 ML IV SCH ×2 (02:22→16:36)
[2016-09-07] MEDS: Vancomycin 125 mg Oral Capsule PO SCH ×4 (04:22→21:57)
[2016-09-07 05:23] VITALS: BP 121/79; PULSE 86; RESP 18; O2SAT 98
[2016-09-07] MEDS: Vancomycin Inj 1,000 MG in IV Premix 1 EACH IV SCH ×3 (05:36→16:47)
[2016-09-07] MEDS: cloNIDine 0.1 mg Tablet PO PRN (05:40)
--- NOTE | 2016-09-07 06:19 | NUR ---
Arm Pain Patient had an IV infiltrate on previous shift, which had already been removed and replace. Patient right arm, pink and painful. Patient given ice and pain medication, there has been a decrease in color but arm still remains painful.
[2016-09-07] MEDS: Ascorbic Acid 500 mg Tablet PO SCH ×3 (08:46→16:48)
[2016-09-07] MEDS: Multivit-Miner-Folic Acid-Iron Tablet PO SCH (08:46)
[2016-09-07] MEDS: Lactobacillus Rhamnosus 10 Bil Unit Capsule PO SCH ×4 (08:46→21:58)
[2016-09-07] MEDS: Pantoprazole 40 mg ER24 Tablet PO SCH ×2 (08:47→16:48)
[2016-09-07] MEDS: Vancomycin Dose per Pharmacist XX SCH (11:37)
[2016-09-07 13:46] VITALS: BP 122/67; PULSE 85; RESP 18; O2SAT 98
--- NOTE | 2016-09-07 14:21 | PROG NOTE ---
[address] [address] PROGRESS NOTE PATIENT: LISA SOSA : 1980 MR#: [id number] ADMIT: 08/18/2016 JOB ID: [id number] DATE: 09/07/16 INFECTIOUS DISEASE FOLLOW UP NOTE: REASON FOR FOLLOW UP: High-grade MRSA bacteremia with septic left knee. INTERVAL HISTORY: The patient reports she is feeling reasonably well but has some nausea, some vague malaise and some weakness. She denies overt fever though she reports she has had some chills. No significant headache, cough, or shortness of breath. She notes that her left knee seems to be getting worse and she thinks this is because she has not had any physical therapy in the last couple days. It has also been noted that the patient has a small needle fragment just below her left knee which is of concern to her. PHYSICAL EXAMINATION: Reveals an afebrile woman. She has been consistently afebrile now for many days. Blood pressure 121/79, pulse 86, respiratory rate 18. She is saturating well on room air. Oral cavity is unremarkable. Lungs quite clear. Cardiac tones with a soft 1/6 systolic murmur as before. Abdomen negative. Left knee is still fairly swollen and moderately tender without erythema. Her range of motion does actually seemed to have gone backwards a little bit over the past few days in that it now seems more restricted than previously. LABORATORIES: Include a white count of 9000, platelet count 364,000 which is a good sign in that it is finally normalized. LFTs continue to be moderately elevated because of her underlying hepatitis C. Creatinine is 0.66. Vanco trough has dropped to 10, and will be adjusted by Pharmacy. Hep C is positive. It is genotype IA. IMPRESSION: Overall this patient seems to be doing well but her left knee seems to be perhaps going backwards a little bit. I think it is important that she receive physical therapy which seems to be quite aggressive so that she regains function in that left knee. Additionally I think we should invite ortho to come back and just make sure they think she is okay with respect to her knee and she does not need any more washout. Another question for ortho would be the needle fragment which appears to be lodged in the left knee of which the patient has no knowledge and it is not palpable. RECOMMENDATIONS: 1. Continue IV vanco through the . 2. I would make sure PT sees this patient every day. 3. Recommend ortho be reinvolved, take a look at her knee and also offer an opinion on whether or not that needle fragment should be removed. 4. Note that I will be out of town the next three days returning Sunday, September 11. Please call me if there is any questions or problems. ANASTASIYA
[2016-09-07] MEDS ORDERED: Vancomycin Serum Trough XX ONE (15:30)
--- NOTE | 2016-09-07 15:45 | PCM.PNMED ---
Subjective Date of Service Sep 07, 2016 Subjective More complaint regarding Left knee, 'more unstable per patient', IV infiltrated left forearm yesterday Seen by ID requesting Ortho to recheck knee and coment on FB (needle) in leg. Otherwise no fever and other parameters OK.. Exam Vital Signs Vital Sign - Last Date Time Temp Pulse Resp B/P Pulse Ox O2 Delivery O2 Flow Rate FiO2 09/07/16 13:46 36.4 85 18 122/67 98 Room Air Intake and Output 09/06/16 09/06/16 09/07/16 Cumulative From/Thru 15:00 23:00 07:00 08/18/16 00:26 - 09/07/16 06:14 Intake Total 2553 ml 1237 ml 96510 ml Output Total 2200 ml 3400 ml 77873 ml Balance 353 ml -2163 ml 3221 ml Intake Oral 1437 ml 1237 ml 61566 ml IV Total 1116 ml 58353 ml Output Urine Total 2200 ml 3400 ml 50826 ml # Voids 8 # Bowel Movements 0 22 Exam Eyes; felicitas, eom intact ENMT; clear without lesions. CV; 2/6 systolic murmur, unchanged, regular Resp; clear anteriorly GI; soft, benign, non tender Skin; wound look ok, no evidence of wound infection, no rash, knee swollen, tender little warm Neuro; cm 2-12 intact, no gross motor or sensory defects Right farearm; mild swelling at IV infiltration site, upper forearm thru anticubital region Lab and Diagnostics Result Diagram: 09/06/16 0558 09/06/16 0558 Microbiology Multiple blood cultures positive for MRSA. Negative starting with 08/22/16 X-Rays, CTs and MRIs X-RAY LEFT KNEE, THREE VIEWS IMPRESSION: Although no bony erosions are identified, plain film radiography is relatively insensitive in the acute phases of osteomyelitis and may not demonstrate radiographic changes for 15 days. If acute osteomyelitis is of clinical concern , nuclear medicine regional bone scan or MRI is recommended. Joint effusion. 2 cm soft tissue foreign body within the upper lower leg medially at the level of the proximal tibia shaft. Dictated by: Daniel SIMONA Interpreted: Saadia Burton MD on 08/18/2016 at 10:07 CT BRAIN WITH AND WITHOUT CONTRAST IMPRESSION: 1. No acute intracranial process. Dictated by: Victoria Galvan M.D. on 08/18/2016 at 10:43 X-RAY CHEST, TWO VIEWS IMPRESSION: No acute cardiopulmonary disease. Dictated by: Daniel Peace RRJodi Interpreted: Saadia Burton MD on 08/18/2016 at 10:09 Cardiac Echo Impressions Interpretation Summary The left ventricle is mildly dilated. The ejection fraction is estimated to be 60-65%. There has been no significant change in LV EF since the previous study. The right ventricle is normal in size and function.There is trace tricuspid regurgitation. The right ventricular systolic pressure is estimated at 37 mmHg assuming a right atrial pressure of 15 mm Hg. The IVC is dilated (diameter is greater than 2.1 cm) and it collapses less than 50% with a sniff. This suggests a high right atrial pressure of 15 mm Hg (New). No obvious valvular vegetation seen. If clinical suspicion for endocarditis is high, consider HERMES. Assessment & Plan Shereen Witt is a 36-year-old female IV drug abuser, presented with 5 days of headache, new onset knee pain and swelling, positive blood cultures for MRSA. Now under treatment for MRSA bacteremia and septic arthritis. Hospital day #17 1. MRSA Bacteremia, subacute, present on admission -multiple blood cultures from this admission confirm MRSA bacteremia, sensitive to clindamycin and vancomycin. Secondary to IVDU. -Repeat blood cultures were negative on 08/22/16, 4 weeks treatment to September 18 tentative plan -Hepatitis A and B vaccines when available to prevent future liver injury per infectious disease -CBC with differential every 3 days 2. Clostridium Difficile Colitis, not present on admission, improving -Stool PCR positive for C Diff -Continue PO Vancomycin 125 mg q 6 hours, -Patient will need to remain on by mouth vancomycin until September 10, 2016. ( start 08-27-16 plus 14 days = 09-10-16) 3. Left knee septic joint, acute, present on admission, evaluation ongoing -Joint aspirate has been collected. High amount of PMNs present in the aspirate. No polys or organisms on Gram stain, MRSA grew and the synovial fluid collected 08/24/2016 -IV antibiotics as above -Methadone 10 mg Q8, oxycodone and Tylenol for breakthrough. -Orthopedic surgery consulted, arthroscopy and washout of the knee performed, orthopedics has signed off at this time -Dressing change every 48-72 hours or as needed -dc torodol, use ibuprofen 600 q 6 h prn -I'v page Dr. Odonnell to discuss rechecking knee 4. Hepatitis C, present on admission, likely chronic -HCV quantitation [id number], HCV RNA PCR log 10 4.601 -Hepatitis C genotype 1A -Continue to recommend hepatitis A and B vaccinations, patient will need vaccination before discharge -Transaminitis noted today, recheck CMP tomorrow, if continues to increase consider abdominal U/S 5. Heart murmur, chronicity unknown, present on admission, -Was heard on previous ER visits, previously evaluated in September 2015 without any valvular abnormalities apparent, but likely represents endocarditis -HERMES negative 7. Urinary tract infection, acute, present on admission, treatment completed -Urine culture from 08/12/2016 grew Escherichia coli, susceptible to ceftriaxone -Pt completed treatment with IV Rocephin 8. Headache, present on admission, subacute - Patient is at risk for mycotic aneurysm, ID recommended imaging - Dr. Burton of Radiology recommends starting with CT angiogram of the brain which is more sensitive for aneurysm. - CT angiogram of brain shows no evidence of mycotic aneurysm. 9. Restless legs -Patient is iron deficient, repletion in process -Iron and vitamin C dose increased to 3 times daily with meals -Continue Mirapex nightly 0.25 mg 10. Depression, not present on admission, recurrent -Hold off on initiation of SSRI therapy, patient has had good response to Paxil in the past -Provided patient with information and techniques for treating depression without medication. 11. History of IV drug abuse -will avoid placing PICC -outpatient follow up for her substance issues -SW to give outpatient resource information -Clonidine 0.1 mg every 6 hours when necessary for withdrawal -Methadone 10 mg Q8. Patient understands that she does will not be able to be prescribed methadone by the hospitalist team once she is discharged. She will need to establish with a methadone clinic on her own. 12. Possible Foreign body left leg medially; -review with radiology, does appear to be an old broken needle -patient has used needles in this area before -consider removing -area not red or tender, not bothering the patient 13. Acute Phlebitis right arm, not poa, active -infiltration line with vanco -IV changed -warm soaks, follow VTE Prophylaxis with subcutaneous Lovenox GI prophylaxis: Not indicated Pain management: Methadone, Tylenol, oxycodone Dispo: Earliest possible date of discharge will be September 18 per ID. Patient will need to remain on by mouth vancomycin until September 10, 2016. GI Prophylaxis: Not indicated VTE Prophylaxis: Sub-Q Enoxaparin VTE Mechanical Devices: Venous Foot Pump Resuscitation Status: CPR: Attempt Resuscitation Maverick Burgos MD Sep 07, 2016 15:45
--- NOTE | 2016-09-07 18:02 | PCM.PHAPRO ---
Progress Date of Service: Sep 07, 2016 Vancomycin dosing per pharmacy Indication: septic arthritis of knee, MRSA bacteremia Trough goal: 15-20 Nephrotic risks: IVDU Vancomycin maintenance dose prior to trough: 1000 mg IV Q6H Vancomycin trough today (1643): 20.1 SCr: 0.66 Vancomycin trough has trended up since increase in frequency. SCr is stable. Although trough is in range it is at the higher end and due to possibility of accumulation we will lower the maintenance dose of vancomycin to 750 mg Q6H. Next vancomycin trough is scheduled for 09/08/16 @1530. Pharmacy to continue to monitor and dose vancomycin. Thank you, Kiera Beaulieu PharmD Sep 07, 2016 18:02
[2016-09-07 20:52] VITALS: BP 113/73; PULSE 87; RESP 18; O2SAT 100
[2016-09-07] MEDS: Vancomycin Inj 750 MG in 0.9% Sodium Chloride 250 ML IV SCH (21:58)
[2016-09-08] MEDS: Ondansetron 2 mg/mL 2 mL Inj IVPUSH PRN ×4 (01:04→21:56)
--- NOTE | 2016-09-08 02:21 | NUR ---
PAIN At beginning of shift, pt rated pain 8/10 after tala dose at 1800. Pt stated "I didn't get my 7 oclock dose because that woman was in with me." RN clarified dose was given at 1800, can only give q4h, next dose at 2200 then 0200 and 0600. At methadone dose at 0100, pt's pain was lowest of shift at 5-6/10. Pt requested to be woken up for 0200 tala and subsequent times for pain medication. At 0200, pain was 7/10, pt easily awoken. Hourly rounding in place, VSS.
[2016-09-08] MEDS: Vancomycin 125 mg Oral Capsule PO SCH ×4 (03:54→22:45)
[2016-09-08] MEDS: Vancomycin Inj 750 MG in 0.9% Sodium Chloride 250 ML IV SCH ×4 (03:54→22:00)
[2016-09-08 05:57] VITALS: BP 98/58; PULSE 71; RESP 18; O2SAT 98
[2016-09-08] MEDS: Vancomycin Dose per Pharmacist XX SCH (08:30)
[2016-09-08] MEDS: Sodium Chloride LOK Flush 10 mL Syringe IVFLUSH SCH ×2 (08:30→16:11)
[2016-09-08] MEDS: 0.9% Sodium Chloride 1,000 ML IV SCH ×2 (09:50→18:22)
[2016-09-08] MEDS: Multivit-Miner-Folic Acid-Iron Tablet PO SCH (09:51)
[2016-09-08] MEDS: Lactobacillus Rhamnosus 10 Bil Unit Capsule PO SCH ×4 (09:51→21:55)
[2016-09-08] MEDS: Ascorbic Acid 500 mg Tablet PO SCH ×3 (09:51→17:50)
[2016-09-08] MEDS: Pantoprazole 40 mg ER24 Tablet PO SCH ×2 (09:52→16:11)
--- NOTE | 2016-09-08 11:18 | NUR ---
Social Work: Continued d/c planning Data: pt is on day 4 of hospitalization. EMR reviewed. CDP met with pt on 09/07, [employer] to follow up on result of this meeting. PT met with pt, recommending home, no PT needs. Referrals have been sent to [facility] for swing bed, UR specialist working on this. Pt will remain in hospital until 09/18/16 for IVABX unless [facility] accepts pt. [employer] will continue to follow. Assessment: Pt who is independent at baseline. IV drug use. Plan: Pt will d/c back to community or to [facility] swing bed if they accept pt. [employer]ER will continue to follow. STEPH Mcdaniel
[2016-09-08 12:22] LABS: Mean Corpuscular Hemoglobin 26.9 pg (27.0-35.0)
--- NOTE | 2016-09-08 12:34 | PCM.PNMED ---
Subjective Date of Service Sep 08, 2016 Subjective Patient feeling OK, ibuprophen helping. Is complaining of some constipation, no bm for 3 days. No other complaints, 10 days to go. Exam Vital Signs Vital Sign - Last Date Time Temp Pulse Resp B/P Pulse Ox O2 Delivery O2 Flow Rate FiO2 09/08/16 05:57 36.6 71 18 98/58 98 Room Air Intake and Output 09/07/16 09/07/16 09/08/16 Cumulative From/Thru 15:00 23:00 07:00 08/18/16 00:26 - 09/08/16 07:00 Intake Total 2347 ml 2286 ml 67084 ml Output Total 1400 ml 03084 ml Balance 2347 ml 886 ml 6454 ml Intake Oral 1036 ml 950 ml 64124 ml IV Total 1311 ml 1336 ml 51199 ml Output Urine Total 1400 ml 71772 ml # Voids 3 11 # Bowel Movements 0 0 22 Exam Eyes; felicitas, eom intact ENMT; clear without lesions. CV; 2/6 systolic murmur, unchanged, regular Resp; clear anteriorly GI; soft, benign, non tender Skin; wound look ok, no evidence of wound infection, no rash, knee swollen but less so, tender little warm Neuro; cm 2-12 intact, no gross motor or sensory defects Right farearm; mild swelling at IV infiltration site, upper forearm thru anticubital region which is improved today but no gone Lab and Diagnostics Result Diagram: 09/08/16 1215 09/06/16 0558 Microbiology Multiple blood cultures positive for MRSA. Negative starting with 08/22/16 X-Rays, CTs and MRIs X-RAY LEFT KNEE, THREE VIEWS IMPRESSION: Although no bony erosions are identified, plain film radiography is relatively insensitive in the acute phases of osteomyelitis and may not demonstrate radiographic changes for 15 days. If acute osteomyelitis is of clinical concern , nuclear medicine regional bone scan or MRI is recommended. Joint effusion. 2 cm soft tissue foreign body within the upper lower leg medially at the level of the proximal tibia shaft. Dictated by: Daniel Peace RRA Interpreted: Saadia Burton MD on 08/18/2016 at 10:07 CT BRAIN WITH AND WITHOUT CONTRAST IMPRESSION: 1. No acute intracranial process. Dictated by: Victoria Galvan M.D. on 08/18/2016 at 10:43 X-RAY CHEST, TWO VIEWS IMPRESSION: No acute cardiopulmonary disease. Dictated by: Daniel Peace RRA Interpreted: Saadia Burton MD on 08/18/2016 at 10:09 Cardiac Echo Impressions Interpretation Summary The left ventricle is mildly dilated. The ejection fraction is estimated to be 60-65%. There has been no significant change in LV EF since the previous study. The right ventricle is normal in size and function.There is trace tricuspid regurgitation. The right ventricular systolic pressure is estimated at 37 mmHg assuming a right atrial pressure of 15 mm Hg. The IVC is dilated (diameter is greater than 2.1 cm) and it collapses less than 50% with a sniff. This suggests a high right atrial pressure of 15 mm Hg (New). No obvious valvular vegetation seen. If clinical suspicion for endocarditis is high, consider HERMES. Assessment & Plan Shereen Witt is a 36-year-old female IV drug abuser, presented with 5 days of headache, new onset knee pain and swelling, positive blood cultures for MRSA. Now under treatment for MRSA bacteremia and septic arthritis. Hospital day #17 1. MRSA Bacteremia, subacute, present on admission -multiple blood cultures from this admission confirm MRSA bacteremia, sensitive to clindamycin and vancomycin. Secondary to IVDU. -Repeat blood cultures were negative on 08/22/16, 4 weeks treatment to September 18 tentative plan -Hepatitis A and B vaccines when available to prevent future liver injury per infectious disease -CBC with differential every 3 days 2. Clostridium Difficile Colitis, not present on admission, improving -Stool PCR positive for C Diff -Continue PO Vancomycin 125 mg q 6 hours, -Patient will need to remain on by mouth vancomycin until September 10, 2016. ( start 08-27-16 plus 14 days = 09-10-16) 3. Left knee septic joint, acute, present on admission, evaluation ongoing -Joint aspirate has been collected. High amount of PMNs present in the aspirate. No polys or organisms on Gram stain, MRSA grew and the synovial fluid collected 08/24/2016 -IV antibiotics as above -Methadone 10 mg Q8, oxycodone and Tylenol for breakthrough. -Orthopedic surgery consulted, arthroscopy and washout of the knee performed, orthopedics has signed off at this time -Dressing change every 48-72 hours or as needed -dc torodol, use ibuprofen 600 q 6 h prn -I talked with Dr. Nieto (ortho) who will reevaluate the knee today 4. Hepatitis C, present on admission, likely chronic -HCV quantitation 44810, HCV RNA PCR log 10 4.601 -Hepatitis C genotype 1A -Continue to recommend hepatitis A and B vaccinations, patient will need vaccination before discharge -Transaminitis noted today, recheck CMP tomorrow, if continues to increase consider abdominal U/S 5. Heart murmur, chronicity unknown, present on admission, -Was heard on previous ER visits, previously evaluated in September 2015 without any valvular abnormalities apparent, but likely represents endocarditis -HERMES negative 7. Urinary tract infection, acute, present on admission, treatment completed -Urine culture from 08/12/2016 grew Escherichia coli, susceptible to ceftriaxone -Pt completed treatment with IV Rocephin 8. Headache, present on admission, subacute - Patient is at risk for mycotic aneurysm, ID recommended imaging - Dr. Burton of Radiology recommends starting with CT angiogram of the brain which is more sensitive for aneurysm. - CT angiogram of brain shows no evidence of mycotic aneurysm. 9. Restless legs -Patient is iron deficient, repletion in process -Iron and vitamin C dose increased to 3 times daily with meals -Continue Mirapex nightly 0.25 mg 10. Depression, not present on admission, recurrent -Hold off on initiation of SSRI therapy, patient has had good response to Paxil in the past -Provided patient with information and techniques for treating depression without medication. 11. History of IV drug abuse -will avoid placing PICC -outpatient follow up for her substance issues -SW to give outpatient resource information -Clonidine 0.1 mg every 6 hours when necessary for withdrawal -Methadone 10 mg Q8. Patient understands that she does will not be able to be prescribed methadone by the hospitalist team once she is discharged. She will need to establish with a methadone clinic on her own. 12. Possible Foreign body left leg medially; -review with radiology, does appear to be an old broken needle -patient has used needles in this area before -consider removing -area not red or tender, not bothering the patient -discussed with ID and Ortho, group feeling is to leave the FB in place unless it is bothering the patient 13. Acute Phlebitis right arm, not poa, improving -infiltration line with vanco -IV changed -warm soaks, follow VTE Prophylaxis with subcutaneous Lovenox GI prophylaxis: Not indicated Pain management: Methadone, Tylenol, oxycodone Dispo: Earliest possible date of discharge will be September 18 per ID. Patient will need to remain on by mouth vancomycin until September 10, 2016. GI Prophylaxis: Not indicated VTE Prophylaxis: Sub-Q Enoxaparin VTE Mechanical Devices: Venous Foot Pump Resuscitation Status: CPR: Attempt Resuscitation Maverick Burgos MD Sep 08, 2016 12:34
[2016-09-08] MEDS ORDERED: Magnesium Hydroxide 10 mL Oral Concentration PO PRN (12:35)
--- NOTE | 2016-09-08 13:27 | CONS ---
[address] [address] CONSULTATION REPORT PATIENT: LISA SOSA : 1980 MR#: [id number] ADMIT: 08/18/2016 JOB ID: [id number] DATE OF SERVICE:POST-OP ORTHOPEDIC VISIT CPT 91110 09/08/2016 CHIEF COMPLAINT: This is a 36-year-old female, status post arthroscopic irrigation and debridement for septic left knee joint. The patient has been hospitalized and been on IV antibiotics. She had some increased inflammation in the knee recently but was placed on some ibuprofen, and she states her knee is feeling much better at this time with much less swelling and no erythema, and she has been able to ambulate quite well. Physical therapy is getting ready to release her to a home exercise or just a hospital exercise program she may do on her own. PHYSICAL EXAMINATION: Left knee, she has some mild residual swelling. No erythema. No area of any fluctuance. Good range of motion of the knee. DIAGNOSTIC DATA: Cultures did show that she had MRSA bacteremia. PLAN: The patient may be ambulatory, weightbearing as tolerated with walker or crutches. There does not appear to be any clinical signs of requiring any additional surgical intervention at this time. Please note, she did have a small needle in the subcutaneous tissue over the right lateral aspect of the leg, but there is no evidence of erythema in that area, and there is no need to go and try to retrieve a small broken needle. I suspect that needle was from the patient's prior usage of IV medications. As long as the patient continues to clinically improve, she may be followed by the hospitalist service and certainly may be seen in follow up in the orthopedic clinic by one of the PAs or with Dr. Odonnell in about two weeks. CC: [facility] CC: Emily Flores
[2016-09-08 13:38] VITALS: BP 107/64; PULSE 68; RESP 18; O2SAT 100
--- NOTE | 2016-09-08 14:03 | NUR ---
YAMILE Leahy at [facility] [place], they are unable to take pt due to the irregularity of her methadone dosages. Advised BUILDING PRINCIPAL.
[2016-09-08] MEDS: Polyethylene Glycol (PEG) 17 Gm Powder PO SCH (14:30)
--- NOTE | 2016-09-08 15:02 | NUR ---
Social Work: Continued d/c planning Data: ORNAMENTAL MACHINE OPERATOR spoke with CDP from [place] who met with pt on 09/07/16. Assessment completed. Pt declining inpt treatment for CD. CDP assisting pt with setting up outpt at [facility]. ORNAMENTAL MACHINE OPERATOR notified by UR specialist that [facility] has declined to take pt. Assessment: Pt who is independent at baseline, IV drug use. Plan: Pt will d/c back to community on 09/18 post IVBAX. CDP assisting pt with setting up outpt at [facility]. ORNAMENTAL MACHINE OPERATOR will continue to follow. STEPH Mcdaniel
[2016-09-08] MEDS ORDERED: Vancomycin Serum Trough XX ONE (15:30)
--- NOTE | 2016-09-08 17:37 | PCM.PHAPRO ---
Progress Date of Service: Sep 08, 2016 Vancomycin dosing per pharmacy Indication: septic arthritis of knee, MRSA bacteremia Trough goal: 15-20 Nephrotic risks: IVDU Vancomycin maintenance dose prior to trough: 750 mg IV Q6H Vancomycin trough today (1530): 15.0 SCr: 0.65 Vancomycin trough trending down after dose deacrease to appropriate range. SCr is stable. Trough is currently in range but at lower end. Will continue current dose of 750 mg Q6H and redraw trough again prior to next 4th dose. Will adjust as needed. Next vancomycin trough is scheduled for 09/09/16 @1130. Pharmacy to continue to monitor and dose vancomycin. Thank you, Kiera Beauliue PharmD Sep 08, 2016 17:37
--- NOTE | 2016-09-08 18:30 | NUR ---
Pain/Nausea: Patient complained of left knee pain 5-6/10 on pain scale. Oxycodone and Ibuprofen administered as needed. Patient reports pain level tolerable at 5/10. Complains of nausea on two occasions this shift. Zofran 4mg IV administered. Relief of nausea after first episode. Will reassess for relief of nausea. Patient resting with eyes closed at this time.
[2016-09-08 20:57] VITALS: BP 91/53; PULSE 76; RESP 20; O2SAT 100
[2016-09-09] MEDS: Sodium Chloride LOK Flush 10 mL Syringe IVFLUSH SCH ×3 (00:40→16:30)
[2016-09-09] MEDS: hydrOXYzine Pamoate 25 mg Capsule PO PRN (02:06)
[2016-09-09 04:12] VITALS: BP 132/74; PULSE 65; RESP 20; O2SAT 100
[2016-09-09 05:37] LABS: BASOPHILS % (AUTO) 0.4 % (0-3); EOSINOPHILS % (AUTO) 5.2 % (0-5); MONOCYTES % (AUTO) 9.5 % (4-12); Mean Corpuscular Hemoglobin 27.4 pg (27.0-35.0); Mean Corpuscular Volume 88.6 fL (81-100); NEUTROPHILS % (AUTO) 44.6 % (40-74); Platelet Count 401 bil/L (150-400)
[2016-09-09] MEDS: Vancomycin 125 mg Oral Capsule PO SCH ×4 (05:56→22:38)
[2016-09-09] MEDS: Vancomycin Inj 750 MG in 0.9% Sodium Chloride 250 ML IV SCH ×4 (06:11→21:36)
--- NOTE | 2016-09-09 06:36 | NUR ---
activity Pt IV became painful and asked for new IV. Pt was difficult to find veins to access, received Dr orders for IV in foot. Pt consented and IV started. Will monitor.
[2016-09-09] MEDS: Vancomycin Dose per Pharmacist XX SCH (08:30)
--- NOTE | 2016-09-09 08:32 | PCM.PNMED ---
Subjective Date of Service Sep 09, 2016 Subjective No problems, patient sleeping this AM. Says all is OK, no complaints. No fever , CRP continues to trend down, WBC now normal. Reviewed Ortho note, input appreciated. Exam Vital Signs Vital Sign - Last Date Time Temp Pulse Resp B/P Pulse Ox O2 Delivery O2 Flow Rate FiO2 09/09/16 04:12 36.8 65 20 132/74 100 Room Air Intake and Output 09/08/16 09/08/16 09/09/16 Cumulative From/Thru 15:00 23:00 07:00 08/18/16 00:26 - 09/09/16 05:12 Intake Total 1187 ml 1260 ml 15637 ml Output Total 62253 ml Balance 1187 ml 1260 ml 8901 ml Intake Oral 1187 ml 76560 ml IV Total 1260 ml 33174 ml Output Urine Total 79761 ml # Voids 3 14 # Bowel Movements 0 22 Exam Eyes; felicitas, eom intact ENMT; clear without lesions. CV; 2/6 systolic murmur, unchanged, regular Resp; clear anteriorly GI; soft, benign, non tender Skin; wound look ok, no evidence of wound infection, no rash, knee swollen but less so, tender little warm Neuro; cm 2-12 intact, no gross motor or sensory defects Right farearm; mild swelling at IV infiltration site, upper forearm thru anticubital region, continue to improve Lab and Diagnostics Result Diagram: 09/09/165 09/09/165 Microbiology Multiple blood cultures positive for MRSA. Negative starting with 08/22/16 X-Rays, CTs and MRIs X-RAY LEFT KNEE, THREE VIEWS IMPRESSION: Although no bony erosions are identified, plain film radiography is relatively insensitive in the acute phases of osteomyelitis and may not demonstrate radiographic changes for 15 days. If acute osteomyelitis is of clinical concern , nuclear medicine regional bone scan or MRI is recommended. Joint effusion. 2 cm soft tissue foreign body within the upper lower leg medially at the level of the proximal tibia shaft. Dictated by: Daniel OVALLES Interpreted: Saadia Burton MD on 08/18/2016 at 10:07 CT BRAIN WITH AND WITHOUT CONTRAST IMPRESSION: 1. No acute intracranial process. Dictated by: Victoria Galvan M.D. on 08/18/2016 at 10:43 X-RAY CHEST, TWO VIEWS IMPRESSION: No acute cardiopulmonary disease. Dictated by: Daniel Peace RRA Interpreted: Saadia Burton MD on 08/18/2016 at 10:09 Cardiac Echo Impressions Interpretation Summary The left ventricle is mildly dilated. The ejection fraction is estimated to be 60-65%. There has been no significant change in LV EF since the previous study. The right ventricle is normal in size and function.There is trace tricuspid regurgitation. The right ventricular systolic pressure is estimated at 37 mmHg assuming a right atrial pressure of 15 mm Hg. The IVC is dilated (diameter is greater than 2.1 cm) and it collapses less than 50% with a sniff. This suggests a high right atrial pressure of 15 mm Hg (New). No obvious valvular vegetation seen. If clinical suspicion for endocarditis is high, consider HERMES. Assessment & Plan Shereen Witt is a 36-year-old female IV drug abuser, presented with 5 days of headache, new onset knee pain and swelling, positive blood cultures for MRSA. Now under treatment for MRSA bacteremia and septic arthritis. Hospital day #17 1. MRSA Bacteremia, subacute, present on admission -multiple blood cultures from this admission confirm MRSA bacteremia, sensitive to clindamycin and vancomycin. Secondary to IVDU. -Repeat blood cultures were negative on 08/22/16, 4 weeks treatment to September 18 tentative plan -Hepatitis A and B vaccines when available to prevent future liver injury per infectious disease -CBC with differential every 3 days, now normal -crp normalizing 2. Clostridium Difficile Colitis, not present on admission, improving -Stool PCR positive for C Diff -Continue PO Vancomycin 125 mg q 6 hours, -Patient will need to remain on by mouth vancomycin until September 10, 2016. ( start 08-27-16 plus 14 days = 09-10-16) 3. Left knee septic joint, acute, present on admission, evaluation ongoing -Joint aspirate has been collected. High amount of PMNs present in the aspirate. No polys or organisms on Gram stain, MRSA grew and the synovial fluid collected 08/24/2016 -IV antibiotics as above -Methadone 10 mg Q8, oxycodone and Tylenol for breakthrough. -Orthopedic surgery consulted, arthroscopy and washout of the knee performed, orthopedics has signed off at this time -Dressing change every 48-72 hours or as needed -dc torodol, use ibuprofen 600 q 6 h prn -Follow up with Dr. Odonnell in about 2 weeks as an out paitnet (09/23/2016) 4. Hepatitis C, present on admission, likely chronic -HCV quantitation [id number], HCV RNA PCR log 10 4.601 -Hepatitis C genotype 1A -Continue to recommend hepatitis A and B vaccinations, patient will need vaccination before discharge -Transaminitis noted today, recheck CMP tomorrow, if continues to increase consider abdominal U/S 5. Heart murmur, chronicity unknown, present on admission, -Was heard on previous ER visits, previously evaluated in September 2015 without any valvular abnormalities apparent, but likely represents endocarditis -HERMES negative 7. Urinary tract infection, acute, present on admission, treatment completed -Urine culture from 08/12/2016 grew Escherichia coli, susceptible to ceftriaxone -Pt completed treatment with IV Rocephin 8. Headache, present on admission, subacute - Patient is at risk for mycotic aneurysm, ID recommended imaging - Dr. Burton of Radiology recommends starting with CT angiogram of the brain which is more sensitive for aneurysm. - CT angiogram of brain shows no evidence of mycotic aneurysm. 9. Restless legs -Patient is iron deficient, repletion in process -Iron and vitamin C dose increased to 3 times daily with meals -Continue Mirapex nightly 0.25 mg 10. Depression, not present on admission, recurrent -Hold off on initiation of SSRI therapy, patient has had good response to Paxil in the past -Provided patient with information and techniques for treating depression without medication. 11. History of IV drug abuse -will avoid placing PICC -outpatient follow up for her substance issues -SW to give outpatient resource information -Clonidine 0.1 mg every 6 hours when necessary for withdrawal -Methadone 10 mg Q8. Patient understands that she does will not be able to be prescribed methadone by the hospitalist team once she is discharged. She will need to establish with a methadone clinic on her own. 12. Possible Foreign body left leg medially; -review with radiology, does appear to be an old broken needle -patient has used needles in this area before -consider removing -area not red or tender, not bothering the patient -discussed with ID and Ortho, group feeling is to leave the FB in place unless it is bothering the patient 13. Acute Phlebitis right arm, not poa, improving -infiltration line with vanco -IV changed -warm soaks, follow VTE Prophylaxis with subcutaneous Lovenox GI prophylaxis: Not indicated Pain management: Methadone, Tylenol, oxycodone Dispo: Earliest possible date of discharge will be September 18 per ID. Patient will need to remain on by mouth vancomycin until September 10, 2016. GI Prophylaxis: Not indicated VTE Prophylaxis: Sub-Q Enoxaparin VTE Mechanical Devices: Venous Foot Pump Resuscitation Status: CPR: Attempt Resuscitation Maverick Burgos MD Sep 09, 2016 08:32
[2016-09-09] MEDS: Ascorbic Acid 500 mg Tablet PO SCH ×3 (09:17→17:12)
[2016-09-09] MEDS: Multivit-Miner-Folic Acid-Iron Tablet PO SCH (09:18)
[2016-09-09] MEDS: Pantoprazole 40 mg ER24 Tablet PO SCH ×2 (09:18→17:12)
[2016-09-09] MEDS: Lactobacillus Rhamnosus 10 Bil Unit Capsule PO SCH ×4 (09:21→21:36)
[2016-09-09] MEDS ORDERED: Vancomycin Serum Trough XX ONE ×2 (10:08→11:30)
[2016-09-09] MEDS: Polyethylene Glycol (PEG) 17 Gm Powder PO SCH (12:31)
[2016-09-09 14:15] VITALS: BP 107/59; PULSE 72; RESP 20; O2SAT 98
--- NOTE | 2016-09-09 14:51 | PCM.PHAPRO ---
Progress Date of Service: Sep 09, 2016 Vancomycin dosing per pharmacy Indication: septic arthritis of knee, MRSA bacteremia Trough goal: 15-20 Nephrotic risks: IVDU Vancomycin maintenance dose prior to trough: 750 mg IV Q6H Vancomycin trough today (1030): 15.7 SCr: 0.68 Vancomycin trough is in range and SCr is stable. Will continue current dose of vancomycin 750 mg Q6H. Floor pharmacist will assess and schedule next trough. Pharmacy to continue to monitor and dose vancomycin. Thank you, Jhonny Grace Pharmacist Jhonny Grace Sep 09, 2016 14:51
[2016-09-09] MEDS: 0.9% Sodium Chloride 1,000 ML IV SCH (17:11)
[2016-09-09 20:25] VITALS: BP 121/82; PULSE 62; RESP 20; O2SAT 100
[2016-09-09] MEDS: Ondansetron 2 mg/mL 2 mL Inj IVPUSH PRN (23:13)
[2016-09-10] MEDS: Sodium Chloride LOK Flush 10 mL Syringe IVFLUSH SCH ×3 (00:30→16:30)
[2016-09-10] MEDS: Ondansetron 2 mg/mL 2 mL Inj IVPUSH PRN ×2 (02:58→19:36)
[2016-09-10] MEDS: Vancomycin Inj 750 MG in 0.9% Sodium Chloride 250 ML IV SCH ×4 (04:14→21:34)
[2016-09-10 04:41] VITALS: BP 109/66; PULSE 54; RESP 18; O2SAT 100
[2016-09-10] MEDS: Vancomycin 125 mg Oral Capsule PO SCH ×5 (04:50→21:44)
--- NOTE | 2016-09-10 06:22 | NUR ---
Pain/Nausea Pt complains of pain and feeling nauseated. PRN Roxicodone and Zofran administered. Denies chest pain and sob. VSS and has been afebrile overnight. ABx and IVF running as scheduled. Will Continue to monitor.
--- NOTE | 2016-09-10 08:00 | PCM.PNMED ---
Subjective Date of Service Sep 10, 2016 Subjective Not much new today. Patient was a bit upset about our visitor policy but otherwise doing well with no new complaints. No problems with the Vanco, renal function remains OK, no rash. Exam Vital Signs Vital Sign - Last Date Time Temp Pulse Resp B/P Pulse Ox O2 Delivery O2 Flow Rate FiO2 09/10/16 04:41 36.8 54 18 109/66 100 Room Air Intake and Output 09/09/16 09/09/16 09/10/16 Cumulative From/Thru 15:00 23:00 07:00 08/18/16 00:26 - 09/10/16 06:20 Intake Total 1700 ml 1226 ml 3808 ml 91973 ml Output Total 1300 ml 1000 ml 04859 ml Balance 400 ml 1226 ml 2808 ml 26894 ml Intake Oral 1700 ml 1226 ml 1036 ml 00287 ml IV Total 2772 ml 62626 ml Output Urine Total 1300 ml 1000 ml 58085 ml # Voids 3 17 # Bowel Movements 2 1 1 26 Exam Eyes; felicitas, eom intact ENMT; clear without lesions. CV; 2/6 systolic murmur, unchanged, regular Resp; clear anteriorly GI; soft, benign, non tender Skin; wound look ok, no evidence of wound infection, no rash, knee swelling continue to improve Neuro; cm 2-12 intact, no gross motor or sensory defects Right forearm; mild swelling at IV infiltration site almost resolved Lab and Diagnostics Result Diagram: 09/09/1644409/09/16444 Microbiology Multiple blood cultures positive for MRSA. Negative starting with 08/22/16 X-Rays, CTs and MRIs X-RAY LEFT KNEE, THREE VIEWS IMPRESSION: Although no bony erosions are identified, plain film radiography is relatively insensitive in the acute phases of osteomyelitis and may not demonstrate radiographic changes for 15 days. If acute osteomyelitis is of clinical concern , nuclear medicine regional bone scan or MRI is recommended. Joint effusion. 2 cm soft tissue foreign body within the upper lower leg medially at the level of the proximal tibia shaft. Dictated by: Daniel SIMONA Interpreted: Saadia Burton MD on 08/18/2016 at 10:07 CT BRAIN WITH AND WITHOUT CONTRAST IMPRESSION: 1. No acute intracranial process. Dictated by: Victoria Galvan M.D. on 08/18/2016 at 10:43 X-RAY CHEST, TWO VIEWS IMPRESSION: No acute cardiopulmonary disease. Dictated by: Daniel Peace RRA Interpreted: Saadia Burton MD on 08/18/2016 at 10:09 Cardiac Echo Impressions Interpretation Summary The left ventricle is mildly dilated. The ejection fraction is estimated to be 60-65%. There has been no significant change in LV EF since the previous study. The right ventricle is normal in size and function.There is trace tricuspid regurgitation. The right ventricular systolic pressure is estimated at 37 mmHg assuming a right atrial pressure of 15 mm Hg. The IVC is dilated (diameter is greater than 2.1 cm) and it collapses less than 50% with a sniff. This suggests a high right atrial pressure of 15 mm Hg (New). No obvious valvular vegetation seen. If clinical suspicion for endocarditis is high, consider HERMES. Assessment & Plan Shereen Witt is a 36-year-old female IV drug abuser, presented with 5 days of headache, new onset knee pain and swelling, positive blood cultures for MRSA. Now under treatment for MRSA bacteremia and septic arthritis. Hospital day #17 1. MRSA Bacteremia, subacute, present on admission -multiple blood cultures from this admission confirm MRSA bacteremia, sensitive to clindamycin and vancomycin. Secondary to IVDU. -Repeat blood cultures were negative on 08/22/16, 4 weeks treatment to September 18 tentative plan -Hepatitis A and B vaccines when available to prevent future liver injury per infectious disease -CBC with differential every 3 days, now normal -crp normalizing 2. Clostridium Difficile Colitis, not present on admission, improving -Stool PCR positive for C Diff -Continue PO Vancomycin 125 mg q 6 hours, -Patient will need to remain on by mouth vancomycin until September 10, 2016. ( start 08-27-16 plus 14 days = 09-10-16) -d/c oral vanco after today 3. Left knee septic joint, acute, present on admission, evaluation ongoing -Joint aspirate has been collected. High amount of PMNs present in the aspirate. No polys or organisms on Gram stain, MRSA grew and the synovial fluid collected 08/24/2016 -IV antibiotics as above -Methadone 10 mg Q8, oxycodone and Tylenol for breakthrough. -Orthopedic surgery consulted, arthroscopy and washout of the knee performed, orthopedics has signed off at this time -Dressing change every 48-72 hours or as needed -dc torodol, use ibuprofen 600 q 6 h prn -Follow up with Dr. Odonnell in about 2 weeks as an out paitnet (09/23/2016) 4. Hepatitis C, present on admission, likely chronic -HCV quantitation 60582, HCV RNA PCR log 10 4.601 -Hepatitis C genotype 1A -Continue to recommend hepatitis A and B vaccinations, patient will need vaccination before discharge -Transaminitis noted today, recheck CMP tomorrow, if continues to increase consider abdominal U/S 5. Heart murmur, chronicity unknown, present on admission, -Was heard on previous ER visits, previously evaluated in September 2015 without any valvular abnormalities apparent, but likely represents endocarditis -HERMES negative 7. Urinary tract infection, acute, present on admission, treatment completed -Urine culture from 08/12/2016 grew Escherichia coli, susceptible to ceftriaxone -Pt completed treatment with IV Rocephin 8. Headache, present on admission, subacute - Patient is at risk for mycotic aneurysm, ID recommended imaging - Dr. Burton of Radiology recommends starting with CT angiogram of the brain which is more sensitive for aneurysm. - CT angiogram of brain shows no evidence of mycotic aneurysm. 9. Restless legs -Patient is iron deficient, repletion in process -Iron and vitamin C dose increased to 3 times daily with meals -Continue Mirapex nightly 0.25 mg 10. Depression, not present on admission, recurrent -Hold off on initiation of SSRI therapy, patient has had good response to Paxil in the past -Provided patient with information and techniques for treating depression without medication. 11. History of IV drug abuse -will avoid placing PICC -outpatient follow up for her substance issues -SW to give outpatient resource information -Clonidine 0.1 mg every 6 hours when necessary for withdrawal -Methadone 10 mg Q8. Patient understands that she does will not be able to be prescribed methadone by the hospitalist team once she is discharged. She will need to establish with a methadone clinic on her own. 12. Possible Foreign body left leg medially; -review with radiology, does appear to be an old broken needle -patient has used needles in this area before -consider removing -area not red or tender, not bothering the patient -discussed with ID and Ortho, group feeling is to leave the FB in place unless it is bothering the patient 13. Acute Phlebitis right arm, not poa, improving -infiltration line with vanco -IV changed -warm soaks, follow VTE Prophylaxis with subcutaneous Lovenox GI prophylaxis: Not indicated Pain management: Methadone, Tylenol, oxycodone Dispo: Earliest possible date of discharge will be September 18 per ID. Patient will need to remain on by mouth vancomycin until September 10, 2016. GI Prophylaxis: Not indicated VTE Prophylaxis: Sub-Q Enoxaparin VTE Mechanical Devices: Venous Foot Pump Resuscitation Status: CPR: Attempt Resuscitation Maverick Burgos MD Sep 10, 2016 08:00
[2016-09-10] MEDS: Vancomycin Dose per Pharmacist XX SCH (08:30)
[2016-09-10] MEDS: Polyethylene Glycol (PEG) 17 Gm Powder PO SCH (08:30)
[2016-09-10] MEDS: Pantoprazole 40 mg ER24 Tablet PO SCH ×2 (09:19→16:52)
[2016-09-10] MEDS: Multivit-Miner-Folic Acid-Iron Tablet PO SCH (09:19)
[2016-09-10] MEDS: Lactobacillus Rhamnosus 10 Bil Unit Capsule PO SCH ×4 (09:19→21:35)
[2016-09-10] MEDS: Ascorbic Acid 500 mg Tablet PO SCH ×3 (09:20→16:53)
[2016-09-10] MEDS: 0.9% Sodium Chloride 1,000 ML IV SCH ×2 (10:03→23:42)
[2016-09-10 14:20] VITALS: BP 108/66; PULSE 74; RESP 18; O2SAT 97
--- NOTE | 2016-09-10 15:20 | NUR ---
pain patient has reported 6/10 left knee pain throughout shift at rest. Administered PRN 10mg oxycodone which has been decreasing pain to a 4/10.
--- NOTE | 2016-09-10 15:45 | NUR ---
Social Work: Continued d/c planning Data: Pt is on day 23 of hospitalization for MRSA, bacteremia SBE, L knee septic artr per H&P. CDP from [place] met with pt on 09/07/16. Assessment completed. Pt declining inpt treatment for CD. CDP assisting pt with setting up outpt at [facility]. SW notified by UR specialist that [facility] has declined to take pt. Assessment: Pt who is independent at baseline, IV drug use. Plan: Pt will d/c back to community on 09/18 post IVBAX. CDP assisting pt with setting up outpt at [facility]. SW will continue to follow. STEPH Russell
[2016-09-10 21:21] VITALS: BP 117/73; PULSE 80; RESP 18; O2SAT 98
[2016-09-11] MEDS: Sodium Chloride LOK Flush 10 mL Syringe IVFLUSH SCH ×3 (00:30→17:10)
[2016-09-11] MEDS: cloNIDine 0.1 mg Tablet PO PRN (02:19)
[2016-09-11] MEDS: hydrOXYzine Pamoate 25 mg Capsule PO PRN (02:19)
[2016-09-11 02:22] VITALS: BP 125/75; PULSE 82
[2016-09-11] MEDS: Vancomycin 125 mg Oral Capsule PO SCH ×4 (04:12→20:53)
[2016-09-11] MEDS: Vancomycin Inj 750 MG in 0.9% Sodium Chloride 250 ML IV SCH ×4 (04:13→20:54)
[2016-09-11] MEDS: 0.9% Sodium Chloride 1,000 ML IV SCH ×2 (04:16→13:02)
--- NOTE | 2016-09-11 05:28 | NUR ---
Left Leg pain Pt complains of left leg pain of 8/10. Administered PRN oxycodone. Methadone as scheduled. ABx running as scheduled. Leg IV line got infiltrated. Now have a 24g left arm. Denies chest pain, sob. Reports of feeling nauseated controlled with zofran. Will continue to monitor.
[2016-09-11 06:06] VITALS: BP 107/61; PULSE 60; RESP 18; O2SAT 96
[2016-09-11] MEDS: Vancomycin Dose per Pharmacist XX SCH (08:30)
[2016-09-11] MEDS: Polyethylene Glycol (PEG) 17 Gm Powder PO SCH (08:30)
[2016-09-11] MEDS: Ascorbic Acid 500 mg Tablet PO SCH ×3 (09:44→17:08)
[2016-09-11] MEDS: Pantoprazole 40 mg ER24 Tablet PO SCH ×2 (09:45→17:08)
[2016-09-11] MEDS: Lactobacillus Rhamnosus 10 Bil Unit Capsule PO SCH ×4 (09:45→20:53)
[2016-09-11] MEDS: Multivit-Miner-Folic Acid-Iron Tablet PO SCH (09:46)
--- NOTE | 2016-09-11 10:47 | PROG NOTE ---
[address] [address] PROGRESS NOTE PATIENT: LISA SOSA : 1980 MR#: [id number] ADMIT: 08/18/2016 JOB ID: [id number] DATE: 09/11/2016 REASON FOR FOLLOWUP: High-grade MRSA bacteremia with septic left knee. INTERVAL HISTORY: Over the weekend, the patient reports no significant fevers, though she has had some chills and occasional sweats. No cough, shortness of breath, nausea, vomiting, or diarrhea. Her left knee is slowly better. PHYSICAL EXAMINATION: Reveals an afebrile woman. Temp 36.6, pulse 60, respiratory rate 18, blood pressure 107/61. She is saturating well on room air. Mental status is clear. Oral cavity negative. Lungs clear. Cardiac tones without murmur. Abdomen negative. The left knee continues to be modestly swollen as compared to the normal right knee. There is gradually less tenderness, though still some tenderness along the inferior edge of the patella in the joint line. Range of motion is improved but not back to normal. LABORATORIES: Include a normal white count 5600, platelet count 401, with 5% eosinophils. Creatinine 0.68. ALT 137, AST 53, albumin is 3. Vancomycin trough two days ago, 16, which is about right where we want it. Recall she has genotype one, active hepatitis C. Stool was positive for C. diff some two weeks ago. Recall that our left knee and blood cultures grew MRSA. The patient was seen over the weekend by Dr. Nieto of Ortho. She noted there was some minimal residual swelling but without erythema and a reasonable range of motion. She thought there was no additional need for surgery and there was no indication to go in and retrieve the small broken needle in the right lateral aspect of the leg. The patient has also been seen on an ongoing basis by Physical Therapy. IMPRESSION: This patient continues to improve. She has been evaluated over the weekend by both Ortho and Physical Therapy, and they both think that she is making reasonable progress without need for additional surgery or other interventions, and I concur. She has currently finished three weeks of her IV therapy for high-grade methicillin-resistant Staphylococcus aureus bacteremia and associated septic left knee. RECOMMENDATIONS: 1. Will continue IV vancomycin through the . 2. I will continue with physical therapy. 3. When the patient is stable as an outpatient, she should be treated for hepatitis C. 4. I will continue to follow this patient with you.
--- NOTE | 2016-09-11 13:51 | NUR ---
NUTRITION FOLLOW-UP: ASSESS: 36 YO female admitted with MRSA bacteremia related to IV drug use. Pt will be in hospital for 4-6 week for IV antibiotics. Pt with septic L knee s/p lavage and debridement on 08/25/16. PO intake continues to vary with pt intake of refusal to 100% of meals. PMHx: Ulcers, Left breast infection, migraines, MRSA, heart murmur, asthma, GERD, heroin, IV drug abuse. LABS: Reviewed. AST 53, ALT 137, ALB 3.0. MEDS: Reviewed. GI: BM x 4 (09/10). SKIN: Left knee incision. CURRENT WT: 91.8 kg (08/18). No new wt since admit. IBW: 63.64 kg. DIET: General. PO intake 50-100% of most meals with some meal refusals. EST. NEEDS: 0031-1724 kcals (20-22 kcals/kg BW), 75-95 g protein (1.2-1.5 g/kg IBW) NUTRITION DIAGNOSIS: 1.) No nutritional diagnosis at this time. NUTRITION INTERVENTION: 1.) No nutritional intervention at this time. MONITOR / EVAL: PO intake, labs, nutritional status. Follow per low nutritional risk guidelines.
[2016-09-11 14:20] VITALS: BP 109/69; PULSE 69; RESP 18; O2SAT 97
--- NOTE | 2016-09-11 15:31 | PCM.PNMED ---
Subjective Date of Service Sep 11, 2016 Subjective denies any new issues/complaints. says left knee feeling better Exam Vital Signs Vital Sign - Last Date Time Temp Pulse Resp B/P Pulse Ox O2 Delivery O2 Flow Rate FiO2 09/11/16 14:20 69 18 109/69 97 Room Air 09/11/16 06:06 36.6 Intake and Output 09/10/16 09/10/16 09/11/16 Cumulative From/Thru 15:00 23:00 07:00 08/18/16 00:26 - 09/11/16 06:50 Intake Total 2174 ml 3048 ml 259571 ml Output Total 2200 ml 3100 ml 00183 ml Balance -26 ml -52 ml 80164 ml Intake Oral 1174 ml 1800 ml 10649 ml IV Total 1000 ml 1248 ml 69947 ml Output Urine Total 2200 ml 3100 ml 90917 ml # Voids 17 # Bowel Movements 3 29 General: Alert, Oriented X3, Cooperative, No Acute Distress Head: Normal Eyes: Scleral Anicteric Mouth: Mucous Membr Moist/[place] Neck: Supple Chest & Lungs: Chest Wall Normal, Clear to auscultation & percussion Cardiovascular: Regular Rate/Rhythm Pulses: NL carotid, radial, femoral, DP, PT Abdomen: Non-tender, Non-distended, Normoactive bowel tones, Soft Extremities: No cyanosis/clubbing/edma bilat Neurological: Grossly Neurologically Intact, Normal Speech IVs and Medications Medications Reviewed: Medications were reviewed in detail Lab and Diagnostics Result Diagram: 09/09/1644409/09/16444 Microbiology Multiple blood cultures positive for MRSA. Negative starting with 08/22/16 X-Rays, CTs and MRIs X-RAY LEFT KNEE, THREE VIEWS IMPRESSION: Although no bony erosions are identified, plain film radiography is relatively insensitive in the acute phases of osteomyelitis and may not demonstrate radiographic changes for 15 days. If acute osteomyelitis is of clinical concern , nuclear medicine regional bone scan or MRI is recommended. Joint effusion. 2 cm soft tissue foreign body within the upper lower leg medially at the level of the proximal tibia shaft. Dictated by: Daniel OVALLES Interpreted: Saadia Burton MD on 08/18/2016 at 10:07 CT BRAIN WITH AND WITHOUT CONTRAST IMPRESSION: 1. No acute intracranial process. Dictated by: Victoria Galvan M.D. on 08/18/2016 at 10:43 X-RAY CHEST, TWO VIEWS IMPRESSION: No acute cardiopulmonary disease. Dictated by: Daniel Peace RRA Interpreted: Saadia Burton MD on 08/18/2016 at 10:09 Cardiac Echo Impressions Interpretation Summary The left ventricle is mildly dilated. The ejection fraction is estimated to be 60-65%. There has been no significant change in LV EF since the previous study. The right ventricle is normal in size and function.There is trace tricuspid regurgitation. The right ventricular systolic pressure is estimated at 37 mmHg assuming a right atrial pressure of 15 mm Hg. The IVC is dilated (diameter is greater than 2.1 cm) and it collapses less than 50% with a sniff. This suggests a high right atrial pressure of 15 mm Hg (New). No obvious valvular vegetation seen. If clinical suspicion for endocarditis is high, consider HERMES. Assessment & Plan 36-year-old female IV drug abuser, presented with 5 days of headache, new onset knee pain and swelling, positive blood cultures for MRSA. Now under treatment for MRSA bacteremia and septic arthritis. # MRSA Bacteremia, subacute, present on admission -multiple blood cultures from this admission confirm MRSA bacteremia, sensitive to clindamycin and vancomycin. Secondary to IVDU. -Repeat blood cultures were negative on 08/22/16, 4 weeks treatment to September 18 tentative plan -appreciate ID consult. will f/u w/ recs # Clostridium Difficile Colitis, not present on admission. clinically resolved -Stool PCR positive for C Diff -post 14 days of PO Vancomycin 125 mg q 6 hours (start 08-27-16 plus 14 days = 09-10-16) # Left knee septic joint, acute, present on admission, evaluation ongoing -Joint aspirate has been collected. High amount of PMNs present in the aspirate. No polys or organisms on Gram stain, MRSA grew and the synovial fluid collected 08/24/2016 -IV antibiotics as above -Methadone 10 mg Q8, oxycodone and Tylenol for breakthrough. -Orthopedic surgery consulted, arthroscopy and washout of the knee performed. appreciate ortho consult. will f/u w/ recs -Dressing change every 48-72 hours or as needed -Follow up with Dr. Odonnell in about 2 weeks as an out paitnet (09/23/2016) # Hepatitis C, present on admission, likely chronic -HCV quantitation [id number], HCV RNA PCR log 10 4.601 -When the patient is stable as an outpatient, she should be treated for hepatitis C. -Continue to recommend hepatitis A and B vaccinations, patient will need vaccination before discharge # Acute Transaminitis. present on admission but worse on after 09/03/16. ongoing but improving - f/u repeat labs # Heart murmur, chronicity unknown, present on admission, -Was heard on previous ER visits, previously evaluated in September 2015 without any valvular abnormalities apparent, but likely represents endocarditis -HERMES negative # Urinary tract infection, acute, present on admission, treatment completed -Urine culture from 08/12/2016 grew Escherichia coli, susceptible to ceftriaxone -Pt completed treatment with IV Rocephin # Headache, present on admission, subacute - Patient is at risk for mycotic aneurysm, ID recommended imaging - Dr. Burton of Radiology recommends starting with CT angiogram of the brain which is more sensitive for aneurysm. - CT angiogram of brain shows no evidence of mycotic aneurysm. # Restless legs -Patient is iron deficient, repletion in process -Iron and vitamin C dose increased to 3 times daily with meals -Continue Mirapex nightly 0.25 mg # Depression, not present on admission, recurrent -currently stable and under control # History of IV drug abuse -will avoid placing PICC -outpatient follow up for her substance issues -SW to give outpatient resource information -Clonidine 0.1 mg every 6 hours when necessary for withdrawal -Methadone 10 mg Q8. -per prior notes "patient understands that she does will not be able to be prescribed methadone by the hospitalist team once she is discharged. She will need to establish with a methadone clinic on her own." # Possible Foreign body left leg medially; -review with radiology, does appear to be an old broken needle -patient has used needles in this area before -area not red or tender, not bothering the patient -per earlier notes by Dr. Camp: "discussed with ID and Ortho, group feeling is to leave the FB in place unless it is bothering the patient" # Acute Phlebitis right arm, not poa, resolved -infiltration line with vanco -IV changed Dispo: Earliest possible date of discharge will be September 18 per ID. GI Prophylaxis: Not indicated VTE Prophylaxis: Sub-Q Enoxaparin VTE Mechanical Devices: Venous Foot Pump Resuscitation Status: CPR: Attempt Resuscitation Time spent 35 min Bret Garcia Sep 11, 2016 15:31 Bret Garcia Sep 11, 2016 15:31
--- NOTE | 2016-09-11 19:39 | NUR ---
Pain Patient continues to report Lt knee pain 6-12/11. Patient reports that pain and swelling increase with activity and movement. On inspection, slight swelling present , no redness or discoloration, patient reports tenderness to the touch.
[2016-09-12] MEDS: Sodium Chloride LOK Flush 10 mL Syringe IVFLUSH SCH ×3 (00:30→16:30)
[2016-09-12] MEDS: hydrOXYzine Pamoate 25 mg Capsule PO PRN ×2 (00:39→21:18)
[2016-09-12 00:43] VITALS: BP 112/72; PULSE 69; RESP 17; O2SAT 100
[2016-09-12 01:54] VITALS: BP 116/70; PULSE 73
[2016-09-12] MEDS: cloNIDine 0.1 mg Tablet PO PRN ×2 (01:56→21:17)
[2016-09-12] MEDS: Vancomycin Inj 750 MG in 0.9% Sodium Chloride 250 ML IV SCH ×4 (04:24→20:49)
[2016-09-12] MEDS: Vancomycin 125 mg Oral Capsule PO SCH (04:24)
[2016-09-12] MEDS: 0.9% Sodium Chloride 1,000 ML IV SCH ×2 (05:52→20:51)
[2016-09-12 06:08] LABS: BASOPHILS % (AUTO) 0.4 % (0-3); EOSINOPHILS % (AUTO) 4.4 % (0-5); MONOCYTES % (AUTO) 9.4 % (4-12); Mean Corpuscular Hemoglobin 27.4 pg (27.0-35.0); Mean Corpuscular Volume 88.6 fL (81-100); NEUTROPHILS % (AUTO) 44.1 % (40-74); Platelet Count 397 bil/L (150-400)
[2016-09-12 06:13] VITALS: BP 95/52; PULSE 71; RESP 20; O2SAT 98
[2016-09-12 06:25] LABS: Magnesium 1.8 mg/dL (1.6-2.6)
--- NOTE | 2016-09-12 07:26 | NUR ---
Noc/Pain Pt reports of pain on her left leg. Methadone administered as scheduled, and PRN roxicodone for breakthrough pain. Denies chest pain, sob, n/v or abd discomfort. IV ABx administered as scheduled. Will continue to monitor.
[2016-09-12] MEDS: Vancomycin Dose per Pharmacist XX SCH (08:30)
[2016-09-12] MEDS: Polyethylene Glycol (PEG) 17 Gm Powder PO SCH (08:30)
[2016-09-12] MEDS: Ascorbic Acid 500 mg Tablet PO SCH ×3 (08:40→17:42)
[2016-09-12] MEDS: Multivit-Miner-Folic Acid-Iron Tablet PO SCH (08:40)
[2016-09-12] MEDS: Pantoprazole 40 mg ER24 Tablet PO SCH ×2 (08:41→17:42)
[2016-09-12] MEDS: Lactobacillus Rhamnosus 10 Bil Unit Capsule PO SCH ×4 (08:48→20:50)
[2016-09-12] MEDS ORDERED: Vancomycin Serum Trough XX ONE ×2 (09:30→15:30)
[2016-09-12 13:09] VITALS: BP 102/62; PULSE 66; RESP 20; O2SAT 98
--- NOTE | 2016-09-12 13:13 | PROG NOTE ---
[address] [address] PROGRESS NOTE PATIENT: LISA SOSA : 1980 MR#: [id number] ADMIT: 08/18/2016 JOB ID: [id number] DATE: 09/12/2016 REASON FOR FOLLOWUP: High-grade sustained MRSA bacteremia with septic left knee. INTERVAL HISTORY: Oddly, the patient reports she is having more night sweats and feeling more fatigued as the days go on. She denies overt fever or chills, however, and has no cough, shortness of breath, chest pain, nausea, vomiting, or diarrhea. Her left knee is gradually less painful. PHYSICAL EXAMINATION: Reveals an afebrile woman, temp 36.4, pulse 71, blood pressure 95/52, saturating well on room air. Examination of the eyes: No abnormalities. Oral cavity negative. Lungs clear: Cardiac with a subtle systolic murmur as heard before but no change. Left knee gradually less tender and less swollen, now with increasing range of motion. LABORATORIES: Include a white count 5400, completely normal diff. Creatinine 0.72. LFTs improving. ALT 104. Recall she has chronic hepatitis C. Vancomycin trough 12.6. No new micro available. IMPRESSION: This patient seems to be doing relatively well with respect to her septic knee. Her CRP, which I failed to mention in the lab section, has now dropped all the way to 0.5, so I feel very confident we have good control of her very severe MRSA infection. Why she has additional night sweats at this late juncture is unclear to me, but in view or otherwise improving situation, I am not concerned. RECOMMENDATIONS: 1. Will continue with IV vanc through September 18. 2. Her oral vancomycin for C. difficile has now been stopped. 3. If the patient should demand to be discharged before the September 18, we could give her a single dose of 1 1.5 g of dalbavancin and conclude our antibiotic therapy, but in view of the limited available literature about this strategy, I would prefer to keep her to September 18, if possible.
--- NOTE | 2016-09-12 16:05 | PCM.PNMED ---
Subjective Date of Service Sep 12, 2016 Subjective denies any new issues/complaints. Exam Vital Signs Vital Sign - Last Date Time Temp Pulse Resp B/P Pulse Ox O2 Delivery O2 Flow Rate FiO2 09/12/16 13:09 36.7 66 20 102/62 98 Room Air Intake and Output 09/11/16 09/11/16 09/12/16 Cumulative From/Thru 15:00 23:00 07:00 08/18/16 00:26 - 09/12/16 06:57 Intake Total 601 ml 1405 ml 104104 ml Output Total 73783 ml Balance 601 ml 1405 ml 03581 ml Intake Oral 04459 ml IV Total 601 ml 1405 ml 14953 ml Output Urine Total 02600 ml # Voids 17 # Bowel Movements 29 Exam General: Alert, Oriented X3, Cooperative, No Acute Distress Head: Normal Eyes: Scleral Anicteric Mouth: Mucous Membr Moist/[place] Neck: Supple Chest & Lungs: Chest Wall Normal, Clear to auscultation bilat Cardiovascular: Regular Rate/Rhythm Pulses: NL carotid, radial, femoral, DP, PT Abdomen: Non-tender, Non-distended, Normoactive bowel tones, Soft Extremities: No cyanosis/clubbing/edema bilat Neurological: Grossly Neurologically Intact, Normal Speech IVs and Medications Medications Reviewed: Medications were reviewed in detail Lab and Diagnostics Result Diagram: 09/12/1651409/12/16514 Microbiology Multiple blood cultures positive for MRSA. Negative starting with 08/22/16 X-Rays, CTs and MRIs X-RAY LEFT KNEE, THREE VIEWS IMPRESSION: Although no bony erosions are identified, plain film radiography is relatively insensitive in the acute phases of osteomyelitis and may not demonstrate radiographic changes for 15 days. If acute osteomyelitis is of clinical concern , nuclear medicine regional bone scan or MRI is recommended. Joint effusion. 2 cm soft tissue foreign body within the upper lower leg medially at the level of the proximal tibia shaft. Dictated by: Daniel OVALLES Interpreted: Saadia Burton MD on 08/18/2016 at 10:07 CT BRAIN WITH AND WITHOUT CONTRAST IMPRESSION: 1. No acute intracranial process. Dictated by: Victoria Galvan M.D. on 08/18/2016 at 10:43 X-RAY CHEST, TWO VIEWS IMPRESSION: No acute cardiopulmonary disease. Dictated by: Daniel OVALLES Interpreted: Saadia Burton MD on 08/18/2016 at 10:09 Cardiac Echo Impressions Interpretation Summary The left ventricle is mildly dilated. The ejection fraction is estimated to be 60-65%. There has been no significant change in LV EF since the previous study. The right ventricle is normal in size and function.There is trace tricuspid regurgitation. The right ventricular systolic pressure is estimated at 37 mmHg assuming a right atrial pressure of 15 mm Hg. The IVC is dilated (diameter is greater than 2.1 cm) and it collapses less than 50% with a sniff. This suggests a high right atrial pressure of 15 mm Hg (New). No obvious valvular vegetation seen. If clinical suspicion for endocarditis is high, consider HERMES. Assessment & Plan 36-year-old female IV drug abuser, presented with 5 days of headache, new onset knee pain and swelling, positive blood cultures for MRSA. Now under treatment for MRSA bacteremia and septic arthritis. # MRSA Bacteremia, subacute, present on admission -multiple blood cultures from this admission confirm MRSA bacteremia, sensitive to clindamycin and vancomycin. Secondary to IVDU. -Repeat blood cultures were negative on 08/22/16, 4 weeks treatment to September 18 tentative plan -appreciate ID consult. will f/u w/ recs # Clostridium Difficile Colitis, not present on admission. clinically resolved -Stool PCR positive for C Diff -post 14 days of PO Vancomycin 125 mg q 6 hours (start 08-27-16 plus 14 days = 09-10-16) # Left knee septic joint, acute, present on admission, evaluation ongoing -Joint aspirate has been collected. High amount of PMNs present in the aspirate. No polys or organisms on Gram stain, MRSA grew and the synovial fluid collected 08/24/2016 -IV antibiotics as above -Methadone 10 mg Q8, oxycodone and Tylenol for breakthrough. -Orthopedic surgery consulted, arthroscopy and washout of the knee performed. appreciate ortho consult. will f/u w/ recs -Dressing change every 48-72 hours or as needed -Follow up with Dr. Odonnell in about 2 weeks as an out paitnet (09/23/2016) # Hepatitis C, present on admission, likely chronic -HCV quantitation [id number], HCV RNA PCR log 10 4.601 -When the patient is stable as an outpatient, she should be treated for hepatitis C. -Continue to recommend hepatitis A and B vaccinations, patient will need vaccination before discharge # Acute Transaminitis. present on admission but worse on after 09/03/16. ongoing but improving - f/u repeat labs # Heart murmur, chronicity unknown, present on admission, -Was heard on previous ER visits, previously evaluated in September 2015 without any valvular abnormalities apparent, but likely represents endocarditis -HEMRES negative # Urinary tract infection, acute, present on admission, treatment completed -Urine culture from 08/12/2016 grew Escherichia coli, susceptible to ceftriaxone -Pt completed treatment with IV Rocephin # Headache, present on admission, subacute - Patient is at risk for mycotic aneurysm, ID recommended imaging - Dr. Burton of Radiology recommends starting with CT angiogram of the brain which is more sensitive for aneurysm. - CT angiogram of brain shows no evidence of mycotic aneurysm. # Restless legs -Patient is iron deficient, repletion in process -Iron and vitamin C dose increased to 3 times daily with meals -Continue Mirapex nightly 0.25 mg # Depression, not present on admission, recurrent -currently stable and under control # History of IV drug abuse -will avoid placing PICC -outpatient follow up for her substance issues -SW to give outpatient resource information -Clonidine 0.1 mg every 6 hours when necessary for withdrawal -Methadone 10 mg Q8. -per prior notes "patient understands that she does will not be able to be prescribed methadone by the hospitalist team once she is discharged. She will need to establish with a methadone clinic on her own." # Possible Foreign body left leg medially; -review with radiology, does appear to be an old broken needle -patient has used needles in this area before -area not red or tender, not bothering the patient -per earlier notes by Dr. Burgos: "discussed with ID and Ortho, group feeling is to leave the FB in place unless it is bothering the patient" # Acute Phlebitis right arm, not poa, resolved -infiltration line with vanco -IV changed Dispo: September 18 after finishing course of Abx GI Prophylaxis: Not indicated VTE Prophylaxis: Sub-Q Enoxaparin VTE Mechanical Devices: Venous Foot Pump Resuscitation Status: CPR: Attempt Resuscitation Bret Garcia Sep 12, 2016 16:05
[2016-09-12] MEDS: Ondansetron 2 mg/mL 2 mL Inj IVPUSH PRN ×2 (17:44→20:49)
--- NOTE | 2016-09-12 18:13 | PCM.PHAPRO ---
Progress Date of Service: Sep 12, 2016 Vancomycin dosing per pharmacy Indication: septic arthritis of knee, MRSA bacteremia Trough goal: 15-20 Nephrotic risks: IVDU Vancomycin maintenance dose prior to trough: 750 mg Q6H Vancomycin trough today (1530): 14.4 SCr: 0.72 Vancomycin trough has trended down since last check. SCr is trending up. Patient has been trialed on several total daily doses higher than currently and it resulted in supratherapeutic trough. As SCr is trending up slightly, will retime doses sooner to act as bolus rather than increase maintenance dose. Continue vancomycin 750 mg Q6H. Next trough has been scheduled for 09/15 @0730. Vancomycin is scheduled to continue until 09/18. Pharmacy to continue to monitor and dose vancomycin. Thank you, Jhonny Grace Pharmacist Jhonny Grace Sep 12, 2016 18:13
--- NOTE | 2016-09-12 19:33 | NUR ---
Nausea/pain Patient up ambulating in room this morning. Reporting increased pain 8/10 following activity. Patient also reporting nausea with increased pain. Pain decreased minimally with medication.
[2016-09-12 20:55] VITALS: BP 104/66; PULSE 70; RESP 18; O2SAT 100
[2016-09-13] MEDS: Sodium Chloride LOK Flush 10 mL Syringe IVFLUSH SCH ×3 (00:30→15:34)
[2016-09-13] MEDS: Vancomycin Inj 750 MG in 0.9% Sodium Chloride 250 ML IV SCH ×4 (01:46→20:52)
[2016-09-13] MEDS: cloNIDine 0.1 mg Tablet PO PRN (04:07)
--- NOTE | 2016-09-13 04:25 | NUR ---
NOC/Pain Pt complains of left leg pain. Methadone administered as scheduled. PRN oxicodone and Motrin for breakthrough pain. Denies SOB, complains of mild nausea, PRN zofran administered. HS meds administered as scheduled. IV ABx and IVF running as scheduled. VSS. Hourly rounding done.
[2016-09-13 05:38] VITALS: BP 98/52; PULSE 58; RESP 18; O2SAT 98
[2016-09-13] MEDS: Vancomycin Dose per Pharmacist XX SCH (08:30)
[2016-09-13] MEDS: Polyethylene Glycol (PEG) 17 Gm Powder PO SCH (10:40)
[2016-09-13] MEDS: Multivit-Miner-Folic Acid-Iron Tablet PO SCH (10:41)
[2016-09-13] MEDS: Pantoprazole 40 mg ER24 Tablet PO SCH ×2 (10:41→17:35)
[2016-09-13] MEDS: Ascorbic Acid 500 mg Tablet PO SCH ×3 (10:42→17:34)
[2016-09-13] MEDS: Lactobacillus Rhamnosus 10 Bil Unit Capsule PO SCH ×4 (10:42→20:51)
--- NOTE | 2016-09-13 11:19 | NUR ---
Social Work: Continued d/c planning Data: [employer] spoke with CDP from [facility] who met with pt on 09/07/16. Assessment completed. Pt declining inpt treatment for CD. CDP assisting pt with setting up outpt at [facility]. [facility] has declined to take pt. Assessment: Pt who is independent at baseline, IV drug use. Plan: Pt will d/c back to community on 09/18 post IVBAX. CDP assisting pt with setting up outpt at [facility]. [employer] will continue to follow. STEPH Mcdaniel
[2016-09-13 13:33] VITALS: BP 83/49; PULSE 62; RESP 20; O2SAT 99
[2016-09-13] MEDS: 0.9% Sodium Chloride 1,000 ML IV SCH (13:41)
[2016-09-13 13:50] VITALS: BP 92/60
--- NOTE | 2016-09-13 13:57 | NUR ---
IV Vanco Pt c/o that IV site is tender when IVF/ABO running at ordered rate. IV Vanco slowed to 75ml/hr which was highest rate pt could tolerate. Spoke with pharmacist re: timing of Vanco and necessary lower rate per pt request.
[2016-09-13] MEDS ORDERED: 0.9% Sodium Chloride 1,000 ML IV ONE (14:00)
--- NOTE | 2016-09-13 14:00 | PCM.PNMED ---
Subjective Date of Service Sep 13, 2016 Subjective denies any new issues/complaints. Exam Vital Signs Vital Sign - Last Date Time Temp Pulse Resp B/P Pulse Ox O2 Delivery O2 Flow Rate FiO2 09/13/16 13:33 37.1 62 20 83/49 99 Room Air Intake and Output 09/12/16 09/12/16 09/13/16 Cumulative From/Thru 15:00 23:00 07:00 08/18/16 00:26 - 09/13/16 06:37 Intake Total 1050 ml 1500 ml 3074 ml 038332 ml Output Total 3900 ml 3000 ml 3200 ml 799086 ml Balance -2850 ml -1500 ml -126 ml 95062 ml Intake Oral 1050 ml 1500 ml 1816 ml 41000 ml IV Total 1258 ml 10238 ml Output Urine Total 3900 ml 3000 ml 3200 ml 599357 ml # Voids 17 # Bowel Movements 0 29 Exam General: Alert, Oriented X3, Cooperative, No Acute Distress Head: Normal Eyes: Scleral Anicteric Mouth: Mucous Membr Moist/[place] Neck: Supple Chest & Lungs: Chest Wall Normal, Clear to auscultation bilat Cardiovascular: Regular Rate/Rhythm Pulses: NL carotid, radial, femoral, DP, PT Abdomen: Non-tender, Non-distended, Normoactive bowel tones, Soft Extremities: No cyanosis/clubbing/edema bilat Neurological: Grossly Neurologically Intact, Normal Speech IVs and Medications Medications Reviewed: Medications were reviewed in detail Lab and Diagnostics Result Diagram: 09/12/1651409/12/16514 Microbiology Multiple blood cultures positive for MRSA. Negative starting with 08/22/16 X-Rays, CTs and MRIs X-RAY LEFT KNEE, THREE VIEWS IMPRESSION: Although no bony erosions are identified, plain film radiography is relatively insensitive in the acute phases of osteomyelitis and may not demonstrate radiographic changes for 15 days. If acute osteomyelitis is of clinical concern , nuclear medicine regional bone scan or MRI is recommended. Joint effusion. 2 cm soft tissue foreign body within the upper lower leg medially at the level of the proximal tibia shaft. Dictated by: Daniel OVALLES Interpreted: Saadia Burton MD on 08/18/2016 at 10:07 CT BRAIN WITH AND WITHOUT CONTRAST IMPRESSION: 1. No acute intracranial process. Dictated by: Victoria Galvan M.D. on 08/18/2016 at 10:43 X-RAY CHEST, TWO VIEWS IMPRESSION: No acute cardiopulmonary disease. Dictated by: Daniel Peace RRA Interpreted: Saadia Burton MD on 08/18/2016 at 10:09 Cardiac Echo Impressions Interpretation Summary The left ventricle is mildly dilated. The ejection fraction is estimated to be 60-65%. There has been no significant change in LV EF since the previous study. The right ventricle is normal in size and function.There is trace tricuspid regurgitation. The right ventricular systolic pressure is estimated at 37 mmHg assuming a right atrial pressure of 15 mm Hg. The IVC is dilated (diameter is greater than 2.1 cm) and it collapses less than 50% with a sniff. This suggests a high right atrial pressure of 15 mm Hg (New). No obvious valvular vegetation seen. If clinical suspicion for endocarditis is high, consider HERMES. Assessment & Plan 36-year-old female IV drug abuser, presented with 5 days of headache, new onset knee pain and swelling, positive blood cultures for MRSA. Now under treatment for MRSA bacteremia and septic arthritis. # MRSA Bacteremia, subacute, present on admission -multiple blood cultures from this admission confirm MRSA bacteremia, sensitive to clindamycin and vancomycin. Secondary to IVDU. -Repeat blood cultures were negative on 08/22/16, 4 weeks treatment to September 18 tentative plan -appreciate ID consult. will f/u w/ recs # Acute hypotension, otherwise asymptomatic. not present on admission. ongoing - 1 L normal saline IV fluid and followup # Clostridium Difficile Colitis, not present on admission. clinically resolved -Stool PCR positive for C Diff -post 14 days of PO Vancomycin 125 mg q 6 hours (start 08-27-16 plus 14 days = 09-10-16) # Left knee septic joint, acute, present on admission, evaluation ongoing -Joint aspirate has been collected. High amount of PMNs present in the aspirate. No polys or organisms on Gram stain, MRSA grew and the synovial fluid collected 08/24/2016 -IV antibiotics as above -Methadone 10 mg Q8, oxycodone and Tylenol for breakthrough. -Orthopedic surgery consulted, arthroscopy and washout of the knee performed. appreciate ortho consult. will f/u w/ recs -Dressing change every 48-72 hours or as needed -Follow up with Dr. Odonnell in about 2 weeks as an out paitnet (09/23/2016) # Hepatitis C, present on admission, likely chronic -HCV quantitation [id number], HCV RNA PCR log 10 4.601 -When the patient is stable as an outpatient, she should be treated for hepatitis C. -Continue to recommend hepatitis A and B vaccinations, patient will need vaccination before discharge # Acute Transaminitis. present on admission but worse on after 09/03/16. ongoing but improving - f/u repeat labs # Heart murmur, chronicity unknown, present on admission, -Was heard on previous ER visits, previously evaluated in September 2015 without any valvular abnormalities apparent, but likely represents endocarditis -HERMES negative # Urinary tract infection, acute, present on admission, treatment completed -Urine culture from 08/12/2016 grew Escherichia coli, susceptible to ceftriaxone -Pt completed treatment with IV Rocephin # Headache, present on admission, subacute - Patient is at risk for mycotic aneurysm, ID recommended imaging - Dr. Burton of Radiology recommends starting with CT angiogram of the brain which is more sensitive for aneurysm. - CT angiogram of brain shows no evidence of mycotic aneurysm. # Restless legs -Patient is iron deficient, repletion in process -Iron and vitamin C dose increased to 3 times daily with meals -Continue Mirapex nightly 0.25 mg # Depression, not present on admission, recurrent -currently stable and under control # History of IV drug abuse -will avoid placing PICC -outpatient follow up for her substance issues -SW to give outpatient resource information -Clonidine 0.1 mg every 6 hours when necessary for withdrawal -Methadone 10 mg Q8. -per prior notes "patient understands that she does will not be able to be prescribed methadone by the hospitalist team once she is discharged. She will need to establish with a methadone clinic on her own." # Possible Foreign body left leg medially; -review with radiology, does appear to be an old broken needle -patient has used needles in this area before -area not red or tender, not bothering the patient -per earlier notes by Dr. Burgos: "discussed with ID and Ortho, group feeling is to leave the FB in place unless it is bothering the patient" # Acute Phlebitis right arm, not poa, resolved -infiltration line with vanco -IV changed Dispo: September 18 after finishing course of Abx GI Prophylaxis: Not indicated VTE Prophylaxis: Sub-Q Enoxaparin VTE Mechanical Devices: Venous Foot Pump Resuscitation Status: CPR: Attempt Resuscitation Bret Garcia Sep 13, 2016 13:59
[2016-09-13 14:10] VITALS: BP 102/60
--- NOTE | 2016-09-13 14:20 | NUR ---
BP Pt's BP low this shift, SBP 83-98, DBP 49-60. ordered a 1L NS bolus, pt refused stating she does not want "extra fluid" on board when she dc's as she is homeless "and I have no way to keep my legs elevated, it's impossible." Pt insists that her BP is always low and denies any dizziness with change in position. After using BR, pt req to have BP checked again: 102/60. cookpaged and notified of pt's refusal, MD dc'd IV bolus.
[2016-09-13] MEDS: Ondansetron 2 mg/mL 2 mL Inj IVPUSH PRN (14:50)
[2016-09-13] MEDS: hydrOXYzine Pamoate 25 mg Capsule PO PRN (15:33)
[2016-09-13 21:35] VITALS: BP 107/65; PULSE 70; RESP 18; O2SAT 97
[2016-09-14] MEDS: Sodium Chloride LOK Flush 10 mL Syringe IVFLUSH SCH ×4 (00:30→21:55)
[2016-09-14] MEDS: cloNIDine 0.1 mg Tablet PO PRN (01:03)
[2016-09-14] MEDS: Vancomycin Inj 750 MG in 0.9% Sodium Chloride 250 ML IV SCH ×4 (03:11→20:18)
[2016-09-14 06:14] VITALS: BP 88/51; PULSE 71; RESP 18; O2SAT 97
--- NOTE | 2016-09-14 07:14 | NUR ---
Pain Patient reports pain 7-8/10. given oxycodone 10mg every 4 hours per request. scheduled methadone and PRN Ibuprofen. Patient fell asleep intermittently. continues to report pain 7-8/10. no s/s of distress. patient easily awakens to voice. Ice pack placed to knee per request. will continue to monitor.
[2016-09-14] MEDS ORDERED: Vancomycin Serum Trough XX ONE (07:30)
[2016-09-14] MEDS: Vancomycin Dose per Pharmacist XX SCH (08:18)
[2016-09-14] MEDS: Ascorbic Acid 500 mg Tablet PO SCH ×3 (08:30→16:51)
[2016-09-14] MEDS: Multivit-Miner-Folic Acid-Iron Tablet PO SCH (08:30)
[2016-09-14] MEDS: Polyethylene Glycol (PEG) 17 Gm Powder PO SCH (08:30)
[2016-09-14] MEDS: Lactobacillus Rhamnosus 10 Bil Unit Capsule PO SCH ×4 (08:31→20:18)
[2016-09-14] MEDS: Pantoprazole 40 mg ER24 Tablet PO SCH ×2 (08:31→16:51)
[2016-09-14] MEDS: Ondansetron 2 mg/mL 2 mL Inj IVPUSH PRN ×2 (08:34→17:59)
--- NOTE | 2016-09-14 10:42 | PCM.PHAPRO ---
Progress VANCOMYCIN DOSING PER PHARMACY DX: MRSA Bacteremia Current dose: 750mg Q6h with 2.5hr infusion Last labs: 09/12/16 WBC: 5.4 Temp: Afebrile SCr: 0.72 (relatively stable since start of therapy 08/18/16; 0.64 @admit) Trough (09/14/16): 18 A/P: -Therapeutic through even with dose given a little over 1 hr late. On 09/13, infusion rate was decreased to 100 ml/hr due to some IV site burning as patient is volume down and refusing hydration. -With risk of accumulation given extended infusion rate, will redraw trough 09/15 @0730 -Pharmacy will continue to monitor. Jose Garner, PharmJose Leslie Sep 14, 2016 10:30
--- NOTE | 2016-09-14 12:07 | PCM.PNMED ---
Subjective Date of Service Sep 14, 2016 Subjective denies any new issues/complaints. denies any lightheadedness or dizziness. says BP always runs low and does not want any IV fluid. no events overnight. Exam Vital Signs Vital Sign - Last Date Time Temp Pulse Resp B/P Pulse Ox O2 Delivery O2 Flow Rate FiO2 09/14/16 06:14 36.4 71 18 88/51 97 Room Air Intake and Output 09/13/16 09/13/16 09/14/16 Cumulative From/Thru 15:00 23:00 07:00 08/18/16 00:26 - 09/14/16 06:36 Intake Total 1562 ml 713 ml 166905 ml Output Total 700 ml 3600 ml 882541 ml Balance 862 ml -2887 ml 8762 ml Intake Oral 1036 ml 713 ml 98381 ml IV Total 526 ml 27401 ml Output Urine Total 700 ml 3600 ml 799711 ml # Voids 17 # Bowel Movements 0 29 Exam General: Alert, Oriented X3, Cooperative, No Acute Distress Head: Normal Eyes: Scleral Anicteric Mouth: Mucous Membr Moist/[place] Neck: Supple Chest & Lungs: Chest Wall Normal, Clear to auscultation bilat Cardiovascular: Regular Rate/Rhythm Pulses: NL carotid, radial, femoral, DP, PT Abdomen: Non-tender, Non-distended, Normoactive bowel tones, Soft Extremities: No cyanosis/clubbing/edema bilat Neurological: Grossly Neurologically Intact, Normal Speech IVs and Medications Medications Reviewed: Medications were reviewed in detail Lab and Diagnostics Result Diagram: 09/12/1651409/12/16514 Microbiology Multiple blood cultures positive for MRSA. Negative starting with 08/22/16 X-Rays, CTs and MRIs X-RAY LEFT KNEE, THREE VIEWS IMPRESSION: Although no bony erosions are identified, plain film radiography is relatively insensitive in the acute phases of osteomyelitis and may not demonstrate radiographic changes for 15 days. If acute osteomyelitis is of clinical concern , nuclear medicine regional bone scan or MRI is recommended. Joint effusion. 2 cm soft tissue foreign body within the upper lower leg medially at the level of the proximal tibia shaft. Dictated by: Daniel OVALLES Interpreted: Saadia Burton MD on 08/18/2016 at 10:07 CT BRAIN WITH AND WITHOUT CONTRAST IMPRESSION: 1. No acute intracranial process. Dictated by: Victoria Galvan M.D. on 08/18/2016 at 10:43 X-RAY CHEST, TWO VIEWS IMPRESSION: No acute cardiopulmonary disease. Dictated by: Daniel Peace Jodi Interpreted: Saadia Burton MD on 08/18/2016 at 10:09 Cardiac Echo Impressions Interpretation Summary The left ventricle is mildly dilated. The ejection fraction is estimated to be 60-65%. There has been no significant change in LV EF since the previous study. The right ventricle is normal in size and function.There is trace tricuspid regurgitation. The right ventricular systolic pressure is estimated at 37 mmHg assuming a right atrial pressure of 15 mm Hg. The IVC is dilated (diameter is greater than 2.1 cm) and it collapses less than 50% with a sniff. This suggests a high right atrial pressure of 15 mm Hg (New). No obvious valvular vegetation seen. If clinical suspicion for endocarditis is high, consider HERMES. Assessment & Plan 36-year-old female IV drug abuser, presented with 5 days of headache, new onset knee pain and swelling, positive blood cultures for MRSA. Now under treatment for MRSA bacteremia and septic arthritis. # MRSA Bacteremia, subacute, present on admission -multiple blood cultures from this admission confirm MRSA bacteremia, sensitive to clindamycin and vancomycin. Secondary to IVDU. -Repeat blood cultures were negative on 08/22/16, 4 weeks treatment to September 18 tentative plan -appreciate ID consult. will f/u w/ recs # Hypotension, otherwise asymptomatic. not present on admission but according to patient is chronic issue. ongoing - followup # Clostridium Difficile Colitis, not present on admission. clinically resolved -Stool PCR positive for C Diff -post 14 days of PO Vancomycin 125 mg q 6 hours (start 08-27-16 plus 14 days = 09-10-16) # Left knee septic joint, acute, present on admission, evaluation ongoing -Joint aspirate has been collected. High amount of PMNs present in the aspirate. No polys or organisms on Gram stain, MRSA grew and the synovial fluid collected 08/24/2016 -IV antibiotics as above -Methadone 10 mg Q8, oxycodone and Tylenol for breakthrough. -Orthopedic surgery consulted, arthroscopy and washout of the knee performed. appreciate ortho consult. will f/u w/ recs -Dressing change every 48-72 hours or as needed -Follow up with Dr. Odonnell in about 2 weeks as an out patient (09/23/2016) # Hepatitis C, present on admission, likely chronic -HCV quantitation [id number], HCV RNA PCR log 10 4.601 -When the patient is stable as an outpatient, she should be treated for hepatitis C. -Continue to recommend hepatitis A and B vaccinations, patient will need vaccination before discharge # Acute Transaminitis. present on admission but worse on after 09/03/16. ongoing but improving - f/u repeat labs # Heart murmur, chronicity unknown, present on admission, -Was heard on previous ER visits, previously evaluated in September 2015 without any valvular abnormalities apparent, but likely represents endocarditis -HERMES negative # Urinary tract infection, acute, present on admission, treatment completed -Urine culture from 08/12/2016 grew Escherichia coli, susceptible to ceftriaxone -Pt completed treatment with IV Rocephin # Headache, present on admission, subacute - Patient is at risk for mycotic aneurysm, ID recommended imaging - Dr. Burton of Radiology recommends starting with CT angiogram of the brain which is more sensitive for aneurysm. - CT angiogram of brain shows no evidence of mycotic aneurysm. # Restless legs -Patient is iron deficient, repletion in process -Iron and vitamin C dose increased to 3 times daily with meals -Continue Mirapex nightly 0.25 mg # Depression, not present on admission, recurrent -currently stable and under control # History of IV drug abuse -will avoid placing PICC -outpatient follow up for her substance issues -SW to give outpatient resource information -Clonidine 0.1 mg every 6 hours when necessary for withdrawal -Methadone 10 mg Q8. -per prior notes "patient understands that she does will not be able to be prescribed methadone by the hospitalist team once she is discharged. She will need to establish with a methadone clinic on her own." # Possible Foreign body left leg medially; -review with radiology, does appear to be an old broken needle -patient has used needles in this area before -area not red or tender, not bothering the patient -per earlier notes by Dr. Burgos: "discussed with ID and Ortho, group feeling is to leave the FB in place unless it is bothering the patient" # Acute Phlebitis right arm, not poa, resolved -infiltration line with vanco -IV changed Dispo: September 18 after finishing course of Abx GI Prophylaxis: Not indicated VTE Prophylaxis: Sub-Q Enoxaparin VTE Mechanical Devices: Venous Foot Pump Resuscitation Status: CPR: Attempt Resuscitation Bret Garcia Sep 14, 2016 12:07
[2016-09-14 12:43] VITALS: BP 114/73; PULSE 75; RESP 18; O2SAT 99
--- NOTE | 2016-09-14 18:31 | NUR ---
Activity Pt up and ambulated around the velez this shift. Tolerated well.
--- NOTE | 2016-09-14 19:23 | NUR ---
Pt concerns Pt states she feels more "tired" and wants to sleep all day "which I never do." Discussed with pt how narcotics can have that effect and a plan was made to attempt to wean back on narcotics. Pt stated she would like to try alternating doses of Oxycodone with 5mg one dose and 10 mg the next time. Pt did not req PRN Oxycodone until this afternoon at which time she took 5mg. Pt did get up and amb around the unit today.
[2016-09-14] MEDS: 0.9% Sodium Chloride 1,000 ML IV SCH (20:15)
[2016-09-14] MEDS: hydrOXYzine Pamoate 25 mg Capsule PO PRN (20:22)
[2016-09-14 20:53] VITALS: BP 102/74; PULSE 63; RESP 18; O2SAT 99
--- NOTE | 2016-09-14 22:10 | PROG NOTE ---
[address] [address] PROGRESS NOTE PATIENT: LISA SOSA : 1980 MR#: [id number] ADMIT: 08/18/2016 JOB ID: [id number] DATE: 09/14/2016 REASON FOR FOLLOWUP: High-grade MRSA bacteremia with septic left knee. SUBJECTIVE: The patient reports she is gradually feeling better. She is able to walk further and further without undue pain in her left knee, though there is still little crunching and pain with sustained ambulation. No fevers, chills or sweats. She is not short of breath, has no nausea, vomiting, or diarrhea. PHYSICAL EXAMINATION: Physical exam reveals an afebrile, somewhat sleepy woman but better than prior days in terms of her alertness. Temperature 36.7, pulse 75, respiratory rate 18, blood pressure 114/73, saturating well on room air. Examination of the eyes: No conjunctival hemorrhages. Lungs quite clear. Cardiac tones with a regular rate and rhythm. No murmur. Abdomen benign. The knee is now almost entirely nontender, though there is still minimal tenderness with deep palpation right along the inferior patella, but otherwise it is really normal at this point including range of motion. LABORATORIES: Include white count of 5400, creatinine 0.72, ALT is 104 which is steadily coming down. C-reactive protein normal at 0.5. Vanco trough 18, which is excellent. She does have hep C genotype 1A. IMPRESSION: This patient continues to do well with her septic knee due to her high-grade methicillin-resistant Staphylococcus aureus bacteremia. Our plans call for continuing the vancomycin through the morning of September 18 with a discharge at that time. RECOMMENDATIONS: 1. Will continue with vanco until September 18, which is this coming Sunday. 2. Perhaps one more subtle labs could be pulled including a CRP, but at this point, I think we are heading to an uneventful conclusion hopefully. 3. I will see the patient again on Sunday the before she is discharged, but otherwise I am available by telephone if needed.
[2016-09-15] MEDS: Vancomycin Inj 750 MG in 0.9% Sodium Chloride 250 ML IV SCH ×4 (02:18→20:06)
[2016-09-15] MEDS: cloNIDine 0.1 mg Tablet PO PRN (04:46)
[2016-09-15 05:31] VITALS: BP 98/62; PULSE 64; RESP 18; O2SAT 100
--- NOTE | 2016-09-15 06:24 | NUR ---
Pain Patient reports pain 7-8/10 on her left knee. medicated with oxycodone 10mg x1. scheduled methadone and Ibuprofen. patient slept intermittently throughout the night. will continue to monitor.
[2016-09-15] MEDS ORDERED: Vancomycin Serum Trough XX ONE (07:30)
[2016-09-15 07:45] LABS: BASOPHILS % (AUTO) 0.3 % (0-3); EOSINOPHILS % (AUTO) 2.7 % (0-5); MONOCYTES % (AUTO) 8.7 % (4-12); Mean Corpuscular Hemoglobin 27.9 pg (27.0-35.0); Mean Corpuscular Volume 89.7 fL (81-100); NEUTROPHILS % (AUTO) 50.9 % (40-74); Platelet Count 314 bil/L (150-400)
[2016-09-15] MEDS: Polyethylene Glycol (PEG) 17 Gm Powder PO SCH (08:30)
[2016-09-15] MEDS: Vancomycin Dose per Pharmacist XX SCH (08:30)
[2016-09-15] MEDS ORDERED: Alum-Mag Hydrox-Simeth 30 mL Suspension PO PRN (08:35)
[2016-09-15] MEDS: 0.9% Sodium Chloride 1,000 ML IV SCH ×2 (08:54→22:55)
[2016-09-15] MEDS: Ondansetron 2 mg/mL 2 mL Inj IVPUSH PRN (09:09)
[2016-09-15] MEDS: Pantoprazole 40 mg ER24 Tablet PO SCH ×2 (09:14→18:19)
[2016-09-15] MEDS: Lactobacillus Rhamnosus 10 Bil Unit Capsule PO SCH ×4 (09:15→22:46)
[2016-09-15] MEDS: hydrOXYzine Pamoate 25 mg Capsule PO PRN ×2 (09:15→22:46)
[2016-09-15] MEDS: Multivit-Miner-Folic Acid-Iron Tablet PO SCH (09:16)
[2016-09-15] MEDS: Ascorbic Acid 500 mg Tablet PO SCH ×3 (09:17→18:19)
[2016-09-15] MEDS: Sodium Chloride LOK Flush 10 mL Syringe IVFLUSH SCH ×2 (09:18→16:30)
--- NOTE | 2016-09-15 11:52 | PCM.PHAPRO ---
Progress VANCOMYCIN DOSING PER PHARMACY DX: MRSA Bacteremia Current dose: 750mg Q6h with 2.5hr infusion. Completion of therapy: 09/18/16 Last labs: 09/15/16 WBC: 5.9 (stable) Temp: Afebrile SCr: 0.69 (relatively stable since start of therapy 08/18/16; 0.64 @admit) Trough (09/15/16@0740): 15.1 A/P: -Therapeutic trough. On 09/13, infusion rate was decreased to 100 ml/hr due to some IV site burning with patient refusing hydration. -No repeat trough currently scheduled unless renal fx suddenly declines. -Pharmacy will continue to monitor. Jose Garner, PharmJose Leslie Sep 15, 2016 11:52
--- NOTE | 2016-09-15 14:39 | NUR ---
Scheduled follow hospital appointment at residency clinic for September check in at 420 for a 430 PM appointment with . Updated [facility]
[2016-09-15 16:19] VITALS: BP 104/65; PULSE 60; RESP 18; O2SAT 99
--- NOTE | 2016-09-15 16:49 | PCM.PNMED ---
Subjective Date of Service Sep 15, 2016 Subjective denies any new issues/complaints. no events overnight. Exam Vital Signs Vital Sign - Last Date Time Temp Pulse Resp B/P Pulse Ox O2 Delivery O2 Flow Rate FiO2 09/15/16 16:19 36.7 60 18 104/65 99 Room Air Intake and Output 09/14/16 09/14/16 09/15/16 Cumulative From/Thru 15:00 23:00 07:00 08/18/16 00:26 - 09/15/16 06:30 Intake Total 1177 ml 1195 ml 1200 ml 562806 ml Output Total 700 ml 2100 ml 553217 ml Balance 1177 ml 495 ml -900 ml 9534 ml Intake Oral 400 ml 1200 ml 26479 ml IV Total 1177 ml 795 ml 49068 ml Output Urine Total 700 ml 2100 ml 539095 ml # Voids 17 # Bowel Movements 29 Exam General: Alert, Oriented X3, Cooperative, No Acute Distress Head: Normal Eyes: Scleral Anicteric Mouth: Mucous Membr Moist/[place] Neck: Supple Chest & Lungs: Chest Wall Normal, Clear to auscultation bilat Cardiovascular: Regular Rate/Rhythm Pulses: NL carotid, radial, femoral, DP, PT Abdomen: Non-tender, Non-distended, Normoactive bowel tones, Soft Extremities: No cyanosis/clubbing/edema bilat Neurological: Grossly Neurologically Intact, Normal Speech IVs and Medications Medications Reviewed: Medications were reviewed in detail Lab and Diagnostics Result Diagram: 09/15/1674009/15/16740 Microbiology Multiple blood cultures positive for MRSA. Negative starting with 08/22/16 X-Rays, CTs and MRIs X-RAY LEFT KNEE, THREE VIEWS IMPRESSION: Although no bony erosions are identified, plain film radiography is relatively insensitive in the acute phases of osteomyelitis and may not demonstrate radiographic changes for 15 days. If acute osteomyelitis is of clinical concern , nuclear medicine regional bone scan or MRI is recommended. Joint effusion. 2 cm soft tissue foreign body within the upper lower leg medially at the level of the proximal tibia shaft. Dictated by: Daniel SIMON Interpreted: Saadia Burton MD on 08/18/2016 at 10:07 CT BRAIN WITH AND WITHOUT CONTRAST IMPRESSION: 1. No acute intracranial process. Dictated by: Victoria Galvan M.D. on 08/18/2016 at 10:43 X-RAY CHEST, TWO VIEWS IMPRESSION: No acute cardiopulmonary disease. Dictated by: Daniel Peace RRA Interpreted: Saadia Burton MD on 08/18/2016 at 10:09 Cardiac Echo Impressions Interpretation Summary The left ventricle is mildly dilated. The ejection fraction is estimated to be 60-65%. There has been no significant change in LV EF since the previous study. The right ventricle is normal in size and function.There is trace tricuspid regurgitation. The right ventricular systolic pressure is estimated at 37 mmHg assuming a right atrial pressure of 15 mm Hg. The IVC is dilated (diameter is greater than 2.1 cm) and it collapses less than 50% with a sniff. This suggests a high right atrial pressure of 15 mm Hg (New). No obvious valvular vegetation seen. If clinical suspicion for endocarditis is high, consider HERMES. Assessment & Plan 36-year-old female IV drug abuser, presented with 5 days of headache, new onset knee pain and swelling, positive blood cultures for MRSA. Now under treatment for MRSA bacteremia and septic arthritis. # MRSA Bacteremia, subacute, present on admission -multiple blood cultures from this admission confirm MRSA bacteremia, sensitive to clindamycin and vancomycin. Secondary to IVDU. -Repeat blood cultures were negative on 08/22/16, 4 weeks treatment to September 18 tentative plan -appreciate ID consult. will f/u w/ recs # Hypotension, otherwise asymptomatic. not present on admission but according to patient is chronic issue. ongoing - followup # Clostridium Difficile Colitis, not present on admission. clinically resolved -Stool PCR positive for C Diff -post 14 days of PO Vancomycin 125 mg q 6 hours (start 08-27-16 plus 14 days = 09-10-16) # Left knee septic joint, acute, present on admission, evaluation ongoing -Joint aspirate has been collected. High amount of PMNs present in the aspirate. No polys or organisms on Gram stain, MRSA grew and the synovial fluid collected 08/24/2016 -IV antibiotics as above -Methadone 10 mg Q8, oxycodone and Tylenol for breakthrough. -Orthopedic surgery consulted, arthroscopy and washout of the knee performed. appreciate ortho consult. will f/u w/ recs -Dressing change every 48-72 hours or as needed -Follow up with Dr. Odonnell in about 2 weeks as an out patient (09/23/2016) # Hepatitis C, present on admission, likely chronic -HCV quantitation 05204, HCV RNA PCR log 10 4.601 -When the patient is stable as an outpatient, she should be treated for hepatitis C. -Continue to recommend hepatitis A and B vaccinations, patient will need vaccination before discharge # Acute Transaminitis. present on admission but worse on after 09/03/16. ongoing but improving - f/u repeat labs # Heart murmur, chronicity unknown, present on admission, -Was heard on previous ER visits, previously evaluated in September 2015 without any valvular abnormalities apparent, but likely represents endocarditis -HERMES negative # Urinary tract infection, acute, present on admission, treatment completed -Urine culture from 08/12/2016 grew Escherichia coli, susceptible to ceftriaxone -Pt completed treatment with IV Rocephin # Headache, present on admission, subacute - Patient is at risk for mycotic aneurysm, ID recommended imaging - Dr. Burton of Radiology recommends starting with CT angiogram of the brain which is more sensitive for aneurysm. - CT angiogram of brain shows no evidence of mycotic aneurysm. # Restless legs -Patient is iron deficient, repletion in process -Iron and vitamin C dose increased to 3 times daily with meals -Continue Mirapex nightly 0.25 mg # Depression, not present on admission, recurrent -currently stable and under control # History of IV drug abuse -will avoid placing PICC -outpatient follow up for her substance issues -SW to give outpatient resource information -Clonidine 0.1 mg every 6 hours when necessary for withdrawal -Methadone 10 mg Q8. -per prior notes "patient understands that she does will not be able to be prescribed methadone by the hospitalist team once she is discharged. She will need to establish with a methadone clinic on her own." # Possible Foreign body left leg medially; -review with radiology, does appear to be an old broken needle -patient has used needles in this area before -area not red or tender, not bothering the patient -per earlier notes by Dr. Burgos: "discussed with ID and Ortho, group feeling is to leave the FB in place unless it is bothering the patient" # Acute Phlebitis right arm, not poa, resolved -infiltration line with vanco -IV changed Dispo: September 18 after finishing course of Abx GI Prophylaxis: Not indicated VTE Prophylaxis: Sub-Q Enoxaparin VTE Mechanical Devices: Venous Foot Pump Resuscitation Status: CPR: Attempt Resuscitation Bret Garcia Sep 15, 2016 16:49
[2016-09-15 20:15] VITALS: BP 110/67; PULSE 70; RESP 18; O2SAT 98
[2016-09-16] MEDS: Sodium Chloride LOK Flush 10 mL Syringe IVFLUSH SCH ×3 (01:04→15:39)
[2016-09-16] MEDS: Ondansetron 2 mg/mL 2 mL Inj IVPUSH PRN (01:05)
[2016-09-16] MEDS: Vancomycin Inj 750 MG in 0.9% Sodium Chloride 250 ML IV SCH ×4 (02:00→21:12)
--- NOTE | 2016-09-16 03:14 | NUR ---
IV Site not available IV site painful and swollen, Vancomycin bermudez while infusing. D/C'd IV and placed call to IV therapy as prior attempts by hospital staff unsuccessful.
[2016-09-16] MEDS: cloNIDine 0.1 mg Tablet PO PRN ×2 (04:31→10:53)
[2016-09-16 05:02] VITALS: BP 116/74; PULSE 64; RESP 18; O2SAT 97
[2016-09-16] MEDS: Polyethylene Glycol (PEG) 17 Gm Powder PO SCH (08:30)
[2016-09-16] MEDS: Multivit-Miner-Folic Acid-Iron Tablet PO SCH (08:59)
[2016-09-16] MEDS: Ascorbic Acid 500 mg Tablet PO SCH ×3 (08:59→17:03)
[2016-09-16] MEDS: Pantoprazole 40 mg ER24 Tablet PO SCH ×2 (09:00→17:03)
[2016-09-16] MEDS: Lactobacillus Rhamnosus 10 Bil Unit Capsule PO SCH ×4 (09:00→21:11)
[2016-09-16] MEDS: Vancomycin Dose per Pharmacist XX SCH (09:23)
[2016-09-16] MEDS: 0.9% Sodium Chloride 1,000 ML IV SCH (12:15)
[2016-09-16 13:08] VITALS: BP 108/67; PULSE 76; RESP 16; O2SAT 98
--- NOTE | 2016-09-16 16:11 | PCM.PNMED ---
Subjective Date of Service Sep 16, 2016 Subjective denies any new issues/complaints. no events overnight. Exam Vital Signs Vital Sign - Last Date Time Temp Pulse Resp B/P Pulse Ox O2 Delivery O2 Flow Rate FiO2 09/16/16 13:08 36.9 76 16 108/67 98 Room Air Intake and Output 09/15/16 09/15/16 09/16/16 Cumulative From/Thru 15:00 23:00 07:00 08/18/16 00:26 - 09/16/16 06:01 Intake Total 2290 ml 1540 ml 233888 ml Output Total 700 ml 1600 ml 228570 ml Balance 1590 ml -60 ml 55453 ml Intake Oral 872 ml 1200 ml 35095 ml IV Total 1418 ml 340 ml 34084 ml Output Urine Total 700 ml 1600 ml 467559 ml # Voids 17 # Bowel Movements 29 Exam General: Alert, Cooperative, No Acute Distress Head: Normal Eyes: Scleral Anicteric Mouth: Mucous Membr Moist/[place] Neck: Supple Chest & Lungs: Chest Wall Normal, Clear to auscultation bilat Cardiovascular: Regular Rate/Rhythm Abdomen: Non-tender, Non-distended, Normoactive bowel tones, Soft Extremities: No cyanosis/clubbing/edema bilat Neurological: Grossly Neurologically Intact, Normal Speech IVs and Medications Medications Reviewed: Medications were reviewed in detail Lab and Diagnostics Result Diagram: 09/15/1674009/15/16740 Microbiology Multiple blood cultures positive for MRSA. Negative starting with 08/22/16 X-Rays, CTs and MRIs X-RAY LEFT KNEE, THREE VIEWS IMPRESSION: Although no bony erosions are identified, plain film radiography is relatively insensitive in the acute phases of osteomyelitis and may not demonstrate radiographic changes for 15 days. If acute osteomyelitis is of clinical concern , nuclear medicine regional bone scan or MRI is recommended. Joint effusion. 2 cm soft tissue foreign body within the upper lower leg medially at the level of the proximal tibia shaft. Dictated by: Daniel OVALLES Interpreted: Saadia Burton MD on 08/18/2016 at 10:07 CT BRAIN WITH AND WITHOUT CONTRAST IMPRESSION: 1. No acute intracranial process. Dictated by: Victoria Galvan M.D. on 08/18/2016 at 10:43 X-RAY CHEST, TWO VIEWS IMPRESSION: No acute cardiopulmonary disease. Dictated by: Daniel OVALLES Interpreted: Saadia Burton MD on 08/18/2016 at 10:09 Cardiac Echo Impressions Interpretation Summary The left ventricle is mildly dilated. The ejection fraction is estimated to be 60-65%. There has been no significant change in LV EF since the previous study. The right ventricle is normal in size and function.There is trace tricuspid regurgitation. The right ventricular systolic pressure is estimated at 37 mmHg assuming a right atrial pressure of 15 mm Hg. The IVC is dilated (diameter is greater than 2.1 cm) and it collapses less than 50% with a sniff. This suggests a high right atrial pressure of 15 mm Hg (New). No obvious valvular vegetation seen. If clinical suspicion for endocarditis is high, consider HERMES. Assessment & Plan 36-year-old female IV drug abuser, presented with 5 days of headache, new onset knee pain and swelling, positive blood cultures for MRSA. Now under treatment for MRSA bacteremia and septic arthritis. # MRSA Bacteremia, subacute, present on admission -multiple blood cultures from this admission confirm MRSA bacteremia, sensitive to clindamycin and vancomycin. Secondary to IVDU. -Repeat blood cultures were negative on 08/22/16, 4 weeks treatment to September 18 tentative plan -appreciate ID consult. will f/u w/ recs # Hypotension, otherwise asymptomatic. not present on admission but according to patient is chronic issue. improved - followup # Clostridium Difficile Colitis, not present on admission. clinically resolved -Stool PCR positive for C Diff -post 14 days of PO Vancomycin 125 mg q 6 hours (start 08-27-16 plus 14 days = 09-10-16) # Left knee septic joint, acute, present on admission, evaluation ongoing -Joint aspirate has been collected. High amount of PMNs present in the aspirate. No polys or organisms on Gram stain, MRSA grew and the synovial fluid collected 08/24/2016 -IV antibiotics as above -Methadone 10 mg Q8, oxycodone and Tylenol for breakthrough. -Orthopedic surgery consulted, arthroscopy and washout of the knee performed. appreciate ortho consult. will f/u w/ recs -Dressing change every 48-72 hours or as needed -Follow up with Dr. Odonnell in about 2 weeks as an out patient (09/23/2016) # Hepatitis C, present on admission, likely chronic -HCV quantitation [id number], HCV RNA PCR log 10 4.601 -When the patient is stable as an outpatient, she should be treated for hepatitis C. -Continue to recommend hepatitis A and B vaccinations, patient will need vaccination before discharge # Acute Transaminitis. present on admission but worse on after 09/03/16. ongoing but improving - f/u repeat labs # Heart murmur, chronicity unknown, present on admission, -Was heard on previous ER visits, previously evaluated in September 2015 without any valvular abnormalities apparent, but likely represents endocarditis -HERMES negative # Urinary tract infection, acute, present on admission, treatment completed -Urine culture from 08/12/2016 grew Escherichia coli, susceptible to ceftriaxone -Pt completed treatment with IV Rocephin # Headache, present on admission, subacute - Patient is at risk for mycotic aneurysm, ID recommended imaging - Dr. Burton of Radiology recommends starting with CT angiogram of the brain which is more sensitive for aneurysm. - CT angiogram of brain shows no evidence of mycotic aneurysm. # Restless legs -Patient is iron deficient, repletion in process -Iron and vitamin C dose increased to 3 times daily with meals -Continue Mirapex nightly 0.25 mg # Depression, not present on admission, recurrent -currently stable and under control # History of IV drug abuse -will avoid placing PICC -outpatient follow up for her substance issues -SW to give outpatient resource information -Clonidine 0.1 mg every 6 hours when necessary for withdrawal -Methadone 10 mg Q8. -per prior notes "patient understands that she does will not be able to be prescribed methadone by the hospitalist team once she is discharged. She will need to establish with a methadone clinic on her own." # Possible Foreign body left leg medially; -review with radiology, does appear to be an old broken needle -patient has used needles in this area before -area not red or tender, not bothering the patient -per earlier notes by Dr. Burgos: "discussed with ID and Ortho, group feeling is to leave the FB in place unless it is bothering the patient" # Acute Phlebitis right arm, not poa, resolved -infiltration line with vanco -IV changed Dispo: September 18 after finishing course of Abx GI Prophylaxis: Not indicated VTE Prophylaxis: Sub-Q Enoxaparin VTE Mechanical Devices: Venous Foot Pump Resuscitation Status: CPR: Attempt Resuscitation Bret Garcia Sep 16, 2016 16:11
--- NOTE | 2016-09-16 18:40 | NUR ---
Left Knee: Patient complained of "crunching" noise and feeling from left knee. Asked if Ortho was going to be in today. Explained that I did not know of any plans for Ortho to round on her today. Did hear a slight "clicking" noise of left knee. MD notified of patient concerns. No new orders as yet.
[2016-09-16 21:56] VITALS: BP 90/51; PULSE 98; RESP 18; O2SAT 96
[2016-09-17] MEDS: Sodium Chloride LOK Flush 10 mL Syringe IVFLUSH SCH ×4 (00:30→20:41)
[2016-09-17] MEDS: Vancomycin Inj 750 MG in 0.9% Sodium Chloride 250 ML IV SCH ×3 (02:41→18:16)
[2016-09-17] MEDS: 0.9% Sodium Chloride 1,000 ML IV SCH (02:41)
[2016-09-17 05:20] VITALS: BP 108/64; PULSE 86; RESP 18; O2SAT 97
--- NOTE | 2016-09-17 05:45 | NUR ---
Pain Pt reporting pain to left knee 12/11. Medicated pt with 10 mg Oxycodone. Pt resting in bed after medication admin. No further c/o pain this shift. Call light within reach, frequent rounding.
[2016-09-17] MEDS: Vancomycin Dose per Pharmacist XX SCH (08:30)
[2016-09-17] MEDS: Polyethylene Glycol (PEG) 17 Gm Powder PO SCH (08:30)
[2016-09-17] MEDS: Ondansetron 2 mg/mL 2 mL Inj IVPUSH PRN ×2 (09:00→21:14)
[2016-09-17] MEDS: Lactobacillus Rhamnosus 10 Bil Unit Capsule PO SCH ×4 (09:05→20:39)
[2016-09-17] MEDS: Pantoprazole 40 mg ER24 Tablet PO SCH ×2 (09:05→16:33)
[2016-09-17] MEDS: Ascorbic Acid 500 mg Tablet PO SCH ×3 (09:05→16:33)
[2016-09-17] MEDS: Multivit-Miner-Folic Acid-Iron Tablet PO SCH (09:05)
--- NOTE | 2016-09-17 13:20 | PCM.PNMED ---
Subjective Date of Service Sep 17, 2016 Subjective says feeling like she's retaining some fluid. asking for a diuretic no events overnight. Exam Vital Signs Vital Sign - Last Date Time Temp Pulse Resp B/P Pulse Ox O2 Delivery O2 Flow Rate FiO2 09/17/16 05:20 36.4 86 18 108/64 97 Room Air Intake and Output 09/16/16 09/16/16 09/17/16 Cumulative From/Thru 15:00 23:00 07:00 08/18/16 00:26 - 09/17/16 06:23 Intake Total 1522 ml 800 ml 623777 ml Output Total 1400 ml 1600 ml 043163 ml Balance 122 ml -800 ml 90569 ml Intake Oral 993 ml 800 ml 98345 ml IV Total 529 ml 70112 ml Output Urine Total 1400 ml 1600 ml 369327 ml # Voids 17 # Bowel Movements 0 29 Exam General: Alert, Cooperative, No Acute Distress Head: Normal Eyes: Scleral Anicteric Mouth: Mucous Membr Moist/[place] Neck: Supple Chest & Lungs: Chest Wall Normal, Clear to auscultation bilat Cardiovascular: Regular Rate/Rhythm Abdomen: Non-tender, Non-distended, Normoactive bowel tones, Soft Extremities: No cyanosis/clubbing/edema bilat Neurological: Grossly Neurologically Intact, Normal Speech IVs and Medications Medications Reviewed: Medications were reviewed in detail Lab and Diagnostics Result Diagram: 09/15/1674009/15/16740 Microbiology Multiple blood cultures positive for MRSA. Negative starting with 08/22/16 X-Rays, CTs and MRIs X-RAY LEFT KNEE, THREE VIEWS IMPRESSION: Although no bony erosions are identified, plain film radiography is relatively insensitive in the acute phases of osteomyelitis and may not demonstrate radiographic changes for 15 days. If acute osteomyelitis is of clinical concern , nuclear medicine regional bone scan or MRI is recommended. Joint effusion. 2 cm soft tissue foreign body within the upper lower leg medially at the level of the proximal tibia shaft. Dictated by: Daniel OVALLES Interpreted: Saadia Burton MD on 08/18/2016 at 10:07 CT BRAIN WITH AND WITHOUT CONTRAST IMPRESSION: 1. No acute intracranial process. Dictated by: Victoria Galvan M.D. on 08/18/2016 at 10:43 X-RAY CHEST, TWO VIEWS IMPRESSION: No acute cardiopulmonary disease. Dictated by: Daniel OVALLES Interpreted: Saadia Burton MD on 08/18/2016 at 10:09 Cardiac Echo Impressions Interpretation Summary The left ventricle is mildly dilated. The ejection fraction is estimated to be 60-65%. There has been no significant change in LV EF since the previous study. The right ventricle is normal in size and function.There is trace tricuspid regurgitation. The right ventricular systolic pressure is estimated at 37 mmHg assuming a right atrial pressure of 15 mm Hg. The IVC is dilated (diameter is greater than 2.1 cm) and it collapses less than 50% with a sniff. This suggests a high right atrial pressure of 15 mm Hg (New). No obvious valvular vegetation seen. If clinical suspicion for endocarditis is high, consider HERMES. Assessment & Plan 36-year-old female IV drug abuser, presented with 5 days of headache, new onset knee pain and swelling, positive blood cultures for MRSA. Now under treatment for MRSA bacteremia and septic arthritis. # MRSA Bacteremia, subacute, present on admission -multiple blood cultures from this admission confirm MRSA bacteremia, sensitive to clindamycin and vancomycin. Secondary to IVDU. -Repeat blood cultures were negative on 08/22/16, 4 weeks treatment to September 18 tentative plan -appreciate ID consult. will f/u w/ recs # Hypotension, otherwise asymptomatic. not present on admission but according to patient is chronic issue. improved - followup # Clostridium Difficile Colitis, not present on admission. clinically resolved -Stool PCR was positive for C Diff -post 14 days of PO Vancomycin 125 mg q 6 hours (start 08-27-16 plus 14 days = 09-10-16) # Left knee septic joint, acute, present on admission, evaluation ongoing -Joint aspirate has been collected. High amount of PMNs present in the aspirate. No polys or organisms on Gram stain, MRSA grew and the synovial fluid collected 08/24/2016 -IV antibiotics as above -Methadone 10 mg Q8, oxycodone and Tylenol for breakthrough. -Orthopedic surgery consulted, arthroscopy and washout of the knee performed. appreciate ortho consult. will f/u w/ recs -Dressing change every 48-72 hours or as needed -Followup with Dr. Odonnell on Sunday09/25/16 at 3 PM # Hepatitis C, present on admission, likely chronic -HCV quantitation [id number], HCV RNA PCR log 10 4.601 -When the patient is stable as an outpatient, she should be treated for hepatitis C. -Continue to recommend hepatitis A and B vaccinations, patient will need vaccination before discharge # Acute Transaminitis. present on admission but worse on after 09/03/16. ongoing but improving - f/u repeat labs # Heart murmur, chronicity unknown, present on admission, -Was heard on previous ER visits, previously evaluated in September 2015 without any valvular abnormalities apparent, but likely represents endocarditis -HERMES negative # Urinary tract infection, acute, present on admission, treatment completed -Urine culture from 08/12/2016 grew Escherichia coli, susceptible to ceftriaxone -Pt completed treatment with IV Rocephin # Headache, present on admission, subacute - Patient is at risk for mycotic aneurysm, ID recommended imaging - CT angiogram of brain shows no evidence of mycotic aneurysm. # Restless legs -Patient is iron deficient, repletion in process -Iron and vitamin C dose increased to 3 times daily with meals -Continue Mirapex nightly 0.25 mg # Depression, not present on admission, recurrent -currently stable and under control # History of IV drug abuse -will avoid placing PICC -outpatient follow up for her substance issues -SW to give outpatient resource information -Clonidine 0.1 mg every 6 hours when necessary for withdrawal -Methadone 10 mg Q8. -per prior notes "patient understands that she does will not be able to be prescribed methadone by the hospitalist team once she is discharged. She will need to establish with a methadone clinic on her own." # Possible Foreign body left leg medially; -review with radiology, does appear to be an old broken needle -patient has used needles in this area before -area not red or tender, not bothering the patient -per earlier notes by Dr. Burgos: "discussed with ID and Ortho, group feeling is to leave the FB in place unless it is bothering the patient" # Acute Phlebitis right arm, not poa, resolved -infiltration line with vanco -IV changed Dispo: September 18 after finishing course of Abx GI Prophylaxis: Not indicated VTE Prophylaxis: Sub-Q Enoxaparin VTE Mechanical Devices: Venous Foot Pump Resuscitation Status: CPR: Attempt Resuscitation Bret Garcia Sep 17, 2016 13:20
[2016-09-17 13:54] VITALS: BP 136/84; PULSE 78; RESP 18; O2SAT 96
[2016-09-17 20:21] VITALS: BP 117/70; PULSE 86; RESP 18; O2SAT 100
[2016-09-18] MEDS: hydrOXYzine Pamoate 25 mg Capsule PO PRN (00:47)
[2016-09-18] MEDS: Vancomycin Inj 750 MG in 0.9% Sodium Chloride 250 ML IV SCH ×2 (01:02→01:48)
[2016-09-18 04:50] VITALS: BP 114/72; PULSE 82; RESP 18; O2SAT 100
--- NOTE | 2016-09-18 06:00 | NUR ---
Pain: Pt c/o knee pain throughout most of the night -12/11; requesting PRN pain medication Q4-5 along with scheduled pain medication. Pt up walking halls during NOC shift. Denies chest pain and SOB. Awake most of the night. Pleasant and cooperative with care.
[2016-09-18 06:16] LABS: BASOPHILS % (AUTO) 0.2 % (0-3); EOSINOPHILS % (AUTO) 1.1 % (0-5); MONOCYTES % (AUTO) 4.1 % (4-12); Mean Corpuscular Volume 88.1 fL (81-100); NEUTROPHILS % (AUTO) 83.1 % (40-74); Platelet Count 261 bil/L (150-400)
[2016-09-18] MEDS: Ascorbic Acid 500 mg Tablet PO SCH ×3 (08:08→17:10)
[2016-09-18] MEDS: Lactobacillus Rhamnosus 10 Bil Unit Capsule PO SCH ×4 (08:08→21:19)
[2016-09-18] MEDS: Pantoprazole 40 mg ER24 Tablet PO SCH ×2 (08:08→17:10)
[2016-09-18] MEDS: Polyethylene Glycol (PEG) 17 Gm Powder PO SCH (08:09)
[2016-09-18] MEDS: Sodium Chloride LOK Flush 10 mL Syringe IVFLUSH SCH ×3 (08:12→21:20)
[2016-09-18] MEDS: Vancomycin Dose per Pharmacist XX SCH (08:12)
[2016-09-18] MEDS: Multivit-Miner-Folic Acid-Iron Tablet PO SCH (08:30)
[2016-09-18] MEDS ORDERED: Dalbavancin Inj 1,500 MG in Dextrose 5% 500 ML IV ONE (10:40)
--- NOTE | 2016-09-18 10:47 | PROG NOTE ---
[address] [address] PROGRESS NOTE PATIENT: LISA SOSA : 1980 MR#: [id number] ADMIT: 08/18/2016 JOB ID: [id number] DATE: 09/18/2016 REASON FOR FOLLOWUP: MRSA bacteremia with septic left knee. INTERVAL HISTORY: Today was to be the last day of the patient's four week course of IV antibiotics following her first negative blood culture. The patient had done well up until yesterday and, unfortunately, developed malaise, some nausea, some subjective fever and generalized weakness, all of which was new. She tells me that she feels like she did when she first got this bacteremic MRSA infection several weeks ago. She has no chest pain, shortness of breath or diarrhea, however. She continues to have some headaches as well as the malaise, nausea and increasing pain in the left hand. She states this pain in the left hand began within the last 36 hours or so at the site of an IV which had recently been placed. Note that the patient has declined a PICC line or central access here in the hospital, and we have been using rotating peripheral IVs for vancomycin infusion, which is a difficult undertaking. PHYSICAL EXAMINATION: Reveals an afebrile woman. Temp 37 degrees, pulse 82, respiratory rate 18, blood pressure 114/72. She is saturating 100% on room air. Examination of the mental status reveals it to be clear. Oral cavity benign. Lungs are clear. Cardiac tones regular rate and rhythm without significant murmur today. Abdomen soft and nontender. The patient's knee has little change. The patient's left hand is now dramatically different than it was prior to the weekend. Her left hand is diffusely somewhat swollen, erythematous and especially tender along the radial aspect and the base of the thumb, which is near where a peripheral IV had apparently infiltrated. LABORATORIES: Include white count which has been normal for literally weeks and now has jumped unexpectedly to 12,000. Her platelet count is 261. She has developed a left shift, suddenly has 83% segs, and that had been normal for a couple of weeks. Creatinine better than usual, 0.52. Vancomycin trough again 15. No new micro is available. We have consistently negative blood cultures now for a considerable period. IMPRESSION: We were ready to discharge this patient today, as this was the official end of her antibiotics, but she has had a bump in her white count with associated left shift as well as some generalized malaise, subjective fever, nausea and, most importantly, pain in the left hand. She clearly has a phlebitis with resultant mild cellulitis secondary to an infiltrated IV, and this is the cause of her bump in white count. RECOMMENDATIONS: 1. Will discontinue all IVs today, as she is not receiving any IV medication beyond the vancomycin. 2. Will start the patient on linezolid 600 mg p.o. 3. After attempting to start the linezolid, notice that there is a significant drug interaction with methadone. With no other simple alternative to help get the patient out of the hospital in the near future while still providing good coverage, will go ahead and give a single dose of dalbavancin 1.5 g x1, and then pull the peripheral IV. 4. Following the single dose of dalbavancin, will observe the patient overnight, repeat CBC with diff tomorrow and, if the patient's hand looks improved and her white count is okay, she can be discharged.
[2016-09-18 13:30] VITALS: BP 108/71; PULSE 81; RESP 18; O2SAT 100
--- NOTE | 2016-09-18 13:47 | PCM.PNMED ---
Subjective Date of Service Sep 18, 2016 Subjective reports redness and swelling of left hand/wrist. does report some nausea but no vomiting. Exam Vital Signs Vital Sign - Last Date Time Temp Pulse Resp B/P Pulse Ox O2 Delivery O2 Flow Rate FiO2 09/18/16 04:50 37.0 82 18 114/72 100 Room Air Intake and Output 09/17/16 09/17/16 09/18/16 Cumulative From/Thru 15:00 23:00 07:00 08/18/16 00:26 - 09/18/16 04:24 Intake Total 2372 ml 533 ml [id number] ml Output Total 1400 ml 866461 ml Balance 972 ml 533 ml 28411 ml Intake Oral 1436 ml 49096 ml IV Total 936 ml 533 ml 51193 ml Output Urine Total 1400 ml 929872 ml # Voids 17 # Bowel Movements 0 29 Exam General: Alert, Cooperative, No Acute Distress Head: Normal Eyes: Scleral Anicteric Mouth: Mucous Membr Moist/[place] Neck: Supple Chest & Lungs: Chest Wall Normal, Clear to auscultation bilat Cardiovascular: Regular Rate/Rhythm Abdomen: Non-tender, Non-distended, Normoactive bowel tones, Soft Extremities: No cyanosis/clubbing/edema bilat. left wrist and proximal forearm with mild erythema Neurological: Grossly Neurologically Intact, Normal Speech IVs and Medications Medications Reviewed: Medications were reviewed in detail Lab and Diagnostics Result Diagram: 09/18/16 0550 09/18/16 0550 Microbiology Multiple blood cultures positive for MRSA. Negative starting with 08/22/16 X-Rays, CTs and MRIs X-RAY LEFT KNEE, THREE VIEWS IMPRESSION: Although no bony erosions are identified, plain film radiography is relatively insensitive in the acute phases of osteomyelitis and may not demonstrate radiographic changes for 15 days. If acute osteomyelitis is of clinical concern , nuclear medicine regional bone scan or MRI is recommended. Joint effusion. 2 cm soft tissue foreign body within the upper lower leg medially at the level of the proximal tibia shaft. Dictated by: Daniel OVALLES Interpreted: Saadia Burton MD on 08/18/2016 at 10:07 CT BRAIN WITH AND WITHOUT CONTRAST IMPRESSION: 1. No acute intracranial process. Dictated by: Victoria Galvan M.D. on 08/18/2016 at 10:43 X-RAY CHEST, TWO VIEWS IMPRESSION: No acute cardiopulmonary disease. Dictated by: Daniel OVALLES Interpreted: Saadia Burton MD on 08/18/2016 at 10:09 Cardiac Echo Impressions Interpretation Summary The left ventricle is mildly dilated. The ejection fraction is estimated to be 60-65%. There has been no significant change in LV EF since the previous study. The right ventricle is normal in size and function.There is trace tricuspid regurgitation. The right ventricular systolic pressure is estimated at 37 mmHg assuming a right atrial pressure of 15 mm Hg. The IVC is dilated (diameter is greater than 2.1 cm) and it collapses less than 50% with a sniff. This suggests a high right atrial pressure of 15 mm Hg (New). No obvious valvular vegetation seen. If clinical suspicion for endocarditis is high, consider HERMES. Assessment & Plan 36-year-old female IV drug abuser, presented with 5 days of headache, new onset knee pain and swelling, positive blood cultures for MRSA. Now under treatment for MRSA bacteremia and septic arthritis. # Acute left hand phlebitis with resultant mild cellulitis secondary to an infiltrated IV. not present on admission. -appreciate ID consult. will f/u w/ recs -plan for a dose of Dalbavancin today -followup repeat labs in am # MRSA Bacteremia, subacute, present on admission -multiple blood cultures from this admission confirm MRSA bacteremia, sensitive to clindamycin and vancomycin. Secondary to IVDU. -Repeat blood cultures were negative on 08/22/16, 4 weeks treatment to September 18 -further plan as noted above # Hypotension, otherwise asymptomatic. not present on admission but according to patient is chronic issue. improved - followup # Clostridium Difficile Colitis, not present on admission. clinically resolved -Stool PCR was positive for C Diff -post 14 days of PO Vancomycin 125 mg q 6 hours (start 08-27-16 plus 14 days = 09-10-16) # Left knee septic joint, acute, present on admission, evaluation ongoing -Joint aspirate has been collected. High amount of PMNs present in the aspirate. No polys or organisms on Gram stain, MRSA grew and the synovial fluid collected 08/24/2016 -IV antibiotics as above -Methadone 10 mg Q8, oxycodone and Tylenol for breakthrough. -Orthopedic surgery consulted, arthroscopy and washout of the knee performed. appreciate ortho consult. will f/u w/ recs -Dressing change every 48-72 hours or as needed -Followup with Dr. Odonnell on Sunday09/25/16 at 3 PM # Hepatitis C, present on admission, likely chronic -HCV quantitation 47983, HCV RNA PCR log 10 4.601 -When the patient is stable as an outpatient, she should be treated for hepatitis C. -Continue to recommend hepatitis A and B vaccinations, patient will need vaccination before discharge # Acute Transaminitis. present on admission but worse on after 09/03/16. ongoing but improving - f/u repeat labs # Heart murmur, chronicity unknown, present on admission, -Was heard on previous ER visits, previously evaluated in September 2015 without any valvular abnormalities apparent, but likely represents endocarditis -HERMES negative # Urinary tract infection, acute, present on admission, treatment completed -Urine culture from 08/12/2016 grew Escherichia coli, susceptible to ceftriaxone -Pt completed treatment with IV Rocephin # Headache, present on admission, subacute - Patient is at risk for mycotic aneurysm, ID recommended imaging - CT angiogram of brain shows no evidence of mycotic aneurysm. # Restless legs -Patient is iron deficient, repletion in process -Iron and vitamin C dose increased to 3 times daily with meals -Continue Mirapex nightly 0.25 mg # Depression, not present on admission, recurrent -currently stable and under control # History of IV drug abuse -will avoid placing PICC -outpatient follow up for her substance issues -SW to give outpatient resource information -Clonidine 0.1 mg every 6 hours when necessary for withdrawal -Methadone 10 mg Q8. -per prior notes "patient understands that she does will not be able to be prescribed methadone by the hospitalist team once she is discharged. She will need to establish with a methadone clinic on her own." # Possible Foreign body left leg medially; -review with radiology, does appear to be an old broken needle -patient has used needles in this area before -area not red or tender, not bothering the patient -per earlier notes by Dr. Burgos: "discussed with ID and Ortho, group feeling is to leave the FB in place unless it is bothering the patient" # Acute Phlebitis right arm, not poa, resolved -infiltration line with vanco -IV changed Dispo: likely tomorrow pending improved blood work GI Prophylaxis: Not indicated VTE Prophylaxis: Sub-Q Enoxaparin VTE Mechanical Devices: Venous Foot Pump Resuscitation Status: CPR: Attempt Resuscitation Bret Garcia Sep 18, 2016 13:47
--- NOTE | 2016-09-18 14:42 | NUR ---
NUTRITION FOLLOW-UP: ASSESS: 36 YO female admitted with MRSA bacteremia related to IV drug use on IV antibiotics for septic L Knee, with today the last dose. Currently pt. with elevated white count and subsequent L hand phlebitis. PMHx: Ulcers, Left breast infection, migraines, MRSA, heart murmur, asthma, GERD, heroin, IV drug abuse. LABS: Reviewed. Alb 3.6 MEDS: Reviewed. GI: Last BM 09/10 SKIN: Left knee incision. CURRENT WT: 91.8 kg (08/18). No new wt since admit. IBW: 63.64 kg. DIET: General. PO intake 50-100% of most meals with some meal refusals. EST. NEEDS: 0534-9904 kcals (20-22 kcals/kg BW), 75-95 g protein (1.2-1.5 g/kg IBW) NUTRITION DIAGNOSIS: 1.) No nutritional diagnosis at this time. NUTRITION INTERVENTION: 1.) No nutritional intervention at this time. MONITOR / EVAL: PO intake, labs, nutritional status. Follow per low nutritional risk guidelines.
--- NOTE | 2016-09-18 16:16 | NUR ---
Social Work: Readiness for Discharge Data: pt is on day 31 of hospitalization. EMR reviewed. Per morning rounds pt is likely to be discharged tomorrow and is up and independent in the room. SW met with pt at discharge to confirm discharge plan. CDP has been meeting with the pt and is working to coordinate outpatient methadone treatment. Pt knows she can continue to connect with CDP as resource following discharge. Pt to discharge to homelessness and is aware of community resources. She requested a bus ticket at discharge and SW agreed to provide. No further needs assessed at this time. SW will continue to follow. Assessment: Pt who is independent at baseline. History of IV drug use. Plan: Pt will d/c back to community. SW will provide bus ticket at discharge. SW will continue to follow. Sanjana Jiménez MSW, SPOOL TENDER
[2016-09-18 22:01] VITALS: BP 119/73; PULSE 71; RESP 18; O2SAT 96
[2016-09-19 05:06] VITALS: BP 123/79; PULSE 94; RESP 18; O2SAT 100
[2016-09-19 05:47] LABS: BASOPHILS % (AUTO) 0.5 % (0-3); EOSINOPHILS % (AUTO) 3.6 % (0-5); MONOCYTES % (AUTO) 8.1 % (4-12); Mean Corpuscular Volume 89.3 fL (81-100); NEUTROPHILS % (AUTO) 50.1 % (40-74); Platelet Count 269 bil/L (150-400)
[2016-09-19] MEDS: Polyethylene Glycol (PEG) 17 Gm Powder PO SCH (08:30)
[2016-09-19] MEDS: Sodium Chloride LOK Flush 10 mL Syringe IVFLUSH SCH (08:30)
[2016-09-19] MEDS: Pantoprazole 40 mg ER24 Tablet PO SCH (08:52)
[2016-09-19] MEDS: Ascorbic Acid 500 mg Tablet PO SCH (08:53)
[2016-09-19] MEDS: Multivit-Miner-Folic Acid-Iron Tablet PO SCH (08:54)
[2016-09-19] MEDS: Lactobacillus Rhamnosus 10 Bil Unit Capsule PO SCH (08:59)
[2016-09-19 09:00] VITALS: RESP 20
--- NOTE | 2016-09-19 10:06 | NUR ---
Social Work: Discharge Data: pt is on day 31 of hospitalization. EMR reviewed. Per morning rounds pt will discharge today and is up and independent in the room. SW met with pt at discharge to confirm discharge plan. CDP has been meeting with the pt and is working to coordinate outpatient methadone treatment. Pt knows she can continue to connect with CDP as resource following discharge. Pt to discharge to homelessness and is aware of community resources. SW provided bus ticket as requested. No further needs assessed at this time. Assessment: Pt who is independent at baseline. History of IV drug use. Plan: Pt will d/c back to community. SW provided bus ticket. STEPH Russell
--- NOTE | 2016-09-19 10:17 | PCM.DIMED ---
Discharge Instructions Date of Service Sep 19, 2016 Dates of Hospitalization Aug 18, 2016 at 04:44 Discharge Diagnosis Discharge Diagnosis # Acute left hand phlebitis with resultant mild cellulitis secondary to an infiltrated IV. not present on admission. Resolving # MRSA Bacteremia, subacute, present on admission. Post treatment with 4 weeks of IV antibiotics. # Acute Clostridium Difficile colitis, not present on admission. Resolved. Post 14 days of treatment with oral Vancomycin. # Left knee septic joint, acute, present on admission # Hepatitis C, present on admission, likely chronic -HCV quantitation: 13067, HCV RNA PCR Log10: 4.601 -Will need further followup and treatment of Hepatitis C as outpatient. # Acute Transaminitis. Present on admission. Ongoing. # Heart murmur, chronicity unknown, present on admission. Transesophageal echocardiogram on 08/24/16 without evidence of endocarditis. # Acute E. Coli Urinary tract infection, present on admission, treatment completed # Restless legs, improved. # History of depression, stable. # History of IV drug abuse. Treated with methadone during this hospital. # Possible Foreign body left leg medially. Present on admission. Diet No restrictions Activity No restrictions Call your provider Fever or Chills, Shortness of breath, Bleeding, Chest pain, Vomitting, Excessive diarrhea Patient Instructions Seek immediate medical attention if any new or worsening signs or symptoms occur. Follow-up plan 1. Followup with orthopedic surgery (Dr. Odonnell) on Sunday09/25/16 at [address] [address] 2. Followup with primary care provider (Dr. Espinoza) [facility] on September at 4:20 PM. [facility] [address] [place] [id number] Follow-up Provider: Gabino Odonnell DO Provider: Chi Espinoza Masoud Sep 19, 2016 10:17
[2016-09-19] MEDS ORDERED: NICO1PAT6 TOPICAL (10:40)
[2016-09-19] MEDS ORDERED: OXYC5TAB72 PO (10:40)
[2016-09-19] MEDS ORDERED: IBUP-1827 PO (10:40)
--- NOTE | 2016-09-19 11:19 | PROG NOTE ---
[address] [address] PROGRESS NOTE PATIENT: LISA SOSA : 1980 MR#: [id number] ADMIT: 08/18/2016 JOB ID: [id number] DATE: 09/19/2016 REASON FOR FOLLOWUP: High-grade MRSA bacteremia, septic left knee, phlebitis left hand. INTERVAL HISTORY: Recall that yesterday, we were preparing to discharge the patient at the end of her four weeks of therapy for high-grade MRSA bacteremia and left septic knee. Unfortunately, she noted the acute onset of severe pain starting from a peripheral IV that had been present on the left hand and this was associated with malaise, subjective fever and more objectively associated with a new leukocytosis. Dr. Garcia and I discussed the case, and decided to cancel her discharge at that point, and instead, give her one dose of dalbavancin for possible phlebitis in the hand, as well as repeat her labs today before deciding whether or not she was ready for discharge. Overnight, the patient says she is gradually improved and now feels great. She still has some minimal tenderness at the site of the prior IV in the left dorsal hand just proximal to the thumb, but she says that is much improved. She has had no fevers, no chills. No sweats. No cough. No chest pain, nausea, vomiting, diarrhea. Her malaise is lifted and she feels fine except for some minimal and slowly improving pain in the left knee. PHYSICAL EXAMINATION: Reveals an afebrile woman. Temperature 36.8, blood pressure 123/79, pulse 94, respiratory rate 18, saturating 100% on room air. Oral cavity is negative. Lungs clear. Cardiac tones without significant murmur. Abdomen benign. Left knee has full range of motion at this point. No erythema, just some minimal tenderness along the inferior aspect of the patella. The left hand shows some minimal erythema around that area that I previously mentioned just proximal to the thumb on the dorsal aspect. There is no tracking phlebitis and no purulence. LABORATORIES: Include white count which has dropped back to 6600, totally normal diff. Creatinine 0.61. LFTs continue to bounce around as the patient has hepatitis C. Her ALT is currently 172. CRP is 2.2, but I think this is a reaction just to what happened in the last day or two in the hand, and I am not concerned about from an overall point of view. It had previously been normal. Urinalysis without white cells. IMPRESSION: This patient has now finished a full four weeks of IV vancomycin for high-grade methicillin-resistant Staphylococcus aureus bacteremia as well as her septic left knee. We also gave her yesterday a dose of dalbavancin because of concerns about the phlebitis in the left hand which had arisen as result of peripheral IV being used for vancomycin infusions. This dalbavancin is probably not a bad idea on other grounds as well, even though it is quite expensive. It will provide her with an additional two weeks of IV therapy for high-grade methicillin-resistant Staphylococcus aureus bacteremia and her septic knee, which I think is reasonable. Note this patient does have hepatitis C, and she is seronegative for both hep A and B. She will require Twinrix combination hep A, hep B vaccine at some point, but I was unable to provide the first dose here in the hospital. She should avail herself of this vaccine at an outpatient visit as soon as is feasible. Also note the patient is headed for a drug rehabilitation clinic and methadone replacement therapy starting , and she was commended for this action. RECOMMENDATIONS: 1. The patient can be discharged today. 2. She will be following up with Orthopedics next week. 3. The patient should be vaccinated for hepatitis A and B, and receive care for hepatitis C at some point in the not too distant future. 4. ID will be signing off this case. Discussed personally with the nurse as well as Dr. Garcia.
--- NOTE | 2016-09-19 11:20 | NUR ---
Security Security called to unlock cabinet as patient is discharging.
--- NOTE | 2016-09-19 11:30 | NUR ---
Discharge Discharge instructions and medication scripts given to patient. Patient verbalized understanding and denies any questions. IV discontinued earlier. All belongings given to patient after security opened locked cabinet. Patient discarded dirty needles into sharps container that RN brought in room and took out after patient finished. Denies any further questions or needs. Bus pass given by social work.
--- NOTE | 2016-09-19 16:28 | PCM.DC.MED ---
Discharge Summary Date of Service Sep 19, 2016 Dates of Hospitalization Date of Hospital Admission Aug 18, 2016 at 04:44 Date of Discharge: Sep 19, 2016 Providers: Admitting Physician: Isis Mckeon DO Primary Care Physician: Nikki Attending Physician: Isis Mckeon DO Diagnosis at Time of Discharge Diagnosis at Time of Discharge # Acute left hand phlebitis with resultant mild cellulitis secondary to an infiltrated IV. not present on admission. Resolving # MRSA Bacteremia, subacute, present on admission. Post treatment with 4 weeks of IV antibiotics. # Acute Clostridium Difficile colitis, not present on admission. Resolved. Post 14 days of treatment with oral Vancomycin. # Left knee septic joint, acute, present on admission # Hepatitis C, present on admission, likely chronic -HCV quantitation: [id number], HCV RNA PCR Log10: 4.601 -Will need further followup and treatment of Hepatitis C as outpatient. # Acute Transaminitis. Present on admission. Ongoing. # Heart murmur, chronicity unknown, present on admission. Transesophageal echocardiogram on 08/24/16 without evidence of endocarditis. # Acute E. Coli Urinary tract infection, present on admission, treatment completed # Restless legs, improved. # History of depression, stable. # History of IV drug abuse. Treated with methadone during this hospital. # Possible Foreign body left leg medially. Present on admission. Consultations 1. ID (Dr. Moore) 2. Ortho (Dr. Odonnell) 3. GI Procedures XRay, CTs & MRIs X-RAY LEFT KNEE, THREE VIEWS IMPRESSION: Although no bony erosions are identified, plain film radiography is relatively insensitive in the acute phases of osteomyelitis and may not demonstrate radiographic changes for 15 days. If acute osteomyelitis is of clinical concern , nuclear medicine regional bone scan or MRI is recommended. Joint effusion. 2 cm soft tissue foreign body within the upper lower leg medially at the level of the proximal tibia shaft. Dictated by: Daniel OVALLES Interpreted: Saadia Burton MD on 08/18/2016 at 10:07 CT BRAIN WITH AND WITHOUT CONTRAST IMPRESSION: 1. No acute intracranial process. Dictated by: Victoria Galvan M.D. on 08/18/2016 at 10:43 X-RAY CHEST, TWO VIEWS IMPRESSION: No acute cardiopulmonary disease. Dictated by: Daniel OVALLES Interpreted: Saadia Burton MD on 08/18/2016 at 10:09 Date of Service: 08/23/16 1232 PROCEDURE: CT ANGIOGRAPHY OF THE BRAIN WITH AND WITHOUT CONTRAST ([id number]) IMPRESSION: Negative CT angiography of the head. No evidence of aneurysm. Dictated by: Linda Haider M.D. on 08/23/2016 at 16:12 Approved by: Linda Haider M.D. on 08/23/2016 at 16:25 Cardiac Echo Impression Interpretation Summary The left ventricle is mildly dilated. The ejection fraction is estimated to be 60-65%. There has been no significant change in LV EF since the previous study. The right ventricle is normal in size and function.There is trace tricuspid regurgitation. The right ventricular systolic pressure is estimated at 37 mmHg assuming a right atrial pressure of 15 mm Hg. The IVC is dilated (diameter is greater than 2.1 cm) and it collapses less than 50% with a sniff. This suggests a high right atrial pressure of 15 mm Hg (New). No obvious valvular vegetation seen. If clinical suspicion for endocarditis is high, consider HERMES. Date of Service: 08/24/16 1427 Echocardiogram Report Interpretation Summary 1. Grossly normal left ventricular size and systolic function. 2. Normal right ventricular size and systolic function. 3. With the views obtained, no valvular vegetations were appreciated Reading Physician:06:18 PM Brief History 36-year-old female IV drug abuser, presented with 5 days of headache, new onset knee pain and swelling, positive blood cultures for MRSA. Now under treatment for MRSA bacteremia and septic arthritis. Hospital Course # Acute left hand phlebitis with resultant mild cellulitis secondary to an infiltrated IV. not present on admission. Improved -appreciate ID consult. will f/u w/ recs -received a dose of Dalbavancin on 09/18/16 # MRSA Bacteremia, subacute, present on admission -multiple blood cultures from this admission confirm MRSA bacteremia, sensitive to clindamycin and vancomycin. Secondary to IVDU. -Repeat blood cultures were negative on 08/22/16, 4 weeks treatment with IV Vanco to September 18 # Hypotension, otherwise asymptomatic. not present on admission but according to patient is chronic issue. improved # Clostridium Difficile Colitis, not present on admission. clinically resolved -Stool PCR was positive for C Diff -post 14 days of PO Vancomycin 125 mg q 6 hours (start 08-27-16 plus 14 days = 09-10-16) # Left knee septic joint, acute, present on admission, evaluation ongoing -Joint aspirate has been collected. High amount of PMNs present in the aspirate. No polys or organisms on Gram stain, MRSA grew and the synovial fluid collected 08/24/2016 -IV antibiotics as above -Methadone 10 mg Q8, oxycodone and Tylenol for breakthrough. -Orthopedic surgery consulted, arthroscopy and washout of the knee performed. appreciate ortho consult. will f/u w/ recs -Dressing change every 48-72 hours or as needed -Followup with Dr. Odonnell on Sunday09/25/16 at 3 PM # Hepatitis C, present on admission, likely chronic -HCV quantitation [id number], HCV RNA PCR log 10 4.601 -When the patient is stable as an outpatient, she should be treated for hepatitis C. # Acute Transaminitis. present on admission but worse on after 09/03/16. ongoing but improving # Heart murmur, chronicity unknown, present on admission, -Was heard on previous ER visits, previously evaluated in September 2015 without any valvular abnormalities apparent, but likely represents endocarditis -HERMES negative # Urinary tract infection, acute, present on admission, treatment completed -Urine culture from 08/12/2016 grew Escherichia coli, susceptible to ceftriaxone -Pt completed treatment with IV Rocephin # Headache, present on admission, subacute - CT angiogram of brain shows no evidence of mycotic aneurysm. # Restless legs. resolved -Patient is iron deficient, repletion in process during this hospital # Depression, not present on admission, recurrent -currently stable and under control # History of IV drug abuse -outpatient follow up for her substance issues - provided outpatient resource information -Clonidine 0.1 mg every 6 hours when necessary for withdrawal -Methadone 10 mg Q8 during this hospital and patient plans to follow at Methadone clinic day after discharge # Possible Foreign body left leg medially; -review with radiology, does appear to be an old broken needle -patient has used needles in this area before -area not red or tender, not bothering the patient -per earlier notes by Dr. Burgos: "discussed with ID and Ortho, group feeling is to leave the FB in place unless it is bothering the patient" by day of discharge lungs CTA bilat. Left knee with noted full range of motion without significant erythema or warmth. Exam Vital Signs (Last) Date Time Temp Pulse Resp B/P Pulse Ox O2 Delivery O2 Flow Rate FiO2 09/19/16 09:00 20 09/19/16 05:06 36.8 94 123/79 100 Room Air Test 08/18/16 02:55 08/18/16 05:15 08/18/16 18:50 08/20/16 04:50 Erythrocyte Sedimentation Rate 76mm/hr (0-32) Prothrombin Time 11.0sec (8.1-12.5) Prothromb Time International Ratio 1.03ratio Activated Partial Thromboplast Time 28.9sec (22.8-33.0) Hemoglobin A1c 5.8% (4.8-5.6) Lactic Acid Level 1.9mmol/L (0.4-2.0) Phosphorus Level 2.0mg/dL (2.5-4.9) Iron Level 24ug/dL (35-150) Total Iron Binding Capacity 321ug/dL (250-450) Percent Iron Saturation 7%sat (15-50) Unsaturated Iron Binding 297.1ug/dL Troponin T 0.010ug/L (0.0-0.011) Pro-B-Type Natriuretic Peptide 8.10pg/mL (0-130) Lipase 16U/L (13-60) Body Fluid Total Protein 2.8g/dL Hold Purple Top Tube Received (Received) Hold Sullivan Top Tube Received (Received) Hold Negro Top Tube Received (Received) HCG Beta Subunit < 0.500mIU/mL Test 08/21/16 07:20 08/21/16 13:42 08/23/16 16:20 08/24/16 13:30 Procalcitonin 0.05ng/mL (0.00-0.08) Urine Color Straw (YELLOW) Urine Appearance Hazy (CLEAR,HAZY) Urine pH 7.0 (5.0-8.0) Urine Specific Sharon 1.020 (1.003-1.035) Urine Protein Negativemg/dL (NEG,TRACE) Urine Glucose (UA) Negativemg/dL (NEGATIVE) Urine Ketones Negativemg/dL (NEGATIVE) Urine Occult Blood Negative (NEGATIVE) Urine Nitrite Negative (NEGATIVE) Urine Bilirubin Negative (NEGATIVE) Urine Urobilinogen Normalmg/dL (NORMAL) Urine Leukocyte Esterase Negative (NEGATIVE) Urine RBC 0-2/hpf (0-2) Urine WBC 0-5/hpf (0-5) Urine Epithelial Cells Occasional/hpf (NONE-MOD) Urine Crystals None seen (NONE SEEN) Urine Bacteria Few/hpf (NONE-FEW) Urine Hyaline Casts None/lpf (NONE) Urine Granular Casts None seen (NONE SEEN) Urine Waxy Casts None seen (NONE SEEN) Urine Red Blood Cell Casts None seen (NONE SEEN) Urine White Blood Cell Casts None seen (NONE SEEN) Urine Mucus Present (None Seen) Urine Trichomonas None seen (NONE SEEN) Urine Yeast None (NONE SEEN) Urinalysis Comment None Urine Culture Reflexed Not indicated Hepatitis C Virus Quantitation [id number]/mL (.) Hepatitis C RNA (PCR) log10 4.601 (.) Hepatitis C Genotype 1a (.) Hepatitis C Genotype Comment Comment (.) Hepatitis C Comment Comment (.) Body Fluid Source Synovial fluid Body Fluid Color Straw (Clear) Body Fluid Appearance Turbid Body Fluid WBC 13509/mm3 Body Fluid RBC 1850/mm3 Body Fluid Polynuclear WBCs 91% Body Fluid Lymphocytes 6% Body Fluid Monocytes 3% Body Fluid Eosinophils 0% Body Fluid Basophils 0% Test 08/25/16 05:35 09/02/16 07:45 09/04/16 22:40 09/12/16 05:15 Vitamin B12 Level 302pg/mL (211-946) Folate 10.8ng/mL (>3.0) Hepatitis A Antibody Total Negative (Negative) Hepatitis B Surface Antibody Non reactive (.) Hepatitis B Core Total Antibody Negative (Negative) Urine Opiates Screen Negative Urine Methadone Screen Negative Urine Barbiturates Screen Negative Urine Amphetamines Screen Negative Urine Benzodiazepines Screen Negative Urine Cocaine Metabolite Screen Negative Urine Cannabinoids Screen Negative Magnesium Level 1.8mg/dL (1.6-2.6) Test 09/13/16 15:20 09/15/16 07:41 09/19/16 05:24 Hold Red Top Tube Received (Received) Vancomycin Level Trough 15.1mcg/mL White Blood Count 6.6th/mm3 (3.8-10.1) Red Blood Count 4.10mil/mm3 (3.90-5.20) Hemoglobin 11.5g/dL (12.0-15.6) Hematocrit 36.6% (35.0-46.0) Mean Corpuscular Volume 89.3fL (81-100) Mean Corpuscular Hemoglobin 28.0pg (27.0-35.0) Mean Corpuscular Hemoglobin Concent 31.4% (32.0-37.0) Red Cell Distribution Width 15.3% (12.3-15.4) Platelet Count 269bil/L (150-400) Neutrophils (%) (Auto) 50.1% (40-74) Lymphocytes (%) (Auto) 37.4% (14-46) Monocytes (%) (Auto) 8.1% (4-12) Eosinophils (%) (Auto) 3.6% (0-5) Basophils (%) (Auto) 0.5% (0-3) Sodium Level 140mEq/L (134-144) Potassium Level 4.4mEq/L (3.5-5.2) Chloride Level 101mEq/L (97-108) Carbon Dioxide Level 22mmol/L (18-29) Blood Urea Nitrogen 16mg/dL (6-20) Creatinine 0.61mg/dL (0.57-1.00) Estimat Glomerular Filtration Rate 161mL/min (>59) Glucose Level 89mg/dL (60-99) Calcium Level 9.5mg/dL (8.5-10.1) Total Bilirubin 0.3mg/dL (0.0-1.2) Aspartate Amino Transf (AST/SGOT) 124U/L (0-50) Alanine Aminotransferase (ALT/SGPT) 172U/L (0-32) Alkaline Phosphatase 77U/L (25-150) C-Reactive Protein 2.2mg/dL (0.0-0.5) Total Protein 8.4g/dL (6.4-8.4) Albumin 3.9g/dL (3.4-5.0) Microbiology Results Multiple blood cultures positive for MRSA. Negative starting with 08/22/16 Discharge Medications As needed Albuterol Sulfate (Ventolin HFA Inhaler) 200 Puff/18 Gm Inhaler 1 PUFF INH Q4 PRN PRN For Wheezing okay to sub for pro-air as covered by insurance Prescribed by: JAENSSA AN DO Ibuprofen (Ibuprofen) 600 Mg Tablet 600 MG PO TIDWM PRN PRN For Pain Prescribed by: AGNES GREGORIO MD Nicotine 21 mg/24 hr Patch (Nicotine 21 mg/24 hr Patch) 1 Each Patch.td24 1 PATCH TOPICAL DAILY PRN PRN smoking Prescribed by: AGNES GREGORIO MD oxyCODONE (oxyCODONE) 5 Mg Tablet 5 MG PO Q4H PRN PRN For Severe Pain Prescribed by: AGNES GREGORIO MD Followup Plan Disposition: Home Follow-up plan 1. Followup with orthopedic surgery (Dr. Odonnell) on Sunday09/25/16 at [address] [address] 2. Followup with primary care provider (Dr. Espinoza) [facility] on [facility] at 4:20 PM. [facility] [address] [address] Discharge Diet: No restrictions Discharge Activity: No restrictions Patient Instructions Seek immediate medical attention if any new or worsening signs or symptoms occur. Follow-up Provider: Gabino Odonnell DO Provider: Chi Espinoza Time spent 35 min copies to: Gabino Odonnell DO; Chi Espinoza Masoud Sep 19, 2016 16:28
== END 2016-09-19 12:06 | disposition home or self-care (01) | DRG 710 ==
LOC: SED 00:12 → MPC 04:44
PROVIDERS: ADMIT Internal Medicine; ATTEND Internal Medicine
PROC: 0S9D3ZX Drainage of Left Knee Joint, Percutaneous Approach, Diagnostic (ICD-10-PCS; principal; 2016-08-18)
PROC: 0DB68ZX Excision of Stomach, Via Natural or Artificial Opening Endoscopic, Diagnostic (ICD-10-PCS; 2016-08-22)
PROC: B24BZZ4 Ultrasonography of Heart with Aorta, Transesophageal (ICD-10-PCS; 2016-08-24)
PROC: 0S9D3ZX Drainage of Left Knee Joint, Percutaneous Approach, Diagnostic (ICD-10-PCS; 2016-08-24)
PROC: 0JDP3ZZ Extraction of Left Lower Leg Subcutaneous Tissue and Fascia, Percutaneous Approach (ICD-10-PCS; 2016-08-25)
DX: A41.02 Sepsis due to Methicillin resistant Staphylococcus aureus (principal); M00.062 Staphylococcal arthritis, left knee; A04.7 Enterocolitis due to Clostridium difficile; F11.20 Opioid dependence, uncomplicated; E87.5 Hyperkalemia; I80.8 Phlebitis and thrombophlebitis of other sites; N39.0 Urinary tract infection, site not specified; T80.1XXA Vascular complications following infusion, transfusion and therapeutic injection, initial encounter; B95.62 Methicillin resistant Staphylococcus aureus infection as the cause of diseases classified elsewhere; F17.210 Nicotine dependence, cigarettes, uncomplicated; R51 Headache; J45.909 Unspecified asthma, uncomplicated; K21.9 Gastro-esophageal reflux disease without esophagitis; Z59.0 Homelessness; R73.9 Hyperglycemia, unspecified; D64.9 Anemia, unspecified; K29.70 Gastritis, unspecified, without bleeding; R01.1 Cardiac murmur, unspecified; B18.2 Chronic viral hepatitis C; M79.5 Residual foreign body in soft tissue; B96.20 Unspecified Escherichia coli [E. coli] as the cause of diseases classified elsewhere